=== PATIENT | male | born 1950 | race Caucasian/White ===

== ENCOUNTER → 2016-05-03 | Outpatient (CLI) | payer BC ==
[2016-05-03 12:29] LABS: URINE APPEARANCE CLEAR (CLEAR); URINE BILIRUBIN NEG (NEG); URINE COLOR YELLOW; URINE EPITHELIAL CELL AUTO 0-5 /lpf (0-5); URINE NITRITE NEG (NEG); URINE PH 5.5 (4.5-7.5); URINE SPECIFIC GRAVITY 1.019 (1.000-1.030); UROBILINOGEN NEG (NEG); ZZUR CULT IF INDIC CLEAN CATCH NO
[2016-05-03 12:42] LABS: MANUAL MICROSCOPIC REQUIRED? NO; REVIEW REQ? NO
[2016-05-03 12:43] LABS: ESTIMATED AVERAGE GLUCOSE 91 mg/dl; HA1C FLAG Normal (Normal)
[2016-05-03 12:47] LABS: PROSTATE SPECIFIC ANTIGEN 1.56 ng/ml (0.000-4.000); THYROID STIMULATING HORMONE 1.22 uIu/ml (0.300-4.500)
--- NOTE | 2016-05-08 06:36 | CODING QUERY MEDICAL NECESSITY ---
SUPPORTING DIAGNOSIS NEEDED A supporting diagnosis is required for the test/procedure performed on this patient in order for us to be reimbursed by the patient's insurance. Please provide a supporting diagnosis for the following test/procedure listed below next to the test name along with your signature. *If there is no additional diagnosis for this patient that would support the following test/procedure please document that below next to the test/procedure. Test(s)/Procedure(s) that require a supporting diagnosis: DOS 05/03 * PSA DIAGNOSIS: Provider Signature: Date: Thank you Jackie August [facility] Information Management Once completed, please kindly fax back to [phone] For questions please call [phone]
== END | disposition home or self-care (01) ==
LOC: C.LABBFT 10:48
PROVIDERS: ATTEND Internal Medicine
DX: R73.09 Other abnormal glucose (principal); R39.9 Unspecified symptoms and signs involving the genitourinary system; E78.5 Hyperlipidemia, unspecified; N52.9 Male erectile dysfunction, unspecified; R73.01 Impaired fasting glucose; Z12.5 Encounter for screening for malignant neoplasm of prostate

== ENCOUNTER → 2017-07-05 | Outpatient (CLI) | payer BC ==
[2017-07-05 12:30] LABS: ALBUMIN 4.2 gm/dl (3.4-5.0); ALT/SGPT 26 U/L (12-78); AST/SGOT 18 U/L (15-37); BLOOD UREA NITROGEN 10 mg/dl (7-18); CALCIUM 8.7 mg/dl (8.5-10.1); CARBON DIOXIDE 24 mmol/L (21-32); CHOLESTEROL 189 mg/dl (0-200); GLUCOSE 100 mg/dl (70-99); POTASSIUM 3.7 mmol/L (3.5-5.1); SODIUM 137 mmol/L (136-145)
[2017-07-05 12:35] LABS: ALKALINE PHOSPHATASE 73 U/L (45-117); LDL CHOLESTEROL CALCULATED 122 mg/dl
== END | disposition home or self-care (01) ==
LOC: C.LABBFT 09:04
PROVIDERS: ATTEND Internal Medicine
DX: Z00.00 Encounter for general adult medical examination without abnormal findings (principal); Z12.5 Encounter for screening for malignant neoplasm of prostate; E78.5 Hyperlipidemia, unspecified; I65.29 Occlusion and stenosis of unspecified carotid artery; N52.9 Male erectile dysfunction, unspecified

== ENCOUNTER 2020-12-27 09:52 | Inpatient (IN) ==
[2020-12-27] MEDS ORDERED: dexAMETHasone**PF** 10 MG/ML VIAL IV ONE (10:01)
--- NOTE | 2020-12-27 10:29 | Emergency Department Note ---
Impression & Plan 2019 novel coronavirus-infected pneumonia (NCIP), Hypoxia ED Provider Note Provider: Arun Braun MD DATE OF SERVICE: 12/27/2020 CHIEF COMPLAINT: Hypoxia HISTORY OF PRESENT ILLNESS: Patient is a 70-year-old gentleman not vaccinated for Covid who reportedly tested positive just over 3 weeks ago (symptoms again around December 08) for Covid presenting today referred from the outpatient o ffice due to hypoxia. Seen multiple times here in the ER for initially some nausea complaints developing into some respiratory complaints. Patient states his nausea has resolved and he has been hydrating well. Reports a bit of pressure in his central chest of some coming and going the last several days. Followed up with his outpatient doctor today and was noted to be hypoxic on room air and placed on oxygen and sent here for further care. Was seen here in the ER 3 days ago and had a work-up including CTA of the chest without evidence of PE. Patient has been since that time on a short burst of steroid after initial dose of dexamethasone on the . Patient states he felt better the initial day or so but worsened the last day or 2 and feels very fatigued walking around. No syncope reported. His is reported to doing well at home. Denies any significant diarrhea at this time. States the diarrhea and fevers of earlier have resolved. REVIEW OF SYSTEMS: A total of 10 review of systems was obtained and negative except as stated above in the HPI. PAST MEDICAL HISTORY: As noted above MEDICATIONS: Reviewed home medications SOCIAL HISTORY: Lives at home with PHYSICAL EXAM: GENERAL: alert and oriented in no acute distress on stretcher Head: normocephalic and atraumatic EYES: No injection, discharge or icterus. NECK: Trachea midline. LUNGS: Airway patent. No retractions with mild tachypnea HEART: Regular tachycardic rate and rhythm. No chest wall tenderness ABDOMEN: Soft and non-tender, without guarding or rebound. SKIN: Acyanotic, warm, dry, without rashes EXTREMITIES: Without swelling, tenderness or deformity NEUROLOGICAL: No focal deficits. No aphasia. No facial droop or slurred speech. Ambulatory. EK bpm sinus tachycardia. No PVC or PAC. No acute ST segment elevation or depression. QTC 470. CONTINUOUS CARDIAC MONITORING: was ordered and showed a heart rate of 90s to 120s bpm in normal sinus rhythm to sinus tachycardia Patient's laboratory studies and imaging reviewed. Differential includes Reactive airway disease, pneumonia, pneumothorax, COPD, CHF, infections, cardiac ischemia, pulmonary embolism, musculoskeletal, gastrointestinal, as well as other pathologies. IMPRESSION/MEDICAL DECISION MAKING: Patient somewhat recently Covid positive now with respiratory symptoms and hypoxia. 3 days ago had a negative CT of the chest and no feel the need to repeat at this time; minimal oxygen requirement at this point and really only needed with exertion. Basic labs and EKG were obtained. Patient initially had nausea and vomiting symptoms that he states have resolved at this time. Given a dose of dexamethasone here with his mild hypoxia. Chest x-ray obtained as well. Mild leukocytosis of 11.19. Mild transaminitis. Continues to test Covid positive. Negative urinalysis. No elevated troponin. Lower suspicion for bacterial component given the clinical history and Procalcitonin not significantly elevated thus will defer antibiotics at this point. Patient will need further care at the hospital given significant fatigue and hypoxia. Patient updated as well as the hospitalist team. DIAGNOSIS: COVID-19, hypoxia DISPOSITION: Hospitalist will evaluate Patient was agreeable with this plan. Past Med/Surg History Medical History Basal cell carcinoma of right ear BPH (benign prostatic hyperplasia) Hyperlipidemia Hypertension Surgical History History of colonoscopy with polypectomy History of tonsillectomy History of wisdom tooth extraction Status post Mohs surgery for basal cell carcinoma Family History Father Acute myocardial infarction Mother Breast cancer Other Myocardial infarction No family history of adverse response to anesthesia Denies family history of Ovarian cancer Prostate cancer Colorectal cancer Social History Smoking Status: Never smoker Age Started Using Tobacco: 18; Age Quit Using Tobacco: 27; packs per day: 1; Years Smoked: 9; Cigarettes Per Day: 20; Number of Years Since Quit: 12; Second Hand Exposure: No; Hx Alcohol Use: Yes Alcohol type: wine Hx Substance Use: No Preferred Language: Kazakh Communication Ability: Effective Visual Impairment: No Limitations Hearing Ability: Normal 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 Required: No Beliefs That Will Affect Care: None Current Living Situation: Spouse Feels Safe at Home: Yes Childhood Exposure to Second-Hand Smoke: Yes Dental Care, Regularly: Yes Physical Activity Frequency: Daily Seatbelt Use: always Assistive Devices: Glasses Allergies Allergies Allergy/AdvReac Type Severity Reaction Status Date / Time sulfamethoxazole Allergy Unknown Unknown Verified 12/27/20 11:04 [From Bactrim] trimethoprim [From Bactrim] Allergy Unknown Unknown Verified 12/27/20 11:04 Home Meds Home Medications Medication Instructions Recorded Confirmed avwvohot-dyg-cheqm acid 300 1 tab PO WK 03/19/19 12/27/20 mcg-lycopene 600 mcg-lutein 300 mcg tablet (Men 50 Plus Multivitamin) aspirin 81 mg tablet,delayed 81 mg PO 3XWK tab 01/15/20 12/27/20 release (Aspirin Low Dose) psyllium husk 3.4 gram/5.4 gram 3 tsp PO DAILY PRN g 06/29/20 12/27/20 oral powder (Metamucil) losartan 50 mg-hydrochlorothiazide 1 tab PO QAM 12/18/20 12/27/20 12.5 mg tablet (Hyzaar) rosuvastatin 20 mg tablet (Crestor) 20 mg PO QDL 12/18/20 12/27/20 Previous Rx's Medication Instructions Recorded ondansetron 4 mg disintegrating 4 mg PO Q8H PRN #10 tab 12/18/20 tablet potassium chloride 20 mEq 20 meq PO DAILY #10 tab 12/20/20 tablet,extended release (K-Tab) albuterol sulfate 90 mcg/actuation 2 inh INHALATION Q6H PRN #8.5 g 12/24/20 aerosol inhaler (Proventil HFA) prednisone 20 mg tablet 20 mg PO BID 5 Days #10 tab 12/27/20 Results & Data (ED) Vital Signs Vital Signs - 24 hr 12/27/20 09:52 12/27/20 09:56 12/27/20 10:01 Temperature 36.6 C Temperature Source Temporal Artery Scan Pulse Rate 114 H 72 Pulse Rate from SpO2 Sensor Pulse Rhythm Regular Respiratory Rate 18 20 Respiratory Effort / Characteristics Non-Labored Non-Labored Respiratory Depth Normal Normal Respiratory Pattern Regular Blood Pressure 162/97 H Blood Pressure Mean 118 Pulse Oximetry 87 L 94 Oxygen Delivery Method Room Air Room Air Room Air Sepsis Recent Fever Within 48 Hours No Sepsis New/Unexplained Change in Mental Status No Sepsis Action Taken by Nursing No Action Required 12/27/20 10:07 12/27/20 10:10 12/27/20 10:20 Temperature Temperature Source Pulse Rate 104 H Pulse Rate from SpO2 Sensor 106 H 102 H Pulse Rhythm Respiratory Rate 30 H 20 24 Respiratory Effort / Characteristics Respiratory Depth Respiratory Pattern Blood Pressure Blood Pressure Mean Pulse Oximetry 92 92 Oxygen Delivery Method Sepsis Recent Fever Within 48 Hours Sepsis New/Unexplained Change in Mental Status Sepsis Action Taken by Nursing 12/27/20 10:30 12/27/20 10:40 12/27/20 10:50 Temperature Temperature Source Pulse Rate 101 H 105 H 102 H Pulse Rate from SpO2 Sensor 100 H 105 H 102 H Pulse Rhythm Respiratory Rate 17 24 23 Respiratory Effort / Characteristics Respiratory Depth Respiratory Pattern Blood Pressure Blood Pressure Mean Pulse Oximetry 92 89 L 92 Oxygen Delivery Method Sepsis Recent Fever Within 48 Hours Sepsis New/Unexplained Change in Mental Status Sepsis Action Taken by Nursing 12/27/20 11:00 12/27/20 11:10 12/27/20 11:20 Temperature Temperature Source Pulse Rate 115 H 99 H 105 H Pulse Rate from SpO2 Sensor 113 H 99 H 105 H Pulse Rhythm Respiratory Rate 22 24 24 Respiratory Effort / Characteristics Respiratory Depth Respiratory Pattern Blood Pressure Blood Pressure Mean Pulse Oximetry 92 93 94 Oxygen Delivery Method Sepsis Recent Fever Within 48 Hours Sepsis New/Unexplained Change in Mental Status Sepsis Action Taken by Nursing 12/27/20 11:30 12/27/20 11:40 12/27/20 11:50 Temperature Temperature Source Pulse Rate 88 83 92 H Pulse Rate from SpO2 Sensor 89 83 92 H Pulse Rhythm Respiratory Rate 22 26 H 20 Respiratory Effort / Characteristics Respiratory Depth Respiratory Pattern Blood Pressure Blood Pressure Mean Pulse Oximetry 96 94 95 Oxygen Delivery Method Sepsis Recent Fever Within 48 Hours Sepsis New/Unexplained Change in Mental Status Sepsis Action Taken by Nursing 12/27/20 12:00 12/27/20 12:10 12/27/20 12:20 Temperature Temperature Source Pulse Rate 97 H 93 H 82 Pulse Rate from SpO2 Sensor 85 92 H 81 Pulse Rhythm Respiratory Rate 27 H 23 24 Respiratory Effort / Characteristics Respiratory Depth Respiratory Pattern Blood Pressure 161/100 H Blood Pressure Mean 120 Pulse Oximetry 96 94 96 Oxygen Delivery Method Sepsis Recent Fever Within 48 Hours Sepsis New/Unexplained Change in Mental Status Sepsis Action Taken by Nursing 12/27/20 12:30 12/27/20 12:40 12/27/20 12:50 Temperature Temperature Source Pulse Rate 87 88 90 Pulse Rate from SpO2 Sensor 88 89 90 Pulse Rhythm Respiratory Rate 31 H 22 17 Respiratory Effort / Characteristics Respiratory Depth Respiratory Pattern Blood Pressure 160/104 H Blood Pressure Mean 122 Pulse Oximetry 96 96 95 Oxygen Delivery Method Sepsis Recent Fever Within 48 Hours Sepsis New/Unexplained Change in Mental Status Sepsis Action Taken by Nursing 12/27/20 13:00 Temperature Temperature Source Pulse Rate 87 Pulse Rate from SpO2 Sensor 86 Pulse Rhythm Respiratory Rate Respiratory Effort / Characteristics Respiratory Depth Respiratory Pattern Blood Pressure Blood Pressure Mean Pulse Oximetry 96 Oxygen Delivery Method Sepsis Recent Fever Within 48 Hours Sepsis New/Unexplained Change in Mental Status Sepsis Action Taken by Nursing Laboratory Data Result diagrams: 12/27/20 10:12/27/20 10: Lab Results 12/27/20 12/27/20 12/27/20 Range/Units 10: 10: 10: WBC 11.19 H (4.8-10.8) K/uL RBC 4.21 L (4.7-6.1) M/uL Hgb 15.2 (14.0-18.0) g/dL Hct 41.5 L (42-52) % MCV 98.6 (80-100) fL MCH 36.1 H (25-34) pg MCHC 36.6 H (32-36) g/dL RDW Std Deviation 44.2 (36.4-46.3) fL RDW Coeff of Corby 12.2 (11.5-14.5) % Plt Count 441 H (130-400) K/uL MPV 9.6 (7.4-10.4) fL Immature Gran % (Auto) 0.9 % Neut % (Auto) 83.2 % Lymph % (Auto) 13.5 % [place] % (Auto) 2.3 % Eos % (Auto) 0.1 % Baso % (Auto) 0.0 % Neut # (Auto) 9.31 H (1.4-6.5) K/uL Lymph # (Auto) 1.51 (1.2-3.4) K/uL [place] # (Auto) 0.26 (0.11-0.59) K/uL Eos # (Auto) 0.01 (0-0.5) K/uL Baso # (Auto) 0.00 (0-0.2) K/uL Immature Gran # (Auto) 0.10 H (0.00-0.02) K/uL PT 10.4 (9.0-12.0) Seconds INR 1.0 (0.9-1.1) Sodium 134 L (136-145) mmol/L Potassium 3.4 L (3.5-5.1) mmol/L Chloride 105 (98-107) mmol/L Carbon Dioxide 21 (21-32) mmol/L Anion Gap 9.0 (3-11) BUN 9 (7-18) mg/dl Creatinine 0.72 (0.6-1.4) mg/dl Est Cr Clr Drug Dosing 114.1 ml/min Est GFR ( Amer) 108.0 ml/min Est GFR (Non-Af Amer) 93.2 ml/min BUN/Creatinine Ratio 11.8 (10-20) Glucose 90 (70-99) mg/dl Calcium 8.5 (8.5-10.1) mg/dl Magnesium 2.3 (1.8-2.4) mg/dl Total Bilirubin 1.1 H (0.2-1) mg/dl AST 49 H (15-37) U/L ALT 121 H (12-78) U/L Alkaline Phosphatase 77 (45-117) U/L Troponin I < 0.015 (0-0.045) ng/ml NT-Pro-B Natriuret Pep (0-900) pg/ml Total Protein 7.3 (6.4-8.2) gm/dl Albumin 2.7 L (3.4-5.0) gm/dl Globulin 4.6 H (2.5-4.0) gm/dl Albumin/Globulin Ratio 0.6 L (0.9-2) Procalcitonin (0-0.5) ng/ml COVID-19 Eval Order SARS-CoV-2 (PCR) (Negative) 12/27/20 12/27/20 12/27/20 Range/Units 10:28 10:28 10:28 WBC (4.8-10.8) K/uL RBC (4.7-6.1) M/uL Hgb (14.0-18.0) g/dL Hct (42-52) % MCV (80-100) fL MCH (25-34) pg MCHC (32-36) g/dL RDW Std Deviation (36.4-46.3) fL RDW Coeff of Corby (11.5-14.5) % Plt Count (130-400) K/uL MPV (7.4-10.4) fL Immature Gran % (Auto) % Neut % (Auto) % Lymph % (Auto) % [place] % (Auto) % Eos % (Auto) % Baso % (Auto) % Neut # (Auto) (1.4-6.5) K/uL Lymph # (Auto) (1.2-3.4) K/uL Highland # (Auto) (0.11-0.59) K/uL Eos # (Auto) (0-0.5) K/uL Baso # (Auto) (0-0.2) K/uL Immature Gran # (Auto) (0.00-0.02) K/uL PT (9.0-12.0) Seconds INR (0.9-1.1) Sodium (136-145) mmol/L Potassium (3.5-5.1) mmol/L Chloride (98-107) mmol/L Carbon Dioxide (21-32) mmol/L Anion Gap (3-11) BUN (7-18) mg/dl Creatinine (0.6-1.4) mg/dl Est Cr Clr Drug Dosing ml/min Est GFR ( Amer) ml/min Est GFR (Non-Af Amer) ml/min BUN/Creatinine Ratio (10-20) Glucose (70-99) mg/dl Calcium (8.5-10.1) mg/dl Magnesium (1.8-2.4) mg/dl Total Bilirubin (0.2-1) mg/dl AST (15-37) U/L ALT (12-78) U/L Alkaline Phosphatase (45-117) U/L Troponin I (0-0.045) ng/ml NT-Pro-B Natriuret Pep (0-900) pg/ml Total Protein (6.4-8.2) gm/dl Albumin (3.4-5.0) gm/dl Globulin (2.5-4.0) gm/dl Albumin/Globulin Ratio (0.9-2) Procalcitonin < 0.05 (0-0.5) ng/ml COVID-19 Eval Order Covid19 at [facility] SARS-CoV-2 (PCR) POSITIVE A* (Negative) 12/27/20 Range/Units 10:28 WBC (4.8-10.8) K/uL RBC (4.7-6.1) M/uL Hgb (14.0-18.0) g/dL Hct (42-52) % MCV (80-100) fL MCH (25-34) pg MCHC (32-36) g/dL RDW Std Deviation (36.4-46.3) fL RDW Coeff of Corby (11.5-14.5) % Plt Count (130-400) K/uL MPV (7.4-10.4) fL Immature Gran % (Auto) % Neut % (Auto) % Lymph % (Auto) % [place] % (Auto) % Eos % (Auto) % Baso % (Auto) % Neut # (Auto) (1.4-6.5) K/uL Lymph # (Auto) (1.2-3.4) K/uL [place] # (Auto) (0.11-0.59) K/uL Eos # (Auto) (0-0.5) K/uL Baso # (Auto) (0-0.2) K/uL Immature Gran # (Auto) (0.00-0.02) K/uL PT (9.0-12.0) Seconds INR (0.9-1.1) Sodium (136-145) mmol/L Potassium (3.5-5.1) mmol/L Chloride (98-107) mmol/L Carbon Dioxide (21-32) mmol/L Anion Gap (3-11) BUN (7-18) mg/dl Creatinine (0.6-1.4) mg/dl Est Cr Clr Drug Dosing ml/min Est GFR ( Amer) ml/min Est GFR (Non-Af Amer) ml/min BUN/Creatinine Ratio (10-20) Glucose (70-99) mg/dl Calcium (8.5-10.1) mg/dl Magnesium (1.8-2.4) mg/dl Total Bilirubin (0.2-1) mg/dl AST (15-37) U/L ALT (12-78) U/L Alkaline Phosphatase (45-117) U/L Troponin I (0-0.045) ng/ml NT-Pro-B Natriuret Pep 388 (0-900) pg/ml Total Protein (6.4-8.2) gm/dl Albumin (3.4-5.0) gm/dl Globulin (2.5-4.0) gm/dl Albumin/Globulin Ratio (0.9-2) Procalcitonin (0-0.5) ng/ml COVID-19 Eval Order SARS-CoV-2 (PCR) (Negative) Administered Medications Potassium Chloride (Potassium Chloride Crtab 20 Meq Tabcr) 20 meq PO TID GUNNER Stop: 12/28/20 14:01 Last Admin: 12/27/20 16:06 Dose: 20 meq Documented by: [id number] Discontinued Medications Dexamethasone Sodium Phosphate (DexamethasonePf 10 Mg/Ml Vial) 6 mg IV NOW ONE Stop: 12/27/20 10:02 Last Admin: 12/27/20 10:26 Dose: 6 mg Documented by: [id number] Furosemide (Furosemide 40 Mg/4 Ml Vial) 40 mg IV NOW STA Stop: 12/27/20 13:50 Last Admin: 12/27/20 14:10 Dose: 40 mg Documented by: [id number] Losartan Potassium (Losartan Potassium 50 Mg Tab) 50 mg PO ONE STA Stop: 12/27/20 13:47 Last Admin: 12/27/20 14:09 Dose: 50 mg Documented by: [id number] Imaging Data Radiologist's Impression: Chest X-Ray 12/27/20 10:01 XR chest 1V portable CLINICAL HISTORY: Dyspnea, COVId, hypoxia COMPARISON STUDY: Chest radiograph and chest CT December 24, 2020. FINDINGS: Lung volumes are normal. There is no pneumothorax or pleural effusion. Cardiomegaly is unchanged. Moderate bilateral airspace opacities have increased since prior chest radiograph and chest CT. There is no evidence for pulmonary edema. IMPRESSION: Progression of bilateral airspace opacities consistent with viral pneumonia. ACT 112: Negative or not required by law. Electronically signed by: Felipe Jay M.D. 12/27/2020 10:48 AM Discharge Plan Visit Data Chief Complaint: Respiratory Problems Stated Complaint: RESP ISSUES ED Provider: Arun Braun Discharge Problem: 2019 novel coronavirus-infected pneumonia (NCIP), Hypoxia Patient Disposition: Admitted As Inpatient Discharge Instructions Interventions: ED Discharge Assessment Last Done: 12/27/20 16:34
[2020-12-27 10:48] LABS: Eosinophils # (auto) 0.01 K/uL (0-0.5); Eosinophils % (auto) 0.1 %; Hematocrit (blood only) 41.5 % (42-52); Hemoglobin 15.2 g/dL (14.0-18.0); Immature Granulocytes % (auto) 0.9 %; Lymphocytes # (auto) 1.51 K/uL (1.2-3.4); Lymphocytes % (auto) 13.5 %; Mean Corpuscular Hemoglobin 36.1 pg (25-34); Mean Corpuscular Hgb Conc 36.6 g/dL (32-36); Mean Corpuscular Volume 98.6 fL (80-100); Mean Platelet Volume 9.6 fL (7.4-10.4); Monocytes # (auto) 0.26 K/uL (0.11-0.59); Monocytes % (auto) 2.3 %; Neutrophils # (auto) 9.31 K/uL (1.4-6.5); Neutrophils % (auto) 83.2 %; Platelet Count 441 K/uL (130-400); RDW Coefficient of Variation 12.2 % (11.5-14.5); RDW Standard Deviation 44.2 fL (36.4-46.3); Red Blood Count 4.21 M/uL (4.7-6.1); White Blood Count 11.19 K/uL (4.8-10.8)
--- NOTE | 2020-12-27 10:49 | XRay Report ---
XR chest 1V portable CLINICAL HISTORY: Dyspnea, COVId, hypoxia COMPARISON STUDY: Chest radiograph and chest CT December 24, 2020. FINDINGS: Lung volumes are normal. There is no pneumothorax or pleural effusion. Cardiomegaly is unch anged. Moderate bilateral airspace opacities have increased since prior chest radiograph and chest CT . There is no evidence for pulmonary edema. IMPRESSION: Progression of bilateral airspace opacities consistent with viral pneumonia. ACT 112: Negative or not required by law. Electronically signed by: Felipe Jay M.D. 12/27/2020 10:48 AM
[2020-12-27 10:59] LABS: Prothrombin Time 10.4 Seconds (9.0-12.0)
[2020-12-27 11:05] LABS: Alanine Aminotransferase 121 U/L (12-78); Albumin Level 2.7 gm/dl (3.4-5.0); Aspartate Aminotransferase 49 U/L (15-37); BUN Creatinine Ratio 11.8 (10-20); Blood Urea Nitrogen 9 mg/dl (7-18); Calcium 8.5 mg/dl (8.5-10.1); Carbon Dioxide 21 mmol/L (21-32); Chloride 105 mmol/L (98-107); Creatinine Clr Calc Pharmacy 114.1 ml/min; Est GFR (Non-African American) 93.2 ml/min; Glucose 90 mg/dl (70-99); Magnesium 2.3 mg/dl (1.8-2.4); Potassium 3.4 mmol/L (3.5-5.1); Sodium 134 mmol/L (136-145)
[2020-12-27 11:09] LABS: Albumin Globulin Ratio 0.6 (0.9-2); Alkaline Phosphatase 77 U/L (45-117); Bilirubin,Total 1.1 mg/dl (0.2-1); Globulin 4.6 gm/dl (2.5-4.0); Total Protein 7.3 gm/dl (6.4-8.2); Troponin I < 0.015 ng/ml (0-0.045)
[2020-12-27] MEDS ORDERED: LOSARTAN POTASSIUM 50 MG TAB PO STA (13:46)
[2020-12-27] MEDS ORDERED: FUROSEMIDE 40 MG/4 ML VIAL IV STA (13:49)
[2020-12-27] MEDS ORDERED: ONDANSETRON 4 MG OD TAB PO PRN (13:56)
[2020-12-27] MEDS ORDERED: PSYLLIUM 58.6% POWDER PACKET PO PRN (13:57)
--- NOTE | 2020-12-27 14:12 | History & Physical Report ---
Date of Service December 27, 2020 Assessment & Plan (1) COVID-19: Plan: Patient appears to have COVID 19 pneumonia. Initially concern over Pulmonary emboli, however his symptoms did not vary from Saturday when he had a negative CT scan from P/E. Another note is that patient's hypoxia improved in the ER. There is concern that he may have another viral infection, ordered BIOFIRE. Doubt bacterial infection due to negative PROCAL Patient may benefit from a 2 step tomorow. Will continue dexamethasone. (2) Hypokalemia: Plan: replenished. (3) Hyperlipidemia: Plan: resume home meds (4) Hypertension: Plan: resume home meds History of Present Illness Chief Complaint: COVID Primary Care Provider: Noman Dougherty MD This is a pleasant 70 year old male who comes in with SOB and hypoxia. He was diagnosed with COVID 19 in December 07. Patient reports having SOB, generalized malaise and fatigue since his diagnosis. Patient reports that last Saturday he had a significant improvement after waking up with his bed soaked in sweats. However on Saturday he again felt SOB and weak, with fatigue. This prompted him to come to the ER on Saturday. Patient was sent home on prednsione 20 mg PO BID for 5 day course. He did not take his morning meds this AM. Today at his PCP office, he was found vijay hypoxic, and was told to go to the ER. He required 6 liters nasal cannula. Admission was called. Allergies Allergy/AdvReac Type Severity Reaction Status Date / Time sulfamethoxazole Allergy Unknown Unknown Verified 12/27/20 11:04 [From Bactrim] trimethoprim [From Bactrim] Allergy Unknown Unknown Verified 12/27/20 11:04 Home Medications Medication Instructions Recorded Confirmed Type mtutpndw-apg-gbplg acid 300 1 tab PO WK 03/19/19 12/27/20 History mcg-lycopene 600 mcg-lutein 300 mcg tablet (Men 50 Plus Multivitamin) aspirin 81 mg tablet,delayed 81 mg PO 3XWK tab 01/15/20 12/27/20 History release (Aspirin Low Dose) psyllium husk 3.4 gram/5.4 gram 3 tsp PO DAILY PRN g 06/29/20 12/27/20 History oral powder (Metamucil) losartan 50 mg-hydrochlorothiazide 1 tab PO QAM 12/18/20 12/27/20 History 12.5 mg tablet (Hyzaar) ondansetron 4 mg disintegrating 4 mg PO Q8H PRN #10 tab 12/18/20 12/27/20 Rx tablet rosuvastatin 20 mg tablet (Crestor) 20 mg PO QDL 12/18/20 12/27/20 History potassium chloride 20 mEq 20 meq PO DAILY #10 tab 12/20/20 12/27/20 Rx tablet,extended release (K-Tab) albuterol sulfate 90 mcg/actuation 2 inh INHALATION Q6H PRN #8.5 g 12/24/20 12/27/20 Rx aerosol inhaler (Proventil HFA) prednisone 20 mg tablet 20 mg PO BID 5 Days #10 tab 12/27/20 12/27/20 Rx Past Med/Surg History Medical History Basal cell carcinoma of right ear BPH (benign prostatic hyperplasia) Hyperlipidemia Hypertension Surgical History History of colonoscopy with polypectomy History of tonsillectomy History of wisdom tooth extraction Status post Mohs surgery for basal cell carcinoma Family History Father Acute myocardial infarction Mother Breast cancer Other Myocardial infarction No family history of adverse response to anesthesia Denies family history of Ovarian cancer Prostate cancer Colorectal cancer Social History Smoking Status: Former smoker Age Started Using Tobacco: 18; Age Quit Using Tobacco: 27; packs per day: 1; Years Smoked: 9; Cigarettes Per Day: 20; Number of Years Since Quit: 12; Second Hand Exposure: No; Do You Dip or Chew Tobacco: No; Hx Alcohol Use: Yes Alcohol type: wine Hx Substance Use: No Preferred Language: Faroese Communication Ability: Effective Visual Impairment: No Limitations Hearing Ability: Normal Professor 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 Required: No Beliefs That Will Affect Care: None Current Living Situation: Spouse Feels Safe at Home: Yes Safety Concerns: Feels Safe At This Time Childhood Exposure to Second-Hand Smoke: Yes Dental Care, Regularly: Yes Physical Activity Frequency: Daily Seatbelt Use: always Assistive Devices: Glasses Review of Systems Constitutional: + fever, + chills, + fatigue and + malaise Eyes: no blind spots and no discharge Ear, Nose, Mouth, Throat: no ear pain and no tinnitus Respiratory: + cough, + chest congestion, + dyspnea and + dyspnea on exertion Cardiovascular: no chest pain and no chest pain with activity Gastrointestinal: no abdominal pain and no early satiety Genitourinary: no dysuria Musculoskeletal: no back pain and no loss of height Integumentary: no acne Neurologic: no gait abnormality and no falls Psychiatric: no behavioral changes and no hopelessness Endocrine: no polydipsia Hematologic / Lymphatic: no easy bleeding Physical Exam Constitutional: WD/WN, vitals as above Eyes: PERRL, conjunctivae normal, anicteric sclerae ENMT: external ear and nose normal, oropharynx normal Neck: trachea midline, no thyromegaly Respiratory: + labored breathing Auscultation: + crackles (bilateral bases) Cardiovascular: RRR, no murmur, no edema Gastrointestinal (Abdomen): normal bowel sounds, soft, nontender, no hepatosplenomegaly Musculoskeletal: no cyanosis or clubbing, extremities motor strength 5/5 Skin: no rashes, warm and dry Neurologic: PERRL, EOMI, accommodation nl, no face palsy, no dysarthria Psychiatric: A+Ox3, euthymic affect Lymphatic: no cervical or axillary lymphadenopathy Results & Data Results & Data ([facility]) Vital Signs (Past 12 Hours) Vital Signs Temp Pulse Resp BP Pulse Ox 12/27/20 12:30 87 31 H 160/104 H 96 12/27/20 12:20 82 24 96 12/27/20 12:10 93 H 23 94 12/27/20 12:00 97 H 27 H 161/100 H 96 12/27/20 11:50 92 H 20 95 12/27/20 11:40 83 26 H 94 12/27/20 11:30 88 22 96 12/27/20 11:20 105 H 24 94 12/27/20 11:10 99 H 24 93 12/27/20 11:00 115 H 22 92 12/27/20 10:50 102 H 23 92 12/27/20 10:40 105 H 24 89 L 12/27/20 10:30 101 H 17 92 12/27/20 10:20 104 H 24 12/27/20 10:10 20 92 12/27/20 10:07 30 H 92 12/27/20 10:01 72 20 94 12/27/20 09:56 36.6 C 114 H 18 162/97 H 87 L PG Care Time/CCT Total # of Minutes Spent Total Time Spent with Patient: Total time spent is greater than 50% in coordination of care (as documented) at patient's floor/unit and/or counseling patient: Coding Level of Care Code 89226 Initial Inpt Care Lvl 3 Diagnoses COVID-19 U07.1 Hypokalemia E87.6 Hyperlipidemia E78.5 Hypertension I10 Hypertension type: essential hypertension (1) Hypertension Hypertension type: essential hypertension Qualified Code(s): I10 - Essential (primary) hypertension
[2020-12-27] MEDS: POTASSIUM CHLORIDE CRTAB 20 MEQ TABCR PO SCH ×2 (16:06→20:10)
[2020-12-27 16:22] LABS: Appearance Urine Clear (Clear); Bilirubin Urine Negative (Negative); Blood Urine Negative (Negative); Color Urine Yellow; Glucose Urine UA Negative (Negative); Ketones Urine Negative (Negative); Leukocyte Esterase Urine Negative (Negative); Nitrite Urine Negative (Negative); Protein Urine Negative (Negative); Specific Gravity Urine 1.008 (1.000-1.030); Urobilinogen Urine Negative (Negative)
[2020-12-27] MEDS: LEVALBUTEROL HCL 1.25 MG/3 ML NEB NEB SCH (19:31)
[2020-12-27 19:52] LABS: Adenovirus PCR Not Detected (NotDetected); Bordetella parapertussis PCR Not Detected (NotDetected); Bordetella pertussis PCR Not Detected (NotDetected); Chlamydia pneumoniae PCR Not Detected (NotDetected); Coronavirus 229E PCR Not Detected (NotDetected); Coronavirus HKU1 PCR Not Detected (NotDetected); Coronavirus NL63 PCR Not Detected (NotDetected); Coronavirus OC43PCR Not Detected (NotDetected); Human Metapneumovirus PCR Not Detected (NotDetected); Influenza A PCR Not Detected (NotDetected); Influenza B PCR Not Detected (NotDetected); Mycoplasma pneumoniae PCR Not Detected (NotDetected); Parainfluenza Virus 1 PCR Not Detected (NotDetected); Parainfluenza Virus 2 PCR Not Detected (NotDetected); Parainfluenza Virus 3 PCR Not Detected (NotDetected); Parainfluenza Virus 4 PCR Not Detected (NotDetected); Respiratory Syncytial VirusPCR Not Detected (NotDetected); Rhinovirus/Enterovirus PCR Not Detected (NotDetected)
[2020-12-27 20:19] LABS: Coronavirus CoV-2 (COVID19)PCR DETECTED (NotDetected)
[2020-12-27] MEDS: IBUPROFEN 600 MG TAB PO PRN (21:16)
[2020-12-28] MEDS: LEVALBUTEROL HCL 1.25 MG/3 ML NEB NEB SCH ×4 (00:28→20:02)
--- NOTE | 2020-12-28 07:44 | Hospitalist Progress Note ---
Date of Service December 28, 2020 Assessment & Plan (1) COVID-19: Plan: Patient appears to have COVID 19 pneumonia, initial test positive 3 weeks prior to presentation approx December 08 Initially concern over Pulmonary emboli, 12/24/[address] scan from P/E.hypoxia improved in the ER. BIOFIRE negative with exception for SARs cov 2. Doubt bacterial infection due to negative PROCAL Will continue dexamethasone. lovenox for dvt prevention Patient is much concerned about going home. Is having increased diarrhea. We will watch for an additional 12 to 24 hours if oxygen demand is not go up patient likely go home on oral dexamethasone. (2) Hypokalemia: Plan: replenished. (3) Hyperlipidemia: Plan: continues on high dose crestor (4) Hypertension: Plan: typically takes losartan hctz remains on aspirin for secondary risk reduction (5) DVT prophylaxis: Plan: lovenox for dvt prevention Admission and Anticipated Discharge Date Admission Date: December 27, 2020 Subjective Patient states he feels improved when he came in although feels heartburn and nauseous today. He is having diarrhea-regaining some of his taste and smell. He is very concerned about going home due to his Covid pneumonia diagnosis and concerns for deterioration. Review of Systems Review of Systems: Mild distress and fatigue no headache, no visual changes no speech or swallowing issues Substernal chest pain described as dyspepsia associated with nausea, no description of chest pressure or palpitations no shortness of breath, cough or wheezes no abdominal pain, dyspepsia and nausea but no vomiting, is having some diarrhea no dysuria, hematuria or frequency no focal joint pain or swelling no back pain, CVA tenderness or radicular pain no bruising, bleeding or rashes no focal signs of weakness or numbness or altered sensation no complaints of anxiety or depression.. Physical Exam Physical Exam: The patient appeared well nourished and normally developed. May be some mild respiratory distress with increased respiratory rate Vital signs as documented. Head exam is normocephalic atraumatic Neck is without JVD, thyromegaly, or carotid bruits. Lungs are fine rales at the bases, no focal loss of breath sounds Cardiac exam, Rhythm is regular.. No murmurs, rubs or gallops. Abdominal exam reveals normal bowel sounds, soft non tender, no masses Extremities are nonedematous and both pedal pulses are present Neurologic exam is alert and oriented, no focal loss of strength or sensation Skin is without bruises or rashes Psychologically is without concerns for anxiety or depression Results & Data Results & Data ([facility]) Vital Signs (Past 12 Hours) Vital Signs Temp Pulse Resp BP Pulse Ox 12/28/20 07:17 91 H 18 93 12/28/20 07:13 97.9 F 110 H 18 127/82 95 12/28/20 04:00 97.5 F L 98 H 118/91 94 12/28/20 00:28 85 16 94 12/27/20 23:24 98.4 F 85 122/72 94 12/27/20 23:19 97.5 F L 80 19 125/76 94 12/27/20 20:00 97.9 F 102 H 128/90 92 PG Care Time/CCT Total # of Minutes Spent Total Time Spent with Patient: Total time spent is greater than 50% in coordination of care (as documented) at patient's floor/unit and/or counseling patient: Coding Level of Care Code 12851 Subseq Hosp Care Lvl 2 Diagnoses COVID-19 U07.1 Hypokalemia E87.6 Hyperlipidemia E78.5 Hypertension I10 Hypertension type: essential hypertension DVT prophylaxis Z29.9 (1) Hypertension Hypertension type: essential hypertension Qualified Code(s): I10 - Essential (primary) hypertension
[2020-12-28 08:41] LABS: BUN Creatinine Ratio 21.1 (10-20); C Reactive Protein 7.25 mg/dl (0-0.29); Calcium 8.4 mg/dl (8.5-10.1); Creatinine Clr Calc Pharmacy 102.7 ml/min; Est GFR (African American) 105.1 ml/min; Est GFR (Non-African American) 90.7 ml/min; Magnesium 2.5 mg/dl (1.8-2.4); Potassium 3.4 mmol/L (3.5-5.1)
[2020-12-28] MEDS: ENOXAPARIN INJ 40 MG/0.4 ML SYR SQ SCH (08:43)
[2020-12-28] MEDS: dexAMETHasone 6 MG in SYRINGE 0 ML IV SCH (08:44)
[2020-12-28] MEDS: ROSUVASTATIN CALCIUM 20 MG TAB PO SCH (08:45)
[2020-12-28] MEDS: LOSARTAN/HCTZ 50/12.5MG TAB PO SCH (08:46)
[2020-12-28] MEDS: POTASSIUM CHLORIDE CRTAB 20 MEQ TABCR PO SCH ×3 (08:47→15:28)
[2020-12-28] MEDS ORDERED: MULTIVITAMIN TAB PO SCH (09:00)
[2020-12-28] MEDS ORDERED: ASPIRIN 81 MG ECTAB PO SCH (09:00)
[2020-12-28] MEDS: IBUPROFEN 600 MG TAB PO PRN (11:30)
--- NOTE | 2020-12-28 13:20 | Electrocardiogram Report ---
Test Reason : Blood Pressure : / mmHG Vent. Rate : 104 BPM Atrial Rate : 104 BPM P-R Int : 130 ms QRS Dur : 090 ms QT Int : 358 ms P-R-T Axes : 041 008 079 degrees QTc Int : 470 ms Sinus tachycardia Minimal voltage criteria for LVH, may be normal variant Borderline ECG When compared with ECG of 24-DEC-2020 08:28, No significant change was found Confirmed by Humberto Siddiqui ([id number]) on 12/28/2020 1:19:50 PM Referred By: REFERRED SELF Confirmed By:Humberto Siddiqui
[2020-12-28] MEDS ORDERED: ALUMINUM/MAGNESIUM SUSP 30 ML UDC PO PRN (14:22)
[2020-12-28] MEDS: ACETAMINOPHEN 325 MG TAB PO PRN (20:15)
[2020-12-29] MEDS: ENOXAPARIN INJ 40 MG/0.4 ML SYR SQ SCH (08:15)
[2020-12-29] MEDS: LOSARTAN/HCTZ 50/12.5MG TAB PO SCH (08:15)
[2020-12-29] MEDS: POTASSIUM CHLORIDE CRTAB 20 MEQ TABCR PO SCH (08:15)
[2020-12-29] MEDS: ACETAMINOPHEN 325 MG TAB PO PRN (08:26)
--- NOTE | 2020-12-29 08:49 | XRay Report ---
XR chest 1V portable CLINICAL HISTORY: eval covid COMPARISON STUDY: Chest CT December 24, 2020. Chest radiograph December 27, 2020. FINDINGS: Lung volumes are normal. There has been slight improvement in bilateral airspace opacities. There is no pneumothorax or pleural effusion. Cardiac size is normal. Mediastinal contours are jose l. There is no evidence for pulmonary edema. IMPRESSION: Slight improvement in bilateral airspace opacities consistent with viral pneumonia. ACT 112: Negative or not required by law. Electronically signed by: Felipe Jay M.D. 12/29/2020 8:48 AM
[2020-12-29] MEDS: dexAMETHasone 6 MG in SYRINGE 0 ML IV SCH (11:25)
[2020-12-29] MEDS: ROSUVASTATIN CALCIUM 20 MG TAB PO SCH (11:27)
--- NOTE | 2020-12-29 19:10 | Discharge Summary ---
Date of Service December 29, 2020 Admission HPI Per Admitting Provider This is a pleasant 70 year old male who comes in with SOB and hypoxia. He was diagnosed with COVID 19 in December 07. Patient reports having SOB, generalized malaise and fatigue since his diagnosis. Patient reports that last Saturday he had a significant improvement after waking up with his bed soaked in sweats. However on Saturday he again felt SOB and weak, with fatigue. This prompted him to come to the ER on Saturday. Patient was sent home on prednsione 20 mg PO BID for 5 day course. He did not take his morning meds this AM. Today at his PCP office, he was found vijay hypoxic, and was told to go to the ER. He required 6 liters nasal cannula. Admission was called. Principal Diagnosis covid 19 infection viral pneumonia Discharge Exam The patient appeared well Vital signs as documented. Lungs are clear to auscultation and appear unlabored Cardiac exam, Rhythm is regular.. No murmurs, rubs or gallops. Abdominal exam reveals normal bowel sounds, soft non tender, no masses Extremities are nonedematous and both pedal pulses are normal. Neurologic exam is alert and oriented, no focal loss of strength or sensation Skin is without bruises or rashes Psychologically is without concerns for anxiety or depression. Discharge Data Allergies Allergy/AdvReac Type Severity Reaction Status Date / Time sulfamethoxazole Allergy Unknown Unknown Verified 12/27/20 11:04 [From Bactrim] trimethoprim [From Bactrim] Allergy Unknown Unknown Verified 12/27/20 11:04 Consultations 12/27/20 11:42 ED Decision to Admit Stat Hospital Course (1) COVID-19: Patient appears to have COVID 19 pneumonia, initial test positive 3 weeks prior to presentation approx December 08 Initially concern over Pulmonary emboli, 12/24/[address] scan from P/E.hypoxia improved in the ER. BIOFIRE negative with exception for SARs cov 2. Doubt bacterial infection due to negative PROCAL home on oral dexamethasone (2) Hypokalemia: replenished. (3) Hyperlipidemia: continues on high dose crestor (4) Hypertension: typically takes losartan hctz remains on aspirin for secondary risk reduction Total Time Total Time Spent Total Time Spent (In Minutes): It required greater than 30 minutes to prepare this patient for discharge Discharge Plan Discharge Items Patient Disposition: Home - Self-Care Reason For Visit: COVID 19,HYPOXIA Discharge Diagnosis: acute hypoxia covid pneumonia Activity: Per Instructions section Activity Comment: slowly increase activity Non-emergency contact: Primary Care Provider Call non-emergency contact if: you have any medication questions and your symptoms worsen Follow-up/Referrals: Noman Dougherty MD [Primary Care Provider] - 01/12/21 11:30 am Diet: Regular Addtl Attending Provider Instructions: Home Isolation COVID-19 Instructions, you should try not to be around other people who have not had covid until 01/07/21, if you cannot avoid being around other people wear a mask even indoors Take good care of yourself with good hydration, nutrition and rest The following information about Home Isolation is from the CDC Website: https://www.cdc.gov/coronavirus/2019-ncov/hcp/pkehjqsl-xsjqzlg-ehalqe.html Stay home except to get medical care People who are mildly ill with COVID-19 are able to isolate at home during their illness. You should restrict activities outside your home, except for getting medical care. Do not go to work, school, or public areas. Avoid using public transportation, ride-sharing, or taxis. Separate yourself from other people and animals in your home People: As much as possible, you should stay in a specific room and away from other people in your home. Also, you should use a separate bathroom, if available. Animals: You should restrict contact with pets and other animals while you are sick with COVID-19, just like you would around other people. Although there have not been reports of pets or other animals becoming sick with COVID-19, it is still recommended that people sick with COVID-19 limit contact with animals until more information is known about the virus. When possible, have another member of your household care for your animals while you are sick. If you are sick with COVID-19, avoid contact with your pet, including petting, snuggling, being kissed or licked, and sharing food. If you must care for your pet or be around animals while you are sick, wash your hands before and after you interact with pets and wear a face mask. Call ahead before visiting your doctor If you have a medical appointment, call the healthcare provider and tell them that you have or may have COVID-19. This will help the healthcare providers office take steps to keep other people from getting infected or exposed. Wear a face mask You should wear a face mask when you are around other people (e.g., sharing a room or vehicle) or pets and before you enter a healthcare providers office. If you are not able to wear a face mask (for example, because it causes trouble breathing), then people who live with you should not stay in the same room with you, or they should wear a face mask if they enter your room. Cover your coughs and sneezes Cover your mouth and nose with a tissue when you cough or sneeze. Throw used tissues in a lined trash can. Immediately wash your hands with soap and water for at least 20 seconds or, if soap and water are not available, clean your hands with an alcohol-based hand transformer tester that contains at least 60% alcohol. Clean your hands often Wash your hands often with soap and water for at least 20 seconds, especially after blowing your nose, coughing, or sneezing; going to the bathroom; and before eating or preparing food. If soap and water are not readily available, use an alcohol-based hand transformer tester with at least 60% alcohol, covering all surfaces of your hands and rubbing them together until they feel dry. Soap and water are the best option if hands are visibly dirty. Avoid touching your eyes, nose, and mouth with unwashed hands. Avoid sharing personal household items You should not share dishes, drinking glasses, cups, eating utensils, towels, or bedding with other people or pets in your home. After using these items, they should be washed thoroughly with soap and water. Clean all high-touch surfaces everyday High touch surfaces include counters, tabletops, doorknobs, bathroom fixtures, toilets, phones, keyboards, tablets, and bedside tables. Also, clean any surfaces that may have blood, stool, or body fluids on them. Use a household cleaning spray or wipe, according to the label instructions. Labels contain instructions for safe and effective use of the cleaning product including precautions you should take when applying the product, such as wearing gloves and making sure you have good ventilation during use of the product. Monitor your symptoms Seek prompt medical attention if your illness is worsening (e.g., difficulty breathing).Beforeseeking care, call your healthcare provider and tell them that you have, or are being evaluated for, COVID-19. Put on a face mask before you enter the facility. These steps will help the healthcare providers office to keep other people in the office or waiting room from getting infected or exposed. Ask your healthcare provider to call the local or state health department. Persons who are placed under active monitoring or facilitated self-monitoring should follow instructions provided by their local health department or occupational health professionals, as appropriate. When working with your local health department check their available hours. If you have a medical emergency and need to call 911, notify the dispatch personnel that you have, or are being evaluated for COVID-19. If possible, put on a face mask before emergency medical services arrive. Discontinuing home isolation Patients with confirmed COVID-19 should remain under home isolation precautions until the risk of secondary transmission to others is thought to be low. The decision to discontinue home isolation precautions should be made on a [id number] basis, in consultation with healthcare providers and the [facility] and [facility] health departments. Pending Studies at Discharge: No Stand-Alone Forms: [facility], Smoking Cessation Medications and DC Order Prescriptions: New dexamethasone [Decadron] 6 mg tablet 6 mg PO DAILY Qty: 8 RF: 0 famotidine [Pepcid] 40 mg tablet 40 mg PO DAILY Qty: 14 RF: 0 Continued aspirin [Aspirin Low Dose] 81 mg tablet,delayed release (DR/EC) 81 mg PO 3XWK RF: 0 Metamucil 3.4 gram/5.4 gram powder 3 tsp PO DAILY PRN (Reason: Constipation) RF: 0 Men 50 Plus Multivitamin 300-600-300 mcg Tablet 1 tab PO WK RF: 0 potassium chloride [K-Tab] 20 mEq tablet extended release 20 meq PO DAILY Qty: 10 RF: 0 losartan-hydrochlorothiazide [Hyzaar] 50-12.5 mg tablet 1 tab PO QAM RF: 0 rosuvastatin [Crestor] 20 mg tablet 20 mg PO QDL RF: 0 ondansetron 4 mg tablet,disintegrating 4 mg PO Q8H PRN (Reason: nausea and vomiting) Qty: 10 RF: 0 albuterol sulfate [Proventil HFA] 90 mcg/actuation HFA aerosol inhaler 2 inh inhalation Q6H PRN (Reason: shortness of breath or wheezing) Qty: 8.5 RF: 0 Discontinued prednisone 20 mg tablet 20 mg PO BID 5 Days Qty: 10 RF: 0 Discharge Orders: Discharge Order (Routine); Ordered 12/29/20 Ordered By: Guillermo Kimball Admission Data Admit Date/Time: 12/27/20 13:03 Attending Provider: Guillermo Kimball Admit Provider: Leroy Sierra Primary Care Provider: Noman Dougherty Other Providers: Leroy Sierra Other Interventions: Discharge Summary Assessment (RN) Last Done: 12/29/20 11:00 Coding Level of Care Code D/C DAY MANAGEMENT >30 MINS Diagnoses COVID-19 U07.1 Hypokalemia E87.6 Hyperlipidemia E78.5 Hypertension I10 Hypertension type: essential hypertension
== END 2020-12-29 13:00 | disposition home or self-care (01) | DRG 177 ==
LOC: ED 09:52 → EDINP 13:03 → SUATTDRO 13:03 → 2E 16:34

== ENCOUNTER 2021-01-10 08:48 | Inpatient (IN) ==
[2021-01-10] MEDS ORDERED: dexAMETHasone 8 MG in SYRINGE 0 ML IV ONE (09:03)
[2021-01-10] MEDS ORDERED: SODIUM CHLORIDE 0.9% 1000ML 1,000 ML IV ONE ×2 (09:03→11:04)
--- NOTE | 2021-01-10 09:06 | Emergency Department Note ---
Impression & Plan Acute UTI (urinary tract infection) ADMIT ED Provider Note HPI: The patient is a 70-year-old gentleman with history of hypertension, hyperlipidemia, presents the emergency department with a chief complaint of generalized weakness, fever, chills. Patient states his symptoms began yesterday. He states it feels similar to when he was diagnosed with COVID-19 in early December. He states for the past several weeks he has been feeling generally "well". And then his symptoms were exacerbated again last evening. He denies any chest pain or shortness of breath, he denies any nausea or vomiting, denies any diarrhea. On arrival to the ED the patient is tachycardic in the 130s, he is saturating at 91% on room air, on my initial evaluation in the room the patient is resting in bed and saturating at 94% on room air, he is tachycardic in the 120s. Patient does admit to some urinary frequency in addition over the past day or 2. He denies any pain with urination, denies any flank pain or abdominal pain. He does not exhibit any increased work of breathing on arrival. ROS: -General: Fever/chills -MSK: Myalgias -: Urinary frequency *10 point review systems was conducted and is otherwise negative unless stated above *Outpatient medications and allergy history reviewed PE: General: Alert, NAD HEENT: Normocephalic, atraumatic, trachea midline Eyes: Extraocular eye movement is intact, no scleral erythema Pulmonary: Clear to auscultation bilaterally, no wheezing Cardio: Tachycardic rate and regular rhythm GI: Abdomen is soft, nontender : No suprapubic tenderness MSK: No evidence of trauma or malformation of the extremities, no edema Skin: No evidence of rash Neuro: Alert, no focal deficits Psychiatric: Cooperative athletic monitor: Order placed, patient is in sinus tachycardia on the monitor EKG: Rate: 125 Rhythm: Sinus tachycardia Intervals: Within normal limits ST changes: No ST elevation Time: 0906 Medical Decision Making: Patient presented to the emergency department with a chief complaint of fever/chills. He states that he was diagnosed with COVID-19 early in December, states the symptoms feel similar just began over the past day or 2. On arrival here to the ED he is tachycardic in the 130s, his oxygen saturation is at 93 to 94% on my initial evaluation on room air. He is clear bilateral breath sounds, his abdomen is soft, nontender. Patient's lab work does not show any evidence of leukocytosis, he does have a mi ld left shift, blood cultures were drawn in the ED. Urinalysis shows evidence of infection, patient was treated with IV ceftriaxone. Patient was given IV fluids and his tachycardia did downtrend into the low 100s, he will be ordered a second liter of IV fluid, will hold off on a full 30 cc/kg of IV fluid secondary to stable blood pressure and normal lactic acid and concern for possible fluid overload with further IV fluids. Electrolytes are still pending at the time of admission secondary to equipment malfunction at the lab, will follow up when available. My reassessment the patient states he is feeling improved, his tachycardia is down trended, his oxygen saturations are normal on room air. CT angiography did not show any evidence of pulmonary embolism, does show evidence of bilateral pulmonary opacities, most likely viral in origin. Patient was diagnosed with COVID-19 last month, will retest today. Given a focal source of infection from urinalysis, patient was treated with IV ceftriaxone, he does have persistent tachycardia, I believe he would benefit from admission for further fluid resuscitation, repeat lab work, and resolution of tachycardia. I discussed the above findings with the on-call [facility] hospitalist, Dr. Barger, who accepted the patient to a monitored bed for further management. * Diagnosis: Tachycardia, urinary tract infection, pulmonary opacities/viral respiratory infection * Disposition: Admission * CRITICAL CARE TIME: 40 min -Stabilization of significant tachycardia/abnormal vital signs requiring IV fluid resuscitation for stabilization, time spent at the bedside, interpretation of diagnostic studies, treatment of urosepsis/urinary tract infection with IV antibiotics and arrangement of admission Hudson Norton DO Emergency Medicine Past Med/Surg History Medical History Basal cell carcinoma of right ear BPH (benign prostatic hyperplasia) Hyperlipidemia Hypertension Surgical History History of colonoscopy with polypectomy History of tonsillectomy History of wisdom tooth extraction Status post Mohs surgery for basal cell carcinoma Family History Father Acute myocardial infarction Mother Breast cancer Other Myocardial infarction No family history of adverse response to anesthesia Denies family history of Ovarian cancer Prostate cancer Colorectal cancer Social History Smoking Status: Former smoker Age Started Using Tobacco: 18; Age Quit Using Tobacco: 27; packs per day: 1; Years Smoked: 9; Cigarettes Per Day: 20; Number of Years Since Quit: 12; Second Hand Exposure: No; Hx Alcohol Use: Yes Alcohol type: wine Hx Substance Use: No Preferred Language: Sinhala Communication Ability: Effective Visual Impairment: No Limitations Hearing Ability: Normal Gas Burner Operator Required: No Beliefs That Will Affect Care: None marital status: Current Living Situation: Spouse Feels Safe at Home: Yes Childhood Exposure to Second-Hand Smoke: Yes Dental Care, Regularly: Yes Physical Activity Frequency: Daily Seatbelt Use: always Assistive Devices: None Allergies Allergies Allergy/AdvReac Type Severity Reaction Status Date / Time sulfamethoxazole Allergy Unknown Unknown Verified 12/27/20 11:04 [From Bactrim] trimethoprim [From Bactrim] Allergy Unknown Unknown Verified 12/27/20 11:04 Home Meds Home Medications Medication Instructions Recorded Confirmed pyjszbxj-pzk-yieto acid 300 1 tab PO WK 03/19/19 01/10/21 mcg-lycopene 600 mcg-lutein 300 mcg tablet (Men 50 Plus Multivitamin) aspirin 81 mg tablet,delayed 81 mg PO 3XWK tab 01/15/20 01/10/21 release (Aspirin Low Dose) psyllium husk 3.4 gram/5.4 gram 3 tsp PO DAILY PRN g 06/29/20 01/10/21 oral powder (Metamucil) losartan 50 mg-hydrochlorothiazide 1 tab PO QAM 12/18/20 01/10/21 12.5 mg tablet (Hyzaar) rosuvastatin 20 mg tablet (Crestor) 20 mg PO QDL 12/18/20 01/10/21 Previous Rx's Medication Instructions Recorded ondansetron 4 mg disintegrating 4 mg PO Q8H PRN #10 tab 12/18/20 tablet potassium chloride 20 mEq 20 meq PO DAILY #10 tab 12/20/20 tablet,extended release (K-Tab) albuterol sulfate 90 mcg/actuation 2 inh INHALATION Q6H PRN #8.5 g 12/24/20 aerosol inhaler (Proventil HFA) famotidine 40 mg tablet (Pepcid) 40 mg PO DAILY #14 tab 12/29/20 Results & Data (ED) Vital Signs Vital Signs - 24 hr 01/10/21 08:49 01/10/21 09:06 01/10/21 10:51 Temperature 36.8 C Temperature Source Temporal Artery Scan Pulse Rate 139 H Pulse Rate [Apical] 108 H Respiratory Rate 24 18 Respiratory Effort / Characteristics Short of Breath Non-Labored Non-Labored Respiratory Depth Normal Normal Respiratory Pattern Regular Blood Pressure 120/92 Blood Pressure [Right Arm] 108/91 Blood Pressure Mean 101 Blood Pressure Mean [Right Arm] 96 Blood Pressure Position Sitting Pulse Oximetry 91 93 93 Oxygen Delivery Method Room Air Room Air Room Air Sepsis Recent Fever Within 48 Hours No Sepsis New/Unexplained Change in Mental Status N/A Sepsis Action Taken by Nursing No Action Required Laboratory Data Result diagrams: 01/10/21 09:15 01/10/21 09:15 Lab Results 01/10/21 01/10/21 01/10/21 Range/Units 09:15 09:15 09:15 WBC 10.77 (4.8-10.8) K/uL RBC 4.29 L (4.7-6.1) M/uL Hgb 15.5 (14.0-18.0) g/dL Hct 43.3 (42-52) % MCV 100.9 H (80-100) fL MCH 36.1 H (25-34) pg MCHC 35.8 (32-36) g/dL RDW Std Deviation 47.8 H (36.4-46.3) fL RDW Coeff of [place] 13.0 (11.5-14.5) % Plt Count 211 (130-400) K/uL MPV 10.1 (7.4-10.4) fL Immature Gran % (Auto) 0.6 % Neut % (Auto) 87.0 % Lymph % (Auto) 5.4 % Banks % (Auto) 6.1 % Eos % (Auto) 0.6 % Baso % (Auto) 0.3 % Neut # (Auto) 9.38 H (1.4-6.5) K/uL Lymph # (Auto) 0.58 L (1.2-3.4) K/uL Banks # (Auto) 0.66 H (0.11-0.59) K/uL Eos # (Auto) 0.06 (0-0.5) K/uL Baso # (Auto) 0.03 (0-0.2) K/uL Immature Gran # (Auto) 0.06 H (0.00-0.02) K/uL PT 10.3 (9.0-12.0) Seconds INR 1.0 (0.9-1.1) APTT 25.8 (21.0-31.0) Seconds PTT Ratio 1.0 VBG pH (7.36-7.41) VBG pCO2 (38-50) mmHg VBG pO2 mmHg VBG HCO3 mmol/L VBG O2 Saturation % VBG Base Excess mEq/L Barometric Pressure mm/Hg Carbon Dioxide 22 (21-32) mmol/L BUN 10 (7-18) mg/dl Creatinine 0.84 (0.6-1.4) mg/dl Est Cr Clr Drug Dosing 94.6 ml/min Est GFR ( Amer) 101.4 ml/min Est GFR (Non-Af Amer) 87.5 ml/min BUN/Creatinine Ratio 11.5 (10-20) Glucose 117 H (70-99) mg/dl Lactate (0.4-2.0) mmol/L Calcium 8.9 (8.5-10.1) mg/dl Magnesium 2.1 (1.8-2.4) mg/dl Total Bilirubin 1.4 H (0.2-1) mg/dl AST 30 (15-37) U/L ALT 63 (12-78) U/L Alkaline Phosphatase 76 (45-117) U/L Troponin I < 0.015 (0-0.045) ng/ml NT-Pro-B Natriuret Pep 164 (0-900) pg/ml Total Protein 7.3 (6.4-8.2) gm/dl Albumin 3.2 L (3.4-5.0) gm/dl Globulin 4.1 H (2.5-4.0) gm/dl Albumin/Globulin Ratio 0.8 L (0.9-2) Procalcitonin (0-0.5) ng/ml Urine Color Urine Appearance (Clear) Urine pH (4.5-7.5) Ur Specific [place] (1.000-1.030) Urine Protein (Negative) Urine Glucose (UA) (Negative) Urine Ketones (Negative) Urine Blood (Negative) Urine Nitrite (Negative) Urine Bilirubin (Negative) Urine Urobilinogen (Negative) Ur Leukocyte Esterase (Negative) Urine WBC (Auto) (0-5) /hpf Urine RBC (Auto) (0-4) /hpf U Hyaline Cast (Auto) (0-5) /lpf U Epithel Cells (Auto) (0-5) /lpf Urine Bacteria (Auto) (Negative) 01/10/21 01/10/21 01/10/21 Range/Units 09:15 09:15 09:40 WBC (4.8-10.8) K/uL RBC (4.7-6.1) M/uL Hgb (14.0-18.0) g/dL Hct (42-52) % MCV (80-100) fL MCH (25-34) pg MCHC (32-36) g/dL RDW Std Deviation (36.4-46.3) fL RDW Coeff of [place] (11.5-14.5) % Plt Count (130-400) K/uL MPV (7.4-10.4) fL Immature Gran % (Auto) % Neut % (Auto) % Lymph % (Auto) % Banks % (Auto) % Eos % (Auto) % Baso % (Auto) % Neut # (Auto) (1.4-6.5) K/uL Lymph # (Auto) (1.2-3.4) K/uL [place] # (Auto) (0.11-0.59) K/uL Eos # (Auto) (0-0.5) K/uL Baso # (Auto) (0-0.2) K/uL Immature Gran # (Auto) (0.00-0.02) K/uL PT (9.0-12.0) Seconds INR (0.9-1.1) APTT (21.0-31.0) Seconds PTT Ratio VBG pH (7.36-7.41) VBG pCO2 (38-50) mmHg VBG pO2 mmHg VBG HCO3 mmol/L VBG O2 Saturation % VBG Base Excess mEq/L Barometric Pressure mm/Hg Carbon Dioxide (21-32) mmol/L BUN (7-18) mg/dl Creatinine (0.6-1.4) mg/dl Est Cr Clr Drug Dosing ml/min Est GFR ( Amer) ml/min Est GFR (Non-Af Amer) ml/min BUN/Creatinine Ratio (10-20) Glucose (70-99) mg/dl Lactate 1.3 (0.4-2.0) mmol/L Calcium (8.5-10.1) mg/dl Magnesium (1.8-2.4) mg/dl Total Bilirubin (0.2-1) mg/dl AST (15-37) U/L ALT (12-78) U/L Alkaline Phosphatase (45-117) U/L Troponin I (0-0.045) ng/ml NT-Pro-B Natriuret Pep (0-900) pg/ml Total Protein (6.4-8.2) gm/dl Albumin (3.4-5.0) gm/dl Globulin (2.5-4.0) gm/dl Albumin/Globulin Ratio (0.9-2) Procalcitonin < 0.05 (0-0.5) ng/ml Urine Color [place] Urine Appearance Clear (Clear) Urine pH 5.5 (4.5-7.5) Ur Specific [place] 1.024 (1.000-1.030) Urine Protein 1+ H (Negative) Urine Glucose (UA) Negative (Negative) Urine Ketones Trace H (Negative) Urine Blood Negative (Negative) Urine Nitrite Positive A (Negative) Urine Bilirubin 1+ H (Negative) Urine Urobilinogen Negative (Negative) Ur Leukocyte Esterase Trace H (Negative) Urine WBC (Auto) 1-5 (0-5) /hpf Urine RBC (Auto) 0-4 (0-4) /hpf U Hyaline Cast (Auto) 5-10 H (0-5) /lpf U Epithel Cells (Auto) 20-30 H (0-5) /lpf Urine Bacteria (Auto) Negative (Negative) 01/10/21 Range/Units 09:45 WBC (4.8-10.8) K/uL RBC (4.7-6.1) M/uL Hgb (14.0-18.0) g/dL Hct (42-52) % MCV (80-100) fL MCH (25-34) pg MCHC (32-36) g/dL RDW Std Deviation (36.4-46.3) fL RDW Coeff of [place] (11.5-14.5) % Plt Count (130-400) K/uL MPV (7.4-10.4) fL Immature Gran % (Auto) % Neut % (Auto) % Lymph % (Auto) % Banks % (Auto) % Eos % (Auto) % Baso % (Auto) % Neut # (Auto) (1.4-6.5) K/uL Lymph # (Auto) (1.2-3.4) K/uL [place] # (Auto) (0.11-0.59) K/uL Eos # (Auto) (0-0.5) K/uL Baso # (Auto) (0-0.2) K/uL Immature Gran # (Auto) (0.00-0.02) K/uL PT (9.0-12.0) Seconds INR (0.9-1.1) APTT (21.0-31.0) Seconds PTT Ratio VBG pH 7.49 H (7.36-7.41) VBG pCO2 29 L (38-50) mmHg VBG pO2 64 mmHg VBG HCO3 22 mmol/L VBG O2 Saturation 94.7 % VBG Base Excess -0.2 mEq/L Barometric Pressure 737.7 mm/Hg Carbon Dioxide (21-32) mmol/L BUN (7-18) mg/dl Creatinine (0.6-1.4) mg/dl Est Cr Clr Drug Dosing ml/min Est GFR ( Amer) ml/min Est GFR (Non-Af Amer) ml/min BUN/Creatinine Ratio (10-20) Glucose (70-99) mg/dl Lactate (0.4-2.0) mmol/L Calcium (8.5-10.1) mg/dl Magnesium (1.8-2.4) mg/dl Total Bilirubin (0.2-1) mg/dl AST (15-37) U/L ALT (12-78) U/L Alkaline Phosphatase (45-117) U/L Troponin I (0-0.045) ng/ml NT-Pro-B Natriuret Pep (0-900) pg/ml Total Protein (6.4-8.2) gm/dl Albumin (3.4-5.0) gm/dl Globulin (2.5-4.0) gm/dl Albumin/Globulin Ratio (0.9-2) Procalcitonin (0-0.5) ng/ml Urine Color Urine Appearance (Clear) Urine pH (4.5-7.5) Ur Specific [place] (1.000-1.030) Urine Protein (Negative) Urine Glucose (UA) (Negative) Urine Ketones (Negative) Urine Blood (Negative) Urine Nitrite (Negative) Urine Bilirubin (Negative) Urine Urobilinogen (Negative) Ur Leukocyte Esterase (Negative) Urine WBC (Auto) (0-5) /hpf Urine RBC (Auto) (0-4) /hpf U Hyaline Cast (Auto) (0-5) /lpf U Epithel Cells (Auto) (0-5) /lpf Urine Bacteria (Auto) (Negative) Administered Medications Sodium Chloride (Nss 1000ml) 1,000 mls @ 999 mls/hr IV .Q1H1M ONE Stop: 01/10/21 12:04 Last Admin: 01/10/21 11:08 Dose: 999 mls/hr Documented by: [id number] Discontinued Medications Dexamethasone (Dexamethasone Sod Inj 4 Mg/Ml Vial) Confirm Administered Dose 8 mg .ROUTE .STK-MED ONE Stop: 01/10/21 09:31 Last Admin: 01/10/21 09:35 Dose: 8 mg Documented by: [id number] Sodium Chloride (Nss 1000ml) 1,000 mls @ 999 mls/hr IV .Q1H1M ONE Stop: 01/10/21 10:03 Last Infusion: 01/10/21 10:47 Dose: 0 mls/hr Documented by: [id number] Admin: 01/10/21 09:36 Dose: 999 mls/hr Documented by: [id number] Dexamethasone 8 mg/ Syringe 2 mls @ 1 mls/min IV ONE ONE Stop: 01/10/21 09:04 Last Admin: 01/10/21 09:36 Dose: Not Given Documented by: [id number] Ceftriaxone Sodium (Rocephin) 1,000 mg in 50 mls @ 100 mls/hr IV NOW STA Stop: 01/10/21 11:33 Last Admin: 01/10/21 11:08 Dose: 100 mls/hr Documented by: [id number] Ioversol (Optiray 320 125ml) 119 ml IV ONCE ONE Stop: 01/10/21 10:40 Last Admin: 01/10/21 10:39 Dose: 119 ml Documented by: [id number] Imaging Data Radiologist's Impression: Chest X-Ray 01/10/21 08:56 XR chest 1V portable HISTORY: Dyspnea COMPARISON: Chest 12/29/2020. FINDINGS: The heart remains mildly enlarged. Scattered peripheral and basilar airspace opacities are again noted. These have slightly improved on the left. No evidence for pulmonary edema. No pneumothorax. No pleural effusions. IMPRESSION: Scattered peripheral and basilar airspace opacities which have slightly improved on the left. ACT 112: Negative or not required by law. Electronically signed by: Joe Mejia M.D. 01/10/2021 9:38 AM Chest CTA 01/10/21 09:04 CHEST CTA for PULMONARY ARTERIES CT DOSE: 536.75 mGycm HISTORY: Shortness of breath. TECHNIQUE: Multiaxial CT images of the chest were performed following the intravenous administration of contrast to evaluate the pulmonary arteries. Maximal intensity projection images were also obtained. A dose lowering technique was utilized adhering to the principles of ALARA. COMPARISON STUDY: Chest CTA 12/24/2020. FINDINGS: Normal caliber thoracic aorta with no evidence for dissection. The heart is normal in size. No pericardial effusion. Trace bilateral pleural effusions. No filling defects within the pulmonary arteries to suggest a pulmonary embolus. Moderate calcified plaque within the coronary arteries. The visualized liver and spleen are unremarkable. Normal caliber esophagus. No hilar lymphadenopathy. There is a single mildly enlarged right paratracheal lymph node on image 207. This measures 15 x 9 mm and has increased in size. This could be reactive. No suspicious lytic or blastic osseous lesions. No pneumothorax. The central airways are patent. There are multifocal irregular airspace opacities which demonstrate a peripheral predominance. This is consistent with patient's history of a viral pneumonia. The opacities have slightly progressed in the interval and may represent developing fibrotic change. IMPRESSION: 1. No evidence for pulmonary embolus. 2. There are multifocal irregular airspace opacities which demonstrate a peripheral predominance. This is consistent with patient's history of a viral pneumonia. The opacities have slightly progressed in the interval and may represent developing fibrotic change. ACT 112: Negative or not required by law. Electronically signed by: Joe Mejia M.D. 01/10/2021 11:09 AM Discharge Plan Visit Data Chief Complaint: Shortness of Breath/Dyspnea Stated Complaint: COVID PT, FEVER,SOB ED Provider: Hudson Norton Discharge Problem: Acute UTI (urinary tract infection) Forms Stand Alone Forms: [facility] Prescriptions Prescriptions: No Action aspirin [Aspirin Low Dose] 81 mg tablet,delayed release (DR/EC) 81 mg PO 3XWK RF: 0 Metamucil 3.4 gram/5.4 gram powder 3 tsp PO DAILY PRN (Reason: Constipation) RF: 0 Men 50 Plus Multivitamin 300-600-300 mcg Tablet 1 tab PO WK RF: 0 potassium chloride [K-Tab] 20 mEq tablet extended release 20 meq PO DAILY Qty: 10 RF: 0 losartan-hydrochlorothiazide [Hyzaar] 50-12.5 mg tablet 1 tab PO QAM RF: 0 rosuvastatin [Crestor] 20 mg tablet 20 mg PO QDL RF: 0 ondansetron 4 mg tablet,disintegrating 4 mg PO Q8H PRN (Reason: nausea and vomiting) Qty: 10 RF: 0 albuterol sulfate [Proventil HFA] 90 mcg/actuation HFA aerosol inhaler 2 inh inhalation Q6H PRN (Reason: shortness of breath or wheezing) Qty: 8.5 RF: 0 famotidine [Pepcid] 40 mg tablet 40 mg PO DAILY Qty: 14 RF: 0 Referrals Referrals: Noman Dougherty MD [Primary Care Provider] -
[2021-01-10] MEDS ORDERED: DEXAMETHASONE SOD INJ 4 MG/ML VIAL ONE (09:30)
[2021-01-10 09:35] LABS: Basophils # (auto) 0.03 K/uL (0-0.2); Basophils % (auto) 0.3 %; Eosinophils # (auto) 0.06 K/uL (0-0.5); Eosinophils % (auto) 0.6 %; Hematocrit (blood only) 43.3 % (42-52); Hemoglobin 15.5 g/dL (14.0-18.0); Immature Granulocytes # (auto) 0.06 K/uL (0.00-0.02); Immature Granulocytes % (auto) 0.6 %; Lymphocytes # (auto) 0.58 K/uL (1.2-3.4); Lymphocytes % (auto) 5.4 %; Mean Corpuscular Hemoglobin 36.1 pg (25-34); Mean Corpuscular Hgb Conc 35.8 g/dL (32-36); Mean Corpuscular Volume 100.9 fL (80-100); Mean Platelet Volume 10.1 fL (7.4-10.4); Monocytes # (auto) 0.66 K/uL (0.11-0.59); Monocytes % (auto) 6.1 %; Neutrophils # (auto) 9.38 K/uL (1.4-6.5); Platelet Count 211 K/uL (130-400); RDW Standard Deviation 47.8 fL (36.4-46.3); Red Blood Count 4.29 M/uL (4.7-6.1); White Blood Count 10.77 K/uL (4.8-10.8)
--- NOTE | 2021-01-10 09:40 | XRay Report ---
XR chest 1V portable HISTORY: Dyspnea COMPARISON: Chest 12/29/2020. FINDINGS: The heart remains mildly enlarged. Scattered peripheral and basilar airspace opacities are again noted. These have slightly improved on the left. No evidence for pulmonary edema. No pneumothor ax. No pleural effusions. IMPRESSION: Scattered peripheral and basilar airspace opacities which have slightly improved on the left. ACT 112: Negative or not required by law. Electronically signed by: Joe Mejia M.D. 01/10/2021 9:38 AM
[2021-01-10 09:45] LABS: Partial Thromboplastin Time 25.8 Seconds (21.0-31.0); Prothrombin Time 10.3 Seconds (9.0-12.0)
[2021-01-10 09:55] LABS: Alanine Aminotransferase 63 U/L (12-78); Aspartate Aminotransferase 30 U/L (15-37); BUN Creatinine Ratio 11.5 (10-20); Blood Urea Nitrogen 10 mg/dl (7-18); Calcium 8.9 mg/dl (8.5-10.1); Carbon Dioxide 22 mmol/L (21-32); Creatinine Clr Calc Pharmacy 94.6 ml/min; Est GFR (African American) 101.4 ml/min; Est GFR (Non-African American) 87.5 ml/min; Glucose 117 mg/dl (70-99); Magnesium 2.1 mg/dl (1.8-2.4)
[2021-01-10 09:58] LABS: Appearance Urine Clear (Clear); Bacteria Urine Automated Negative (Negative); Blood Urine Negative (Negative); Color Urine Orange; Epithelial Cell Urine Auto 20-30 /lpf (0-5); Glucose Urine UA Negative (Negative); Ketones Urine Trace (Negative); Leukocyte Esterase Urine Trace (Negative); Nitrite Urine Positive (Negative); Protein Urine 1+ (Negative); RBC Urine Automated 0-4 /hpf (0-4); Specific Gravity Urine 1.024 (1.000-1.030); Urobilinogen Urine Negative (Negative); pH Urine 5.5 (4.5-7.5)
[2021-01-10 09:59] LABS: Albumin Globulin Ratio 0.8 (0.9-2); Albumin Level 3.2 gm/dl (3.4-5.0); Alkaline Phosphatase 76 U/L (45-117); Bilirubin,Total 1.4 mg/dl (0.2-1); Globulin 4.1 gm/dl (2.5-4.0); NT Pro B Type Natriuretic Pept 164 pg/ml (0-900); Total Protein 7.3 gm/dl (6.4-8.2); Troponin I < 0.015 ng/ml (0-0.045)
[2021-01-10 10:00] LABS: Base Excess VBG -0.2 mEq/L; Oxygen Saturation VBG 94.7 %; pH VBG 7.49 (7.36-7.41)
[2021-01-10 10:06] LABS: Bilirubin Urine 1+ (Negative)
[2021-01-10] MEDS ORDERED: OPTIRAY 320 125ml IV ONE (10:39)
[2021-01-10] MEDS ORDERED: cefTRIAXone SODIUM 1,000 MG/50 ML BAG IV STA (11:04)
--- NOTE | 2021-01-10 11:10 | CT Scan Report ---
CHEST CTA for PULMONARY ARTERIES CT DOSE: 536.75 mGycm HISTORY: Shortness of breath. TECHNIQUE: Multiaxial CT images of the chest were performed following the intravenous administration of contrast to evaluate the pulmonary arteries. Maximal intensity projection images were also obtaine d. A dose lowering technique was utilized adhering to the principles of ALARA. COMPARISON STUDY: Chest CTA 12/24/2020. FINDINGS: Normal caliber thoracic aorta with no evidence for dissection. The heart is normal in size. No pericardial effusion. Trace bilateral pleural effusions. No filling defects within the pulmonary arteries to suggest a pulmonary embolus. Moderate calcified plaque within the coronary arteries. The visualized liver and spleen are unremarkable. Normal caliber esophagus. No hilar lymphadenopathy. The re is a single mildly enlarged right paratracheal lymph node on image 207. This measures 15 x 9 mm an d has increased in size. This could be reactive. No suspicious lytic or blastic osseous lesions. No p neumothorax. The central airways are patent. There are multifocal irregular airspace opacities which demonstrate a peripheral predominance. This is consistent with patient's history of a viral pneumonia . The opacities have slightly progressed in the interval and may represent developing fibrotic change . IMPRESSION: 1. No evidence for pulmonary embolus. 2. There are multifocal irregular airspace opacities which demonstrate a peripheral predominance. Thi s is consistent with patient's history of a viral pneumonia. The opacities have slightly progressed i n the interval and may represent developing fibrotic change. ACT 112: Negative or not required by law. Electronically signed by: Joe Mejia M.D. 01/10/2021 11:09 AM
[2021-01-10 11:46] LABS: Chloride 105 mmol/L (98-107); Potassium 4.1 mmol/L (3.5-5.1); Sodium 133 mmol/L (136-145)
--- NOTE | 2021-01-10 12:43 | History & Physical Report ---
Date of Service January 10, 2021 Assessment & Plan (1) SIRS (systemic inflammatory response syndrome): Plan: SIRS response with elevated HR normotensive, normal lactate and no evidence of organ dysfunction, and no clear source of infection at this time- DDX UTI vs. bi liary - Follow blood and urine cultures - continue Rocephin 1GM IV daily - RUQUS evaluate gallbladder and liver with elevate bili and bilirubin in UA- if indiciative of infectious source change to Cefepime vs. Zosyn vs. Unasyn - Normal WBC with NLR 5:1 - Lactate 1.3 - Received 2liters of crystalloid for tachycardia- responded- continue with LR at 100ml for 1liter. - CRP pending - PCT <0.05 (2) Abnormal urinalysis: Plan: Trace LE, (+) Nitrites, WBC 1-5, Bacteria 0, (+) hyaline casts, protien, bilirubin - As above - Follow with volume resuscitation - PSA pending- no pain or inguinal lymph node enlargement- less likely prostatitis - Await urine culture results (3) Cholelithiases: Plan: RUQUS pending - negative murphys sign, negative greyturner (4) COVID-19: Plan: Resolving symptomatic [place]- Remains with residual ground glass opacities on CT scan of chest - COVID test on admission remains POSITIVE - >21 days since symptom onset - Continue supportive care - 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 (5) BPH (benign prostatic hyperplasia): Plan: with 1-2 usual awakenings per night for nocturia- had an increase in this 1 day prior to fevers and chills at home - as above - PSA pending was 1.34 06/29 (6) Hyperlipidemia: Plan: Continue rosuvastatin 20mg daily (7) Hypertension: Plan: Hold ARB/HCTZ - can likely restart in the morning - follow K - oral home potassium held as well - Continue with IVF for 1 liter of LR ensure euvolemia on exam and labs (8) Impaired fasting glucose: Plan: Elevated glucose without diagnosis of DM- last HGBA1C 5% - continue to follow while in house with daily BMP - Add dextrose sticks and/or sliding scale coverage if >180 (9) Carotid artery stenosis: Plan: Follows with Vascular- with carotid dopplers as per HPI - Continue asa 81mg daily - continue rosuvastatin - continue BP control (10) Seasonal allergic rhinitis: Plan: No acute needs at this time History of Present Illness Chief Complaint: fevers with chills Primary Care Provider: Noman Dougherty MD 70 YOM with past medical history of: HTN, HLD, Carotid artery stenosis(LICA 50- 69% KRISTINE <50% (2020)), GERD, Elevated blood glucose without diagnosis of DM, Tubular adenoma with resection in 2019, BPH, prostatitis, COVID 19 (12/07/20 with hospitalization in December), former smoker. Patient comes to the [facility] today for complaints of fevers and chills that occurred yesterday evening, this was precluded by a day of increase in frequency and feeling like he wasn't emptying his bladder fully. His chills occured while watching TV yesterday evening and was associated with rigors, he took an aspirin and laid down. When he awoke he reports shirt and sheets were "soaked" with sweat. He had a low grade elevation of his temperature this morning of 99.3 that he took at home. Overall he felt as he was getting better from his COVID infection and starting to return back to normal with minimal dyspnea and still remains with decreased appetite. He denies any abdominal pain, nausea or vomiting. He had a bowel of cereal yesterday with a banana and just felt full after that without any of the above symptoms. He noticed that this morning his urine was darker orange than normal. He denies any burning or pain with urination or change in stools. Upon entering the [facility] he was noted to have HR in the 130s NSR and BP 100-110s range afebrile and mildly dyspneic with ambulation. He had routine blood work done to include a UA, Lactate and PCT, and CTA of the chest which was negative for PE but with residual ground glass opacities from his recent COVID infection. His l actate level was 1.3 and negative PCT, and elevated NLR 5:1 His urine was notable for trace LE, Nitrate (+), bilirubin, NO elevation in WBC and no bacteria noted. He was given 2 liters of crystalloid with decrease in his HR to 100s and elevation of his BP to 130s. He was also started on Rocephin 1GM IV for his UA findings. His blood work was noted for elevated bilirubin level 1.4 with normal LFTs and ALK po4. He did have a CT scan of his abdomen performed on his admission to the hospital in December that was noted for few punctate gall stones without any biliary dilation. Patient will be admitted to continue to evaluate his SIRS response, blood cultures were done prior to antibiotics, will add on urine culture to his UA in lab, follow other biomarkers. Direct and indirect bilirubin ordered, CRP, and PSA. Patient has had COVID in November-December 29. His COVID test on admission remains: POSITIVE although >21 days has passed since onset of his symptoms. Allergies Allergy/AdvReac Type Severity Reaction Status Date / Time sulfamethoxazole Allergy Unknown Unknown Verified 12/27/20 11:04 [From Bactrim] trimethoprim [From Bactrim] Allergy Unknown Unknown Verified 12/27/20 11:04 Home Medications Medication Instructions Recorded Confirmed Type mkicajxj-nro-bzsee acid 300 1 tab PO WK 03/19/19 01/10/21 History mcg-lycopene 600 mcg-lutein 300 mcg tablet (Men 50 Plus Multivitamin) aspirin 81 mg tablet,delayed 81 mg PO 3XWK tab 01/15/20 01/10/21 History release (Aspirin Low Dose) psyllium husk 3.4 gram/5.4 gram 3 tsp PO DAILY PRN g 06/29/20 01/10/21 History oral powder (Metamucil) losartan 50 mg-hydrochlorothiazide 1 tab PO QAM 12/18/20 01/10/21 History 12.5 mg tablet (Hyzaar) ondansetron 4 mg disintegrating 4 mg PO Q8H PRN #10 tab 12/18/20 01/10/21 Rx tablet rosuvastatin 20 mg tablet (Crestor) 20 mg PO QDL 12/18/20 01/10/21 History potassium chloride 20 mEq 20 meq PO DAILY #10 tab 12/20/20 01/10/21 Rx tablet,extended release (K-Tab) albuterol sulfate 90 mcg/actuation 2 inh INHALATION Q6H PRN #8.5 g 12/24/20 01/10/21 Rx aerosol inhaler (Proventil HFA) famotidine 40 mg tablet (Pepcid) 40 mg PO DAILY #14 tab 12/29/20 01/10/21 Rx Past Med/Surg History Medical History Basal cell carcinoma of right ear BPH (benign prostatic hyperplasia) Hyperlipidemia Hypertension Surgical History History of colonoscopy with polypectomy History of tonsillectomy History of wisdom tooth extraction Status post Mohs surgery for basal cell carcinoma Family History Father Acute myocardial infarction Mother Breast cancer Other Myocardial infarction No family history of adverse response to anesthesia Denies family history of Ovarian cancer Prostate cancer Colorectal cancer Social History Smoking Status: Former smoker Age Started Using Tobacco: 18; Age Quit Using Tobacco: 27; packs per day: 1; Years Smoked: 9; Cigarettes Per Day: 20; Number of Years Since Quit: 12; Second Hand Exposure: No; Hx Alcohol Use: Yes Alcohol type: wine Hx Substance Use: No Preferred Language: [place] Communication Ability: Effective Visual Impairment: No Limitations Hearing Ability: Normal Supervisor [employer] Required: No Beliefs That Will Affect Care: None marital status: Current Living Situation: Spouse Feels Safe at Home: Yes Safety Concerns: Feels Safe At This Time Childhood Exposure to Second-Hand Smoke: Yes Dental Care, Regularly: Yes Physical Activity Frequency: Daily Seatbelt Use: always Assistive Devices: None Review of Systems Review of Systems: REVIEW OF SYSTEMS: Constitutional: (+) fever, sweats or chills- resolved after yesterday evening Eyes: No diplopia, no worsening or blurred vision ENT: normal hearing, no trouble swallowing, no congestion Respiratory: (+) dyspnea with exertion, No cough, sputum, dyspnea at rest Cardiovascular: (+) chest discomfort with deep inspiration, No chest pain or palpitations with activity Abdomen: (+) feels constipated, No pain, nausea, vomiting, diarrhea Musculoskeletal: No joint pain, calf pain, swelling Neurologic: No weakness, numbness/tingling, or balance problems Psychiatric: No anxiety or depression Skin: No rash or itch Physical Exam Physical Exam: PHYSICAL EXAM: General: awake, alert, no apparent distress Head: Normocephalic, atraumatic ENT: PERRL, EOMI, no pharyngeal exudate, mucous membranes moist Neuro: AAO x 3, speech clear and appropriate, strength intact bilaterally 5/5, sensation intact and equal all extremities and dermatomes, no pronator drift Chest: equal rise and fall of the chest, no accessory muscle use, no heaves or thrills, Clear to auscultation, on room air, Cardiac: Regular rate and rhythm, telemetry reviewed-sinus tachycardia without ectopy, skin warm dry, cap refill <3 seconds, peripheral pulses +2 no JVD, no murmur, no edema GI: NABS x 4 quadrants, soft, nontender to palpation, no rebound, guarding or tenderness, tympany on percussion, negative murphys or rubin schmid's sign : Spontaneously voiding, no pain, no CVA tenderness, incomplete emptying of his bladder feeling Extremities: Normal inspection, no peripheral edema or erythema, calfs nontender to palpation Psych: Normal mood and affect Skin: no rash or erythema Results & Data Results & Data ([facility]) Vital Signs (Past 12 Hours) Vital Signs Temp Pulse Pulse Resp BP BP Pulse Ox 01/10/21 12:00 104 H 18 147/99 H 93 01/10/21 10:51 108 H 18 108/91 93 01/10/21 09:06 93 01/10/21 08:49 36.8 C 139 H 24 120/92 91 Laboratory Results Abnormal lab results 01/10/21 01/10/21 01/10/21 Range/Units 09:15 09:15 09:40 RBC 4.29 L (4.7-6.1) M/uL MCV 100.9 H (80-100) fL MCH 36.1 H (25-34) pg RDW Std Deviation 47.8 H (36.4-46.3) fL Neut # (Auto) 9.38 H (1.4-6.5) K/uL Lymph # (Auto) 0.58 L (1.2-3.4) K/uL [place] # (Auto) 0.66 H (0.11-0.59) K/uL Immature Gran # (Auto) 0.06 H (0.00-0.02) K/uL VBG pH (7.36-7.41) VBG pCO2 (38-50) mmHg Sodium 133 L (136-145) mmol/L Glucose 117 H (70-99) mg/dl Total Bilirubin 1.4 H (0.2-1) mg/dl Albumin 3.2 L (3.4-5.0) gm/dl Globulin 4.1 H (2.5-4.0) gm/dl Albumin/Globulin Ratio 0.8 L (0.9-2) Urine Protein 1+ H (Negative) Urine Ketones Trace H (Negative) Urine Nitrite Positive A (Negative) Urine Bilirubin 1+ H (Negative) Ur Leukocyte Esterase Trace H (Negative) U Hyaline Cast (Auto) 5-10 H (0-5) /lpf U Epithel Cells (Auto) 20-30 H (0-5) /lpf 01/10/21 Range/Units 09:45 RBC (4.7-6.1) M/uL MCV (80-100) fL MCH (25-34) pg RDW Std Deviation (36.4-46.3) fL Neut # (Auto) (1.4-6.5) K/uL Lymph # (Auto) (1.2-3.4) K/uL [place] # (Auto) (0.11-0.59) K/uL Immature Gran # (Auto) (0.00-0.02) K/uL VBG pH 7.49 H (7.36-7.41) VBG pCO2 29 L (38-50) mmHg Sodium (136-145) mmol/L Glucose (70-99) mg/dl Total Bilirubin (0.2-1) mg/dl Albumin (3.4-5.0) gm/dl Globulin (2.5-4.0) gm/dl Albumin/Globulin Ratio (0.9-2) Urine Protein (Negative) Urine Ketones (Negative) Urine Nitrite (Negative) Urine Bilirubin (Negative) Ur Leukocyte Esterase (Negative) U Hyaline Cast (Auto) (0-5) /lpf U Epithel Cells (Auto) (0-5) /lpf Diagnostic Findings Chest X-Ray 01/10/21 08:56 XR chest 1V portable HISTORY: Dyspnea COMPARISON: Chest 12/29/2020. FINDINGS: The heart remains mildly enlarged. Scattered peripheral and basilar airspace opacities are again noted. These have slightly improved on the left. No evidence for pulmonary edema. No pneumothorax. No pleural effusions. IMPRESSION: Scattered peripheral and basilar airspace opacities which have slightly improved on the left. ACT 112: Negative or not required by law. Electronically signed by: Joe Mejia M.D. 01/10/2021 9:38 AM Chest CTA 01/10/21 09:04 CHEST CTA for PULMONARY ARTERIES CT DOSE: 536.75 mGycm HISTORY: Shortness of breath. TECHNIQUE: Multiaxial CT images of the chest were performed following the intravenous administration of contrast to evaluate the pulmonary arteries. Maximal intensity projection images were also obtained. A dose lowering technique was utilized adhering to the principles of ALARA. COMPARISON STUDY: Chest CTA 12/24/2020. FINDINGS: Normal caliber thoracic aorta with no evidence for dissection. The heart is normal in size. No pericardial effusion. Trace bilateral pleural effusions. No filling defects within the pulmonary arteries to suggest a pulmonary embolus. Moderate calcified plaque within the coronary arteries. The visualized liver and spleen are unremarkable. Normal caliber esophagus. No hilar lymphadenopathy. There is a single mildly enlarged right paratracheal lymph node on image 207. This measures 15 x 9 mm and has increased in size. This could be reactive. No suspicious lytic or blastic osseous lesions. No pneumothorax. The central airways are patent. There are multifocal irregular airspace opacities which demonstrate a peripheral predominance. This is consistent with patient's history of a viral pneumonia. The opacities have slightly progressed in the interval and may represent developing fibrotic change. IMPRESSION: 1. No evidence for pulmonary embolus. 2. There are multifocal irregular airspace opacities which demonstrate a pe ripheral predominance. This is consistent with patient's history of a viral pneumonia. The opacities have slightly progressed in the interval and may represent developing fibrotic change. ACT 112: Negative or not required by law. Electronically signed by: Joe Mejia M.D. 01/10/2021 11:09 AM Medications Administered Home Medications mvnlnzto-tua-wtaey acid 300 mcg-lycopene 600 mcg-lutein 300 mcg tablet (Men 50 Plus Multivitamin) 1 tab PO WK 03/19/19 [History Confirmed 01/10/21] aspirin 81 mg tablet,delayed release (Aspirin Low Dose) 81 mg PO 3XWK tab 01/15/20 [History Confirmed 01/10/21] psyllium husk 3.4 gram/5.4 gram oral powder (Metamucil) 3 tsp PO DAILY PRN g 06/29/20 [History Confirmed 01/10/21] losartan 50 mg-hydrochlorothiazide 12.5 mg tablet (Hyzaar) 1 tab PO QAM 12/18/20 [History Confirmed 01/10/21] ondansetron 4 mg disintegrating tablet 4 mg PO Q8H PRN #10 tab 12/18/20 [Rx Confirmed 01/10/21] rosuvastatin 20 mg tablet (Crestor) 20 mg PO QDL 12/18/20 [History Confirmed 01/10/21] potassium chloride 20 mEq tablet,extended release (K-Tab) 20 meq PO DAILY #10 tab 12/20/20 [Rx Confirmed 01/10/21] albuterol sulfate 90 mcg/actuation aerosol inhaler (Proventil HFA) 2 inh INHALATION Q6H PRN #8.5 g 12/24/20 [Rx Confirmed 01/10/21] famotidine 40 mg tablet (Pepcid) 40 mg PO DAILY #14 tab 12/29/20 [Rx Confirmed 01/10/21] Discontinued Medications Dexamethasone (Dexamethasone Sod Inj 4 Mg/Ml Vial) Confirm Administered Dose 8 mg .ROUTE .STK-MED ONE Stop: 01/10/21 09:31 Last Admin: 01/10/21 09:35 Dose: 8 mg Documented by: [id number] Sodium Chloride (Nss 1000ml) 1,000 mls @ 999 mls/hr IV .Q1H1M ONE Stop: 01/10/21 10:03 Last Infusion: 01/10/21 10:47 Dose: 0 mls/hr Documented by: [id number] Admin: 01/10/21 09:36 Dose: 999 mls/hr Documented by: [id number] Dexamethasone 8 mg/ Syringe 2 mls @ 1 mls/min IV ONE ONE Stop: 01/10/21 09:04 Last Admin: 01/10/21 09:36 Dose: Not Given Documented by: [id number] Sodium Chloride (Nss 1000ml) 1,000 mls @ 999 mls/hr IV .Q1H1M ONE Stop: 01/10/21 12:04 Last Admin: 01/10/21 11:08 Dose: 999 mls/hr Documented by: [id number] Ceftriaxone Sodium (Rocephin) 1,000 mg in 50 mls @ 100 mls/hr IV NOW STA Stop: 01/10/21 11:33 Last Infusion: 01/10/21 11:49 Dose: 0 mls/hr Documented by: [id number] Admin: 01/10/21 11:08 Dose: 100 mls/hr Documented by: [id number] Ioversol (Optiray 320 125ml) 119 ml IV ONCE ONE Stop: 01/10/21 10:40 Last Admin: 01/10/21 10:39 Dose: 119 ml Documented by: [id number] Additional Comments: Sinus tachycardia Minimal voltage criteria for LVH, may be normal variant Nonspecific ST and T wave abnormality Abnormal ECG When compared with ECG of 27-DEC-2020 10:18, No significant change was found Code Status & VTE Plan Code Status CODE: FULL VTE: SCDs, Lovenox 40mg sq daily VTE Prophylaxis Plan VTE Prophylaxis will be ordered: Yes Supervising Physician Co-Signing Physician Notes Attending Attestation and Admission Note - Pt seen/examined, chart reviewed, care plan d/w ROSALINDA Welsh. I agree with the alfaro components of his documentation. Pleasant 70yo male with recent brief hospital stay for COVID-19 pneumonia in December - discharged home stable in room air. Was recovering nicely at home and pulmonary symptoms were doing much better of late. Then, he developed acute fevers/chills yesterday and today. 1-2 days ago he had urinary frequency with minimal dysuria. Denies any bladder pain or perineal pain. No flank pain. Denies any RUQ pain/nausea/emesis. ER events noted. PMH, PSH, allergies, meds, sochx, famhx - reviewed VSS, afebrile, o2 sats wnl in RA gen - nontoxic appearing, NAD, pleasant HEENT - hoarse voice, MMM neck - no JVD heart - RRR, s1 s2 lungs - scant b/l basilar rales, no wheeze abd - soft, NT, ND, BS+, no HSM ext - no edema, pulses 2+ b/l labs reviewed u/a mildly suggestive of UTI bilirubin noted in u/a LFTs - mild increase in bili cxr findings noted A/P: 1. SIRS / early sepsis - source? UTI vs biliary vs other. Blood/urine cx's. Broad-spectrum IV abx. Serial labs. Agree with RUQ u/s to exclude developing acute cholecystitis. If found to have UTI should have SYLVAIN To r/o prostatitis. If prostatitis is present this would change the lengthy of his antibiotics course. 2. BPH - consider flomax in light of urinary symptoms, nocturia, etc. SYLVAIN while hospitalized. 3. recent COVID-19 pneumonia - clinically resolving. Is 20+ days out from start of symptoms. Airborne isolation not needed. CXR noted - would refer to pulmonary post-d/c to follow his recovery and to ensure no developing pulm. fibrosis. Homero Barger MD PG Care Time/CCT Total # of Minutes Spent Total Time Spent with Patient: Total time spent is greater than 50% in coordination of care (as documented) at patient's floor/unit and/or counseling patient: Coding Level of Care Code 50087 Initial Inpt Care Lvl 3 Diagnoses SIRS (systemic inflammatory response syndrome) R65.10 Abnormal urinalysis R82.90 COVID-19 U07.1 BPH (benign prostatic hyperplasia) N40.0 Seasonal allergic rhinitis J30.2 Carotid artery stenosis I65.29 Hyperlipidemia E78.5 Impaired fasting glucose R73.01 Hypertension I10 Hypertension type: essential hypertension Cholelithiases K80.20 (1) Hypertension Hypertension type: essential hypertension Qualified Code(s): I10 - Essential (primary) hypertension
[2021-01-10 14:12] LABS: Bilirubin Direct 0.3 mg/dl (0-0.2); Bilirubin,Total 1.3 mg/dl (0.2-1); C Reactive Protein 6.61 mg/dl (0-0.29); Prostate Specific Antigen 1.09 ng/ml (0-4)
[2021-01-10] MEDS ORDERED: LACTATED RINGER'S 1,000 ML IV ONE (14:15)
[2021-01-10] MEDS ORDERED: ALBUTEROL HFA 8 GM INHALER INH PRN (14:15)
--- NOTE | 2021-01-10 14:19 | Ultrasound Report ---
ABDOMINAL ULTRASOUND, RIGHT UPPER QUADRANT HISTORY: Fever. evaluate gallbladder, gallstones, liver. COMPARISON: Abdomen and pelvis CT 12/24/2020 FINDINGS: Pancreas: Obscured by overlying bowel gas. Liver: Unremarkable. Gallbladder: No gallbladder wall thickening. There are tiny gallstones identified. Negative sonograph ic Fonseca sign. CBD: 4 mm. Right kidney: No hydronephrosis. IMPRESSION: 1. Cholelithiasis. No gallbladder wall thickening. 2. Normal liver. 3. The pancreas was obscured by overlying bowel gas. ACT 112: Negative or not required by law. Electronically signed by: Joe Mejia M.D. 01/10/2021 2:18 PM
[2021-01-10] MEDS ORDERED: PSYLLIUM 58.6% POWDER PACKET PO PRN (14:22)
[2021-01-10] MEDS ORDERED: ONDANSETRON 4 MG OD TAB PO PRN (14:24)
--- NOTE | 2021-01-10 14:37 | Electrocardiogram Report ---
Test Reason : Blood Pressure : / mmHG Vent. Rate : 125 BPM Atrial Rate : 125 BPM P-R Int : 142 ms QRS Dur : 084 ms QT Int : 296 ms P-R-T Axes : 036 002 069 degrees QTc Int : 427 ms Sinus tachycardia Minimal voltage criteria for LVH, may be normal variant Nonspecific ST and T wave abnormality Abnormal ECG When compared with ECG of 27-DEC-2020 10:18, No significant change was found Confirmed by Noman Beaver ([id number]) on 01/10/2021 2:36:45 PM Referred By: Confirmed By:Kwame Beaver
[2021-01-10] MEDS: ENOXAPARIN INJ 40 MG/0.4 ML SYR SQ SCH (15:01)
[2021-01-11] MEDS: FAMOTIDINE 40 MG TABLET PO SCH (08:29)
[2021-01-11] MEDS: ASPIRIN 81 MG ECTAB PO SCH (08:29)
--- NOTE | 2021-01-11 08:50 | Hospitalist Progress Note ---
Date of Service January 11, 2021 Assessment & Plan (1) SIRS (systemic inflammatory response syndrome): Plan: SIRS response with elevated HR normotensive, normal lactate and no evidence of organ dysfunction, and no clear source of infection at this time- DDX UTI vs. bi liary vs other (also w/ bibasilar crackles ?atelectasis with low temp at home) Prior admit Nov-Dec for COVID 19. No abx at that time and was d/c on steroids. Procal was negative at that time Did admit to issues with constipation prior to admission but since receiving IVF and ability to urinate with less frequency, he also states he had a BM. ?If obstruction/ileus with low grade elevation WBC 10.7k no admission with neutrophil elevated to 9.38. Lactic 1.3. Procal <0.05 Ceftriaxone 1gm IV daily given urinary symptoms (not emptying bladder completely despite urgency but also reported constipation and not having moved his bowels)--??stercoral colitis -- states SIGNIFICANT IMPROVEMENT DIRECTLY AFTER RECEIVING Urine cx WITHOUT growth --> Did state hx of prostatitis in past but not on extended course of abx. PSA wnl 1.09 Blood cultures NGTD after 24 hours Given improvement in symptoms after ceftriaxone and elevation in LFTs prior, currently with TB 1.4/DV 0.3 which have since resolved, checked Lyme/Anaplasmosis. Negative RUQ US obtained --> did show cholelithiasis but no GB wall thickening. Normal liver. Got IVF x 2L and now eating/drinking without issue and moving his bowels WBC 9k on repeat, neutrophils decreased CRP 6.61 on admission (was 7.25 last admission) CXR peripheral and basilar airspace opacities which have slightly improved on the left. CTA Chest with multifocal irregular airspace opacities which demonstrate a peripheral predominance. This is consistent with patient's history of a viral pneumonia. The opacities have slightly progressed in the interval and may represent developing fibrotic change. --> Will need f/u with pulmonary post discharge to follow recovery and ensure no developing pulmonary fibrosis Added incentive spirometer No fevers during inpatient stay - continue to monitor (2) Abnormal urinalysis: Plan: Trace LE, (+) Nitrites, WBC 1-5, Bacteria 0, (+) hyaline casts, protien, bilirubin IVF with improvement in hydration/urinary symptoms Continues on Rocephin for now, BCx pending URINE CULTURE NO GROWTH, less likely prostatitis. 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 (5) BPH (benign prostatic hyperplasia): Plan: with 1-2 usual awakenings per night for nocturia- had an increase in this 1 day prior to fevers and chills at home - as above PSA pending was 1.34 06/29 --> decreased Flomax to start tonight Monitor for hypotension (holding BP medications to prevent such) (6) Hyperlipidemia: Plan: Continue rosuvastatin 20mg daily (7) Hypertension: Plan: Hold ARB/HCTZ BP wnl this AM and given starting flomax tonight was going to hold but BP elevated this evening Will order losartan 50mg x 1 now, and plan to resume usual combination losartan/HCTZ in AM Will need to encouraged adequate PO intake given diuretics to prevent dehydration/constipation Continue to monitor (8) Impaired fasting glucose: Plan: Elevated glucose without diagnosis of DM- last HGBA1C 5% Of note, [facility] and had been on steroids at d/c Will check A1c in AM, glucose on BMP 128 BMP in AM (9) Carotid artery stenosis: Plan: Follows with Vascular- with carotid dopplers as per HPI - Continue asa 81mg daily, crestor Losartan 50mg x 1 this evening for elevated BP and plans for resume ARB/HCTZ in AM (10) Seasonal allergic rhinitis: Plan: No acute needs at this time Plan: continued inpatient stay Admission and Anticipated Discharge Date Admission Date: January 10, 2021 Subjective Patient evaluated this afternoon. States felt "25%" when he came in and now "75%" feeling MUCH MUCH better directly after abx administration. Decreased urinary frequency, voiding good amounts. Also now had BM this morning, formed, which he had been having issues with constipation prior to admission. No blood. Cough productive of clear sputum. No leg edema/swelling and states "everyone has been checking my legs". Urine cx without growth. Previous admit for COVID Nov-Dec with elevations only in AST/ALT but not in ALP. RUQ US with stones but no GB thickening/fluid however could possibly have past stone? He did note he had pain between his scapula which has resolved since admission. No nausea or vomiting but did wake up in a sweat day before. No further fever/chills or sweats since admission. Hopeful for possible d/c tomorrow. Review of Systems Review of Systems: All systems reviewed & are unremarkable except as noted in HPI & below Physical Exam Physical Exam: PHYSICAL EXAM: General: WN/WN, awake, alert, no apparent distress resting in bed Head: Normocephalic, atraumatic ENT: PERRL, EOMI, no pharyngeal exudate, mucous membranes moist Neuro: AAO x 3, speech clear and appropriate, strength intact bilaterally 5/5, sensation intact and equal all extremities and dermatomes, no pronator drift Resp: CTAB, no w/r, faint bibasilar crackles, on room air Cardiac: RRR, S1/S2, no calf tenderness or edema, cap refill <3 seconds GI: +BS, [id number], no guarding or rigidity Msk: moves all extremities, no focal deficit Skin: cool, dry, without obvious rash/erythema Psych AOx3, pleasant affect Results & Data Results & Data ([facility]) Vital Signs (Past 12 Hours) Vital Signs Temp Pulse Pulse Resp BP Pulse Ox 01/11/21 07:15 36.5 C 87 16 135/85 94 01/10/21 22:39 36.7 C 97 H 18 152/96 H 94 Laboratory Results 01/10/21 01/10/21 01/10/21 Range/Units 11:45 11:45 09:45 WBC (4.8-10.8) K/uL RBC (4.7-6.1) M/uL Hgb (14.0-18.0) g/dL Hct (42-52) % MCV (80-100) fL MCH (25-34) pg MCHC (32-36) g/dL RDW Std Deviation (36.4-46.3) fL RDW Coeff of [place]by (11.5-14.5) % Plt Count (130-400) K/uL MPV (7.4-10.4) fL Immature Gran % (Auto) % Neut % (Auto) % Lymph % (Auto) % [place] % (Auto) % Eos % (Auto) % Baso % (Auto) % Neut # (Auto) (1.4-6.5) K/uL Lymph # (Auto) (1.2-3.4) K/uL [place] # (Auto) (0.11-0.59) K/uL Eos # (Auto) (0-0.5) K/uL Baso # (Auto) (0-0.2) K/uL Immature Gran # (Auto) (0.00-0.02) K/uL PT (9.0-12.0) Seconds INR (0.9-1.1) APTT (21.0-31.0) Seconds PTT Ratio VBG pH 7.49 H (7.36-7.41) VBG pCO2 29 L (38-50) mmHg VBG pO2 64 mmHg VBG HCO3 22 mmol/L VBG O2 Saturation 94.7 % VBG Base Excess -0.2 mEq/L Barometric Pressure 737.7 mm/Hg Sodium (136-145) mmol/L Potassium (3.5-5.1) mmol/L Chloride (98-107) mmol/L Carbon Dioxide (21-32) mmol/L Anion Gap (3-11) BUN (7-18) mg/dl Creatinine (0.6-1.4) mg/dl Est Cr Clr Drug Dosing ml/min Est GFR ( Amer) ml/min Est GFR (Non-Af Amer) ml/min BUN/Creatinine Ratio (10-20) Glucose (70-99) mg/dl Lactate (0.4-2.0) mmol/L Calcium (8.5-10.1) mg/dl Magnesium (1.8-2.4) mg/dl Total Bilirubin (0.2-1) mg/dl Direct Bilirubin (0-0.2) mg/dl AST (15-37) U/L ALT (12-78) U/L Alkaline Phosphatase (45-117) U/L Troponin I (0-0.045) ng/ml C-Reactive Protein (0-0.29) mg/dl NT-Pro-B Natriuret Pep (0-900) pg/ml Total Protein (6.4-8.2) gm/dl Albumin (3.4-5.0) gm/dl Globulin (2.5-4.0) gm/dl Albumin/Globulin Ratio (0.9-2) Prostate Specific Ag (0-4) ng/ml Procalcitonin (0-0.5) ng/ml Urine Color Urine Appearance (Clear) Urine pH (4.5-7.5) Ur Specific [place] (1.000-1.030) Urine Protein (Negative) Urine Glucose (UA) (Negative) Urine Ketones (Negative) Urine Blood (Negative) Urine Nitrite (Negative) Urine Bilirubin (Negative) Urine Urobilinogen (Negative) Ur Leukocyte Esterase (Negative) Urine WBC (Auto) (0-5) /hpf Urine RBC (Auto) (0-4) /hpf U Hyaline Cast (Auto) (0-5) /lpf U Epithel Cells (Auto) (0-5) /lpf Urine Bacteria (Auto) (Negative) COVID-19 Eval Order Covid19 at [facility] SARS-CoV-2 (PCR) POSITIVE A* (Negative) 01/10/21 01/10/21 01/10/21 Range/Units 09:40 09:15 09:15 WBC (4.8-10.8) K/uL RBC (4.7-6.1) M/uL Hgb (14.0-18.0) g/dL Hct (42-52) % MCV (80-100) fL MCH (25-34) pg MCHC (32-36) g/dL RDW Std Deviation (36.4-46.3) fL RDW Coeff of Corby (11.5-14.5) % Plt Count (130-400) K/uL MPV (7.4-10.4) fL Immature Gran % (Auto) % Neut % (Auto) % Lymph % (Auto) % [place] % (Auto) % Eos % (Auto) % Baso % (Auto) % Neut # (Auto) (1.4-6.5) K/uL Lymph # (Auto) (1.2-3.4) K/uL [place] # (Auto) (0.11-0.59) K/uL Eos # (Auto) (0-0.5) K/uL Baso # (Auto) (0-0.2) K/uL Immature Gran # (Auto) (0.00-0.02) K/uL PT (9.0-12.0) Seconds INR (0.9-1.1) APTT (21.0-31.0) Seconds PTT Ratio VBG pH (7.36-7.41) VBG pCO2 (38-50) mmHg VBG pO2 mmHg VBG HCO3 mmol/L VBG O2 Saturation % VBG Base Excess mEq/L Barometric Pressure mm/Hg Sodium (136-145) mmol/L Potassium (3.5-5.1) mmol/L Chloride (98-107) mmol/L Carbon Dioxide (21-32) mmol/L Anion Gap (3-11) BUN (7-18) mg/dl Creatinine (0.6-1.4) mg/dl Est Cr Clr Drug Dosing ml/min Est GFR ( Amer) ml/min Est GFR (Non-Af Amer) ml/min BUN/Creatinine Ratio (10-20) Glucose (70-99) mg/dl Lactate 1.3 (0.4-2.0) mmol/L Calcium (8.5-10.1) mg/dl Magnesium (1.8-2.4) mg/dl Total Bilirubin (0.2-1) mg/dl Direct Bilirubin (0-0.2) mg/dl AST (15-37) U/L ALT (12-78) U/L Alkaline Phosphatase (45-117) U/L Troponin I (0-0.045) ng/ml C-Reactive Protein (0-0.29) mg/dl NT-Pro-B Natriuret Pep (0-900) pg/ml Total Protein (6.4-8.2) gm/dl Albumin (3.4-5.0) gm/dl Globulin (2.5-4.0) gm/dl Albumin/Globulin Ratio (0.9-2) Prostate Specific Ag (0-4) ng/ml Procalcitonin < 0.05 (0-0.5) ng/ml Urine Color [place] Urine Appearance Clear (Clear) Urine pH 5.5 (4.5-7.5) Ur Specific [place] 1.024 (1.000-1.030) Urine Protein 1+ H (Negative) Urine Glucose (UA) Negative (Negative) Urine Ketones Trace H (Negative) Urine Blood Negative (Negative) Urine Nitrite Positive A (Negative) Urine Bilirubin 1+ H (Negative) Urine Urobilinogen Negative (Negative) Ur Leukocyte Esterase Trace H (Negative) Urine WBC (Auto) 1-5 (0-5) /hpf Urine RBC (Auto) 0-4 (0-4) /hpf U Hyaline Cast (Auto) 5-10 H (0-5) /lpf U Epithel Cells (Auto) 20-30 H (0-5) /lpf Urine Bacteria (Auto) Negative (Negative) COVID-19 Eval Order SARS-CoV-2 (PCR) (Negative) 01/10/21 01/10/21 01/10/21 Range/Units 09:15 09:15 09:15 WBC 10.77 (4.8-10.8) K/uL RBC 4.29 L (4.7-6.1) M/uL Hgb 15.5 (14.0-18.0) g/dL Hct 43.3 (42-52) % MCV 100.9 H (80-100) fL MCH 36.1 H (25-34) pg MCHC 35.8 (32-36) g/dL RDW Std Deviation 47.8 H (36.4-46.3) fL RDW Coeff of Corby 13.0 (11.5-14.5) % Plt Count 211 (130-400) K/uL MPV 10.1 (7.4-10.4) fL Immature Gran % (Auto) 0.6 % Neut % (Auto) 87.0 % Lymph % (Auto) 5.4 % [place] % (Auto) 6.1 % Eos % (Auto) 0.6 % Baso % (Auto) 0.3 % Neut # (Auto) 9.38 H (1.4-6.5) K/uL Lymph # (Auto) 0.58 L (1.2-3.4) K/uL [place] # (Auto) 0.66 H (0.11-0.59) K/uL Eos # (Auto) 0.06 (0-0.5) K/uL Baso # (Auto) 0.03 (0-0.2) K/uL Immature Gran # (Auto) 0.06 H (0.00-0.02) K/uL PT 10.3 (9.0-12.0) Seconds INR 1.0 (0.9-1.1) APTT 25.8 (21.0-31.0) Seconds PTT Ratio 1.0 VBG pH (7.36-7.41) VBG pCO2 (38-50) mmHg VBG pO2 mmHg VBG HCO3 mmol/L VBG O2 Saturation % VBG Base Excess mEq/L Barometric Pressure mm/Hg Sodium 133 L (136-145) mmol/L Potassium 4.1 (3.5-5.1) mmol/L Chloride 105 (98-107) mmol/L Carbon Dioxide 22 (21-32) mmol/L Anion Gap 6.0 (3-11) BUN 10 (7-18) mg/dl Creatinine 0.84 (0.6-1.4) mg/dl Est Cr Clr Drug Dosing 94.6 ml/min Est GFR ( Amer) 101.4 ml/min Est GFR (Non-Af Amer) 87.5 ml/min BUN/Creatinine Ratio 11.5 (10-20) Glucose 117 H (70-99) mg/dl Lactate (0.4-2.0) mmol/L Calcium 8.9 (8.5-10.1) mg/dl Magnesium 2.1 (1.8-2.4) mg/dl Total Bilirubin 1.4 H (0.2-1) mg/dl Direct Bilirubin (0-0.2) mg/dl AST 30 (15-37) U/L ALT 63 (12-78) U/L Alkaline Phosphatase 76 (45-117) U/L Troponin I < 0.015 (0-0.045) ng/ml C-Reactive Protein (0-0.29) mg/dl NT-Pro-B Natriuret Pep 164 (0-900) pg/ml Total Protein 7.3 (6.4-8.2) gm/dl Albumin 3.2 L (3.4-5.0) gm/dl Globulin 4.1 H (2.5-4.0) gm/dl Albumin/Globulin Ratio 0.8 L (0.9-2) Prostate Specific Ag (0-4) ng/ml Procalcitonin (0-0.5) ng/ml Urine Color Urine Appearance (Clear) Urine pH (4.5-7.5) Ur Specific [place] (1.000-1.030) Urine Protein (Negative) Urine Glucose (UA) (Negative) Urine Ketones (Negative) Urine Blood (Negative) Urine Nitrite (Negative) Urine Bilirubin (Negative) Urine Urobilinogen (Negative) Ur Leukocyte Esterase (Negative) Urine WBC (Auto) (0-5) /hpf Urine RBC (Auto) (0-4) /hpf U Hyaline Cast (Auto) (0-5) /lpf U Epithel Cells (Auto) (0-5) /lpf Urine Bacteria (Auto) (Negative) COVID-19 Eval Order SARS-CoV-2 (PCR) (Negative) 01/10/21 Range/Units 08:56 WBC (4.8-10.8) K/uL RBC (4.7-6.1) M/uL Hgb (14.0-18.0) g/dL Hct (42-52) % MCV (80-100) fL MCH (25-34) pg MCHC (32-36) g/dL RDW Std Deviation (36.4-46.3) fL RDW Coeff of Corby (11.5-14.5) % Plt Count (130-400) K/uL MPV (7.4-10.4) fL Immature Gran % (Auto) % Neut % (Auto) % Lymph % (Auto) % [place] % (Auto) % Eos % (Auto) % Baso % (Auto) % Neut # (Auto) (1.4-6.5) K/uL Lymph # (Auto) (1.2-3.4) K/uL [place] # (Auto) (0.11-0.59) K/uL Eos # (Auto) (0-0.5) K/uL Baso # (Auto) (0-0.2) K/uL Immature Gran # (Auto) (0.00-0.02) K/uL PT (9.0-12.0) Seconds INR (0.9-1.1) APTT (21.0-31.0) Seconds PTT Ratio VBG pH (7.36-7.41) VBG pCO2 (38-50) mmHg VBG pO2 mmHg VBG HCO3 mmol/L VBG O2 Saturation % VBG Base Excess mEq/L Barometric Pressure mm/Hg Sodium (136-145) mmol/L Potassium (3.5-5.1) mmol/L Chloride (98-107) mmol/L Carbon Dioxide (21-32) mmol/L Anion Gap (3-11) BUN (7-18) mg/dl Creatinine (0.6-1.4) mg/dl Est Cr Clr Drug Dosing ml/min Est GFR ( Amer) ml/min Est GFR (Non-Af Amer) ml/min BUN/Creatinine Ratio (10-20) Glucose (70-99) mg/dl Lactate (0.4-2.0) mmol/L Calcium (8.5-10.1) mg/dl Magnesium (1.8-2.4) mg/dl Total Bilirubin 1.3 H (0.2-1) mg/dl Direct Bilirubin 0.3 H (0-0.2) mg/dl AST (15-37) U/L ALT (12-78) U/L Alkaline Phosphatase (45-117) U/L Troponin I (0-0.045) ng/ml C-Reactive Protein 6.61 H (0-0.29) mg/dl NT-Pro-B Natriuret Pep (0-900) pg/ml Total Protein (6.4-8.2) gm/dl Albumin (3.4-5.0) gm/dl Globulin (2.5-4.0) gm/dl Albumin/Globulin Ratio (0.9-2) Prostate Specific Ag 1.090 (0-4) ng/ml Procalcitonin (0-0.5) ng/ml Urine Color Urine Appearance (Clear) Urine pH (4.5-7.5) Ur Specific [place] (1.000-1.030) Urine Protein (Negative) Urine Glucose (UA) (Negative) Urine Ketones (Negative) Urine Blood (Negative) Urine Nitrite (Negative) Urine Bilirubin (Negative) Urine Urobilinogen (Negative) Ur Leukocyte Esterase (Negative) Urine WBC (Auto) (0-5) /hpf Urine RBC (Auto) (0-4) /hpf U Hyaline Cast (Auto) (0-5) /lpf U Epithel Cells (Auto) (0-5) /lpf Urine Bacteria (Auto) (Negative) COVID-19 Eval Order SARS-CoV-2 (PCR) (Negative) Diagnostic Findings Chest X-Ray 01/10/21 08:56 XR chest 1V portable HISTORY: Dyspnea COMPARISON: Chest 12/29/2020. FINDINGS: The heart remains mildly enlarged. Scattered peripheral and basilar airspace opacities are again noted. These have slightly improved on the left. No evidence for pulmonary edema. No pneumothorax. No pleural effusions. IMPRESSION: Scattered peripheral and basilar airspace opacities which have slightly improved on the left. ACT 112: Negative or not required by law. Electronically signed by: Joe Mejia M.D. 01/10/2021 9:38 AM Chest CTA 01/10/21 09:04 CHEST CTA for PULMONARY ARTERIES CT DOSE: 536.75 mGycm HISTORY: Shortness of breath. TECHNIQUE: Multiaxial CT images of the chest were performed following the intravenous administration of contrast to evaluate the pulmonary arteries. Maximal intensity projection images were also obtained. A dose lowering technique was utilized adhering to the principles of ALARA. COMPARISON STUDY: Chest CTA 12/24/2020. FINDINGS: Normal caliber thoracic aorta with no evidence for dissection. The heart is normal in size. No pericardial effusion. Trace bilateral pleural effusions. No filling defects within the pulmonary arteries to suggest a pulmonary embolus. Moderate calcified plaque within the coronary arteries. The visualized liver and spleen are unremarkable. Normal caliber esophagus. No hilar lymphadenopathy. There is a single mildly enlarged right paratracheal lymph node on image 207. This measures 15 x 9 mm and has increased in size. This could be reactive. No suspicious lytic or blastic osseous lesions. No pneumothorax. The central airways are patent. There are multifocal irregular airspace opacities which demonstrate a peripheral predominance. This is consistent with patient's history of a viral pneumonia. The opacities have slightly progressed in the interval and may represent developing fibrotic change. IMPRESSION: 1. No evidence for pulmonary embolus. 2. There are multifocal irregular airspace opacities which demonstrate a peripheral predominance. This is consistent with patient's history of a viral pneumonia. The opacities have slightly progressed in the interval and may represent developing fibrotic change. ACT 112: Negative or not required by law. Electronically signed by: Joe Mejia M.D. 01/10/2021 11:09 AM Abdomen Ultrasound 01/10/21 12:00 ABDOMINAL ULTRASOUND, RIGHT UPPER QUADRANT HISTORY: Fever. evaluate gallbladder, gallstones, liver. COMPARISON: Abdomen and pelvis CT 12/24/2020 FINDINGS: Pancreas: Obscured by overlying bowel gas. Liver: Unremarkable. Gallbladder: No gallbladder wall thickening. There are tiny gallstones identified. Negative sonographic Fonseca sign. CBD: 4 mm. Right kidney: No hydronephrosis. IMPRESSION: 1. Cholelithiasis. No gallbladder wall thickening. 2. Normal liver. 3. The pancreas was obscured by overlying bowel gas. ACT 112: Negative or not required by law. Electronically signed by: Joe Mejia M.D. 01/10/2021 2:18 PM PG Care Time/CCT Total # of Minutes Spent Total Time Spent with Patient: Total time spent is greater than 50% in coordination of care (as documented) at patient's floor/unit and/or counseling patient: Coding Level of Care Code 81539 Subseq Hosp Care Lvl 2 Diagnoses SIRS (systemic inflammatory response syndrome) R65.10 Abnormal urinalysis R82.90 Cholelithiases K80.20 COVID-19 U07.1 BPH (benign prostatic hyperplasia) N40.0 Hyperlipidemia E78.5 Hypertension I10 Hypertension type: essential hypertension Impaired fasting glucose R73.01 Carotid artery stenosis I65.29 Seasonal allergic rhinitis J30.2 (1) Hypertension Hypertension type: essential hypertension Qualified Code(s): I10 - Essential (primary) hypertension
[2021-01-11 09:19] LABS: Basophils # (auto) 0.01 K/uL (0-0.2); Basophils % (auto) 0.1 %; Eosinophils # (auto) 0.09 K/uL (0-0.5); Hematocrit (blood only) 45.3 % (42-52); Hemoglobin 15.8 g/dL (14.0-18.0); Immature Granulocytes # (auto) 0.06 K/uL (0.00-0.02); Immature Granulocytes % (auto) 0.7 %; Lymphocytes # (auto) 1.56 K/uL (1.2-3.4); Lymphocytes % (auto) 17.3 %; Mean Corpuscular Hemoglobin 35.3 pg (25-34); Mean Corpuscular Hgb Conc 34.9 g/dL (32-36); Mean Corpuscular Volume 101.3 fL (80-100); Mean Platelet Volume 10.1 fL (7.4-10.4); Monocytes # (auto) 0.63 K/uL (0.11-0.59); Neutrophils # (auto) 6.68 K/uL (1.4-6.5); Neutrophils % (auto) 73.9 %; Platelet Count 207 K/uL (130-400); RDW Coefficient of Variation 12.9 % (11.5-14.5); RDW Standard Deviation 47.6 fL (36.4-46.3); Red Blood Count 4.47 M/uL (4.7-6.1); White Blood Count 9.03 K/uL (4.8-10.8)
[2021-01-11 09:47] LABS: BUN Creatinine Ratio 14.9 (10-20); Calcium 9.3 mg/dl (8.5-10.1); Creatinine Clr Calc Pharmacy 103.2 ml/min; Est GFR (African American) 105.1 ml/min; Est GFR (Non-African American) 90.7 ml/min; Magnesium 2.4 mg/dl (1.8-2.4); Potassium 3.6 mmol/L (3.5-5.1)
[2021-01-11] MEDS: cefTRIAXone SODIUM 2,000 MG in DEXTROSE 5% 50 ML IV SCH (10:55)
[2021-01-11] MEDS: ROSUVASTATIN CALCIUM 20 MG TAB PO SCH (10:56)
[2021-01-11 11:21] LABS: Folate (Folic Acid) 10.2 ng/ml (>5.38)
[2021-01-11 11:22] LABS: Albumin Level 2.8 gm/dl (3.4-5.0); Bilirubin Direct 0.2 mg/dl (0-0.2); Bilirubin,Total 0.9 mg/dl (0.2-1); Total Protein 7.5 gm/dl (6.4-8.2)
[2021-01-11 14:53] LABS: Lyme Ab IgG w/WB Rflx Negative (Negative); Lyme Ab IgM w/WB Rflx Negative (Negative)
[2021-01-11] MEDS: ENOXAPARIN INJ 40 MG/0.4 ML SYR SQ SCH (16:05)
[2021-01-11] MEDS ORDERED: LOSARTAN POTASSIUM 50 MG TAB PO ONE (18:30)
[2021-01-11] MEDS: TAMSULOSIN HCL 0.4 MG CAP PO SCH (19:57)
[2021-01-12] MEDS: FAMOTIDINE 40 MG TABLET PO SCH (07:56)
--- NOTE | 2021-01-12 08:09 | Hospitalist Progress Note ---
Date of Service January 12, 2021 Assessment & Plan (1) SIRS (systemic inflammatory response syndrome): Plan: SIRS response with elevated HR normotensive, normal lactate and no evidence of organ dysfunction, and no clear source of infection at this time- DDX UTI vs. bi liary vs other (also w/ bibasilar crackles ?atelectasis with low temp at home) Prior admit Nov-Dec for COVID 19. No abx at that time and was d/c on steroids. Procal was negative at that time Did admit to issues with constipation prior to admission but since receiving IVF and ability to urinate with less frequency, he also states he had a BM. ?If obstruction/ileus with low grade elevation WBC 10.7k no admission with neutrophil elevated to 9.38. Lactic 1.3. Procal <0.05 Ceftriaxone 1gm IV daily given urinary symptoms (not emptying bladder completely despite urgency but also reported constipation and not having moved his bowels)--??stercoral colitis -- states SIGNIFICANT IMPROVEMENT DIRECTLY AFTER RECEIVING Urine cx WITHOUT growth --> Did state hx of prostatitis in past but not on extended course of abx. PSA wnl 1.09 Blood cultures NGTD after 24 hours Given improvement in symptoms after ceftriaxone and elevation in LFTs prior, currently with TB 1.4/DV 0.3 which have since resolved (again elevated and had issues in the past, most recently after fried fish last evening) Lyme/anaplasmosis negative RUQ US obtained --> did show cholelithiasis but no GB wall thickening. Normal liver. Got IVF x 2L and now eating/drinking without issue and moving his bowels WBC 7k on repeat, neutrophils decreased CRP 6.61 on admission (was 7.25 last admission)--> trending down CXR peripheral and basilar airspace opacities which have slightly improved on the left. CTA Chest with multifocal irregular airspace opacities which demonstrate a peripheral predominance. This is consistent with patient's history of a viral pneumonia. The opacities have slightly progressed in the interval and may represent developing fibrotic change. --> Will need f/u with pulmonary post discharge to follow recovery and ensure no developing pulmonary fibrosis Added incentive spirometer No fevers during inpatient stay but did report chills GI consulted given repeat elevation in TB after fried fish and repeat RUQ discomfort (but also epigastric). Will check Lipase HIDA scan ordered -- if +, consult surgery. If negative consider MRCP HIDA Normal uptake of contrast in the gallbladder and passage into the small bowel. Negative for acute cholecystitis. Discussed with GI and will feed today, low fat diet. Pain control -- morphine x 1 this morning. prn Continue to monitor LFTs in AM but if elevated further/no improvement will consider MRCP +/- ERCP/EUS, EGD Did report scapular pain/discomfort between shoulder blades concerning for GB disease. ?cholestyramine for symptom management possible --> Also given recent steroids for COVID and epigastric discomfort concerning for ulcer/gastritis and added Protonix daily. IVP for today and will place on PO tomorrow if not undergoing further studies ?need for carafate but will hold off for now (2) Abnormal urinalysis: Plan: Trace LE, (+) Nitrites, WBC 1-5, Bacteria 0, (+) hyaline casts, protien, bilirubin IVF with improvement in hydration/urinary symptoms Continues on Rocephin for now, BCx pending and remain negative URINE CULTURE NO GROWTH, less likely prostatitis. 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 (5) BPH (benign prostatic hyperplasia): Plan: with 1-2 usual awakenings per night for nocturia- had an increase in this 1 day prior to fevers and chills at home - as above PSA pending was 1.34 06/29 --> decreased Flomax to start tonight Monitor for hypotension--> no issues and continue (6) Hyperlipidemia: Plan: Continue rosuvastatin 20mg daily (7) Hypertension: Plan: Hold ARB/HCTZ--> resumed this morning BP stable encouraged adequate PO intake given diuretics to prevent dehydration/constipation Continue to monitor (8) Impaired fasting glucose: Plan: Elevated glucose without diagnosis of DM Last HGBA1C 5% --> repeat wnl 5.4%. Of note, recent d/c from hospital for COVID and had been on steroids at d/c Will Glucose on AM labs 96 BMP in AM (9) Carotid artery stenosis: Plan: Follows with Vascular- with carotid dopplers as per HPI Continue asa 81mg daily, crestor, BP control as above (10) Seasonal allergic rhinitis: Plan: No acute needs at this time Plan: continued inpatient stay as above NPO after midnight to ensure LFTs normalize. If continue elevation imaging/procedure as above Admission and Anticipated Discharge Date Admission Date: January 10, 2021 Subjective Evaluated afternoon. Increased discomfort last night after fried fish/potatoes/green beans. Had chills and felt like he couldn't get warm but was provided blankets. Voiding better and had a BM this morning, darker but no tarry stool or blood noted. Then had pain this AM 7/10 RUQ, tachycardia. No radiation but did have some epigastric discomfort. Got dose of morphine this morning which was very helpful. Holding for HIDA as taking down shortly given symptoms and re-elevation of TB. Of note, was on steroids for COVID and noted he had worsening reflux and some epigastric discomfort and was also on pepcid but didn't seem to do much discussed could cause ulcer and given epigastric discomfort at times would start protonix as rec by GI HIDA scanned -- if negative will look into scope. If + will consult with general surgery No further fever,chills. No chest pain or shortness of breath, nausea or vomiting. Voiding more adequately and will continue flomax therapy. Review of Systems Review of Systems: All systems reviewed & are unremarkable except as noted in HPI & below Physical Exam Physical Exam: PHYSICAL EXAM: General: WN/WN, awake, alert, no apparent distress resting in bed Head: Normocephalic, atraumatic ENT: PERRL, EOMI, no pharyngeal exudate, mucous membranes moist Neuro: AAO x 3, speech clear and appropriate, strength intact bilaterally 5/5, sensation intact and equal all extremities and dermatomes, no pronator drift Resp: CTAB, no w/r, faint bibasilar crackles, on room air Cardiac: RRR, S1/S2, no calf tenderness or edema, cap refill <3 seconds GI: +BS, soft, mild epigastric/RUQ tenderness, no rebound, no guarding or rigidity Msk: moves all extremities, no focal deficit Skin: cool, dry, without obvious rash/erythema Psych AOx3, pleasant affect Results & Data Results & Data ([facility]) Vital Signs (Past 12 Hours) Vital Signs Temp Pulse Resp BP Pulse Ox 01/11/21 22:32 36.9 C 105 H 16 124/83 92 Laboratory Results 01/12/21 01/12/21 01/12/21 Range/Units 07:41 07:41 07:41 WBC 7.83 (4.8-10.8) K/uL RBC 4.01 L (4.7-6.1) M/uL Hgb 14.3 (14.0-18.0) g/dL Hct 40.5 L (42-52) % MCV 101.0 H (80-100) fL MCH 35.7 H (25-34) pg MCHC 35.3 (32-36) g/dL RDW Std Deviation 47.9 H (36.4-46.3) fL RDW Coeff of [place] 12.9 (11.5-14.5) % Plt Count 196 (130-400) K/uL MPV 9.9 (7.4-10.4) fL Immature Gran % (Auto) 0.6 % Neut % (Auto) 67.6 % Lymph % (Auto) 17.8 % [place] % (Auto) 11.1 % Eos % (Auto) 2.8 % Baso % (Auto) 0.1 % Neut # (Auto) 5.29 (1.4-6.5) K/uL Lymph # (Auto) 1.39 (1.2-3.4) K/uL [place] # (Auto) 0.87 H (0.11-0.59) K/uL Eos # (Auto) 0.22 (0-0.5) K/uL Baso # (Auto) 0.01 (0-0.2) K/uL Immature Gran # (Auto) 0.05 H (0.00-0.02) K/uL Sodium 134 L (136-145) mmol/L Potassium 3.9 (3.5-5.1) mmol/L Chloride 105 (98-107) mmol/L Carbon Dioxide 20 L (21-32) mmol/L Anion Gap 9.0 (3-11) BUN 11 (7-18) mg/dl Creatinine 0.75 (0.6-1.4) mg/dl Est Cr Clr Drug Dosing 105.9 ml/min Est GFR ( Amer) 106.2 ml/min Est GFR (Non-Af Amer) 91.6 ml/min BUN/Creatinine Ratio 14.0 (10-20) Glucose 96 (70-99) mg/dl Estimat Average Glucose 108 mg/dl Hemoglobin A1c 5.4 (4.5-5.6) % Calcium 8.5 (8.5-10.1) mg/dl Magnesium 2.1 (1.8-2.4) mg/dl Total Bilirubin 1.3 H (0.2-1) mg/dl Direct Bilirubin 0.2 (0-0.2) mg/dl AST 24 (15-37) U/L ALT 45 (12-78) U/L Alkaline Phosphatase 63 (45-117) U/L C-Reactive Protein 4.90 H (0-0.29) mg/dl Total Protein 6.7 (6.4-8.2) gm/dl Albumin 2.5 L (3.4-5.0) gm/dl Diagnostic Findings Hepatobiliary Scan Nuclear Medicine 01/12/21 08:05 NM hepatobiliary CLINICAL HISTORY: RUQ pain, eval jewels TECHNIQUE: Following the intravenous injection of 5.4 mCi of Tc-99m labeled Technetium 99m mebrofenin, multiple images over the upper abdomen were obtained in the anterior projection with uptake measurements of the gallbladder obtained. Comparison: None available at the time of this dictation. FINDINGS: Sequential images demonstrate normal uptake in the liver, common bile duct, gallbladder, and small bowel. No defects in uptake are identified. Subsequent imaging after the administration of sincalide demonstrates prompt elimination of the radiotracer from the gallbladder. Ejection fraction was not evaluated. IMPRESSION: Normal uptake of contrast in the gallbladder and passage into the small bowel. Negative for acute cholecystitis. ACT 112: Negative or not required by law. Electronically signed by: Jason Jones M.D. 01/12/2021 2:51 PM PG Care Time/CCT Total # of Minutes Spent Total Time Spent with Patient: Total time spent is greater than 50% in coordination of care (as documented) at patient's floor/unit and/or counseling patient: Coding Level of Care Code 02322 Subseq Hosp Care Lvl 3 Diagnoses SIRS (systemic inflammatory response syndrome) R65.10 Abnormal urinalysis R82.90 Cholelithiases K80.20 COVID-19 U07.1 BPH (benign prostatic hyperplasia) N40.0 Hyperlipidemia E78.5 Hypertension I10 Hypertension type: essential hypertension Impaired fasting glucose R73.01 Carotid artery stenosis I65.29 Seasonal allergic rhinitis J30.2 (1) Hypertension Hypertension type: essential hypertension Qualified Code(s): I10 - Essential (primary) hypertension
[2021-01-12 08:13] LABS: Basophils # (auto) 0.01 K/uL (0-0.2); Basophils % (auto) 0.1 %; Eosinophils # (auto) 0.22 K/uL (0-0.5); Eosinophils % (auto) 2.8 %; Hematocrit (blood only) 40.5 % (42-52); Hemoglobin 14.3 g/dL (14.0-18.0); Immature Granulocytes # (auto) 0.05 K/uL (0.00-0.02); Immature Granulocytes % (auto) 0.6 %; Lymphocytes # (auto) 1.39 K/uL (1.2-3.4); Lymphocytes % (auto) 17.8 %; Mean Corpuscular Hemoglobin 35.7 pg (25-34); Mean Corpuscular Hgb Conc 35.3 g/dL (32-36); Mean Platelet Volume 9.9 fL (7.4-10.4); Monocytes # (auto) 0.87 K/uL (0.11-0.59); Monocytes % (auto) 11.1 %; Neutrophils # (auto) 5.29 K/uL (1.4-6.5); Neutrophils % (auto) 67.6 %; Platelet Count 196 K/uL (130-400); RDW Coefficient of Variation 12.9 % (11.5-14.5); RDW Standard Deviation 47.9 fL (36.4-46.3); Red Blood Count 4.01 M/uL (4.7-6.1); White Blood Count 7.83 K/uL (4.8-10.8)
[2021-01-12] MEDS ORDERED: MoRPHine SULFATE 2 MG/ML CARP IV STA (08:17)
[2021-01-12] MEDS ORDERED: LOSARTAN/HCTZ 50/12.5MG TAB PO SCH (09:00)
[2021-01-12 09:14] LABS: Albumin Level 2.5 gm/dl (3.4-5.0); C Reactive Protein 4.9 mg/dl (0-0.29); Calcium 8.5 mg/dl (8.5-10.1); Creatinine Clr Calc Pharmacy 105.9 ml/min; Est GFR (African American) 106.2 ml/min; Est GFR (Non-African American) 91.6 ml/min; Magnesium 2.1 mg/dl (1.8-2.4); Potassium 3.9 mmol/L (3.5-5.1)
[2021-01-12 09:16] LABS: Bilirubin Direct 0.2 mg/dl (0-0.2); Bilirubin,Total 1.3 mg/dl (0.2-1); Total Protein 6.7 gm/dl (6.4-8.2)
[2021-01-12 09:49] LABS: Estimated Average Glucose 108 mg/dl; Hemoglobin A1C 5.4 % (4.5-5.6)
--- NOTE | 2021-01-12 10:35 | Gastrointestinal Consultation ---
Date of Consultation January 12, 2021 Assessment & Plan (1) Cholelithiases: 70 year old male admitted w/ ruq pain, onset after dinner without nausea/vomiting. ABD US showed gallstones, no biliary dilation. Tbili this AM 1.3 w/ normal transaminases. He is scheduled for a HIDA scan If HIDA + general surgery consultation If HIDA unremarkable, can consider MRCP If MRCP negative, recommend repeat non-fasting LFTs tomorrow Continue Pepcid Please add Pantoprazole 40 mg in the AM If work up unrevealing can have OP EGD Supervising Physician Co-Signing Physician Notes I performed a history and physical examination of the patient today, including specifically on physical exam - soft abdomen. I have discussed the patient's management with the advanced practitioner. Please refer to the nurse practitioner's note for the documented findings and plan of care. Normal LFTs except elevated indirect bilirubin. Had pain which resolved, sono with gallstones. Fine with HIDA, could also consider MRCP. History of Present Illness Reason for Consultation: ruq pain Requesting Physician: Mariela Attending Physician: Leroy Sierra History of Present Illness 70 year old male with history of HTN, HLD, Carotid artery stenosis(LICA 50-69% KRISTINE <50% (2020)), GERD, COVID in December requiring hospitalization admitted w/ RUQ pain onset yesterday with dinner. Pain worsened prompting ED evaluation. Had similar pain years ago. No radiation of pain. Sharp, stabbing. No associated nausea/vomiting. Denies GERD. Pain improved since started on analgesia Tbili today 1.3 so GI asked to evaluate, transaminases normal No NSAID No AC Was on longer course of Prednisone due to covid infection ABD US: stones, no biliary dilation Allergies Allergy/AdvReac Type Severity Reaction Status Date / Time sulfamethoxazole Allergy Unknown Unknown Verified 12/27/20 11:04 [From Bactrim] trimethoprim [From Bactrim] Allergy Unknown Unknown Verified 12/27/20 11:04 Home Medications Medication Instructions Recorded Confirmed Type [id number] acid 300 1 tab PO WK 03/19/19 01/10/21 History mcg-lycopene 600 mcg-lutein 300 mcg tablet (Men 50 Plus Multivitamin) aspirin 81 mg tablet,delayed 81 mg PO 3XWK tab 01/15/20 01/10/21 History release (Aspirin Low Dose) psyllium husk 3.4 gram/5.4 gram 3 tsp PO DAILY PRN g 06/29/20 01/10/21 History oral powder (Metamucil) losartan 50 mg-hydrochlorothiazide 1 tab PO QAM 12/18/20 01/10/21 History 12.5 mg tablet (Hyzaar) ondansetron 4 mg disintegrating 4 mg PO Q8H PRN #10 tab 12/18/20 01/10/21 Rx tablet rosuvastatin 20 mg tablet (Crestor) 20 mg PO QDL 12/18/20 01/10/21 History potassium chloride 20 mEq 20 meq PO DAILY #10 tab 12/20/20 01/10/21 Rx tablet,extended release (K-Tab) albuterol sulfate 90 mcg/actuation 2 inh INHALATION Q6H PRN #8.5 g 12/24/20 01/10/21 Rx aerosol inhaler (Proventil HFA) famotidine 40 mg tablet (Pepcid) 40 mg PO DAILY #14 tab 12/29/20 01/10/21 Rx Patient History Medical History Basal cell carcinoma of right ear BPH (benign prostatic hyperplasia) Hyperlipidemia Hypertension Surgical History History of colonoscopy with polypectomy History of tonsillectomy History of wisdom tooth extraction Status post Mohs surgery for basal cell carcinoma Family History Father Acute myocardial infarction Mother Breast cancer Other Myocardial infarction No family history of adverse response to anesthesia Denies family history of Ovarian cancer Prostate cancer Colorectal cancer Social History Smoking Status: Former smoker Age Started Using Tobacco: 18; Age Quit Using Tobacco: 27; packs per day: 1; Years Smoked: 9; Cigarettes Per Day: 20; Number of Years Since Quit: 12; Second Hand Exposure: No; Hx Alcohol Use: Yes Alcohol type: wine Hx Substance Use: No Preferred Language: Sudanese Communication Ability: Effective Visual Impairment: No Limitations Hearing Ability: Normal [place] Bender Required: No Beliefs That Will Affect Care: None marital status: Current Living Situation: Spouse Feels Safe at Home: Yes Safety Concerns: Feels Safe At This Time Childhood Exposure to Second-Hand Smoke: Yes Dental Care, Regularly: Yes Physical Activity Frequency: Daily Seatbelt Use: always Assistive Devices: None Review of Systems Review of Systems: All systems reviewed & are unremarkable except as noted in HPI & below Physical Exam Constitutional: WD/WN, vitals as above Neck: trachea midline, no thyromegaly Respiratory: normal respiratory effort; no respiratory distress and no labored breathing Cardiovascular: Rate/Rhythm: regular rate and regular rhythm Gastrointestinal (Abdomen): normal bowel sounds, soft, nontender, no hepatosplenomegaly Skin: no rashes, warm and dry Results & Data ([facility]) Vital Signs (Past 12 Hours) Vital Signs Temp Pulse Resp BP Pulse Ox 01/12/21 08:23 36.4 C L 122 H 17 112/74 92 01/11/21 22:32 36.9 C 105 H 16 124/83 92 Laboratory Results 01/12/21 01/12/21 01/12/21 Range/Units 07:41 07:41 07:41 WBC 7.83 (4.8-10.8) K/uL RBC 4.01 L (4.7-6.1) M/uL Hgb 14.3 (14.0-18.0) g/dL Hct 40.5 L (42-52) % MCV 101.0 H (80-100) fL MCH 35.7 H (25-34) pg MCHC 35.3 (32-36) g/dL RDW Std Deviation 47.9 H (36.4-46.3) fL RDW Coeff of [place] 12.9 (11.5-14.5) % Plt Count 196 (130-400) K/uL MPV 9.9 (7.4-10.4) fL Immature Gran % (Auto) 0.6 % Neut % (Auto) 67.6 % Lymph % (Auto) 17.8 % [place] % (Auto) 11.1 % Eos % (Auto) 2.8 % Baso % (Auto) 0.1 % Neut # (Auto) 5.29 (1.4-6.5) K/uL Lymph # (Auto) 1.39 (1.2-3.4) K/uL [place] # (Auto) 0.87 H (0.11-0.59) K/uL Eos # (Auto) 0.22 (0-0.5) K/uL Baso # (Auto) 0.01 (0-0.2) K/uL Immature Gran # (Auto) 0.05 H (0.00-0.02) K/uL Sodium 134 L (136-145) mmol/L Potassium 3.9 (3.5-5.1) mmol/L Chloride 105 (98-107) mmol/L Carbon Dioxide 20 L (21-32) mmol/L Anion Gap 9.0 (3-11) BUN 11 (7-18) mg/dl Creatinine 0.75 (0.6-1.4) mg/dl Est Cr Clr Drug Dosing 105.9 ml/min Est GFR ( Amer) 106.2 ml/min Est GFR (Non-Af Amer) 91.6 ml/min BUN/Creatinine Ratio 14.0 (10-20) Glucose 96 (70-99) mg/dl Estimat Average Glucose 108 mg/dl Hemoglobin A1c 5.4 (4.5-5.6) % Calcium 8.5 (8.5-10.1) mg/dl Magnesium 2.1 (1.8-2.4) mg/dl Total Bilirubin 1.3 H (0.2-1) mg/dl Direct Bilirubin 0.2 (0-0.2) mg/dl AST 24 (15-37) U/L ALT 45 (12-78) U/L Alkaline Phosphatase 63 (45-117) U/L C-Reactive Protein 4.90 H (0-0.29) mg/dl Total Protein 6.7 (6.4-8.2) gm/dl Albumin 2.5 L (3.4-5.0) gm/dl Vitamin B12 (193-986) pg/ml Folate (>5.38) ng/ml Anaplasma Smear Babesia Smear Lyme Disease IgG Ab (Negative) Lyme Disease IgM Ab (Negative) 01/11/21 01/11/21 01/11/21 Range/Units 09:00 09:00 09:00 WBC (4.8-10.8) K/uL RBC (4.7-6.1) M/uL Hgb (14.0-18.0) g/dL Hct (42-52) % MCV (80-100) fL MCH (25-34) pg MCHC (32-36) g/dL RDW Std Deviation (36.4-46.3) fL RDW Coeff of [place] (11.5-14.5) % Plt Count (130-400) K/uL MPV (7.4-10.4) fL Immature Gran % (Auto) % Neut % (Auto) % Lymph % (Auto) % [place] % (Auto) % Eos % (Auto) % Baso % (Auto) % Neut # (Auto) (1.4-6.5) K/uL Lymph # (Auto) (1.2-3.4) K/uL [place] # (Auto) (0.11-0.59) K/uL Eos # (Auto) (0-0.5) K/uL Baso # (Auto) (0-0.2) K/uL Immature Gran # (Auto) (0.00-0.02) K/uL Sodium (136-145) mmol/L Potassium (3.5-5.1) mmol/L Chloride (98-107) mmol/L Carbon Dioxide (21-32) mmol/L Anion Gap (3-11) BUN (7-18) mg/dl Creatinine (0.6-1.4) mg/dl Est Cr Clr Drug Dosing ml/min Est GFR ( Amer) ml/min Est GFR (Non-Af Amer) ml/min BUN/Creatinine Ratio (10-20) Glucose (70-99) mg/dl Estimat Average Glucose mg/dl Hemoglobin A1c (4.5-5.6) % Calcium (8.5-10.1) mg/dl Magnesium (1.8-2.4) mg/dl Total Bilirubin 0.9 D (0.2-1) mg/dl Direct Bilirubin 0.2 (0-0.2) mg/dl AST 21 (15-37) U/L ALT 52 (12-78) U/L Alkaline Phosphatase 67 (45-117) U/L C-Reactive Protein (0-0.29) mg/dl Total Protein 7.5 (6.4-8.2) gm/dl Albumin 2.8 L (3.4-5.0) gm/dl Vitamin B12 (193-986) pg/ml Folate (>5.38) ng/ml Anaplasma Smear See Comment Babesia Smear See Comment Lyme Disease IgG Ab Negative (Negative) Lyme Disease IgM Ab Negative (Negative) 01/11/21 Range/Units 09:00 WBC (4.8-10.8) K/uL RBC (4.7-6.1) M/uL Hgb (14.0-18.0) g/dL Hct (42-52) % MCV (80-100) fL MCH (25-34) pg MCHC (32-36) g/dL RDW Std Deviation (36.4-46.3) fL RDW Coeff of [place] (11.5-14.5) % Plt Count (130-400) K/uL MPV (7.4-10.4) fL Immature Gran % (Auto) % Neut % (Auto) % Lymph % (Auto) % [place] % (Auto) % Eos % (Auto) % Baso % (Auto) % Neut # (Auto) (1.4-6.5) K/uL Lymph # (Auto) (1.2-3.4) K/uL [place] # (Auto) (0.11-0.59) K/uL Eos # (Auto) (0-0.5) K/uL Baso # (Auto) (0-0.2) K/uL Immature Gran # (Auto) (0.00-0.02) K/uL Sodium (136-145) mmol/L Potassium (3.5-5.1) mmol/L Chloride (98-107) mmol/L Carbon Dioxide (21-32) mmol/L Anion Gap (3-11) BUN (7-18) mg/dl Creatinine (0.6-1.4) mg/dl Est Cr Clr Drug Dosing ml/min Est GFR ( Amer) ml/min Est GFR (Non-Af Amer) ml/min BUN/Creatinine Ratio (10-20) Glucose (70-99) mg/dl Estimat Average Glucose mg/dl Hemoglobin A1c (4.5-5.6) % Calcium (8.5-10.1) mg/dl Magnesium (1.8-2.4) mg/dl Total Bilirubin (0.2-1) mg/dl Direct Bilirubin (0-0.2) mg/dl AST (15-37) U/L ALT (12-78) U/L Alkaline Phosphatase (45-117) U/L C-Reactive Protein (0-0.29) mg/dl Total Protein (6.4-8.2) gm/dl Albumin (3.4-5.0) gm/dl Vitamin B12 325 (193-986) pg/ml Folate 10.20 (>5.38) ng/ml Anaplasma Smear Babesia Smear Lyme Disease IgG Ab (Negative) Lyme Disease IgM Ab (Negative)
[2021-01-12] MEDS: ROSUVASTATIN CALCIUM 20 MG TAB PO SCH (10:45)
[2021-01-12] MEDS: cefTRIAXone SODIUM 2,000 MG in DEXTROSE 5% 50 ML IV SCH (10:45)
[2021-01-12] MEDS: PANTOprazole 40 MG in SYRINGE 0 ML IV SCH (12:44)
[2021-01-12] MEDS: ENOXAPARIN INJ 40 MG/0.4 ML SYR SQ SCH (14:27)
--- NOTE | 2021-01-12 14:52 | Nuclear Medicine Report ---
NM hepatobiliary CLINICAL HISTORY: RUQ pain, eval jewels TECHNIQUE: Following the intravenous injection of 5.4 mCi of Tc-99m labeled Technetium 99m mebrofeni n, multiple images over the upper abdomen were obtained in the anterior projection with uptake measur ements of the gallbladder obtained. Comparison: None available at the time of this dictation. FINDINGS: Sequential images demonstrate normal uptake in the liver, common bile duct, gallbladder, an d small bowel. No defects in uptake are identified. Subsequent imaging after the administration of si ncalide demonstrates prompt elimination of the radiotracer from the gallbladder. Ejection fraction was not evaluated. IMPRESSION: Normal uptake of contrast in the gallbladder and passage into the small bowel. Negative for acute cho lecystitis. ACT 112: Negative or not required by law. Electronically signed by: Jason Jones M.D. 01/12/2021 2:51 PM
[2021-01-12] MEDS: MoRPHine SULFATE 2 MG/ML CARP IV PRN (17:13)
[2021-01-12] MEDS ORDERED: SODIUM CHLORIDE 0.9% 1000ML 250 ML IV ONE (18:35)
[2021-01-12] MEDS: TAMSULOSIN HCL 0.4 MG CAP PO SCH (22:42)
[2021-01-12] MEDS: SODIUM CHLORIDE 0.9% 1000ML 1,000 ML IV SCH (22:43)
[2021-01-12] MEDS: SUCRALFATE 1 GM/10 ML UDC PO SCH (22:43)
[2021-01-13] MEDS: FAMOTIDINE 40 MG TABLET PO SCH (08:01)
[2021-01-13] MEDS: SUCRALFATE 1 GM/10 ML UDC PO SCH ×4 (08:01→20:03)
[2021-01-13] MEDS: ASPIRIN 81 MG ECTAB PO SCH (08:01)
--- NOTE | 2021-01-13 08:03 | Magnetic Resonance Report ---
MR MRCP CLINICAL HISTORY: RUQ pain, eval for obstruction, elevated TB COMPARISON: None available at the time of this dictation. TECHNIQUE: Multiplanar multisequence images were obtained of the abdomen with and without the adminis tration of contrast. FINDINGS: Lower chest: No acute abnormality Liver: Unremarkable. No focal lesions are seen. Gallbladder and biliary tree: No calcified gallstones. Normal caliber wall. No intra- or extrahepatic biliary ductal dilation. Pancreas: Unremarkable, no focal lesions. Spleen: Unremarkable. Adrenals: Unremarkable. Kidneys and ureters: A cyst is seen in the left kidney superior pole. Bowel: A hiatal hernia is seen. Lymph nodes Retroperitoneal: Unremarkable. Mesenteric: Unremarkable. Peritoneum: Normal Vessels: Unremarkable. Abdominal wall: Unremarkable. Bones: Degenerative changes in the visualized spine. IMPRESSION: No evidence of acute abnormality and in particular no evidence of biliary obstruction. ACT 112: Negative or not required by law. Electronically signed by: Jason Jones M.D. 01/13/2021 8:01 AM
--- NOTE | 2021-01-13 08:05 | Hospitalist Progress Note ---
Date of Service January 13, 2021 Assessment & Plan (1) SIRS (systemic inflammatory response syndrome): Plan: SIRS response with elevated HR normotensive, normal lactate and no evidence of organ dysfunction, and no clear source of infection at this time- DDX UTI vs. bi liary vs other (also w/ bibasilar crackles ?atelectasis with low temp at home) Prior admit Nov-Dec for COVID 19. No abx at that time and was d/c on steroids Procal was negative at that time Did admit to issues with constipation prior to admission but since receiving IVF and ability to urinate with less frequency, he also states he had a BM. ?If obstruction/ileus with low grade temp 2nd to atelectasis at home WBC 10.7k on admission with neutrophil elevated to 9.38. Lactic 1.3. Procal <0.05 Ceftriaxone 1gm IV daily given urinary symptoms (not emptying bladder completely despite urgency but also reported constipation and not having moved his bowels)--??stercoral colitis --> states SIGNIFICANT IMPROVEMENT DIRECTLY AFTER RECEIVING however urine cx without growth and will d/c BCx NGTD Lyme/anaplasmosis negative RUQ US negative for acute jewels. +cholelithiasis but no GB wall thickening. Normal Liver. Lipase wnl GI consulted given elevated TB after fried fish --> biliary colic? discussed with GI and no plan for inpatient intervention and ok to eat. Added PPI. Already added carafate. Consider gastritis/ulcer given recent steroid use for COVID Considering tx atypical pneumonia given prior covid and shortness of breath. Was d/c with steroids but no abx given negative procalcitonin at that time Currently 90% on RA --> will place on zithromax starting tomorrow. Got dose of Rocephin today * CXR peripheral and basilar airspace opacities which have slightly improved on the left. * CTA Chest with multifocal irregular airspace opacities which demonstrate a peripheral predominance. This is consistent with patient's history of a viral pneumonia. The opacities have slightly progressed in the interval and may represent developing fibrotic change. * --> Will need f/u with pulmonary post discharge to follow recovery and ensure no developing pulmonary fibrosis HR elevated but no palitations/cp --> improved with IVF last evening but had been using albuterol HFA at home and this was scheduled. HR currently 112bpm and will change to prn Continue incentive spirometer. Repeat CXR in AM Continue to monitor 2step prior to d/c to see needs (2) Abnormal urinalysis: Plan: Trace LE, (+) Nitrites, WBC 1-5, Bacteria 0, (+) hyaline casts, protien, bilirubin IVF with improvement in hydration/urinary symptoms Continues on Rocephin for now--> d/c given negative cx. Lyme/anaplasm negative Started flomax for BPH to help with urinary symptoms in the future --> continue (3) Cholelithiases: Plan: Noted on RUQ, no GB wall thickening or ductal dilation LFTs normalized on repeat however TB again elevated today after fatty meal with reported pain HIDA scan negative as above MRCP without obstruction GI on consult --> can plan for outpatient EGD Continue low fat diet in meantime (4) COVID-19: Plan: Resolving symptomatic [place] - remains with residual ground glass opacities on CT scan of chest COVID test on admission remains POSITIVE -- >21 days since symptom onset Continue supportive care 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 Will perform 2step prior to d/c (5) BPH (benign prostatic hyperplasia): Plan: with 1-2 usual awakenings per night for nocturia- had an increase in this 1 day prior to fevers and chills at home - as above PSA pending was 1.34 06/29 --> decreased Flomax started 01/12 -- continue No lightheaded/dizziness (6) Hyperlipidemia: Plan: Continue rosuvastatin 20mg daily (7) Hypertension: Plan: placed HCTZ/ARB back on hold BP 136/78 encouraged adequate PO intake given diuretics to prevent dehydration/constipation Continue to monitor (8) Impaired fasting glucose: Plan: Elevated glucose without diagnosis of DM Last HGBA1C 5% --> repeat wnl 5.4%. Of note, recent d/c from hospital for COVID and had been on steroids at d/c Glucose on BMP 95 (9) Carotid artery stenosis: Plan: Follows with Vascular- with carotid dopplers as per HPI Continue asa 81mg daily, crestor, BP control as above (10) Seasonal allergic rhinitis: Plan: No acute needs at this time Plan: continued inpatient stay possible d/c tomorrow vs Saturday Admission and Anticipated Discharge Date Admission Date: January 10, 2021 Subjective Patient evaluated this morning. Still with epigastric discomfort after eating. Discussed possible gastritis vs ulcer as he reports pain and reflux which worsened after dexamethasone for covid. Also could have some fibrosis from the covid. Occasional pain to RUQ and discussed low fat diet. Does get tired easily with ambulation and had been that way with covid. He had been utilizing albuterol inhaler at home and that did help -- will order while inpatient . No further fever, chills. No chest pain but does have reflux. Pain with inspiration. Noted did not take deep breaths at home due to pain and this could have caused some atelectasis and encouraged incentive spirometry. Will check 2step prior to d/c as well. Encouraged PO intake and will continue to monitor overnight with possible d/c tomorrow. Review of Systems Review of Systems: All systems reviewed & are unremarkable except as noted in HPI & below Physical Exam Physical Exam: PHYSICAL EXAM: General: WN/WN, awake, alert, no apparent distress resting in bed Head: Normocephalic, atraumatic ENT: PERRL, EOMI, no pharyngeal exudate, mucous membranes moist Neuro: AAO x 3, speech clear and appropriate, strength intact bilaterally 5/5, sensation intact and equal all extremities and dermatomes, no pronator drift Resp: CTAB, no w/r, faint bibasilar crackles, on room air Cardiac: RRR, S1/S2, no calf tenderness or edema, cap refill <3 seconds GI: +BS, soft, mild epigastric tenderness, no rebound, no guarding or rigidity Msk: moves all extremities, no focal deficit Skin: cool, dry, without obvious rash/erythema Psych AOx3, pleasant affect Results & Data Results & Data ([facility]) Vital Signs (Past 12 Hours) Vital Signs Temp Pulse Pulse Resp BP Pulse Ox 01/13/21 07:56 36.8 C 103 H 20 112/69 92 01/13/21 01:38 106 H 01/12/21 22:47 36.4 C L 120 H 18 111/73 92 Laboratory Results 01/12/21 01/12/21 01/12/21 Range/Units 22:56 07:41 07:41 WBC (4.8-10.8) K/uL RBC (4.7-6.1) M/uL Hgb (14.0-18.0) g/dL Hct (42-52) % MCV (80-100) fL MCH (25-34) pg MCHC (32-36) g/dL RDW Std Deviation (36.4-46.3) fL RDW Coeff of [place] (11.5-14.5) % Plt Count (130-400) K/uL MPV (7.4-10.4) fL Immature Gran % (Auto) % Neut % (Auto) % Lymph % (Auto) % [place] % (Auto) % Eos % (Auto) % Baso % (Auto) % Neut # (Auto) (1.4-6.5) K/uL Lymph # (Auto) (1.2-3.4) K/uL [place] # (Auto) (0.11-0.59) K/uL Eos # (Auto) (0-0.5) K/uL Baso # (Auto) (0-0.2) K/uL Immature Gran # (Auto) (0.00-0.02) K/uL Sodium (136-145) mmol/L Potassium (3.5-5.1) mmol/L Chloride (98-107) mmol/L Carbon Dioxide (21-32) mmol/L Anion Gap (3-11) BUN (7-18) mg/dl Creatinine (0.6-1.4) mg/dl Est Cr Clr Drug Dosing ml/min Est GFR ( Amer) ml/min Est GFR (Non-Af Amer) ml/min BUN/Creatinine Ratio (10-20) Glucose (70-99) mg/dl Estimat Average Glucose 108 mg/dl Hemoglobin A1c 5.4 (4.5-5.6) % Lactate 1.3 (0.4-2.0) mmol/L Calcium (8.5-10.1) mg/dl Magnesium (1.8-2.4) mg/dl Total Bilirubin (0.2-1) mg/dl Direct Bilirubin (0-0.2) mg/dl AST (15-37) U/L ALT (12-78) U/L Alkaline Phosphatase (45-117) U/L C-Reactive Protein (0-0.29) mg/dl Total Protein (6.4-8.2) gm/dl Albumin (3.4-5.0) gm/dl Lipase 125 (73-393) U/L 01/12/21 01/12/21 Range/Units 07:41 07:41 WBC 7.83 (4.8-10.8) K/uL RBC 4.01 L (4.7-6.1) M/uL Hgb 14.3 (14.0-18.0) g/dL Hct 40.5 L (42-52) % MCV 101.0 H (80-100) fL MCH 35.7 H (25-34) pg MCHC 35.3 (32-36) g/dL RDW Std Deviation 47.9 H (36.4-46.3) fL RDW Coeff of [place] 12.9 (11.5-14.5) % Plt Count 196 (130-400) K/uL MPV 9.9 (7.4-10.4) fL Immature Gran % (Auto) 0.6 % Neut % (Auto) 67.6 % Lymph % (Auto) 17.8 % [place] % (Auto) 11.1 % Eos % (Auto) 2.8 % Baso % (Auto) 0.1 % Neut # (Auto) 5.29 (1.4-6.5) K/uL Lymph # (Auto) 1.39 (1.2-3.4) K/uL [place] # (Auto) 0.87 H (0.11-0.59) K/uL Eos # (Auto) 0.22 (0-0.5) K/uL Baso # (Auto) 0.01 (0-0.2) K/uL Immature Gran # (Auto) 0.05 H (0.00-0.02) K/uL Sodium 134 L (136-145) mmol/L Potassium 3.9 (3.5-5.1) mmol/L Chloride 105 (98-107) mmol/L Carbon Dioxide 20 L (21-32) mmol/L Anion Gap 9.0 (3-11) BUN 11 (7-18) mg/dl Creatinine 0.75 (0.6-1.4) mg/dl Est Cr Clr Drug Dosing 105.9 ml/min Est GFR ( Amer) 106.2 ml/min Est GFR (Non-Af Amer) 91.6 ml/min BUN/Creatinine Ratio 14.0 (10-20) Glucose 96 (70-99) mg/dl Estimat Average Glucose mg/dl Hemoglobin A1c (4.5-5.6) % Lactate (0.4-2.0) mmol/L Calcium 8.5 (8.5-10.1) mg/dl Magnesium 2.1 (1.8-2.4) mg/dl Total Bilirubin 1.3 H (0.2-1) mg/dl Direct Bilirubin 0.2 (0-0.2) mg/dl AST 24 (15-37) U/L ALT 45 (12-78) U/L Alkaline Phosphatase 63 (45-117) U/L C-Reactive Protein 4.90 H (0-0.29) mg/dl Total Protein 6.7 (6.4-8.2) gm/dl Albumin 2.5 L (3.4-5.0) gm/dl Lipase (73-393) U/L PG Care Time/CCT Total # of Minutes Spent Total Time Spent with Patient: Total time spent is greater than 50% in coordination of care (as documented) at patient's floor/unit and/or counseling patient: Coding Level of Care Code 00107 Subseq Hosp Care Lvl 3 Diagnoses SIRS (systemic inflammatory response syndrome) R65.10 Abnormal urinalysis R82.90 Cholelithiases K80.20 COVID-19 U07.1 BPH (benign prostatic hyperplasia) N40.0 Hyperlipidemia E78.5 Hypertension I10 Hypertension type: essential hypertension Impaired fasting glucose R73.01 Carotid artery stenosis I65.29 Seasonal allergic rhinitis J30.2 (1) Hypertension Hypertension type: essential hypertension Qualified Code(s): I10 - Essential (primary) hypertension
[2021-01-13 08:20] LABS: Basophils # (auto) 0.01 K/uL (0-0.2); Basophils % (auto) 0.1 %; Eosinophils % (auto) 2.5 %; Hematocrit (blood only) 39.4 % (42-52); Immature Granulocytes # (auto) 0.06 K/uL (0.00-0.02); Immature Granulocytes % (auto) 0.8 %; Lymphocytes # (auto) 1.59 K/uL (1.2-3.4); Lymphocytes % (auto) 20.3 %; Mean Corpuscular Hemoglobin 35.1 pg (25-34); Mean Corpuscular Hgb Conc 35.5 g/dL (32-36); Mean Corpuscular Volume 98.7 fL (80-100); Mean Platelet Volume 9.9 fL (7.4-10.4); Monocytes # (auto) 0.98 K/uL (0.11-0.59); Monocytes % (auto) 12.5 %; Neutrophils # (auto) 5.01 K/uL (1.4-6.5); Neutrophils % (auto) 63.8 %; Platelet Count 204 K/uL (130-400); RDW Standard Deviation 46.9 fL (36.4-46.3); Red Blood Count 3.99 M/uL (4.7-6.1); White Blood Count 7.85 K/uL (4.8-10.8)
[2021-01-13] MEDS: SODIUM CHLORIDE 0.9% 1000ML 1,000 ML IV SCH (08:29)
--- NOTE | 2021-01-13 09:22 | Gastroenterology Progress Note ---
Date of Service January 13, 2021 Assessment & Plan (1) Cholelithiases: Plan: 70 year old male admitted w/ ruq pain, onset after dinner without nausea/vomiting. ABD US showed gallstones, no biliary dilation. Tbili this AM 1.3 w/ normal transaminases. HIDA, MRCP negative. Continue Pepcid Please add Pantoprazole 40 mg in the AM OP EGD GI sign off. Admission and Anticipated Discharge Date Admission Date: January 10, 2021 Supervising Physician Co-Signing Physician Notes I have discussed the patient's management with the advanced practitioner. Please refer to the nurse practitioner's note for the documented findings and plan of care. Normal LFTs. Negative MRCP. Recall GI if needed. Subjective Pt was seen and evaluated, chart reviewed. HIDA and MRCP reviewed LFTs pending Feeling well. Some fullness. No nausea, vomiting. Review of Systems Review of Systems: All systems reviewed & are unremarkable except as noted in HPI & below Physical Exam Constitutional: WD/WN, vitals as above Neck: trachea midline, no thyromegaly Respiratory: normal respiratory effort; no respiratory distress and no labored breathing Cardiovascular: Rate/Rhythm: regular rate and regular rhythm Gastrointestinal (Abdomen): normal bowel sounds, soft, nontender, no hepatosplenomegaly Skin: no rashes, warm and dry Results & Data ([facility]) Vital Signs (Past 12 Hours) Vital Signs Temp Pulse Pulse Resp BP Pulse Ox 01/13/21 07:56 36.8 C 103 H 20 112/69 92 01/13/21 01:38 106 H 01/12/21 22:47 36.4 C L 120 H 18 111/73 92 Laboratory Results 01/13/21 01/13/21 01/12/21 Range/Units 07:42 07:42 22:56 WBC 7.85 (4.8-10.8) K/uL RBC 3.99 L (4.7-6.1) M/uL Hgb 14.0 (14.0-18.0) g/dL Hct 39.4 L (42-52) % MCV 98.7 (80-100) fL MCH 35.1 H (25-34) pg MCHC 35.5 (32-36) g/dL RDW Std Deviation 46.9 H (36.4-46.3) fL RDW Coeff of [place] 13.0 (11.5-14.5) % Plt Count 204 (130-400) K/uL MPV 9.9 (7.4-10.4) fL Immature Gran % (Auto) 0.8 % Neut % (Auto) 63.8 % Lymph % (Auto) 20.3 % [place] % (Auto) 12.5 % Eos % (Auto) 2.5 % Baso % (Auto) 0.1 % Neut # (Auto) 5.01 (1.4-6.5) K/uL Lymph # (Auto) 1.59 (1.2-3.4) K/uL [place] # (Auto) 0.98 H (0.11-0.59) K/uL Eos # (Auto) 0.20 (0-0.5) K/uL Baso # (Auto) 0.01 (0-0.2) K/uL Immature Gran # (Auto) 0.06 H (0.00-0.02) K/uL Sodium Pending Potassium Pending Chloride Pending Carbon Dioxide Pending Anion Gap Pending BUN Pending Creatinine Pending Est Cr Clr Drug Dosing Pending Est GFR ( Amer) Pending Est GFR (Non-Af Amer) Pending BUN/Creatinine Ratio Pending Glucose Pending Estimat Average Glucose mg/dl Hemoglobin A1c (4.5-5.6) % Lactate 1.3 (0.4-2.0) mmol/L Calcium Pending Magnesium Pending Total Bilirubin Pending Direct Bilirubin Pending AST Pending ALT Pending Alkaline Phosphatase Pending Total Protein Pending Albumin Pending Lipase (73-393) U/L 01/12/21 01/12/21 Range/Units 07:41 07:41 WBC (4.8-10.8) K/uL RBC (4.7-6.1) M/uL Hgb (14.0-18.0) g/dL Hct (42-52) % MCV (80-100) fL MCH (25-34) pg MCHC (32-36) g/dL RDW Std Deviation (36.4-46.3) fL RDW Coeff of [place] (11.5-14.5) % Plt Count (130-400) K/uL MPV (7.4-10.4) fL Immature Gran % (Auto) % Neut % (Auto) % Lymph % (Auto) % [place] % (Auto) % Eos % (Auto) % Baso % (Auto) % Neut # (Auto) (1.4-6.5) K/uL Lymph # (Auto) (1.2-3.4) K/uL [place] # (Auto) (0.11-0.59) K/uL Eos # (Auto) (0-0.5) K/uL Baso # (Auto) (0-0.2) K/uL Immature Gran # (Auto) (0.00-0.02) K/uL Sodium Potassium Chloride Carbon Dioxide Anion Gap BUN Creatinine Est Cr Clr Drug Dosing Est GFR ( Amer) Est GFR (Non-Af Amer) BUN/Creatinine Ratio Glucose Estimat Average Glucose 108 mg/dl Hemoglobin A1c 5.4 (4.5-5.6) % Lactate (0.4-2.0) mmol/L Calcium Magnesium Total Bilirubin Direct Bilirubin AST ALT Alkaline Phosphatase Total Protein Albumin Lipase 125 (73-393) U/L
[2021-01-13 09:51] LABS: Albumin Level 2.5 gm/dl (3.4-5.0); Bilirubin Direct 0.3 mg/dl (0-0.2); Bilirubin,Total 1.5 mg/dl (0.2-1); Creatinine Clr Calc Pharmacy 105.9 ml/min; Est GFR (African American) 106.2 ml/min; Est GFR (Non-African American) 91.6 ml/min; Magnesium 2.2 mg/dl (1.8-2.4); Potassium 3.8 mmol/L (3.5-5.1); Total Protein 6.8 gm/dl (6.4-8.2)
[2021-01-13] MEDS: cefTRIAXone SODIUM 2,000 MG in DEXTROSE 5% 50 ML IV SCH (12:03)
[2021-01-13] MEDS: ROSUVASTATIN CALCIUM 20 MG TAB PO SCH (12:03)
[2021-01-13] MEDS: PANTOprazole 40 MG in SYRINGE 0 ML IV SCH (12:04)
[2021-01-13] MEDS: ALBUTEROL HFA 8 GM INHALER INH SCH ×2 (12:49→13:11)
[2021-01-13] MEDS: PANTOprazole 40 MG TAB PO SCH (13:24)
[2021-01-13] MEDS: ENOXAPARIN INJ 40 MG/0.4 ML SYR SQ SCH (15:18)
[2021-01-13] MEDS ORDERED: bisacodyL 5 MG TABEC PO ONE (18:07)
[2021-01-13] MEDS: TAMSULOSIN HCL 0.4 MG CAP PO SCH (20:03)
[2021-01-14 07:08] LABS: Basophils # (auto) 0.01 K/uL (0-0.2); Basophils % (auto) 0.2 %; Eosinophils # (auto) 0.15 K/uL (0-0.5); Eosinophils % (auto) 2.3 %; Hematocrit (blood only) 34.8 % (42-52); Hemoglobin 12.5 g/dL (14.0-18.0); Immature Granulocytes # (auto) 0.06 K/uL (0.00-0.02); Immature Granulocytes % (auto) 0.9 %; Lymphocytes # (auto) 0.95 K/uL (1.2-3.4); Lymphocytes % (auto) 14.8 %; Mean Corpuscular Hgb Conc 35.9 g/dL (32-36); Mean Corpuscular Volume 97.5 fL (80-100); Mean Platelet Volume 9.9 fL (7.4-10.4); Monocytes # (auto) 0.53 K/uL (0.11-0.59); Monocytes % (auto) 8.3 %; Neutrophils % (auto) 73.5 %; Platelet Count 157 K/uL (130-400); RDW Coefficient of Variation 12.7 % (11.5-14.5); RDW Standard Deviation 45.1 fL (36.4-46.3); Red Blood Count 3.57 M/uL (4.7-6.1)
--- NOTE | 2021-01-14 07:51 | XRay Report ---
XR chest 1V portable CLINICAL HISTORY: Shortness of breath. COMPARISON STUDY: Chest radiograph and chest CT January 10, 2021. FINDINGS: Lung volumes are normal. There is no pneumothorax or pleural effusion. Moderate multifocal bilateral opacities are noted. These are similar to prior exam. Cardiomediastinal silhouette is stabl e. IMPRESSION: No significant change in multifocal bilateral airspace opacities. ACT 112: Negative or not required by law. Electronically signed by: Felipe Jay M.D. 01/14/2021 7:50 AM
[2021-01-14] MEDS: PANTOprazole 40 MG TAB PO SCH (07:55)
[2021-01-14] MEDS: FAMOTIDINE 40 MG TABLET PO SCH (07:55)
[2021-01-14] MEDS: SUCRALFATE 1 GM/10 ML UDC PO SCH ×4 (07:55→20:07)
[2021-01-14 07:58] LABS: Albumin Level 2.2 gm/dl (3.4-5.0); BUN Creatinine Ratio 14.5 (10-20); Bilirubin Direct 0.6 mg/dl (0-0.2); Bilirubin,Total 1.6 mg/dl (0.2-1); Calcium 8.2 mg/dl (8.5-10.1); Creatinine Clr Calc Pharmacy 122.2 ml/min; Est GFR (African American) 112.7 ml/min; Est GFR (Non-African American) 97.2 ml/min; Magnesium 2.2 mg/dl (1.8-2.4); Potassium 3.8 mmol/L (3.5-5.1); Total Protein 6.5 gm/dl (6.4-8.2)
--- NOTE | 2021-01-14 08:54 | Hospitalist Progress Note ---
Date of Service January 14, 2021 Assessment & Plan (1) Tachycardia: Plan: CXR peripheral and basilar airspace opacities which have slightly improved on the left. * CTA Chest with multifocal irregular airspace opacities which demonstrate a peripheral predominance. This is consistent with patient's history of a viral pneumonia. The opacities have slightly progressed in the interval and may represent developing fibrotic change. * --> Will need f/u with pulmonary post discharge to follow recovery and ensure no developing pulmonary fibrosis continues with sob with ambulation, retrosternal pleuritic pain and pain with inspiration and tachycardia CT chest negative for PE earlier in stay does not appear overly dehydrated, however no recent ECHO ?sequelae of recent covid --> moving to telemetry for closer monitoring/eval arrhythmia and will obtain echo c/w pulm for am continues on cefuroxime, was on ceftriaxone. WBC wnl repeat pro-yael negative Repeat CXR with No significant change in multifocal bilateral airspace opacities. Continue incentive spirometer. Supplemental O2 as needed to maintain sats Iron studies -- Iron low at 32, however TIBC and transferrin low pointing towards chronic disease. Ferritin elevated 743 likely reactive given recent COVID 19 infection (out of range for needing isolation as per admission) Trans % sat low at 16 however discussed with supervising and recs to hold off giving Venofer at this time. Patients hgb did drop from 14--> 12.5 but did get 2L NSS overnight and could be some dilutional. No melena/hematochezia or bleeding reported --> Continue to monitor blood counts Would def 2 step prior to d/c for needs Patient disappointed in not going home today however did discuss elevated HR/worsening sob concerning given recent covid and need for ECHO/telemetry monitoring (2) SIRS (systemic inflammatory response syndrome): Plan: SIRS response with elevated HR normotensive, normal lactate and no evidence of organ dysfunction, and no clear source of infection at this time- DDX UTI vs. biliary vs other (also w/ bibasilar crackles ?atelectasis with low temp at home) Prior admit Nov-Dec for COVID 19. No abx at that time and was d/c on steroids Procal was negative at that time Did admit to issues with constipation prior to admission but since receiving IVF and ability to urinate with less frequency, he also states he had a BM. ?If obstruction/ileus with low grade temp 2nd to atelectasis at home WBC 10.7k on admission with neutrophil elevated to 9.38. Lactic 1.3. Procal <0.05, again on repeat Ceftriaxone 1gm IV daily given urinary symptoms (not emptying bladder completely despite urgency but also reported constipation and not having moved his bowels)--??stercoral colitis --> states SIGNIFICANT IMPROVEMENT DIRECTLY AFTER RECEIVING however urine cx without growth and will d/c --> on cefuroxime for continued abx, WBC wnl BCx NGTD Lyme/anaplasmosis negative RUQ US negative for acute jewels. +cholelithiasis but no GB wall thickening. Normal Liver. Lipase wnl GI consulted given elevated TB after fried fish --> biliary colic? discussed with GI and no plan for inpatient intervention and ok to eat. Added PPI, carafate for suspected gastritis/ulcer given recent steroid use for COVID --> GI symptoms resolved See above regarding tachycardia/sob w exertion. Trop <0.015. EKG ST with sinus arrhythmia (3) Abnormal urinalysis: Plan: Trace LE, (+) Nitrites, WBC 1-5, Bacteria 0, (+) hyaline casts, protien, bilirubin IVF with improvement in hydration/urinary symptoms Rocephin on admit Urine cx negative Started flomax for BPH to help with urinary symptoms in the future --> continue (4) Cholelithiases: Plan: Noted on RUQ, no GB wall thickening or ductal dilation LFTs normalized on repeat however TB again elevated today after fatty meal with reported pain HIDA scan negative as above MRCP without obstruction GI on consult --> can plan for outpatient EGD Continue low fat diet in meantime (5) COVID-19: Plan: Resolving symptomatic [place] - remains with residual ground glass opacities on CT scan of chest COVID test on admission remains POSITIVE -- >21 days since symptom onset Continue supportive care 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 Of note, recent d/c from hospital for COVID and had been on steroids at d/c Glucose acceptable (10) Carotid artery stenosis: Plan: Follows with Vascular- with carotid dopplers as per HPI Continue asa 81mg daily, crestor, BP control as above (11) Seasonal allergic rhinitis: Plan: No acute needs at this time (12) Shortness of breath: Plan: continued inpatient stay, moved to telemetry ECHO pending Admission and Anticipated Discharge Date Admission Date: January 10, 2021 Subjective eval this morning feeling better as far as abd pain moving bowels and loose -- no blood or dark/tarry. eating/drinking without issue and continues on PPI/carafate cough + clear/white sputum pain with inspiration and taking deep breath still tachycardic but not symptomatic and denied palpitations/lightheadedness/dizziness but does have shortness of breath when up and walking to the bathroom discussed could be sequelae from covid infection but will move to tele for monitoring as well as obtain ECHO. Review of Systems Review of Systems: All systems reviewed & are unremarkable except as noted in HPI & below Physical Exam 2 Physical Exam: PHYSICAL EXAM: General: WN/WN, awake, alert, no apparent distress resting in bed Head: Normocephalic, atraumatic ENT: PERRL, EOMI, no pharyngeal exudate, mucous membranes moist Neuro: AAO x 3, speech clear and appropriate, strength intact bilaterally 5/5, sensation intact and equal all extremities and dermatomes, no pronator drift Resp: CTAB, no w/r, faint bibasilar crackles, on 2L NC, decreased inspiratory effort Cardiac: regular rhythm, tachycardic 108bpm, S1/S2, no calf tenderness or edema, cap refill <3 seconds GI: +BS, soft, non-tender, no rebound, no guarding or rigidity Msk: moves all extremities, no focal deficit Skin: cool, dry, without obvious rash/erythema Psych AOx3, pleasant affect Results & Data Results & Data ([facility]) Vital Signs (Past 12 Hours) Vital Signs Temp Pulse Resp BP BP Pulse Ox 01/14/21 07:02 36.8 C 122 H 20 115/73 92 01/13/21 23:09 37.4 C 118 H 20 145/68 H 91 Laboratory Results 01/14/21 01/14/21 01/13/21 Range/Units 06:48 06:48 07:42 WBC 6.40 (4.8-10.8) K/uL RBC 3.57 L (4.7-6.1) M/uL Hgb 12.5 L (14.0-18.0) g/dL Hct 34.8 L (42-52) % MCV 97.5 (80-100) fL MCH 35.0 H (25-34) pg MCHC 35.9 (32-36) g/dL RDW Std Deviation 45.1 (36.4-46.3) fL RDW Coeff of [place] 12.7 (11.5-14.5) % Plt Count 157 (130-400) K/uL MPV 9.9 (7.4-10.4) fL Immature Gran % (Auto) 0.9 % Neut % (Auto) 73.5 % Lymph % (Auto) 14.8 % [place] % (Auto) 8.3 % Eos % (Auto) 2.3 % Baso % (Auto) 0.2 % Neut # (Auto) 4.70 (1.4-6.5) K/uL Lymph # (Auto) 0.95 L (1.2-3.4) K/uL [place] # (Auto) 0.53 (0.11-0.59) K/uL Eos # (Auto) 0.15 (0-0.5) K/uL Baso # (Auto) 0.01 (0-0.2) K/uL Immature Gran # (Auto) 0.06 H (0.00-0.02) K/uL Sodium 132 L 135 L (136-145) mmol/L Potassium 3.8 3.8 (3.5-5.1) mmol/L Chloride 103 105 (98-107) mmol/L Carbon Dioxide 21 19 L (21-32) mmol/L Anion Gap 8.0 11.0 (3-11) BUN 9 11 (7-18) mg/dl Creatinine 0.65 0.75 (0.6-1.4) mg/dl Est Cr Clr Drug Dosing 122.2 105.9 ml/min Est GFR ( Amer) 112.7 106.2 ml/min Est GFR (Non-Af Amer) 97.2 91.6 ml/min BUN/Creatinine Ratio 14.5 15.0 (10-20) Glucose 100 H 95 (70-99) mg/dl Calcium 8.2 L 9.0 (8.5-10.1) mg/dl Magnesium 2.2 2.2 (1.8-2.4) mg/dl Total Bilirubin 1.6 H 1.5 H (0.2-1) mg/dl Direct Bilirubin 0.6 H D 0.3 H (0-0.2) mg/dl AST 36 24 (15-37) U/L ALT 47 40 (12-78) U/L Alkaline Phosphatase 63 63 (45-117) U/L Total Protein 6.5 6.8 (6.4-8.2) gm/dl Albumin 2.2 L 2.5 L (3.4-5.0) gm/dl PG Care Time/CCT Total # of Minutes Spent Total Time Spent with Patient: Total time spent is greater than 50% in coordination of care (as documented) at patient's floor/unit and/or counseling patient: Coding Level of Care Code 00068 Subseq Hosp Care Lvl 3 Diagnoses SIRS (systemic inflammatory response syndrome) R65.10 Abnormal urinalysis R82.90 Cholelithiases K80.20 COVID-19 U07.1 BPH (benign prostatic hyperplasia) N40.0 Hyperlipidemia E78.5 Hypertension I10 Hypertension type: essential hypertension Impaired fasting glucose R73.01 Carotid artery stenosis I65.29 Seasonal allergic rhinitis J30.2 Tachycardia R00.0 Shortness of breath R06.02 (1) Hypertension Hypertension type: essential hypertension Qualified Code(s): I10 - Essential (primary) hypertension
[2021-01-14] MEDS ORDERED: AZITHROMYCIN 250 MG TAB PO SCH (09:00)
[2021-01-14] MEDS: cefUROXime axetil 500 MG TAB PO SCH ×2 (10:03→20:07)
[2021-01-14 10:12] LABS: Ferritin 734.3 ng/ml (8-388)
--- NOTE | 2021-01-14 10:59 | Gastroenterology Progress Note ---
Date of Service January 14, 2021 Assessment & Plan Admission and Anticipated Discharge Date Admission Date: January 10, 2021 Subjective GI reuested to see the patient again today for abdominal pain however when I asked the patient he reports no abdominal pain at all, his pain is retrosternal, pleuric type and worsens with deep breathing, no epigastric or RUQ abdominal pain, no nausea or vomiting and tolerating food. He has tachycardia and reports WALLS. His AST/ALT is normal. Direct bili is 0.6 which is normal. His HIDA scan and MRCP showed no biliary obstruction despite the gallstones. Recommend: His clinic signs and symptoms are suggestive of underlying cardiopulmonary illness rather than GI disease, this is expected after a recent COVID illness. PO PPI and Carafate. EGD as OP. Recall GI if needed. Results & Data ([facility]) Vital Signs (Past 12 Hours) Vital Signs Temp Pulse Resp BP BP Pulse Ox 01/14/21 07:02 36.8 C 122 H 20 115/73 92 01/13/21 23:09 37.4 C 118 H 20 145/68 H 91
[2021-01-14] MEDS: ROSUVASTATIN CALCIUM 20 MG TAB PO SCH (11:19)
[2021-01-14] MEDS ORDERED: IRON SUCROSE 300 MG in SODIUM CHLORIDE 0.9% 250 ML IV ONE (11:30)
[2021-01-14] MEDS: LEVALBUTEROL HCL 0.63 MG/3 ML NEB NEB SCH ×2 (15:47→19:36)
[2021-01-14] MEDS: ENOXAPARIN INJ 40 MG/0.4 ML SYR SQ SCH (16:01)
[2021-01-14] MEDS: MoRPHine SULFATE 2 MG/ML CARP IV PRN (17:54)
[2021-01-14 19:46] LABS: D Dimer 520 ug/L FEU (0-500)
[2021-01-14] MEDS: TAMSULOSIN HCL 0.4 MG CAP PO SCH (20:06)
[2021-01-14] MEDS ORDERED: OPTIRAY 320 125ml IV ONE (21:17)
--- NOTE | 2021-01-14 22:56 | XCELERA ---
[id number]
--- NOTE | 2021-01-14 23:22 | Electrocardiogram Report ---
Test Reason : Blood Pressure : / mmHG Vent. Rate : 119 BPM Atrial Rate : 119 BPM P-R Int : 146 ms QRS Dur : 088 ms QT Int : 318 ms P-R-T Axes : 041 000 051 degrees QTc Int : 447 ms Sinus tachycardia Minimal voltage criteria for LVH, may be normal variant Nonspecific ST abnormality When compared with ECG of 10-JAN-2021 09:06, No significant change was found Confirmed by Pierre Figueroa ([id number]) on 01/14/2021 11:22:16 PM Referred By: REFERRED SELF Confirmed By:Pierre Figueroa
[2021-01-15] MEDS: LEVALBUTEROL HCL 0.63 MG/3 ML NEB NEB SCH ×2 (00:40→06:07)
[2021-01-15] MEDS ORDERED: SODIUM CHLORIDE 0.9% 1000ML 1,000 ML IV SCH (05:15)
[2021-01-15] MEDS: PANTOprazole 40 MG TAB PO SCH (08:08)
[2021-01-15] MEDS: ROSUVASTATIN CALCIUM 20 MG TAB PO SCH (08:08)
[2021-01-15] MEDS: SUCRALFATE 1 GM/10 ML UDC PO SCH ×4 (08:08→20:04)
[2021-01-15] MEDS: cefUROXime axetil 500 MG TAB PO SCH ×2 (08:09→20:04)
[2021-01-15] MEDS: FAMOTIDINE 40 MG TABLET PO SCH (08:09)
--- NOTE | 2021-01-15 08:35 | CT Scan Report ---
CT ANGIOGRAPHY OF THE CHEST, PULMONARY EMBOLUS PROTOCOL CLINICAL HISTORY: sinus tach, elevated d-dimer COMPARISON STUDY: Chest CT January 10, 2021. Chest radiograph January 14, 2021. TECHNIQUE: Following IV administration of 120 mL of Optiray, helical axial images of the chest were o btained utilizing the pulmonary embolus protocol. Maximal intensity projections and sagittal and cor onal reformats were viewed on an independent 3D workstation. IV contrast was administered without co mplication. Automated exposure control was utilized for the study. A dose lowering technique was ut ilized adhering to the principles of ALARA. CT DOSE: 731.89 mGy.cm FINDINGS: No pulmonary emboli are identified although the segmental and subsegmental pulmonary arter ies are suboptimally assessed due to respiratory motion. There is no thoracic aortic dissection. Mild cardiomegaly and moderate coronary artery calcification. No pericardial effusion is noted. There is a small hiatal hernia. Trace bilateral pleural effusions are noted. There is no pneumothorax. Lungs a re suboptimally assessed due to respiratory motion. There is been progression of multifocal groundgla ss opacities within the lungs since prior exam. Multifocal consolidation is again noted. Central airw ays are patent. Upper abdomen is unremarkable. IMPRESSION: 1. No pulmonary emboli identified although segmental and subsegmental pulmonary arteries suboptimally assessed due to respiratory motion. 2. Progression of bilateral airspace opacities since prior exam. This favors viral pneumonia. 3. Trace bilateral pleural effusions. ACT 112: Negative or not required by law. Electronically signed by: Felipe Jay M.D. 01/15/2021 8:33 AM
[2021-01-15] MEDS ORDERED: AZITHROMYCIN 250 MG TAB PO SCH (09:00)
[2021-01-15] MEDS ORDERED: LACTATED RINGER'S 1,000 ML IV SCH (09:15)
--- NOTE | 2021-01-15 09:48 | Hospitalist Progress Note ---
Date of Service January 15, 2021 Assessment & Plan (1) Tachycardia: Plan: This is an interesting patient with WALLS and tachycardia at rest. Reviewing his heart monitor trend, patient has been above 100 for the duration of the past 36 hours, with no significant improvement with his WALLS. This is despite fluids, antibiotics, nebs. Negative CT scan for P/E x2. Pro-yael negative. Negative cardiac markers. Echocardiogram does not show signs of systolic left verntricular dysfunction. Perhaps this is long COVID. on 01/15: likely secondary to "long COVID" Will check infllammatory markers, obtain thyroid studies, place on LABA/ICS. Stop levalbuterol. Would patient benefit from a bronch to check for eosinophils? will place on beta analy, tachycardia may be attributing to SOB. (2) SIRS (systemic inflammatory response syndrome): Plan: SIRS response with elevated HR normotensive, normal lactate and no evidence of organ dysfunction, and no clear source of infection at this time- DDX UTI vs. biliary vs other (also w/ bibasilar crackles ?atelectasis with low temp at home) Prior admit Nov-Dec for COVID 19. No abx at that time and was d/c on steroids Procal was negative at that time Did admit to issues with constipation prior to admission but since receiving IVF and ability to urinate with less frequency, he also states he had a BM. ?If obstruction/ileus with low grade temp 2nd to atelectasis at home WBC 10.7k on admission with neutrophil elevated to 9.38. Lactic 1.3. Procal <0.05, again on repeat Ceftriaxone 1gm IV daily given urinary symptoms (not emptying bladder completely despite urgency but also reported constipation and not having moved his bowels)--??stercoral colitis --> states SIGNIFICANT IMPROVEMENT DIRECTLY AFTER RECEIVING however urine cx without growth and will d/c --> on cefuroxime for continued abx, WBC wnl BCx NGTD Lyme/anaplasmosis negative RUQ US negative for acute jewels. +cholelithiasis but no GB wall thickening. Normal Liver. Lipase wnl GI consulted given elevated TB after fried fish --> biliary colic? discussed with GI and no plan for inpatient intervention and ok to eat. Added PPI, carafate for suspected gastritis/ulcer given recent steroid use for COVID --> GI symptoms resolved See above regarding tachycardia/sob w exertion. Trop <0.015. EKG ST with sinus arrhythmia (3) Abnormal urinalysis: Plan: Trace LE, (+) Nitrites, WBC 1-5, Bacteria 0, (+) hyaline casts, protien, bilirubin IVF with improvement in hydration/urinary symptoms Rocephin on admit Urine cx negative Started flomax for BPH to help with urinary symptoms in the future --> continue (4) Cholelithiases: Plan: Noted on RUQ, no GB wall thickening or ductal dilation LFTs normalized on repeat however TB again elevated today after fatty meal with reported pain HIDA scan negative as above MRCP without obstruction GI on consult --> can plan for outpatient EGD Continue low fat diet in meantime (5) COVID-19: Plan: Resolving symptomatic whitlock - remains with residual ground glass opacities on CT scan of chest COVID test on admission remains POSITIVE -- >21 days since symptom onset Continue supportive care 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 Of note, recent d/c from hospital for COVID and had been on steroids at d/c Glucose acceptable (10) Carotid artery stenosis: Plan: Follows with Vascular- with carotid dopplers as per HPI Continue asa 81mg daily, crestor, BP control as above (11) Seasonal allergic rhinitis: Plan: No acute needs at this time (12) Shortness of breath: Plan: continued inpatient stay, moved to telemetry ECHO pending Admission and Anticipated Discharge Date Admission Date: January 10, 2021 Subjective Patient continues to state that he has SOB on exertion. Just getting out of bed makes him get wiped out. He currently denies any fever chills. He has sharp midsternum pleuritic chest pain that worsens with deep breathing. He does state that the nebs helps with SOB. reviewed telemonitor: has maintained over 100 mainly in the 's Review of Systems Review of Systems: All systems reviewed & are unremarkable except as noted in HPI & below Physical Exam Physical Exam: General: WN/WN, awake, alert, no apparent distress resting in bed Head: Normocephalic, atraumatic ENT: PERRL, EOMI, no pharyngeal exudate, mucous membranes moist Neuro: AAO x 3, speech clear and appropriate, strength intact bilaterally 5/5, sensation intact and equal all extremities and dermatomes, no pronator drift Resp: CTAB, no w/r, on 4L NC, decreased inspiratory effort Cardiac: regular rhythm, tachycardic, S1/S2, no calf tenderness or edema, cap refill <3 seconds GI: +BS, soft, non-tender, no rebound, no guarding or rigidity Msk: moves all extremities, no focal deficit Skin: cool, dry, without obvious rash/erythema Psych AOx3, pleasant affect Results & Data Results & Data ([facility]) Vital Signs (Past 12 Hours) Vital Signs Temp Pulse Pulse Resp BP Pulse Ox 01/15/21 07:58 36.6 C 117 H 20 141/78 H 90 01/15/21 07:00 116 H 01/15/21 06:07 90 18 95 01/15/21 03:59 37 C 118 H 18 121/72 90 01/15/21 00:40 88 20 94 01/15/21 00:28 111 H 01/15/21 00:00 37 C 112 H 18 117/71 94 PG Care Time/CCT Total # of Minutes Spent Total Time Spent with Patient: Total time spent is greater than 50% in coordination of care (as documented) at patient's floor/unit and/or counseling patient: Coding Level of Care Code 45483 Subseq Hosp Care Lvl 3 Diagnoses Tachycardia R00.0 SIRS (systemic inflammatory response syndrome) R65.10 Abnormal urinalysis R82.90 Cholelithiases K80.20 COVID-19 U07.1 BPH (benign prostatic hyperplasia) N40.0 Hyperlipidemia E78.5 Hypertension I10 Hypertension type: essential hypertension Impaired fasting glucose R73.01 Carotid artery stenosis I65.29 Seasonal allergic rhinitis J30.2 Shortness of breath R06.02 (1) Hypertension Hypertension type: essential hypertension Qualified Code(s): I10 - Essential (primary) hypertension
[2021-01-15 10:04] LABS: Eosinophils # (auto) 0.13 K/uL (0-0.5); Eosinophils % (auto) 1.5 %; Hematocrit (blood only) 34.4 % (42-52); Hemoglobin 12.3 g/dL (14.0-18.0); Immature Granulocytes # (auto) 0.07 K/uL (0.00-0.02); Immature Granulocytes % (auto) 0.8 %; Lymphocytes # (auto) 0.56 K/uL (1.2-3.4); Lymphocytes % (auto) 6.4 %; Mean Corpuscular Hemoglobin 35.7 pg (25-34); Mean Corpuscular Hgb Conc 35.8 g/dL (32-36); Mean Corpuscular Volume 99.7 fL (80-100); Mean Platelet Volume 9.9 fL (7.4-10.4); Monocytes # (auto) 0.47 K/uL (0.11-0.59); Monocytes % (auto) 5.4 %; Neutrophils # (auto) 7.53 K/uL (1.4-6.5); Neutrophils % (auto) 85.9 %; Platelet Count 165 K/uL (130-400); RDW Coefficient of Variation 12.7 % (11.5-14.5); RDW Standard Deviation 46.3 fL (36.4-46.3); Red Blood Count 3.45 M/uL (4.7-6.1); White Blood Count 8.76 K/uL (4.8-10.8)
[2021-01-15 10:36] LABS: Albumin Level 2.1 gm/dl (3.4-5.0); BUN Creatinine Ratio 11.5 (10-20); Bilirubin Direct 0.8 mg/dl (0-0.2); Calcium 8.2 mg/dl (8.5-10.1); Creatinine Clr Calc Pharmacy 134.6 ml/min; Est GFR (African American) 117.2 ml/min; Est GFR (Non-African American) 101.1 ml/min; Potassium 3.6 mmol/L (3.5-5.1)
[2021-01-15 10:38] LABS: Bilirubin,Total 1.8 mg/dl (0.2-1); C Reactive Protein 18.4 mg/dl (0-0.29); T4 Free Thyroxine 1.42 ng/dl (0.8-1.6); Thyroid Stimulating Hormone 0.631 uIu/ml (0.300-4.500); Total Protein 6.7 gm/dl (6.4-8.2)
--- NOTE | 2021-01-15 11:11 | Electrocardiogram Report ---
Test Reason : Blood Pressure : / mmHG Vent. Rate : 118 BPM Atrial Rate : 118 BPM P-R Int : 170 ms QRS Dur : 092 ms QT Int : 328 ms P-R-T Axes : 051 014 085 degrees QTc Int : 459 ms Sinus tachycardia Nonspecific T wave abnormality Abnormal ECG When compared with ECG of 14-JAN-2021 09:22, No significant change was found Confirmed by Germain Tolentino ([id number]) on 01/15/2021 11:11:06 AM Referred By: REFERRED SELF Confirmed By:Germain Tolentino
--- NOTE | 2021-01-15 11:28 | Pulmonary Consultation ---
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 Unclear role for continued immunosuppressive therapy/steroids at this time. He noted that steroids caused profound gastritis and that he would prefer to avoid steroids unless necessary. Can consider bronchoscopy to evaluate for atypical infection such as PJP and/or inflammatory cells such as eosinophils and lymphocytes. However, at this time would recommend discontinuing fluids and treating his underlying sinus tachycardia. Recommend initiation of beta- blockade. COVID-19 is associated with a POTS-like syndrome. I do strongly think that his persistent tachycardia is playing a significant role in his dyspnea. Notably his CRP is elevated, but the relevance of this finding is unclear and nonspecific. Additionally, recommend intensive physical therapy and Occupational Therapy given that he is very deconditioned. Discussed with bedside nurse in person and hospitalist over the phone Thanks for the consult. Pulmonary continue to follow. History of Present Illness Reason for Consultation: 70-year-old male with a history of hypertension, hyperlipidemia, carotid artery stenosis, GERD and BPH was also former smoker currently hospitalized due to ongoing hypoxemia and shortness of breath. He has also had ongoing tachycardia during this hospitalization. He was found to have COVID-19 in December and was on a 2-week course of steroids. He has had abdominal complaints throughout the hospitalization and gastroenterology feels that he has colitis/gastroenteritis related to Covid. Today he tells me that he gets short winded walking a few steps. He is currently on 4 L of oxygen. He denies any significant cough at present. Echo completed yesterday with EF of 60 to 65%. Mild LVH. No pulmonary hypertension seen. Chest CTA completed yesterday with diffuse areas of groundglass opacities and multifocal consolidation. CRP checked by the hospital is elevated. He has had issues with persistent tachycardia during this hospitalization and he is currently on IV fluids. Attending Physician: Leroy Sierra Allergies Allergy/AdvReac Type Severity Reaction Status Date / Time sulfamethoxazole Allergy Unknown Unknown Verified 12/27/20 11:04 [From Bactrim] trimethoprim [From Bactrim] Allergy Unknown Unknown Verified 12/27/20 11:04 Home Medications Medication Instructions Recorded Confirmed Type htfbdjte-wuv-wcbex acid 300 1 tab PO WK 03/19/19 01/10/21 History mcg-lycopene 600 mcg-lutein 300 mcg tablet (Men 50 Plus Multivitamin) aspirin 81 mg tablet,delayed 81 mg PO 3XWK tab 01/15/20 01/10/21 History release (Aspirin Low Dose) psyllium husk 3.4 gram/5.4 gram 3 tsp PO DAILY PRN g 06/29/20 01/10/21 History oral powder (Metamucil) losartan 50 mg-hydrochlorothiazide 1 tab PO QAM 12/18/20 01/10/21 History 12.5 mg tablet (Hyzaar) ondansetron 4 mg disintegrating 4 mg PO Q8H PRN #10 tab 12/18/20 01/10/21 Rx tablet rosuvastatin 20 mg tablet (Crestor) 20 mg PO QDL 12/18/20 01/10/21 History potassium chloride 20 mEq 20 meq PO DAILY #10 tab 12/20/20 01/10/21 Rx tablet,extended release (K-Tab) albuterol sulfate 90 mcg/actuation 2 inh INHALATION Q6H PRN #8.5 g 12/24/20 01/10/21 Rx aerosol inhaler (Proventil HFA) famotidine 40 mg tablet (Pepcid) 40 mg PO DAILY #14 tab 12/29/20 01/10/21 Rx Patient History Medical History (Updated 01/15/21 @ 12:13 by Ozzie Elias MD) Acute hypoxemic respiratory failure Basal cell carcinoma of right ear BPH (benign prostatic hyperplasia) Hyperlipidemia Hypertension Physical deconditioning Surgical History History of colonoscopy with polypectomy History of tonsillectomy History of wisdom tooth extraction Status post Mohs surgery for basal cell carcinoma Family History Father Acute myocardial infarction Mother Breast cancer Other Myocardial infarction No family history of adverse response to anesthesia Denies family history of Ovarian cancer Prostate cancer Colorectal cancer Social History Smoking Status: Former smoker Age Started Using Tobacco: 18; Age Quit Using Tobacco: 27; packs per day: 1; Years Smoked: 9; Cigarettes Per Day: 20; Number of Years Since Quit: 12; Second Hand Exposure: No; Hx Alcohol Use: Yes Alcohol type: wine Hx Substance Use: No Preferred Language: Syriac Communication Ability: Effective Visual Impairment: No Limitations Hearing Ability: Normal Cotton Feeder Required: No Beliefs That Will Affect Care: None marital status: Current Living Situation: Spouse Feels Safe at Home: Yes Safety Concerns: Feels Safe At This Time Childhood Exposure to Second-Hand Smoke: Yes Dental Care, Regularly: Yes Physical Activity Frequency: Daily Seatbelt Use: always Assistive Devices: None Review of Systems Review of Systems: All systems reviewed & are unremarkable except as noted in HPI & below Physical Exam Physical Exam: Constitutional: Lethargic appearing. Dyspneic with exertion. Eyes: Pupils are equal round and reactive to light. Conjunctivae are normal. Anicteric sclera. Ears nose, mouth and throat: No deformities. Nasal cannula in place. Neck: Trachea is midline. Visual inspection is normal. Respiratory: Diminished bilaterally. No wheezes. Cardiovascular: Regular rate and rhythm. No murmurs. No edema. Gastrointestinal: Normal bowel sounds, soft, nontender and nondistended. No hepatosplenomegaly noted. Musculoskeletal: Patient is able to move all extremities. Strength is 5 out of 5 in the upper and lower extremities. Skin: No rashes, warm dry and intact. Neurologic: No obvious focal neurological deficits seen. Psychiatric: Alert and oriented x3 with a euthymic affect. Results & Data Results & Data ([facility]) Vital Signs (Past 12 Hours) Vital Signs Temp Pulse Pulse Resp BP Pulse Ox 01/15/21 11:15 98.1 F 116 H 20 144/83 H 91 01/15/21 07:58 97.9 F 117 H 20 141/78 H 90 01/15/21 07:00 116 H 01/15/21 06:07 90 18 95 01/15/21 03:59 98.6 F 118 H 18 121/72 90 01/15/21 00:40 88 20 94 01/15/21 00:28 111 H Vital signs, labs and imaging reviewed PG Care Time/CCT Total # of Minutes Spent Total Time Spent with Patient: Total time spent is greater than 50% in coordination of care (as documented) at patient's floor/unit and/or counseling patient: Coding Level of Care Code 59925 Inpt Consult Level 4 Diagnoses 2019 novel coronavirus-infected pneumonia (NCIP) U07.1; J12.82 Shortness of breath R06.02 Acute hypoxemic respiratory failure J96.01 Tachycardia R00.0 Physical deconditioning R53.81
[2021-01-15] MEDS: ENOXAPARIN INJ 40 MG/0.4 ML SYR SQ SCH (14:35)
[2021-01-15] MEDS: MoRPHine SULFATE 2 MG/ML CARP IV PRN ×2 (16:38→22:42)
[2021-01-15] MEDS: TAMSULOSIN HCL 0.4 MG CAP PO SCH (20:04)
[2021-01-15] MEDS: METOPROLOL TARTRATE 25 MG TAB PO SCH (20:04)
[2021-01-15] MEDS ORDERED: METOPROLOL TARTRATE 25 MG TAB PO SCH (21:00)
[2021-01-15] MEDS ORDERED: METOPROLOL TARTRATE 1 MG/ML VIAL IV STA (22:31)
[2021-01-16] MEDS: ASPIRIN 81 MG ECTAB PO SCH (07:46)
[2021-01-16] MEDS: cefUROXime axetil 500 MG TAB PO SCH (07:46)
[2021-01-16] MEDS: SUCRALFATE 1 GM/10 ML UDC PO SCH ×4 (07:47→19:43)
[2021-01-16] MEDS: ROSUVASTATIN CALCIUM 20 MG TAB PO SCH (07:47)
[2021-01-16] MEDS: FAMOTIDINE 40 MG TABLET PO SCH (07:47)
[2021-01-16] MEDS: METOPROLOL TARTRATE 25 MG TAB PO SCH (07:47)
[2021-01-16] MEDS: PANTOprazole 40 MG TAB PO SCH (07:47)
[2021-01-16] MEDS ORDERED: METOPROLOL TARTRATE 25 MG TAB PO STA (08:40)
[2021-01-16] MEDS ORDERED: FLUTICASONE/VILANTEROL 200/25MCG 14 PUFFS/INHALER INH SCH (09:00)
--- NOTE | 2021-01-16 10:31 | Hospitalist Progress Note ---
Date of Service January 16, 2021 Assessment & Plan (1) Tachycardia: Plan: Sinus mechanism. Blood pressure stable. Beta-analy dosage uptitrated today, January 16. Continue telemetry. (2) SIRS (systemic inflammatory response syndrome): Plan: SIRS response with elevated HR normotensive, normal lactate and no evidence of organ dysfunction, and no clear source of infection at this time- DDX UTI vs. biliary vs other (also w/ bibasilar crackles ?atelectasis with low temp at home) Prior admit Nov-Dec for COVID 19. No abx at that time and was d/c on steroids Procal was negative at that time Did admit to issues with constipation prior to admission but since receiving IVF and ability to urinate with less frequency, he also states he had a BM. ?If obstruction/ileus with low grade temp 2nd to atelectasis at home WBC 10.7k on admission with neutrophil elevated to 9.38. Lactic 1.3. Procal <0.05, again on repeat Ceftriaxone 1gm IV daily given urinary symptoms (not emptying bladder completely despite urgency but also reported constipation and not having moved his bowels)--??stercoral colitis --> states SIGNIFICANT IMPROVEMENT DIRECTLY AFTER RECEIVING however urine cx without growth and will d/c --> on cefuroxime for continued abx, WBC wnl BCx NGTD Lyme/anaplasmosis negative RUQ US negative for acute jewels. +cholelithiasis but no GB wall thickening. Normal Liver. Lipase wnl GI consulted given elevated TB after fried fish --> biliary colic? discussed with GI and no plan for inpatient intervention and ok to eat. Added PPI, carafate for suspected gastritis/ulcer given recent steroid use for COVID --> GI symptoms resolved See above regarding tachycardia/sob w exertion. Trop <0.015. EKG ST with sinus arrhythmia (3) Abnormal urinalysis: Plan: Trace LE, (+) Nitrites, WBC 1-5, Bacteria 0, (+) hyaline casts, protien, bilirubin IVF with improvement in hydration/urinary symptoms Rocephin on admit Urine cx negative Started flomax for BPH to help with urinary symptoms in the future --> continue (4) Cholelithiases: Plan: Noted on RUQ, no GB wall thickening or ductal dilation LFTs normalized on repeat however TB again elevated today after fatty meal with reported pain HIDA scan negative as above MRCP without obstruction GI on consult --> can plan for outpatient EGD Continue low fat diet in meantime (5) COVID-19: Plan: Resolving symptomatic whitlock - remains with residual ground glass opacities on CT scan of chest COVID test on admission remains POSITIVE -- >21 days since symptom onset Continue supportive care 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 Of note, recent d/c from hospital for COVID and had been on steroids at d/c Glucose acceptable (10) Carotid artery stenosis: Plan: Follows with Vascular- with carotid dopplers as per HPI Continue asa 81mg daily, crestor, BP control as above (11) Seasonal allergic rhinitis: Plan: No acute needs at this time (12) Shortness of breath: Plan: Due to underlying lung disease. Continue oxygen supplementation to maintain saturation greater than 90% Plan: continued inpatient stay, telemetry ECHO pending Admission and Anticipated Discharge Date Admission Date: January 10, 2021 Subjective Alert and oriented but he is weak and understands he will not be able to go home today. He continues to require high flow oxygen. Beta-analy dosage uptitrated today, January 16 better heart rate control. No new problems. Review of Systems Review of Systems: All systems reviewed & are unremarkable except as noted in HPI & below Respiratory: Dyspnea on exertion Physical Exam Physical Exam: General-alert and oriented x3, no fevers, no chills HEENT-head atraumatic and normocephalic, TMs intact bilaterally, pupils equal and reactive to light, extraocular muscles intact Neck-no lymphadenopathy or thyromegaly, trachea midline Chest-adventitious respiratory sounds bilaterally. No rales or wheezing Cardiac-regular rate and rhythm, normal S1 and S2, no murmurs Abdomen-normal bowel sounds, nontender, no hepatosplenomegaly Extremities-no cyanosis, clubbing, or edema Neuro-cranial nerves II through XII intact, motor and sensory function within normal limits, strength symmetrical 5/5, no focal deficits Psych-normal affect, normal mood Results & Data Results & Data ([facility]) Vital Signs (Past 12 Hours) Vital Signs Temp Pulse Pulse Pulse Resp BP BP 01/16/21 07:33 36.8 C 14 122/76 01/16/21 07:19 104 H 19 01/16/21 05:01 100 H 24 01/16/21 02:52 36.7 C 102 H 18 113/67 01/15/21 22:42 124 H 152/84 H Pulse Ox 01/16/21 07:33 94 01/16/21 07:19 94 01/16/21 05:01 92 01/16/21 02:52 90 01/15/21 22:42 Laboratory Results 01/15/21 09:43 01/15/21 09:43 PG Care Time/CCT Total # of Minutes Spent Total Time Spent with Patient: Total time spent is greater than 50% in coordination of care (as documented) at patient's floor/unit and/or counseling patient: Coding Level of Care Code 33323 Subseq Hosp Care Lvl 3 Diagnoses Tachycardia R00.0 SIRS (systemic inflammatory response syndrome) R65.10 Abnormal urinalysis R82.90 Cholelithiases K80.20 COVID-19 U07.1 BPH (benign prostatic hyperplasia) N40.0 Hyperlipidemia E78.5 Hypertension I10 Hypertension type: essential hypertension Impaired fasting glucose R73.01 Carotid artery stenosis I65.29 Seasonal allergic rhinitis J30.2 Shortness of breath R06.02 Time Spent (min) 35 (1) Hypertension Hypertension type: essential hypertension Qualified Code(s): I10 - Essential (primary) hypertension
--- NOTE | 2021-01-16 12:46 | Pulmonology Progress Note ---
Date of Service January 16, 2021 Assessment & Plan (1) Acute hypoxemic respiratory failure: (2) Shortness of breath: (3) COVID-19: (4) Abnormal CT scan of lung: Plan: Impression: 70-year-old male hospitalized since 01/10/2021. He was diagnosed with Covid December 07. He was managed conservatively but was seen in the emergency room 12/18 with substernal discomfort. He was also admitted to the hospital 12/27 overnight for chest abdominal discomfort. He has a CT scan showing fibrotic changes with some groundglass opacities in the lungs and has had marked escalation in his oxygen requirement over the last 12 hours. He now has a blanching maculopapular rash raising the possibility of leukocytoclastic vasculitis. Recommendations: 1. Hypoxemic respiratory failure: Agree with previous notes the differential would include post Covid fibrosis although the groundglass would raise the concern for secondary infection (procalcitonin negative, afebrile, normal white count) as well as other interstitial disease including alveolar hemorrhage. His oxygenation requirement currently precludes bronchoscopy without intubating the patient which he would like to avoid. He is agreeable to intubation mechanical ventilation if needed. Continue supplemental oxygen and recommend transition to CPAP if unable to maintain oxygen saturations. The patient is at high risk of decompensation at this point time. If the patient should deteriorate to the point of needing intubation mechanical ventilation, bronchoscopy with BAL should be performed at that time. 2. Abnormal CT scan: We will check serological evaluation including JOSE CRUZ, ANCA, rheumatoid factor, anti-CCP, and repeat CRP ferritin as well as urinalysis for hematuria. Will check anti-GBM as well. Depending on those results, may consider empiric steroids. Its unclear if reviewing his chart, the prior episodes that were treated with steroids may have represented initial manifestation of potential systemic disease. 3. Recommend dermatology consultation for consideration of biopsy of the rash. If vasculitis was identified from the skin, this may preclude need for additional invasive approaches. 4. Overall prognosis is guarded at the current time. The patient has significant possibility of clinical deterioration potentially requiring more aggressive interventions. This was discussed in detail with the patient. Total of 45 minutes in critical care time was spent evaluation management of this patient. We will continue to follow closely with you. Admission and Anticipated Discharge Date Admission Date: January 10, 2021 Subjective Patient seen and examined. EMR reviewed. Discussed with off going food mixer repairer. The patient reports increasing shortness of breath. He has had a fairly dramatic increase in his oxygen requirement over the last 12 hours. He is gone from 4 L nasal cannula up to high flow oxygen at 40 L/min and 80%. He is coughing and expectorating small amounts of phlegm. He is not described any hemoptysis. He has developed a maculopapular blanching rash across his chest and back. He is not noted any hematuria. His kidney function remains stable. Review of Systems Review of Systems: All systems reviewed & are unremarkable except as noted in Subjective Physical Exam Constitutional: + acute distress and + ill appearing Neck: trachea midline, no thyromegaly Respiratory: + labored breathing and + tachypneic Auscultation: + rales and + wheezes Cardiovascular: RRR, no murmur, no edema Gastrointestinal (Abdomen): normal bowel sounds, soft, nontender, no hepatosplenomegaly Musculoskeletal: Extremities: extremities normal to inspection Skin: Maculopapular blanching rash over his upper chest and back. No rashes on the legs. Neurologic: Nonfocal exam Lymphatic: no cervical lymphadenopathy Results & Data Results & Data ([facility]) Vital Signs (Past 12 Hours) Vital Signs Temp Pulse Pulse Pulse Resp BP Pulse Ox 01/16/21 11:18 98 H 22 89 L 01/16/21 11:04 36.7 C 96 H 17 116/74 93 01/16/21 07:33 36.8 C 14 122/76 94 01/16/21 07:19 104 H 19 94 01/16/21 07:00 99 H 01/16/21 05:01 100 H 24 92 01/16/21 02:52 36.7 C 102 H 18 113/67 90 Laboratory Results CRP increased to 18.4 from 4.9 on presentation Troponin negative Procalcitonin undetectable Ferritin 743 on 01/14 Urinalysis on presentation showed 1+ protein with trace ketones positive nitrite 1+ bilirubin trace leuk esterase and 5-10 hyaline casts with 20-30 epithelial cells. Critical Care Results & Data Vital Signs (Past 12 Hours) Vital Signs Temp Pulse Pulse Pulse Resp BP Pulse Ox 01/16/21 11:18 98 H 22 89 L 01/16/21 11:04 36.7 C 96 H 17 116/74 93 01/16/21 07:33 36.8 C 14 122/76 94 01/16/21 07:19 104 H 19 94 01/16/21 07:00 99 H 01/16/21 05:01 100 H 24 92 01/16/21 02:52 36.7 C 102 H 18 113/67 90 Lab & Micro Results (Past 24 Hours) No Data to Display No Data to Display Mg 2.0 mg/dl (1.8-2.4) 01/15/21 23:00 01/15/21 Microbiology 01/10/21 09:15 Aerobic Blood Culture - Final Blood No growth in Aerobic bottle after 5 days. Anaerobic Blood Culture - Final No growth in Anaerobic bottle after 5 days. 01/10/21 09:45 Aerobic Blood Culture - Final Blood No growth in Aerobic bottle after 5 days. Anaerobic Blood Culture - Final No growth in Anaerobic bottle after 5 days. I & O Totals 24 Hours 01/15/21 01/16/21 01/17/21 06:59 06:59 06:59 Intake Total 1098.333 / 1098.333 Output Total 202 / 202 175 / 175 Balance 896.333 / 896.333 -175 / -175 Cumulative 01/10/21 08:48 thru 01/16/21 09:50 Intake Total 9192.083 Output Total 2427 Balance 6765.083 RT Ventilator Mngmt (Last Documented) Ventilator Ordered Settings Respiratory Rate 22 01/16/21 11:18 Fraction of Inspired Oxygen 80 01/16/21 11:18 Ventilator - PT Measurements Respiratory Rate 22 PG Care Time/CCT Total # of Minutes Spent Total Time Spent with Patient: Total time spent is greater than 50% in coordination of care (as documented) at patient's floor/unit and/or counseling patient: Coding Level of Care Code Critical Care 1st 30-74 mins Diagnoses Acute hypoxemic respiratory failure J96.01 Shortness of breath R06.02 COVID-[address] scan of lung R91.8 Time Spent (min) 45
[2021-01-16] MEDS ORDERED: FUROSEMIDE 40 MG/4 ML VIAL IV ONE ×2 (15:56→19:00)
[2021-01-16] MEDS: ENOXAPARIN INJ 40 MG/0.4 ML SYR SQ SCH (16:07)
[2021-01-16 16:49] LABS: Basophils # (auto) 0.01 K/uL (0-0.2); Basophils % (auto) 0.1 %; Eosinophils # (auto) 0.04 K/uL (0-0.5); Eosinophils % (auto) 0.4 %; Hematocrit (blood only) 38.8 % (42-52); Hemoglobin 14.1 g/dL (14.0-18.0); Immature Granulocytes # (auto) 0.04 K/uL (0.00-0.02); Immature Granulocytes % (auto) 0.4 %; Lymphocytes # (auto) 0.63 K/uL (1.2-3.4); Lymphocytes % (auto) 5.8 %; Mean Corpuscular Hemoglobin 35.1 pg (25-34); Mean Corpuscular Volume 96.5 fL (80-100); Monocytes # (auto) 0.44 K/uL (0.11-0.59); Monocytes % (auto) 4.1 %; Neutrophils # (auto) 9.66 K/uL (1.4-6.5); Neutrophils % (auto) 89.2 %; Platelet Count 225 K/uL (130-400); RDW Coefficient of Variation 12.7 % (11.5-14.5); RDW Standard Deviation 44.6 fL (36.4-46.3); Red Blood Count 4.02 M/uL (4.7-6.1); White Blood Count 10.82 K/uL (4.8-10.8)
[2021-01-16 17:16] LABS: Mean Corpuscular Hgb Conc 36.3 g/dL (32-36)
[2021-01-16 17:44] LABS: Appearance Urine Clear (Clear); Bilirubin Urine Negative (Negative); Blood Urine Negative (Negative); Color Urine Yellow; Glucose Urine UA Negative (Negative); Ketones Urine Negative (Negative); Leukocyte Esterase Urine Negative (Negative); Nitrite Urine Negative (Negative); Protein Urine Negative (Negative); Specific Gravity Urine 1.006 (1.000-1.030); Urobilinogen Urine Negative (Negative)
[2021-01-16] MEDS ORDERED: VANCOMYCIN CONSULT ACTIVE PRN (18:29)
[2021-01-16] MEDS ORDERED: dexAMETHasone 6 MG in SYRINGE 0 ML IV SCH (19:00)
[2021-01-16] MEDS ORDERED: VANCOMYCIN HCL 2,250 MG in SODIUM CHLORIDE 0.9% 500 ML IV ONE (19:00)
--- NOTE | 2021-01-16 19:06 | Communication Note ---
Date of Service: January 16, 2021 [facility] Conde to evaluate due to worsening oxygen requirement. Patient notes that he has had chest pressure/substernal pain that is worse with a deep breath or cough for weeks, may be a little bit worse this afternoon, but the main thing is an abrupt worsening in his oxygen requirement. He does note worsening dyspnea that way as wellwas recently changed to high flow O2, then escalated to a higher FiO2. He has been sick with Covid for easily a month. Prior to Covid he notes that he was overall relatively healthy, lives with his , enjoys his children and grandchildren. Seen and evaluated, current hospitalization reviewed, most recent chest CT reviewed personally as well, given 40 mg of Lasixin follow-up he was still requiring high flow O2, but had less chest pressure. Labs then came back later showing a rising white count and a nearly doubled CRP, this coupled with his technically negative but slightly rising procalcitonin all made me suspicious for a developing infectious process. Revisited yet again. Still requiring essentially 100% FiO2 on high flow nasal cannula, although much more conversational, less conversational dyspnea although he notes still significant dyspnea, nursing notes desaturation with any exertion whatsoever. Pain substernal is better than before. EKG nonacute Abrupt worsening of hypoxiaappears to relate to COVID-19/pulmonary inflammation -Lead differential being pulmonary edemaimproved to a degree with 40 of Lasix, additional 40 to be given now -High concern on developing secondary bacterial pneumoniaantibiotics escalated to vancomycin and cefepime (MRSA nares pendingif it is negative vancomycin can be discontinued)follow labs -Given probable ongoing pulmonary inflammation, at least for now we will resume corticosteroids with Decadron -Considered repeat CT chest, but given his above findings, as well as the diffuse findings on his CT from 2 days ago, I am not sure that CT would really 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 Further, given that he is on pharmacologic DVT prophylaxis, PE would not be overly likelygiven that he does feel a little bit better with the diuresis, clinically PE is less likely as well. Should there be any worsening again, repeat CT to rule out PE could be considered though. Greater than 30 minutes critical care time over 3 separate visits, chart review, order entry administrator, etc. case d/w overnight coverage.
--- NOTE | 2021-01-16 19:07 | Billing Data ---
Date of Service January 16, 2021 Coding Level of Care Code Critical Care 1st - mins
--- NOTE | 2021-01-16 19:33 | Pharmacy Report ---
Pharmacy Vanc AUC Short Note - Date of Service January 16, 2021 - Assessment & Plan Assessment 70 year old M receiving cefepime/vancomycin for treatment of possible secondary bacterial pneumonia following COVID-19 infection. Previously being treated with ceftin, acute worsening today, broadened antibiotics, plan to d/c vancomycin pending MRSA nasal swab. SCR has previously been stable no new SCr today. Will give loading dose and reassess current dosing/continuation in AM with new SCR/nasal swab results. Plan Vancomycin * AUC/RANDY is the preferred PK/PD target for vancomycin * AUC guided dosing is effective and associated with decreased risk of nephrotoxicity compared to traditional trough targets * Loading dose 2250 mg (23 mg/kg) x1 * Maintenance dose of 1500 mg q12H is predicted to achieve target AUC/RANDY of 400-600 mg/L.hr and may be associated with a 13 % risk of nephrotoxicity * SCr in AM to monitor for needed dosage adjustments * Trough to be ordered if continued >48 hours Pharmacy will continue to follow and will adjust dose/frequency as necessary. Thank you.
[2021-01-16] MEDS: TAMSULOSIN HCL 0.4 MG CAP PO SCH (19:42)
[2021-01-16] MEDS: METOPROLOL TARTRATE 50 MG TAB PO SCH (19:42)
[2021-01-16] MEDS: CEFEPIME 2,000 MG in SYRINGE 0 ML IV SCH (21:02)
[2021-01-17] MEDS: CEFEPIME 2,000 MG in SYRINGE 0 ML IV SCH ×3 (06:29→21:44)
[2021-01-17 06:32] LABS: Basophils # (auto) 0.01 K/uL (0-0.2); Basophils % (auto) 0.1 %; Hematocrit (blood only) 35.7 % (42-52); Hemoglobin 13.1 g/dL (14.0-18.0); Immature Granulocytes # (auto) 0.03 K/uL (0.00-0.02); Immature Granulocytes % (auto) 0.4 %; Lymphocytes # (auto) 0.51 K/uL (1.2-3.4); Lymphocytes % (auto) 7.1 %; Mean Corpuscular Hemoglobin 35.2 pg (25-34); Mean Corpuscular Hgb Conc 36.7 g/dL (32-36); Monocytes % (auto) 2.8 %; Neutrophils # (auto) 6.48 K/uL (1.4-6.5); Neutrophils % (auto) 89.6 %; Platelet Count 263 K/uL (130-400); RDW Coefficient of Variation 12.8 % (11.5-14.5); RDW Standard Deviation 44.7 fL (36.4-46.3); Red Blood Count 3.72 M/uL (4.7-6.1); White Blood Count 7.23 K/uL (4.8-10.8)
[2021-01-17 07:07] LABS: BUN Creatinine Ratio 23.3 (10-20); C Reactive Protein 33.8 mg/dl (0-0.29); Creatinine Clr Calc Pharmacy 109.2 ml/min; Est GFR (African American) 108.6 ml/min; Est GFR (Non-African American) 93.7 ml/min; Ferritin 958.5 ng/ml (8-388); Potassium 3.3 mmol/L (3.5-5.1)
[2021-01-17] MEDS ORDERED: RAPID SEQUENCE INDUCTION BAG ONE (07:45)
[2021-01-17] MEDS ORDERED: VANCOMYCIN HCL 1,500 MG in SODIUM CHLORIDE 0.9% 500 ML IV SCH (08:00)
[2021-01-17] MEDS ORDERED: PROPOFOL IV EMULSION 10 MG/ML 100 ML VIAL IV ONE (08:10)
[2021-01-17] MEDS: propofoL 1,000 MG/100 ML VIAL IV SCH ×2 (08:35→18:19)
[2021-01-17] MEDS ORDERED: PROPOFOL BOLUS FROM BAG IV PRN (08:39)
[2021-01-17] MEDS ORDERED: fentaNYL citrate 100 MCG/2 ML VIAL IV PRN (08:39)
[2021-01-17] MEDS ORDERED: STAT IV Infusion **Titration per Protocol STA ×2 (08:39→09:20)
--- NOTE | 2021-01-17 08:50 | Procedure Note ---
Procedure Note Date of Service January 17, 2021 Note INTUBATION PROCEDURE NOTE: Provider: Blaine Holloway MD A time-out was completed verifying correct patient, procedure, site, positioning. Patient was evaluated and required intubation for hypoxemic respiratory failure. Sedative agent used: Versed 10 mg, etomidate 40 mg Paralysis agent used: None Risks and benefits were discussed with the patient prior to commencement of the procedure. Verbal consent was obtained. Due to the patient's clinical acuity, written consent was not available. The patient was prepared in the appropriate fashion. Sedation was achieved utilizing Versedand etomidate. The patient was preoxygenated using heated high flow nasal cannula. Video laryngoscopy was performed. Cords were easily viewed. A 8.0 endotracheal tube was placed under video laryngoscopy guidance 23cm at the lip. The stylette was removed and balloon was inflated with 10mL of air. Appropriate Colorimetric change was appreciated. Bilateral breath sounds were heard without air sounds in the abdomen. Post intubation, bronchoscopy was performed and the tube verified to be approximately 3 cm above the capo. See separate bronchoscopy note Patient tolerated the procedure well and there were no immediate complications. Coding CPT Codes Resuscitation - Resuscitation: 23940 Endotracheal Intubation, emergency ([id number]) [facility] Procedure Codes (Charges) Resuscitation Resuscitation: 33777 Endotracheal Intubation, emergency
--- NOTE | 2021-01-17 08:54 | Procedure Note ---
Procedure Note Date of Service January 17, 2021 Note Procedure: Fiberoptic bronchoscopy Bronchoalveolar lavage Provider: Blaine Holloway MD Consent: Verbal consent obtained from the patient prior to commencement of the procedure. Due to acuity, the patient was not able to provide written consent. Procedure: Patient was brought to the ICU and intubated. Please see separate procedure notes. A timeout was performed. Appropriate radiographic studies had been reviewed prior to the procedure. Standard monitoring was applied. Patient was attached to the mechanical ventilator. Oxygen saturations were in the mid 90% on the vent. The fiberoptic scope was advanced through the existing endotracheal tube. Tube was sounded and found to be approximately 3 cm above the capo. Distal portion of the trachea was unremarkable. Main capo was normal without evidence of splaying. A sequential and systematic examination of the lower airways was conducted. The right-sided airways were patent with normal anatomic configuration and the mucosa appeared normal. There were some thick clear secretions present which were lavaged free. Left-sided airways were widely patent with normal anatomic configurationand the mucosa appeared normal. Similar thick clear secretions were present which were aspirated free. After the inspection bronchoscopy was completed, the scope was wedged into the anterior segment of the right upper lobe. A BAL was performed with instillation of 3 aliquots of 60 cc of saline. The return was cloudy but did not appear overtly bloody. The bronchoscope was then removed from the airways. The patient tolerated the procedure well without obvious complication. Patient remains intubated in the ICU Impression: 1. Endotracheal tube in good position. 2. Unremarkable airway examination 3. BAL right upper lobe anterior segment, findings were not highly concerning for alveolar hemorrhage. Fluid will be sent for routine microbiologic and cytologic analysis including P CELESTINE stains, fungal stains, and cell count differential Coding CPT Codes Pulmonary/Thoracic - Pulmonary and Thoracic: 78708 Dx bronchoscopy/BAL ([id number]) [facility] [place] Procedure Codes (Charges) Pulmonary/Thoracic Procedure 1: Pulmonary and Thoracic: 26615 Dx bronchoscopy/BAL
--- NOTE | 2021-01-17 09:27 | Critical Care Progress Note ---
Date of Service January 17, 2021 Assessment & Plan (1) Acute hypoxemic respiratory failure: (2) Shortness of breath: (3) COVID-19: (4) Abnormal CT scan of lung: Plan: Impression: 70-year-old male hospitalized since 01/10/2021. He was diagnosed with Covid December 07. He was managed conservatively but was seen in the emergency room 12/18 with substernal discomfort. He was also admitted to the hospital 12/27 overnight for chest abdominal discomfort. He has a CT scan showing fibrotic changes with some groundglass opacities in the lungs and has had marked escalation in his oxygen requirement over the last 12 hours. He now has a blanching maculopapular rash raising the possibility of leukocytoclastic vasculitis. 24-hour events: The patient has had persistent high oxygen requirement with increased work of breathing. He is coughing but not expectorating any phlegm. He was transferred to the ICU intubated and underwent bronchoscopy this morning. Recommendations: 1. Neurologic: Aggressive sedation using propofol fentanyl and Versed. Keep sedated until respiratory mechanics improve. 2. Respiratory: Hypoxemic respiratory failure with diffuse pulmonary infiltrates. 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 The patient underwent bronchoscopy with BAL. Await cell count differentials, Gram stain and culture, P CELESTINE stains, AFB and viral cultures as well as routine cultures and cytology. The lavage did not appear consistent with alveolar hemorrhage. Given the concern for an inflammatory process with elevated markers, will discontinue dexamethasone and place him on Solu-Medrol 25 mg every 6 pending repeat evaluation. Unclear if this is all related to COVID or potentially a secondary process. He does not have other markers for hemophagocytic syndrome currently but is certainly at risk. He does have a diffuse maculopapular blanching rash. We will consult dermatology to see if we can get a punch biopsy. 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 3. Cardiovascular: Hemodynamically stable. Continue to follow currently. His BNP was normal so we will hold on diuretics for now. 4. Renal: No current issues. Will initiate electrolyte replacement protocol. We will follow serum sodium and potassium with repletion protocols. 5. GI: The patient was admitted with abdominal complaints. Suspect this may be related to a systemic issue, again query vasculitis. His lactate was normal and his exam is unrevealing. May consider starting enteral nutrition depending on clinical course. Stress ulcer prophylaxis will be initiated. 6. ID: The patient was initiated on cefepime and vancomycin last night. His procalcitonin has been negative. I do not think he needs vancomycin and this has been appropriately discontinued. Will continue cefepime pending Gram stain and culture from the BAL specimen today. 7. Heme-onc: Mild anemia. Elevated ferritin of unclear significance. It may be consistent with acute phase reactant. Clinical picture is concerning for a systemic process including an autoimmune process. Awaiting serological studies which were sent yesterday. Continue steroids for now. 8. Endocrine: Glycemic control per protocol. Patient is critically ill at this point time. A total 79 minutes in critical care time spent evaluation management stabilization this patient exclusive of procedures including discussion with the , discussion with bedside nurse, and noncritical care multidisciplinary rounds. Admission and Anticipated Discharge Date Admission Date: January 10, 2021 Subjective Patient seen and examined on the floor. He continues to be quite tachypneic with increased oxygen and desaturates into the 80s with any significant physical activity. Reviewed his labs. Please see comments below. Patient was subsequent transferred to the ICU, intubated, and underwent bronchoscopy with bronchial velar lavage. Review of Systems Review of Systems: Unobtainable due to endotracheal tube Physical Exam Constitutional: + mechanically ventilated Intubated and sedated Neck: trachea midline, no thyromegaly Respiratory: Auscultation: + rales and + wheezes Cardiovascular: RRR, no murmur, no edema Gastrointestinal (Abdomen): normal bowel sounds, soft, nontender, no hepatosplenomegaly Musculoskeletal: Extremities: extremities normal to inspection Lymphatic: no cervical lymphadenopathy Results & Data Results & Data ([facility]) Vital Signs (Past 12 Hours) Vital Signs Temp Pulse Pulse Pulse Resp BP BP 01/17/21 08:54 93 H 31 H 01/17/21 07:24 97 H 19 01/17/21 03:26 36.3 C L 95 H 18 94/60 L 01/17/21 03:15 79 79 20 01/17/21 00:56 36.4 C L 92 H 18 97/63 L 01/17/21 00:12 91 H 01/16/21 23:00 94 H 20 01/16/21 22:27 36.8 C 90 20 106/63 Pulse Ox 01/17/21 08:54 91 01/17/21 07:24 91 01/17/21 03:26 91 01/17/21 03:15 93 01/17/21 00:56 92 01/17/21 00:12 01/16/21 23:00 96 01/16/21 22:27 92 Laboratory Results Procalcitonin 0.34 up from undetectable CRP 33.8 up from 29.4 yesterday BNP 467 Ferritin 958 up from 734 Urinalysis showed no evidence of hematuria Nasal PCR negative Diagnostic Findings Chest x-ray post intubation independently reviewed. Endotracheal tubes in good position. Orogastric tube coursing below the diaphragm. There are bilateral hazy opacities noted. Critical Care Results & Data Vital Signs (Past 12 Hours) Vital Signs Temp Pulse Pulse Pulse Resp BP BP 01/17/21 08:54 93 H 31 H 01/17/21 07:24 97 H 19 01/17/21 03:26 36.3 C L 95 H 18 94/60 L 01/17/21 03:15 79 79 20 01/17/21 00:56 36.4 C L 92 H 18 97/63 L 01/17/21 00:12 91 H 01/16/21 23:00 94 H 20 01/16/21 22:27 36.8 C 90 20 106/63 Pulse Ox 01/17/21 08:54 91 01/17/21 07:24 91 01/17/21 03:26 91 01/17/21 03:15 93 01/17/21 00:56 92 01/17/21 00:12 01/16/21 23:00 96 01/16/21 22:27 92 Lab & Micro Results (Past 24 Hours) RBC 3.72 M/uL (4.7-6.1) L 01/17/21 WBC 7.23 K/uL (4.8-10.8) 01/17/21 Hgb 13.1 g/dL (14.0-18.0) L 01/17/21 Hct 35.7 % (42-52) L 01/17/21 MCV 96.0 fL (80-100) 01/17/21 MCH 35.2 pg (25-34) H 01/17/21 MCHC 36.7 g/dL (32-36) H 01/17/21 RDW Standard Deviation 44.7 fL (36.4-46.3) 01/17/21 RDW Coefficient of Variation 12.8 % (11.5-14.5) 01/17/21 Plt Count 263 K/uL (130-400) 01/17/21 MPV 10.0 fL (7.4-10.4) 01/17/21 Neutrophils (%) (Auto) 89.6 % 01/17/21 Lymphocytes (%) (Auto) 7.1 % 01/17/21 Monocytes # (Auto) 0.20 K/uL (0.11-0.59) 01/17/21 Eosinophils # (Auto) 0.00 K/uL (0-0.5) 01/17/21 Immature Granulocyte % (Auto) 0.4 % 01/17/21 Neutrophils # (Auto) 6.48 K/uL (1.4-6.5) 01/17/21 Lymphocytes # (Auto) 0.51 K/uL (1.2-3.4) L 01/17/21 Monocytes # (Auto) 0.20 K/uL (0.11-0.59) 01/17/21 Eosinophils # (Auto) 0.00 K/uL (0-0.5) 01/17/21 Basophils # (Auto) 0.01 K/uL (0-0.2) 01/17/21 Immature Granulocyte # (Auto) 0.03 K/uL (0.00-0.02) H 01/17/21 Na 132 mmol/L (136-145) L 01/17/21 K 3.3 mmol/L (3.5-5.1) L 01/17/21 Cl 97 mmol/L (98-107) L 01/17/21 CO2 26 mmol/L (21-32) 01/17/21 Anion Gap 9.0 (3-11) 01/17/21 BUN 17 mg/dl (7-18) 01/17/21 Creatinine 0.71 mg/dl (0.6-1.4) 01/17/21 Estimated GFR ( Amer) 108.6 ml/min 01/17/21 Estimated GFR (Non-Af Amer) 93.7 ml/min 01/17/21 BUN/Creatinine Ratio 23.3 (10-20) H 01/17/21 Glu 121 mg/dl (70-99) H 01/17/21 Ca 9.0 mg/dl (8.5-10.1) 01/17/21 Calcium Level 9.0 mg/dl (8.5-10.1) 01/17/21 05:45 01/17/21 I & O Totals 24 Hours 01/16/21 01/17/21 01/18/21 06:59 06:59 06:59 Intake Total 1098.333 / 1098.333 765 / 765 Output Total 202 / 202 1652 / 1652 300 / 300 Balance 896.333 / 896.333 -887 / -887 -300 / -300 Cumulative 01/10/21 08:48 thru 01/17/21 07:01 Intake Total 9957.083 Output Total 4204 Balance 5753.083 RT Ventilator Mngmt (Last Documented) Ventilator Ordered Settings Ventilator Support Mode Assist Control 01/17/21 08:54 Respiratory Rate 31 01/17/21 08:54 Ventilator Tidal Volume 400 01/17/21 08:54 Setting Minute Ventilation 11 01/17/21 08:54 Positive End Expiratory 12 01/17/21 08:54 Pressure Fraction of Inspired Oxygen 80 01/17/21 08:54 Ventilator - PT Measurements Respiratory Rate 31 Exhaled Tidal Volume 430 Minute Ventilation 11 Peak Inspiratory Airway 40 Pressure Plateau Pressure 35 Respiratory Cycle Inspiratory: 1:2.8 Expiratory Ratio Inspiratory Phase Time 0.8 End-Tidal CO2 25 Static Lung Compliance 18.70 Dynamic Lung Compliance 15.36 Normal Static Lung Compliance 44.00 Coding Level of Care Code Critical Care ea addt'l 30 min Diagnoses Acute hypoxemic respiratory failure J96.01 Shortness of breath R06.02 COVID-[address] scan of lung R91.8 Time Spent (min) 79 Comment code 20291 and 37458
--- NOTE | 2021-01-17 09:28 | XRay Report ---
XR chest 1V portable CLINICAL HISTORY: Intubation. COMPARISON STUDY: Chest radiograph and chest CT January 14, 2021. FINDINGS: Tip of endotracheal tube is 4.5 cm above the capo. Tip of nasogastric tube is within the gastric fundus. Cardiomediastinal silhouette is stable. There is no pneumothorax or pleural effusion. There has been progression of bilateral airspace opacities since prior exam. IMPRESSION: 1. Satisfactory positioning of lines and tubes. 2. Progression of bilateral airspace opacities suggestive of viral pneumonia. ACT 112: Negative or not required by law. Electronically signed by: Felipe Jay M.D. 01/17/2021 9:27 AM
[2021-01-17] MEDS: fentaNYL DRIP 1,250 MCG/250 ML BAG IV SCH ×2 (09:30→19:09)
[2021-01-17] MEDS ORDERED: Nursing to Pharmacy Communication SCH (10:00)
[2021-01-17] MEDS: MIDAZOLAM HCL 1 MG/ML 2ML VIAL IV PRN ×2 (10:11→12:20)
[2021-01-17] MEDS: METOPROLOL TARTRATE 50 MG TAB PO SCH ×2 (10:43→21:43)
[2021-01-17] MEDS: FAMOTIDINE 40 MG TABLET PO SCH (11:02)
[2021-01-17] MEDS: SUCRALFATE 1 GM/10 ML UDC PO SCH ×4 (11:02→21:43)
[2021-01-17] MEDS: PANTOprazole 40 MG TAB PO SCH (11:02)
[2021-01-17] MEDS: methylPREDNISolone 125 MG in SYRINGE 0 ML IV SCH ×2 (11:38→18:10)
[2021-01-17] MEDS: POTASSIUM CHLORIDE 20 MEQ/15 ML UDC GT SCH ×2 (11:38→14:56)
[2021-01-17] MEDS: ROSUVASTATIN CALCIUM 20 MG TAB PO SCH (11:57)
[2021-01-17 12:11] LABS: Eosinophil Body Fluid Man 2 %; Fluid Mono/Macrophage 17 %; Lymphocyte Body Fluid Man 44 %; Neutrophil Body Fluid Man 37 %
--- NOTE | 2021-01-17 12:57 | Dermatology Consultation ---
Date of Consultation January 17, 2021 Assessment & Plan (1) Dermatitis, unspecified: Possible vasculitis vs. other - Somewhat nonspecific, but morphology of lesions could be c/w with early cutaneous small vessel vasculitis that may be blunted in appearance by recent systemic steroids. 1) s/p punch biopsies today from the left abdomen for both DIF and H&E for further evaluation. 2) Suture removal from the left abdomen skin biopsy sites in 10 days. 3) Agree with serologic workup (currently pending). 4) Agree with current Solu-medrol dosing for now as per primary team. 5) Will follow-up for biopsy results. Thanks for the consult. History of Present Illness Reason for Consultation: Rash Requesting Physician: Blaine Holloway MD Attending Physician: Luis Pagan DO History of Present Illness Patient is a 70 y/o WM admitted to [facility] on 01/10/2021 with concerns for early sepsis. He has a recent history of COVID pneumonia diagnosed on 12/07/2020. This was apparently managed outpatient aside from a brief hospital admission on 12/27/2020 for chest and abdominal discomfort. At the time of his admission there was concerns for UTI with sepsis. He was initially placed on Rocephin, but his cultures did not show signs of definitive infection. His respiratory status gradually declined during his admission, and his supplemental oxygen requirement increased. He was transferred to the ICU earlier today and underwent bronchoscopy with BAL for further evaluation. He is currently intubated. It was noticed upon his transfer to the ICU that a rash was present on the trunk and waist region. This was 1st noticed about 2 days ago according to the nursing staff. There is some concern for possible vasculitic process that may be contributing to his respiratory failure. He was given a dose of dexamethasone yesterday. This has been switched to Solu-Medrol 25 mg every 6 hours. He received his 1st dose at 1200 today. According to his , he does not have any history of similar eruption in the past prior to his admission. He was having some intermittent stomach and chest pains prior to the admission, but there were no complaints of changes in his urine or new joint aches. Allergies Allergy/AdvReac Type Severity Reaction Status Date / Time sulfamethoxazole Allergy Unknown Unknown Verified 12/27/20 11:04 [From Bactrim] trimethoprim [From Bactrim] Allergy Unknown Unknown Verified 12/27/20 11:04 Home Medications Medication Instructions Recorded Confirmed Type [id number] acid 300 1 tab PO WK 03/19/19 01/10/21 History mcg-lycopene 600 mcg-lutein 300 mcg tablet (Men 50 Plus Multivitamin) aspirin 81 mg tablet,delayed 81 mg PO 3XWK tab 01/15/20 01/10/21 History release (Aspirin Low Dose) psyllium husk 3.4 gram/5.4 gram 3 tsp PO DAILY PRN g 06/29/20 01/10/21 History oral powder (Metamucil) losartan 50 mg-hydrochlorothiazide 1 tab PO QAM 12/18/20 01/10/21 History 12.5 mg tablet (Hyzaar) ondansetron 4 mg disintegrating 4 mg PO Q8H PRN #10 tab 12/18/20 01/10/21 Rx tablet rosuvastatin 20 mg tablet (Crestor) 20 mg PO QDL 12/18/20 01/10/21 History potassium chloride 20 mEq 20 meq PO DAILY #10 tab 12/20/20 01/10/21 Rx tablet,extended release (K-Tab) albuterol sulfate 90 mcg/actuation 2 inh INHALATION Q6H PRN #8.5 g 12/24/20 01/10/21 Rx aerosol inhaler (Proventil HFA) famotidine 40 mg tablet (Pepcid) 40 mg PO DAILY #14 tab 12/29/20 01/10/21 Rx Patient History Medical History (Updated 01/17/21 @ 12:56 by Kit Delong MD) Acute hypoxemic respiratory failure Basal cell carcinoma of right ear BPH (benign prostatic hyperplasia) Dermatitis, unspecified Hyperlipidemia Hypertension Physical deconditioning Surgical History History of colonoscopy with polypectomy History of tonsillectomy History of wisdom tooth extraction Status post Mohs surgery for basal cell carcinoma Family History Father Acute myocardial infarction Mother Breast cancer Other Myocardial infarction No family history of adverse response to anesthesia Denies family history of Ovarian cancer Prostate cancer Colorectal cancer Social History Smoking Status: Former smoker Age Started Using Tobacco: 18; Age Quit Using Tobacco: 27; packs per day: 1; Years Smoked: 9; Cigarettes Per Day: 20; Number of Years Since Quit: 12; Second Hand Exposure: No; Hx Alcohol Use: Yes Alcohol type: wine Hx Substance Use: No Preferred Language: Swazi Communication Ability: Effective Visual Impairment: No Limitations Hearing Ability: Normal Site Surveyor Required: No Beliefs That Will Affect Care: None marital status: Current Living Situation: Spouse Feels Safe at Home: Yes Childhood Exposure to Second-Hand Smoke: Yes Dental Care, Regularly: Yes Physical Activity Frequency: Daily Seatbelt Use: always Assistive Devices: Oxygen - Continuous Review of Systems Review of Systems: Unobtainable due to endotracheal tube Physical Exam Physical Exam: General Appearance:Intubated, calm Psych:Sedated Skin Type:2 Scalp/Hair:no abnormalities noted. Face:no abnormalities noted. Eyelids/Ocular Mucosa: no abnormalities noted. Lips/Teeth/Gums: intubated. Neck: no abnormalities noted. Right Lower Extremity:few faint, slightly erythematous, mostly blanchable macules on the proximal anterior thigh Left Lower Extremity:few faint, slightly erythematous, mostly blanchable macules on the proximal anterior thigh Back:no abnormalities noted. Buttocks/Groin/Genitalia: scattered faint, slightly erythematous, partially blanchable macules on the suprapubic region Right Upper Extremity:no abnormalities noted. Left Upper Extremity:no abnormalities noted. Chest/Breast/Axillae:scattered slightly erythematous to violaceous, minimally p alpable, partially blanchable thin papules on the right lateral chest, left lateral chest Abdomen:scattered slightly erythematous to violaceous, minimally palpable, partially blanchable thin papules on the left abdomen, right abdomen Nails: no abnormalities noted. Other exam notes: Palms/soles clear. Results & Data ([facility]) Vital Signs (Past 12 Hours) Vital Signs Temp Pulse Pulse Pulse Resp BP BP 01/17/21 12:00 88 23 98/65 L 01/17/21 11:30 89 23 01/17/21 11:16 90 31 H 01/17/21 11:00 90 23 99/62 L 01/17/21 10:30 89 26 H 91/60 L 01/17/21 10:00 90 27 H 01/17/21 09:30 93 H 31 H 107/71 01/17/21 09:00 90 32 H 96/66 L 01/17/21 08:54 93 H 31 H 01/17/21 08:30 96 H 3 L 124/68 01/17/21 08:00 104 H 14 01/17/21 07:24 97 H 19 01/17/21 03:26 36.3 C L 95 H 18 94/60 L 01/17/21 03:15 79 79 20 01/17/21 00:56 36.4 C L 92 H 18 BP Pulse Ox 01/17/21 12:00 93 01/17/21 11:30 92 01/17/21 11:16 93 01/17/21 11:00 94 01/17/21 10:30 94 01/17/21 10:00 95 01/17/21 09:30 89 L 01/17/21 09:00 92 01/17/21 08:54 91 01/17/21 08:30 93 01/17/21 08:00 82 L 01/17/21 07:24 91 01/17/21 03:26 91 01/17/21 03:15 93 01/17/21 00:56 97/63 L 92 Laboratory Results Reviewed in chart. Diagnostic Findings Reviewed in chart. PG Care Time/CCT Total # of Minutes Spent Total Time Spent with Patient: Total time spent is greater than 50% in coordination of care (as documented) at patient's floor/unit and/or counseling patient: Coding Level of Care Code 61129 Initial Inpt Care Lvl 3 Diagnoses Dermatitis, unspecified L30.9 CPT Codes Punch Biopsy of 1 Lesion - 79665 ([id number]) Punch Biopsy of Each Additional Lesion - 55077 ([id number]) Derm Punch Biopsy Skin Lesion Number Lesion #1: Procedure performed by: Kit Delong Indication: Vasculitis vs. IgA vasculitis vs. other Anesthesia:: Lidocaine Lidocaine: with Epi Lidocaine with Epi: 1% (1cc) Location: left abdomen Type of Biopsy: DIF(perilesional) Preparation: Alcohol Biopsy Technique: Punch, mm: (4) Closure:: Cutaneous (5-0 nylon x 1) Dressing: Dressing Applied Specimen Sent to Pathology: Yes Patient Status: Tolerated Well Complications:: No Complications Lesion #2: Procedure performed by: Kit Delong Indication: Vasculitis vs. IgA vasculitis vs. other Anesthesia:: Lidocaine Lidocaine: with Epi Lidocaine with Epi: 1% (1cc) Location: left abdomen Type of Biopsy: H & E Preparation: Alcohol Biopsy Technique: Punch, mm: (4) Closure:: Cutaneous (5-0 nylon x 1) Dressing: Dressing Applied Specimen Sent to Pathology: Yes Patient Status: Tolerated Well Complications:: No Complications
--- NOTE | 2021-01-17 13:28 | Electrocardiogram Report ---
Test Reason : Blood Pressure : / mmHG Vent. Rate : 105 BPM Atrial Rate : 105 BPM P-R Int : 144 ms QRS Dur : 098 ms QT Int : 354 ms P-R-T Axes : 048 006 050 degrees QTc Int : 467 ms Poor data quality, interpretation may be adversely affected Sinus tachycardia Otherwise normal ECG When compared with ECG of 14-JAN-2021 17:52, No significant change was found Confirmed by Germain Tolentino ([id number]) on 01/17/2021 1:27:55 PM Referred By: REFERRED SELF Confirmed By:Germain Tolentino
[2021-01-17 13:48] LABS: iSTAT Allen Test Pass; iSTAT Arterial Blood Gas HCO3 26 meg/L (19-24); iSTAT Arterial Blood Gas pCO2 44 mmHg (35-46); iSTAT Arterial Blood Gas pH 7.38 (7.35-7.45); iSTAT Arterial Blood Gas pO2 88 mmHg (80-95); iSTAT Carbon Dioxide 27 mmol/L (24-31); iSTAT FiO2 70 %; iSTAT Site L Radial
[2021-01-17] MEDS: LANSOPRAZOLE 30 MG SOLTAB PO SCH (14:56)
[2021-01-17] MEDS: ENOXAPARIN INJ 40 MG/0.4 ML SYR SQ SCH (14:57)
[2021-01-17] MEDS ORDERED: ICU PROTOCOL FOR HYPERGLYCEMIA PRN (15:33)
[2021-01-17 18:37] LABS: BUN Creatinine Ratio 32.7 (10-20); Calcium 8.8 mg/dl (8.5-10.1); Creatinine Clr Calc Pharmacy 81.6 ml/min; Est GFR (African American) 92.3 ml/min; Est GFR (Non-African American) 79.7 ml/min; Potassium 4.1 mmol/L (3.5-5.1)
[2021-01-17] MEDS: ICU ELECTROLYTE REPLACEMENT PROTOCOL SCH (18:45)
[2021-01-17] MEDS ORDERED: ETOMIDATE 2 MG/ML 20 ML VIAL IV ONE (20:37)
[2021-01-17] MEDS ORDERED: fentaNYL citrate 100 MCG/2 ML VIAL IV ONE (20:37)
[2021-01-17] MEDS ORDERED: MIDAZOLAM HCL 5 MG/ML VIAL IV ONE (20:37)
[2021-01-17 22:30] LABS: Adenovirus PCR Not Detected (NotDetected); Bordetella parapertussis PCR Not Detected (NotDetected); Bordetella pertussis PCR Not Detected (NotDetected); Chlamydia pneumoniae PCR Not Detected (NotDetected); Coronavirus 229E PCR Not Detected (NotDetected); Coronavirus CoV-2 (COVID19)PCR Not Detected (NotDetected); Coronavirus HKU1 PCR Not Detected (NotDetected); Coronavirus NL63 PCR Not Detected (NotDetected); Coronavirus OC43PCR Not Detected (NotDetected); Human Metapneumovirus PCR Not Detected (NotDetected); Influenza A PCR Not Detected (NotDetected); Influenza B PCR Not Detected (NotDetected); Mycoplasma pneumoniae PCR Not Detected (NotDetected); Parainfluenza Virus 1 PCR Not Detected (NotDetected); Parainfluenza Virus 2 PCR Not Detected (NotDetected); Parainfluenza Virus 3 PCR Not Detected (NotDetected); Parainfluenza Virus 4 PCR Not Detected (NotDetected); Respiratory Syncytial VirusPCR Not Detected (NotDetected); Rhinovirus/Enterovirus PCR Not Detected (NotDetected)
[2021-01-18] MEDS: methylPREDNISolone 125 MG in SYRINGE 0 ML IV SCH ×4 (00:19→18:38)
[2021-01-18 03:42] LABS: iSTAT Allen Test Pass; iSTAT Arterial Blood Gas HCO3 25 meg/L (19-24); iSTAT Arterial Blood Gas pCO2 38 mmHg (35-46); iSTAT Arterial Blood Gas pH 7.43 (7.35-7.45); iSTAT Arterial Blood Gas pO2 54 mmHg (80-95); iSTAT Carbon Dioxide 26 mmol/L (24-31); iSTAT FiO2 40 %; iSTAT Site L Radial
[2021-01-18 05:05] LABS: Basophils # (auto) 0.01 K/uL (0-0.2); Basophils % (auto) 0.1 %; Hematocrit (blood only) 34.4 % (42-52); Hemoglobin 12.3 g/dL (14.0-18.0); Immature Granulocytes # (auto) 0.04 K/uL (0.00-0.02); Immature Granulocytes % (auto) 0.4 %; Lymphocytes # (auto) 0.54 K/uL (1.2-3.4); Mean Corpuscular Hemoglobin 34.9 pg (25-34); Mean Corpuscular Hgb Conc 35.8 g/dL (32-36); Mean Corpuscular Volume 97.7 fL (80-100); Mean Platelet Volume 10.1 fL (7.4-10.4); Monocytes % (auto) 3.3 %; Neutrophils # (auto) 8.07 K/uL (1.4-6.5); Neutrophils % (auto) 90.2 %; Platelet Count 289 K/uL (130-400); RDW Coefficient of Variation 12.9 % (11.5-14.5); RDW Standard Deviation 45.8 fL (36.4-46.3); Red Blood Count 3.52 M/uL (4.7-6.1); White Blood Count 8.96 K/uL (4.8-10.8)
[2021-01-18 05:24] LABS: BUN Creatinine Ratio 40.4 (10-20); Calcium 8.7 mg/dl (8.5-10.1); Creatinine Clr Calc Pharmacy 72.4 ml/min; Magnesium 2.9 mg/dl (1.8-2.4); Phosphorus 4.9 mg/dl (2.5-4.9); Potassium 3.8 mmol/L (3.5-5.1)
[2021-01-18] MEDS: ICU ELECTROLYTE REPLACEMENT PROTOCOL SCH ×2 (05:33→18:40)
[2021-01-18] MEDS: POTASSIUM CHLORIDE / WTR 10 MEQ/100 ML PLCT IV SCH ×4 (06:13→09:29)
[2021-01-18] MEDS: fentaNYL DRIP 1,250 MCG/250 ML BAG IV SCH (06:15)
[2021-01-18] MEDS: propofoL 1,000 MG/100 ML VIAL IV SCH ×3 (06:17→19:29)
[2021-01-18] MEDS: CEFEPIME 2,000 MG in SYRINGE 0 ML IV SCH (06:30)
[2021-01-18] MEDS ORDERED: POTASSIUM CHLORIDE / WTR 10 MEQ/100 ML PLCT IV SCH (07:00)
--- NOTE | 2021-01-18 07:49 | Hospitalist Progress Note ---
Date of Service January 17, 2021 late entry from 01/17 Assessment & Plan (1) COVID-19: Plan: Ongoing hypoxia and pulmonary changesworseningended up on ventilator. Further work-upis this all just residual inflammation? Is he developing pulmonary fibrosis? How much is diastolic/noncardiogenic pulmonary edema? Superimposed pneumonia? -Essentially managing for all of above, aggressive supportive care. (2) Tachycardia: Plan: Reactive to respiratory failure (3) SIRS (systemic inflammatory response syndrome): Plan: See above (4) Abnormal urinalysis: Plan: Of unlikely significance (5) Cholelithiases: Plan: Outpatient follow-up (6) BPH (benign prostatic hyperplasia): Plan: Currently Ro in place (7) Hyperlipidemia: Plan: Chronically on rosuvastatin (8) Hypertension: Plan: Follow blood pressures while intubated (9) Impaired fasting glucose: Plan: No diabetes, likely steroid effect (10) Carotid artery stenosis: Plan: Outpatient follow-up Plan: DVT prophylaxisLovenox Admission and Anticipated Discharge Date Admission Date: January 10, 2021 Subjective Was doing progressively worse, brought to the ICU, bronchoscopy done, intubated. No meaningful HPI review of systems obtainable from patient, although he does try to nonverbally communicate some while on the ventilator. present, answered questions the best of my ability. Physical Exam Physical Exam: Intubated although able to nonverbally communicate some, no distress. HEENT normocephalic atraumatic mucous membranes moist. Breathing unlabored no accessory muscle use good effort. Skin shows no rashes no pallor or icterus. Neuro without focal deficits. Results & Data Results & Data ([facility]) Vital Signs (Past 12 Hours) Vital Signs Temp Pulse Pulse Resp BP Pulse Ox 01/18/21 06:00 98.1 F 79 28 H 101/72 91 01/18/21 05:00 98.1 F 83 28 H 106/70 91 01/18/21 03:35 75 29 H 89 L 01/17/21 23:59 77 28 H 105/62 90 01/17/21 23:15 80 32 H 91 01/17/21 23:13 79 30 H 92 01/17/21 20:00 97.7 F 78 30 H 94/63 L 92 PG Care Time/CCT Total # of Minutes Spent Total Time Spent with Patient: Total time spent is greater than 50% in coordination of care (as documented) at patient's floor/unit and/or counseling patient: Coding Level of Care Code 29182 Subseq Hosp Care Lvl 1 Diagnoses Tachycardia R00.0 SIRS (systemic inflammatory response syndrome) R65.10 Abnormal urinalysis R82.90 Cholelithiases K80.20 COVID-19 U07.1 BPH (benign prostatic hyperplasia) N40.0 Hyperlipidemia E78.5 Hypertension I10 Hypertension type: essential hypertension Impaired fasting glucose R73.01 Carotid artery stenosis I65.29 (1) Hypertension Hypertension type: essential hypertension Qualified Code(s): I10 - Essential (primary) hypertension
[2021-01-18] MEDS: FAMOTIDINE 40 MG TABLET PO SCH (08:24)
[2021-01-18] MEDS: LANSOPRAZOLE 30 MG SOLTAB PO SCH (08:24)
[2021-01-18] MEDS: ASPIRIN 81 MG CHEW PO SCH (08:25)
[2021-01-18] MEDS: SUCRALFATE 1 GM/10 ML UDC PO SCH (08:25)
[2021-01-18] MEDS: METOPROLOL TARTRATE 50 MG TAB PO SCH ×2 (08:26→20:42)
--- NOTE | 2021-01-18 09:29 | Critical Care Progress Note ---
Date of Service January 18, 2021 Assessment & Plan (1) Acute hypoxemic respiratory failure: Plan: Reason Critically Ill: Jude Iglesias is a 70yo male with PMHx that includes CAD, former tobacco abuse and recent COVID-19 infection with associated hospitalization on 12/07/20 who presented to [facility] on 01/10 for nonspecific abdominal pain with extensive unremarkable workup, and was transferred to the ICU on 01/17 for acute hypoxemic respiratory failure. Intubated on 01/17. Neuro - Sedated using Fentanyl and Propofol. Currently hemodynamically stable and comfortable on vent with sedation settings. Continue sedation until respiratory status improves. Cardiac - Hemodynamically stable ,ventilated/sedated. - goal MAP>65 - CAD/HTN: continue Aspirin, Crestor and Metoprolol Respiratory - Acute hypoxemic respiratory failure: unknown etiology at this time. Diffuse p ulmonary infiltrates with fibrotic changes as well as diffuse groundglass opacities suspicious for inflammation (?post-inflammatory changes 2/2 COVID vs superimposed infectious/inflammatory process). - current vent settings: AC/26/400/8/40 - Biofire on 01/17 nathan-negative (including negative for COVID-19) - s/p bronchoscopy on 01/17 with BAL - cell count with lymphocytic predominance (44%); neutrophils 37% - fungal smear negative; GS and all cultures pending - path showing pulmonary macrophages, neutrophils and lymphocytes without malignant-appearing cells or other abnormal cell morphologies - BAL not consistent with alveolar hemorrhage - continue Solu-Medrol 125mg Q6H for now have other markers for hemophagocytic syndrome currently but is certainly at risk. He does have a diffuse maculopapular blanching rash. We will consult dermatology to see if we can get a punch biopsy. 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 GI - Non-specific subacute/chronic abdominal pain: May be due to GERD/gastritis with chronic exacerbation due to steroids, but vasculitis is also on ddx given maculopapular rash and recent respiratory deterioration. Significant work-up thus far is negative for infection and liver/spleen/biliary tract abnormalities. - will initiate enteral nutrition today - continue Prevacid - discontinued Sucralfate and Pepcid today RENAL/LYTES - No significant electrolyte derangement. Replace lytes as needed, per ICU replacement protocol. - No concerns at this time. - strict I/Os ENDO - No history of thyroid disease or diabetes. - ICU glycemic protocol HEME - Mild anemia and elevated ferritin: May be acute phase reactant in setting of respiratory compromise, although also is concerning for systemic inflammatory process such as autoimmune pathology. - JOSE CRUZ panel ordered and pending - monitor CBC daily ID - Was started on Vanco/Cefepime on 01/16 for ?superimposed pulmonary infection, but given negative procalcitonin, negative MRSA nares, and lymphocytic predominance on BAL cytology, patient is unlikely to have superimposed bacterial infection. - Biofire negative as stated above - stopped Cefepime today - further management pending results of BAL cultures, immunology panel and skin biopsies - Monitor fever curve INTEGUMENTARY - Diffuse blanching maculopapular rash: spread from chest to lower abdomen, groin and upper thighs as of today. May be small vessel vasculitis such as leukocytoclastic vasculitis. Drug rash 2/2 metoprolol vs morphine (new meds in the last week) is also a possibility. - Dermatology consulted - appreciate recs - biopsies from left abdomen taken on 01/17 - results pending - continue steroids as stated above LINES/IV ACCESS - PIVs, urinary mora catheter, OG tube intact. DVT PROPHYLAXIS - Lovenox 40mg SQ Q24H Thank you for allowing us to be part of this patient's care. Please refer to Dr. Holloway's documentation for any further recommendations. (2) COVID-19: (3) Carotid artery stenosis: (4) GERD (gastroesophageal reflux disease): (5) Hypertension: (6) Hyperlipidemia: (7) Cholelithiases: (8) Abnormal CT scan of lung: (9) Dermatitis, unspecified: Admission and Anticipated Discharge Date Admission Date: January 10, 2021 Supervising Physician Co-Signing Physician Notes Patient seen and examined. EMR reviewed. Discussed with bedside critical care nurse and patient at bedside and reviewed on multidisciplinary rounds. Agree with assessment plan as noted by family practice resident. Patient has had some improvement clinically. He is on decreased vent settings this morning. His chest x-ray to my eye looks somewhat better. Appreciate the assistance of dermatology. He underwent punch biopsy. I tried to review the results with pathology here however the specimens have been sent to [facility] and will likely be read by their pathologist with results not being available for 3 or 4 days. His connective tissue disease serologies are still currently pending. I believe he appears to be responding to high-dose steroids so we will continue Solu-Medrol for now. Glycemic control discussed with the ICU pharmacist. Will initiate tube feeding as anticipate he will require mechanical ventilation for an additional 24 hours as his oxygenation is marginal on relatively low settings. Discontinue antibiotics as suspicion for infection low and BAL not consistent with infection. No family currently available at bedside. Patient remains critically ill with possibility of clinical decline. Continue supportive care. 45 minutes critical care time Subjective No acute events overnight. RASS -1; arousable to verbal stimulation, can nod and follow commands. Denies pain or trouble breathing this morning. Denies pain or pruritus of rash. Review of Systems Review of Systems: Unobtainable due to endotracheal tube Physical Exam Physical Exam: General: Intubated and adequately sedated although arousable to verbal stimulation and can nod/follow commands. HEENT: Atraumatic, normocephalic. ETT in place. Pulm: Bilateral crackles and decreased aeration. -wheezes. Symmetrical chest rise. Cardiac: RRR, -mrg. Radial pulses intact and symmetrical. No LE edema. Abdominal: soft, non-tender, non-distended, BS x 4 Skin: blanching maculopapular rash has spread from the chest to the lower abdomen, upper thighs and groin region today Results & Data Results & Data ([facility]) Vital Signs (Past 12 Hours) Vital Signs Temp Pulse Pulse Pulse Resp BP Pulse Ox 01/18/21 08:00 37.1 C 93 H 21 103/67 88 L 01/18/21 07:30 90 29 H 93 01/18/21 06:00 36.7 C 79 28 H 101/72 91 01/18/21 05:00 36.7 C 83 28 H 106/70 91 01/18/21 03:35 75 29 H 89 L 01/17/21 23:59 77 28 H 105/62 90 01/17/21 23:15 80 32 H 91 01/17/21 23:13 79 30 H 92 Resident Activity Tracking Resident Involvement: Resident Care Provided Care Provided: Adult Hospital Medicine (1) Hypertension Hypertension type: essential hypertension Qualified Code(s): I10 - Essential (primary) hypertension
--- NOTE | 2021-01-18 09:33 | XRay Report ---
XR chest 1V portable CLINICAL HISTORY: resp failure. COMPARISON STUDY: 01/17/2021 TECHNIQUE: 1 view of the chest FINDINGS: Single frontal view of the chest demonstrates the cardiomediastinal silhouette to be within normal li mits. Tubes and catheters are unchanged. Accounting for differences in technique, there is no signifi cant interval change in bilateral interstitial and alveolar airspace opacities. There is no evidence for pleural effusion. There is no evidence for vascular congestion. There is no acute osseous patholo gy. IMPRESSION: Accounting for differences in technique, there is no significant interval change in bilat eral interstitial and alveolar airspace opacities. ACT 112: Negative or not required by law. Electronically signed by: Conrad Wiley M.D. 01/18/2021 9:32 AM
[2021-01-18] MEDS ORDERED: CARBOHYDRATES FOR HYPOGLYCEMIA PO PRN (10:30)
[2021-01-18] MEDS ORDERED: GLUCOSE 10 TABS/TUBE PO PRN (10:30)
[2021-01-18] MEDS ORDERED: GLUCAGON FOR INJ 1 MG VIAL IM PRN (10:30)
[2021-01-18] MEDS ORDERED: GLUCOSE 40% GEL 15 GM TUBE PO PRN (10:30)
[2021-01-18] MEDS ORDERED: DEXTROSE 50% 50 ML SYRINGE IV PRN (10:30)
[2021-01-18] MEDS ORDERED: PEPTAMEN 1.5 CAL 1,000 ML BAG OG SCH (11:00)
--- NOTE | 2021-01-18 11:16 | Billing Data ---
Date of Service January 18, 2021 Coding Level of Care Code Critical Care 1st 30-74 mins Time Spent (min) 45
[2021-01-18] MEDS: TUBE FEEDING WATER FLUSH OG SCH ×3 (11:36→18:40)
[2021-01-18] MEDS: ROSUVASTATIN CALCIUM 20 MG TAB PO SCH (11:36)
[2021-01-18] MEDS: INSULIN ASPART 100 UNITS/ML 3 ML PEN SC SCH ×2 (11:43→16:54)
[2021-01-18] MEDS: ENOXAPARIN INJ 40 MG/0.4 ML SYR SQ SCH (15:32)
--- NOTE | 2021-01-18 16:08 | Hospitalist Progress Note ---
Date of Service January 18, 2021 Assessment & Plan (1) COVID-19: Plan: Ongoing hypoxia and pulmonary changesworseningended up on ventilator. Further work-upis this all just residual inflammation? Is he developing pulmonary fibrosis? How much is diastolic/noncardiogenic pulmonary edema? Superimposed pneumonia? -Essentially managing for all of above, aggressive supportive care. Fortunately appearing stable (2) Tachycardia: Plan: Reactive to respiratory failure, improved today (3) SIRS (systemic inflammatory response syndrome): Plan: See above (4) Abnormal urinalysis: Plan: Of unlikely significance (5) Cholelithiases: Plan: Outpatient follow-up (6) BPH (benign prostatic hyperplasia): Plan: Currently Ro in place (7) Hyperlipidemia: Plan: Chronically on rosuvastatin (8) Hypertension: Plan: Follow blood pressures while intubated (9) Impaired fasting glucose: Plan: No diabetes, likely steroid effect (10) Carotid artery stenosis: Plan: Outpatient follow-up Plan: DVT prophylaxisLovenox Admission and Anticipated Discharge Date Admission Date: January 10, 2021 Subjective Intubated but awake and able to write/nonverbally communicate. Only complaint is that his feet are very warm. Otherwise doing okay. Physical Exam Physical Exam: In general intubated but awake no distress. HEENT normocephalic atraumatic mucous membranes are moist. Endotracheal tube and OG tube in place without overt breakdown. Skin shows no pallor or icterus. Neuro without focal deficits. Results & Data Results & Data ([facility]) Vital Signs (Past 12 Hours) Vital Signs Temp Pulse Pulse Pulse Resp BP Pulse Ox 01/18/21 15:28 83 37 H 90 01/18/21 11:30 98.6 F 66 23 90/60 L 92 01/18/21 11:00 62 28 H 93 01/18/21 09:33 80 01/18/21 08:00 98.8 F 93 H 21 103/67 88 L 01/18/21 07:30 90 29 H 93 01/18/21 06:00 98.1 F 79 28 H 101/72 91 01/18/21 05:00 98.1 F 83 28 H 106/70 91 PG Care Time/CCT Total # of Minutes Spent Total Time Spent with Patient: Total time spent is greater than 50% in coordination of care (as documented) at patient's floor/unit and/or counseling patient: Coding Level of Care Code 58621 Subseq Hosp Care Lvl 1 Diagnoses COVID-19 U07.1 Tachycardia R00.0 SIRS (systemic inflammatory response syndrome) R65.10 Abnormal urinalysis R82.90 Cholelithiases K80.20 BPH (benign prostatic hyperplasia) N40.0 Hyperlipidemia E78.5 Hypertension I10 Hypertension type: essential hypertension Impaired fasting glucose R73.01 Carotid artery stenosis I65.29 (1) Hypertension Hypertension type: essential hypertension Qualified Code(s): I10 - Essential (primary) hypertension
[2021-01-18] MEDS ORDERED: PHARMACY GLYCEMIC MGMT CONSULT PRN (19:17)
[2021-01-18] MEDS ORDERED: PROSOURCE NO CARB 30 ML/PKT OG SCH (21:00)
[2021-01-19] MEDS: INSULIN ASPART 100 UNITS/ML 3 ML PEN SC SCH ×5 (00:15→21:16)
[2021-01-19] MEDS: methylPREDNISolone 125 MG in SYRINGE 0 ML IV SCH ×4 (00:17→18:39)
[2021-01-19] MEDS: propofoL 1,000 MG/100 ML VIAL IV SCH (05:03)
[2021-01-19 05:37] LABS: Basophils # (auto) 0.01 K/uL (0-0.2); Basophils % (auto) 0.1 %; Hematocrit (blood only) 36.2 % (42-52); Hemoglobin 12.7 g/dL (14.0-18.0); Immature Granulocytes # (auto) 0.04 K/uL (0.00-0.02); Immature Granulocytes % (auto) 0.3 %; Lymphocytes # (auto) 0.64 K/uL (1.2-3.4); Mean Corpuscular Hemoglobin 35.2 pg (25-34); Mean Corpuscular Hgb Conc 35.1 g/dL (32-36); Mean Corpuscular Volume 100.3 fL (80-100); Monocytes # (auto) 0.65 K/uL (0.11-0.59); Monocytes % (auto) 5.1 %; Neutrophils % (auto) 89.5 %; Platelet Count 320 K/uL (130-400); RDW Coefficient of Variation 12.7 % (11.5-14.5); RDW Standard Deviation 47.2 fL (36.4-46.3); Red Blood Count 3.61 M/uL (4.7-6.1); White Blood Count 12.74 K/uL (4.8-10.8)
[2021-01-19 06:08] LABS: BUN Creatinine Ratio 35.6 (10-20); Calcium 8.7 mg/dl (8.5-10.1); Est GFR (African American) 84.7 ml/min; Est GFR (Non-African American) 73.1 ml/min; Magnesium 3.1 mg/dl (1.8-2.4); Potassium 4.2 mmol/L (3.5-5.1)
[2021-01-19 06:10] LABS: Rouleaux 1+
[2021-01-19 06:20] LABS: C Reactive Protein 9.56 mg/dl (0-0.29); Ferritin 1300.4 ng/ml (8-388); Phosphorus 3.4 mg/dl (2.5-4.9)
[2021-01-19] MEDS: ICU ELECTROLYTE REPLACEMENT PROTOCOL SCH (06:55)
--- NOTE | 2021-01-19 08:14 | Critical Care Progress Note ---
Date of Service January 19, 2021 Assessment & Plan (1) Abnormal CT scan of lung: (2) Acute hypoxemic respiratory failure: (3) COVID-19: Plan: Impression: 70-year-old male hospitalized since 01/10/2021. He was diagnosed with Covid December 07. He was managed conservatively but was seen in the emergency room 12/18 with substernal discomfort. He was also admitted to the hospital 12/27 overnight for chest abdominal discomfort. He has a CT scan jose wing fibrotic changes with some groundglass opacities in the lungs and has had marked escalation in his oxygen requirement. He had markedly increased inflammatory markers he was transferred to the ICU 01/17 intubated and underwent bronchoscopy with BAL. Dermatology consultation was achieved for punch skin biopsy as well. He has been initiated on empiric steroids 24-hour events:Patient self extubated yesterday afternoon. He did reasonably well and was maintained on high flow oxygen and CPAP overnight. He is tolerating steroids well. Recommendations: 1. Neurologic: No current issues 2. Respiratory: Hypoxemic respiratory failure with diffuse pulmonary infiltrates. 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 The patient underwent bronchoscopy with BAL 01/17. Cytology and cultures have shown no growth to date. P CELESTINE stains pending. Final cultures pending. In differential on the BAL showed a lymphocytic predominance, no eosinophils. The lavage did not appear consistent with alveolar hemorrhage. Given the concern for an inflammatory process with elevated markers and the patient's clinical improvement, recommend continuing Solu-Medrol 25 mg every 6. Can likely transition to prednisone once clinically stable. Will require P CELESTINE prophylaxis which may be somewhat complicated as the patient has reported allergy to sulfamethoxazole and trimethoprim. Unclear if this is all related to COVID or potentially a secondary process. 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 Results likely not available for 2 to 3 days. 3. Cardiovascular: Hemodynamically stable. Continue to follow currently. His BNP was normal so we will hold on diuretics for now. 4. Renal: No current issues. Will initiate electrolyte replacement protocol. We will follow serum sodium and potassium with repletion protocols. 5. GI: The patient was admitted with abdominal complaints. These have now resolved. Suspect this may be related to a systemic issue, again query vasculitis. Okay to advance diet. 6. ID: Cultures are showing no growth to date. His white count is up but likely represents demargination from steroids. Discontinue antibiotics and follow. Bio fire negative 7. Heme-onc: Mild anemia. Ferritin increasing however CRP markedly reduced. High suspicion for potential autoimmune/connective tissue disease. Serologies pending 8. Endocrine: Glycemic control per protocol. 9. Out of bed to chair as tolerated. PT OT evaluations 42 minutes evaluating and managing patient including discussion with patient at bedside and ICU nurse and on multidisciplinary rounds. Patient appears stable to transfer out of the intensive care unit to the floor under the care of the hospitalist as long as high flow can be administered on the floor. We will continue to follow for pulmonary issues. Admission and Anticipated Discharge Date Admission Date: January 10, 2021 Subjective Patient seen and examined. He is awake alert. He appears to be breathing comfortably. He self extubated yesterday and was transitioned to high flow. He was on CPAP overnight but is back to high flow this morning at 40 L/min and 60%. He feels he is breathing comfortably. He does have a little bit of chest discomfort with deep breath. His skin rash is markedly better today. The total body aches that he was experiencing previously have resolved. He is not experiencing any hemoptysis. No fevers chills or night sweats. He is hungry and wants to pursue a diet Review of Systems Review of Systems: All systems reviewed & are unremarkable except as noted in Subjective Physical Exam Constitutional: WD/WN, vitals as above Neck: trachea midline, no thyromegaly Respiratory: normal respiratory effort; no respiratory distress, no labored breathing and not tachypneic Auscultation: + rales; no wheezes Cardiovascular: RRR, no murmur, no edema Gastrointestinal (Abdomen): normal bowel sounds, soft, nontender, no hepatosplenomegaly Musculoskeletal: Extremities: extremities normal to inspection Skin: Truncal rash extending down to his thighs is markedly better today. Lymphatic: no cervical lymphadenopathy Results & Data Results & Data ([facility]) Vital Signs (Past 12 Hours) Vital Signs Temp Pulse Pulse Resp BP BP Pulse Ox 01/19/21 07:43 36.5 C 92 H 20 130/71 92 01/19/21 03:14 72 01/19/21 03:00 77 18 93 01/19/21 02:46 80 21 95 01/19/21 02:30 74 19 101/64 96 01/19/21 02:00 82 21 95 01/19/21 01:30 90 20 116/65 83 L 01/19/21 01:00 68 17 01/19/21 00:30 72 19 93 01/19/21 00:00 36.6 C 75 15 112/69 96 01/18/21 23:30 73 17 95/65 L 96 01/18/21 23:00 79 18 92 01/18/21 22:50 78 22 94 01/18/21 22:00 86 20 113/69 90 01/18/21 21:00 80 21 92 01/18/21 20:30 75 20 98/62 L 95 Critical Care Results & Data Vital Signs (Past 12 Hours) Vital Signs Temp Pulse Pulse Resp BP BP Pulse Ox 01/19/21 07:43 36.5 C 92 H 20 130/71 92 01/19/21 03:14 72 01/19/21 03:00 77 18 93 01/19/21 02:46 80 21 95 01/19/21 02:30 74 19 101/64 96 01/19/21 02:00 82 21 95 01/19/21 01:30 90 20 116/65 83 L 01/19/21 01:00 68 17 01/19/21 00:30 72 19 93 01/19/21 00:00 36.6 C 75 15 112/69 96 01/18/21 23:30 73 17 95/65 L 96 01/18/21 23:00 79 18 92 01/18/21 22:50 78 22 94 01/18/21 22:00 86 20 113/69 90 01/18/21 21:00 80 21 92 01/18/21 20:30 75 20 98/62 L 95 Lab & Micro Results (Past 24 Hours) RBC 3.61 M/uL (4.7-6.1) L 01/19/21 WBC 12.74 K/uL (4.8-10.8) H 01/19/21 Hgb 12.7 g/dL (14.0-18.0) L 01/19/21 Hct 36.2 % (42-52) L 01/19/21 MCV 100.3 fL (80-100) H 01/19/21 MCH 35.2 pg (25-34) H 01/19/21 MCHC 35.1 g/dL (32-36) 01/19/21 RDW Standard Deviation 47.2 fL (36.4-46.3) H 01/19/21 RDW Coefficient of Variation 12.7 % (11.5-14.5) 01/19/21 Plt Count 320 K/uL (130-400) 01/19/21 MPV 10.0 fL (7.4-10.4) 01/19/21 Neutrophils (%) (Auto) 89.5 % 01/19/21 Lymphocytes (%) (Auto) 5.0 % 01/19/21 Monocytes # (Auto) 0.65 K/uL (0.11-0.59) H 01/19/21 Eosinophils # (Auto) 0.00 K/uL (0-0.5) 01/19/21 Immature Granulocyte % (Auto) 0.3 % 01/19/21 Neutrophils # (Auto) 11.40 K/uL (1.4-6.5) H 01/19/21 Lymphocytes # (Auto) 0.64 K/uL (1.2-3.4) L 01/19/21 Monocytes # (Auto) 0.65 K/uL (0.11-0.59) H 01/19/21 Eosinophils # (Auto) 0.00 K/uL (0-0.5) 01/19/21 Basophils # (Auto) 0.01 K/uL (0-0.2) 01/19/21 Immature Granulocyte # (Auto) 0.04 K/uL (0.00-0.02) H 01/19/21 Rouleau 1+ 01/19/21 Na 136 mmol/L (136-145) 01/19/21 K 4.2 mmol/L (3.5-5.1) 01/19/21 Cl 104 mmol/L (98-107) 01/19/21 CO2 29 mmol/L (21-32) 01/19/21 Anion Gap 3.0 (3-11) 01/19/21 BUN 36 mg/dl (7-18) H 01/19/21 Creatinine 1.02 mg/dl (0.6-1.4) 01/19/21 Estimated GFR ( Amer) 84.7 ml/min 01/19/21 Estimated GFR (Non-Af Amer) 73.1 ml/min 01/19/21 BUN/Creatinine Ratio 35.6 (10-20) H 01/19/21 Glu 131 mg/dl (70-99) H 01/19/21 Ca 8.7 mg/dl (8.5-10.1) 01/19/21 Phosphorus Level 3.4 mg/dl (2.5-4.9) 01/19/21 Lactate Dehydrogenase 325 U/L (87-241) H 01/19/21 Mg 3.1 mg/dl (1.8-2.4) H 01/19/21 05:03 01/19/21 Calcium Level 8.7 mg/dl (8.5-10.1) 01/19/21 05:03 01/19/21 Microbiology 01/17/21 08:50 Gram Stain - Final Ba Lavage,Right Upper Lobe Bronchial Culture - Final Light normal huy. 01/17/21 08:50 Acid Fast Bacilli Smear - Final Ba Lavage,Right Upper Lobe Diagnostic Findings (Past 24 Hours) Chest X-Ray 01/18/21 08:00 XR chest 1V portable CLINICAL HISTORY: resp failure. COMPARISON STUDY: 01/17/2021 TECHNIQUE: 1 view of the chest FINDINGS: Single frontal view of the chest demonstrates the cardiomediastinal silhouette to be within normal limits. Tubes and catheters are unchanged. Accounting for differences in technique, there is no significant interval change in bilateral interstitial and alveolar airspace opacities. There is no evidence for pleural effusion. There is no evidence for vascular congestion. There is no acute osseous pathology. IMPRESSION: Accounting for differences in technique, there is no significant interval change in bilateral interstitial and alveolar airspace opacities. ACT 112: Negative or not required by law. Electronically signed by: Conrad Wiley M.D. 01/18/2021 9:32 AM I & O Totals 24 Hours 01/18/21 01/19/21 01/20/21 06:59 06:59 06:59 Intake Total 961.609 / 961.609 509.283 / 509.283 Output Total 1325 / 1325 1100 / 1100 Balance -363.391 / -363.391 -590.717 / -590.717 Cumulative 01/10/21 08:48 thru 01/19/21 04:00 Intake Total 67227.975 Output Total 6329 Balance 5098.975 RT Ventilator Mngmt (Last Documented) Ventilator Ordered Settings Ventilator Support Mode Assist Control 01/18/21 15:28 Respiratory Rate 20 01/19/21 07:43 Ventilator Tidal Volume 400 01/18/21 15:28 Setting Minute Ventilation 19 01/18/21 15:28 Positive End Expiratory 8 01/18/21 15:28 Pressure Fraction of Inspired Oxygen 60 01/19/21 07:43 Machine Comment weaned to 40% 01/18/21 07:30 Ventilator - PT Measurements Respiratory Rate 20 Exhaled Tidal Volume 436 Minute Ventilation 19 Peak Inspiratory Airway 34 Pressure Plateau Pressure 26 Respiratory Cycle Inspiratory: 1:2.1 Expiratory Ratio Inspiratory Phase Time 0.7 End-Tidal CO2 32 Static Lung Compliance 24.22 Dynamic Lung Compliance 16.77 Normal Static Lung Compliance 45.00 Patient Measurements Comment CPAP trial attempted on Patient at this time, Dr Joshi aware Coding Level of Care Code 77543 Subseq Hosp Care Lvl [address] scan of lung R91.8 Acute hypoxemic respiratory failure J96.01 COVID-19 U07.1
--- NOTE | 2021-01-19 08:32 | XRay Report ---
XR chest 1V portable HISTORY: 70 years-old Male resp failure acute respiratory failure COMPARISON: Chest radiograph 01/18/2021, CTA chest 01/14/2021 TECHNIQUE: Portable AP view of the chest FINDINGS: Interval extubation with rule of the enteric tube. Interstitial coarsening with ill-defined bilateral airspace opacities, slightly improved from comparison. Unchanged moderate hemidiaphragmatic elevatio n. No pneumothorax. Persistent blunting of the costophrenic angles. Degenerative changes of the shoul ders and spine. IMPRESSION: 1. Interval extubation with removal of the enteric tube. 2. Slightly improved aeration of the lungs. ACT 112: Negative or not required by law. The above report was generated using voice recognition software. It may contain grammatical, syntax o r spelling errors. Electronically signed by: Dominic Isaac M.D. 01/19/2021 8:31 AM
[2021-01-19] MEDS: METOPROLOL TARTRATE 50 MG TAB PO SCH ×2 (09:18→21:38)
[2021-01-19] MEDS: LANSOPRAZOLE 30 MG SOLTAB PO SCH (10:58)
[2021-01-19] MEDS ORDERED: Nursing to Pharmacy Communication SCH (11:00)
[2021-01-19] MEDS: ROSUVASTATIN CALCIUM 20 MG TAB PO SCH (12:30)
[2021-01-19] MEDS: ENOXAPARIN INJ 40 MG/0.4 ML SYR SQ SCH (14:45)
--- NOTE | 2021-01-19 17:44 | Hospitalist Progress Note ---
Date of Service January 19, 2021 Assessment & Plan (1) COVID-19: Plan: Ongoing hypoxia and pulmonary changesworseningended up on ventilator - now off ventilator and doing better. Further work-upis this all just residual inflammation? Is he developing pulmonary fibrosis? How much is diastolic/noncardiogenic pulmonary edema? Superimposed pneumonia? -Essentially managing for all of above, aggressive supportive care. Fortunately appearing stable ----most suspicious of steroid responsive conditions such as vasculitis or lingering/prolonged covid mediated inflammation --continue steroids (2) Tachycardia: Plan: Reactive to respiratory failure, overall improved, continue to follow (3) SIRS (systemic inflammatory response syndrome): Plan: See above (4) Abnormal urinalysis: Plan: Of unlikely significance (5) Cholelithiases: Plan: Outpatient follow-up (6) BPH (benign prostatic hyperplasia): Plan: mora out - follow voiding, no troubles at this time (7) Hyperlipidemia: Plan: Chronically on rosuvastatin (8) Hypertension: Plan: Follow blood pressures while intubated (9) Impaired fasting glucose: Plan: No diabetes, likely steroid effect, pharmacy glycemic assistance appreciated (10) Carotid artery stenosis: Plan: Outpatient follow-up Plan: DVT prophylaxisLovenox stable for transfer to telemetry, ongoing close f/u. PT/OT eval and treat Admission and Anticipated Discharge Date Admission Date: January 10, 2021 Subjective feeling better but still easily dyspnic easily fatigued. desats with exertion but notes that he feels like he recovers more quickly eating OK case d/w nursing, inpu tgreatly apprecated Review of Systems Review of Systems: All systems reviewed & are unremarkable except as noted in HPI & below Physical Exam Physical Exam: gen aaox3 fatigued but nad heent nc at mmm cardio reg rate lungs coarse throughout but reasonable air entry, diffuse coarse nonspecific findings neuro no focal deficits, no notable sensory or motor deficits skin no rashes no pallor or icterus Results & Data Results & Data ([facility]) Vital Signs (Past 12 Hours) Vital Signs Temp Pulse Pulse Pulse Resp BP BP 01/19/21 09:20 101 H 26 H 124/80 01/19/21 08:00 70 01/19/21 07:43 97.7 F 92 H 20 130/71 01/19/21 07:15 85 23 Pulse Ox 01/19/21 09:20 95 01/19/21 08:00 01/19/21 07:43 92 01/19/21 07:15 94 PG Care Time/CCT Total # of Minutes Spent Total Time Spent with Patient: Total time spent is greater than 50% in coordination of care (as documented) at patient's floor/unit and/or counseling patient: Coding Level of Care Code 25115 Subseq Hosp Care Lvl 3 Diagnoses COVID-19 U07.1 Tachycardia R00.0 SIRS (systemic inflammatory response syndrome) R65.10 Abnormal urinalysis R82.90 Cholelithiases K80.20 BPH (benign prostatic hyperplasia) N40.0 Hyperlipidemia E78.5 Hypertension I10 Hypertension type: essential hypertension Impaired fasting glucose R73.01 Carotid artery stenosis I65.29 (1) Hypertension Hypertension type: essential hypertension Qualified Code(s): I10 - Essential (primary) hypertension
[2021-01-19] MEDS: TAMSULOSIN HCL 0.4 MG CAP PO SCH (21:38)
[2021-01-20] MEDS: methylPREDNISolone 125 MG in SYRINGE 0 ML IV SCH ×2 (00:20→05:40)
[2021-01-20 06:15] LABS: Basophils # (auto) 0.01 K/uL (0-0.2); Basophils % (auto) 0.1 %; Hematocrit (blood only) 35.1 % (42-52); Hemoglobin 12.3 g/dL (14.0-18.0); Immature Granulocytes # (auto) 0.08 K/uL (0.00-0.02); Immature Granulocytes % (auto) 0.7 %; Lymphocytes # (auto) 0.94 K/uL (1.2-3.4); Lymphocytes % (auto) 7.8 %; Mean Corpuscular Hemoglobin 34.7 pg (25-34); Mean Corpuscular Volume 99.2 fL (80-100); Mean Platelet Volume 9.9 fL (7.4-10.4); Monocytes # (auto) 0.68 K/uL (0.11-0.59); Monocytes % (auto) 5.6 %; Neutrophils # (auto) 10.38 K/uL (1.4-6.5); Neutrophils % (auto) 85.8 %; Platelet Count 320 K/uL (130-400); RDW Coefficient of Variation 12.6 % (11.5-14.5); RDW Standard Deviation 46.4 fL (36.4-46.3); Red Blood Count 3.54 M/uL (4.7-6.1); White Blood Count 12.09 K/uL (4.8-10.8)
[2021-01-20 06:44] LABS: BUN Creatinine Ratio 34.9 (10-20); Calcium 8.8 mg/dl (8.5-10.1); Creatinine Clr Calc Pharmacy 84.2 ml/min; Est GFR (Non-African American) 82.8 ml/min; Magnesium 3.1 mg/dl (1.8-2.4); Phosphorus 3.3 mg/dl (2.5-4.9); Potassium 4.5 mmol/L (3.5-5.1)
[2021-01-20] MEDS: INSULIN ASPART 100 UNITS/ML 3 ML PEN SC SCH ×4 (08:39→20:40)
[2021-01-20] MEDS: ASPIRIN 81 MG CHEW PO SCH (08:40)
[2021-01-20] MEDS: LANSOPRAZOLE 30 MG SOLTAB PO SCH (08:40)
[2021-01-20] MEDS: METOPROLOL TARTRATE 50 MG TAB PO SCH ×2 (08:41→20:39)
--- NOTE | 2021-01-20 10:13 | Pulmonology Progress Note ---
Date of Service January 20, 2021 Assessment & Plan (1) Acute hypoxemic respiratory failure: (2) Abnormal CT scan of lung: (3) Shortness of breath: (4) Dermatitis, unspecified: Plan: Impression: 70-year-old male hospitalized since 01/10/2021. He was diagnosed with Covid December 07. He was managed conservatively but was seen in the emergency room 12/18 with substernal discomfort. He was also admitted to the hospital 12/27 overnight for chest abdominal discomfort. He has a CT scan showing fibrotic changes with some groundglass opacities in the lungs and has had marked escalation in his oxygen requirement. He had markedly increased inflammatory markers he was transferred to the ICU 01/17 intubated and underwent bronchoscopy with BAL. Dermatology consultation was achieved for punch skin biopsy as well. He has been initiated on empiric steroids Recommendations: 1. Hypoxemic respiratory failure: Continues to improve on empiric steroids. Continue to wean as tolerated. 2. Abnormal CT scan: Differential remains unchanged. This appears to be a steroid responsive illness. Highly suggestive of vasculitis including BARKER, micro-BARKER, and Petra's. Skin biopsy still pending as is his serological evaluation. Will discontinue Solu-Medrol and transition to prednisone 20 mg twice a day. He will require P CELESTINE prophylaxis as anticipate the steroids will be in place for 4 to 6 weeks. He reports a rash associated with Bactrim 7 or 8 years ago. It may be reasonable to rechallenge him with Bactrim. Alternatives including atovaquone and inhaled pentamadine would be more logistically difficult and potentially much more costly. 3. Continue PT OT and working on exertional tolerance.. 4. May need supplemental oxygen at discharge. 5. 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 Recommend outpatient PFTs in 3 to 6 months when clinically stable and consideration for follow-up CT scan. We will continue to follow. Feel free to contact us with questions or concerns Admission and Anticipated Discharge Date Admission Date: January 10, 2021 Subjective Patient seen and examined. EMR reviewed. Patient feels like he is slowly improving. He has been weaned down to conventional nasal cannula at between 8 and 15 L/min. He is rarely coughing and not expectorating any phlegm. His rash is resolved completely. He is not experiencing any abdominal pain. He did experience some visual hallucinations associated with the Solu-Medrol. These are better this morning. Review of Systems Review of Systems: All systems reviewed & are unremarkable except as noted in Subjective Physical Exam Constitutional: WD/WN, vitals as above Neck: trachea midline, no thyromegaly Respiratory: normal respiratory effort; no respiratory distress, no labored breathing and not tachypneic Auscultation: + rales; no wheezes Cardiovascular: RRR, no murmur, no edema Gastrointestinal (Abdomen): normal bowel sounds, soft, nontender, no hepatosplenomegaly Musculoskeletal: Extremities: extremities normal to inspection Skin: Truncal rash extending down to his thighs is markedly better today. Lymphatic: no cervical lymphadenopathy Results & Data Results & Data ([facility]) Vital Signs (Past 12 Hours) Vital Signs Temp Pulse Pulse Pulse Pulse Resp BP 01/20/21 07:47 36.5 C 83 21 01/20/21 04:00 36.7 C 62 16 103/64 01/19/21 23:51 36.4 C L 71 70 24 103/66 BP Pulse Ox 01/20/21 07:47 111/66 88 L 01/20/21 04:00 95 01/19/21 23:51 93 Laboratory Results 01/20/21 05:54 01/20/21 05:54 PG Care Time/CCT Total # of Minutes Spent Total Time Spent with Patient: Total time spent is greater than 50% in coordination of care (as documented) at patient's floor/unit and/or counseling patient: Coding Level of Care Code 45374 Subseq Hosp Care Lvl 2 Diagnoses Acute hypoxemic respiratory failure J96.[address] scan of lung R91.8 Shortness of breath R06.02 Dermatitis, unspecified L30.9
[2021-01-20] MEDS: predniSONE 20 MG TAB PO SCH ×2 (10:46→20:39)
[2021-01-20] MEDS: ROSUVASTATIN CALCIUM 20 MG TAB PO SCH (12:03)
--- NOTE | 2021-01-20 14:50 | Pharmacy Report ---
Pharmacy Glycemic Sign Off Nt - Date of Service January 20, 2021 - Assessment & Plan ASSESSMENT: * Pharmacy was consulted by Dr Oscar Harmon on 01/18 for glycemic control and to write orders per [facility] inpatient glycemic control protocol. * Major changes made by pharmacy to antidiabetic regimen include: * Novolog CF scale added * Patient has been receiving/requiring 0 units of insulin per day for adequate glycemic control * BSGs ranging 98 - 158 mg/dl * Regimen has only required minor adjustments over the past 48hrs to achieve this level of control * Do not anticipate further changes in patient status that would quickly deteriorate glycemic control (i.e. patient to be NPO for upcoming procedure, steroids tapering, starting tube feedings, etc). Patient has tolerated high dose IV solumedrol without issue and was transitioned to prednisone 20mg BID today. * Please see recommendations for outpatient antidiabetic regimen below. PLAN FOR INPATIENT GLYCEMIC CONTROL: No changes needed to current regimen. * Continue correctional NovoLog per scale ACHS/Q6hrs while NPO * Goal range = 110 - 140 mg/dl * CF = 20 mg/dl/unit * Pharmacy is signing off of glycemic consult and will no longer be making adjustments to inpatient regimen. Please feel free to re-consult if needed. Thank you. DISCHARGE RECOMMENDATIONS: * A1c 5.4 % on 01/12/21
[2021-01-20] MEDS: ENOXAPARIN INJ 40 MG/0.4 ML SYR SQ SCH (15:01)
--- NOTE | 2021-01-20 17:24 | Hospitalist Progress Note ---
Date of Service January 20, 2021 Assessment & Plan (1) COVID-19: Plan: Ongoing hypoxia and pulmonary changesworseningended up on ventilator - now off ventilator and doing better. Further work-upis this all just residual inflammation? Is he developing pulmonary fibrosis? How much is diastolic/noncardiogenic pulmonary edema? Superimposed pneumonia? -Essentially managing for all of above, aggressive supportive care. Fortunately appearing stable//slowly improving ----most suspicious of steroid responsive conditions such as vasculitis or lingering/prolonged covid mediated inflammation --continue steroids - improving slowly (2) Tachycardia: Plan: Reactive to respiratory failure, overall improved, continue to follow - improving (3) SIRS (systemic inflammatory response syndrome): Plan: See above (4) Abnormal urinalysis: Plan: Of unlikely significance (5) Cholelithiases: Plan: Outpatient follow-up (6) BPH (benign prostatic hyperplasia): Plan: mora out - follow voiding, no troubles at this time (7) Hyperlipidemia: Plan: Chronically on rosuvastatin (8) Hypertension: Plan: Follow blood pressures while intubated (9) Impaired fasting glucose: Plan: No diabetes, likely steroid effect, pharmacy glycemic assistance appreciated (10) Carotid artery stenosis: Plan: Outpatient follow-up Plan: DVT prophylaxisLovenox continue on telemetry, ongoing close f/u. PT/OT eval and treat Admission and Anticipated Discharge Date Admission Date: January 10, 2021 Subjective Wakes up feeling relatively good, very quickly fatigues whenever he is trying to do any therapy or even get up to go to the bathroom, but notes that he is able t o do more than in previous days, and his desaturations are recovering more quickly than previous days. Otherwise no new complaints. Just notes that he is very easily fatigued Review of Systems Review of Systems: All systems reviewed & are unremarkable except as noted in HPI & below Physical Exam Physical Exam: General he is awake and alert pleasant no distress. HEENT normocephalic atraumatic mucous membranes moist. Breathing unlabored no accessory muscle use good effort. Skin shows no rashes no pallor or icterus. Neuro without focal deficits. Results & Data Results & Data ([facility]) Vital Signs (Past 12 Hours) Vital Signs Temp Pulse Pulse Resp BP Pulse Ox 01/20/21 16:00 76 01/20/21 15:15 97.7 F 67 24 114/70 98 01/20/21 11:52 97.7 F 62 24 128/71 95 01/20/21 07:47 97.7 F 83 21 111/66 88 L PG Care Time/CCT Total # of Minutes Spent Total Time Spent with Patient: Total time spent is greater than 50% in coordination of care (as documented) at patient's floor/unit and/or counseling patient: Coding Level of Care Code 63839 Subseq Hosp Care Lvl 3 Diagnoses COVID-19 U07.1 Tachycardia R00.0 SIRS (systemic inflammatory response syndrome) R65.10 Abnormal urinalysis R82.90 Cholelithiases K80.20 BPH (benign prostatic hyperplasia) N40.0 Hyperlipidemia E78.5 Hypertension I10 Hypertension type: essential hypertension Impaired fasting glucose R73.01 Carotid artery stenosis I65.29 (1) Hypertension Hypertension type: essential hypertension Qualified Code(s): I10 - Essential (primary) hypertension
[2021-01-20] MEDS: POLYETHYLENE (MIRALAX) 17 GM PACK PO SCH (20:39)
[2021-01-20] MEDS: TAMSULOSIN HCL 0.4 MG CAP PO SCH (20:39)
[2021-01-21 05:08] LABS: Pneumocystis jirovecii PCRQual DETECTED; Pneumocystis jirovecii Source BRONCH LAVAGE
[2021-01-21 05:54] LABS: BUN Creatinine Ratio 33.7 (10-20); Calcium 8.3 mg/dl (8.5-10.1); Creatinine Clr Calc Pharmacy 100.7 ml/min; Est GFR (African American) 105.1 ml/min; Est GFR (Non-African American) 90.7 ml/min; Magnesium 2.6 mg/dl (1.8-2.4); Phosphorus 3.4 mg/dl (2.5-4.9); Potassium 4.4 mmol/L (3.5-5.1)
[2021-01-21] MEDS: METOPROLOL TARTRATE 50 MG TAB PO SCH ×2 (07:40→21:11)
[2021-01-21] MEDS: predniSONE 20 MG TAB PO SCH ×2 (07:40→21:11)
[2021-01-21] MEDS: POLYETHYLENE (MIRALAX) 17 GM PACK PO SCH ×3 (07:40→21:09)
[2021-01-21] MEDS: LANSOPRAZOLE 30 MG SOLTAB PO SCH (07:40)
[2021-01-21] MEDS: INSULIN ASPART 100 UNITS/ML 3 ML PEN SC SCH ×4 (07:41→21:08)
--- NOTE | 2021-01-21 08:01 | Pulmonology Progress Note ---
Date of Service January 21, 2021 Assessment & Plan (1) Acute hypoxemic respiratory failure: (2) Abnormal CT scan of lung: (3) Shortness of breath: (4) Dermatitis, unspecified: (5) Pneumocystis jiroveci pneumonia: Plan: Impression: 70-year-old male hospitalized since 01/10/2021. Status post Covid now with pneumocystis pneumonia. Recommendations: 1. Hypoxemic respiratory failure: Wean oxygen as tolerated 2. Pneumocystis pneumonia: Discussed with pharmacy. Will initiate with Bactrim double strength 2 tablet 4 times a day. The patient states he had a rash previously and will need to observe. If the rash recurs, may need to consult allergy immunology for potential desensitization. Alternatives would include trimethoprim, pentamadine, clindamycin, dapsone, and atovaquone. All of these are much less effective than trimethoprim sulfamethoxazole we will try to get him on Bactrim. Check G6PD in the event he requires alternative medications 3. Continue steroids. Protocol would be high-dose for 5 days which the patient has completed followed by 40 mg a day for 5 days then 20 mg a day for 11 days. 4. We will still need to follow-up with results of his skin biopsy and serological evaluation. 5. 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 Recommend outpatient PFTs in 3 to 6 months when clinically stable and consideration for follow-up CT scan. Patient is at risk of clinical deterioration. Will need to be followed closely. Admission and Anticipated Discharge Date Admission Date: January 10, 2021 Subjective Patient seen and examined. EMR reviewed. The patient feels somewhat worse today. He continues to have a high oxygen requirement. He feels tight in his chest. He is not really coughing or expectorating phlegm. Review of Systems Review of Systems: All systems reviewed & are unremarkable except as noted in Subjective Physical Exam Constitutional: WD/WN, vitals as above + mechanically ventilated Neck: trachea midline, no thyromegaly Respiratory: + labored breathing and + tachypneic; no respiratory distress Auscultation: + rales; no wheezes Cardiovascular: RRR, no murmur, no edema Gastrointestinal (Abdomen): normal bowel sounds, soft, nontender, no hepatosplenomegaly Musculoskeletal: Extremities: extremities normal to inspection Lymphatic: no cervical lymphadenopathy Results & Data Results & Data ([facility]) Vital Signs (Past 12 Hours) Vital Signs Temp Pulse Pulse Resp BP Pulse Ox 01/21/21 00:00 66 01/20/21 23:59 36.5 C 59 L 20 104/61 98 01/20/21 21:50 36.5 C 63 16 124/78 93 Laboratory Results 01/20/21 05:54 01/21/21 05:17 Diagnostic Findings No new imaging PG Care Time/CCT Total # of Minutes Spent Total Time Spent with Patient: Total time spent is greater than 50% in coordination of care (as documented) at patient's floor/unit and/or counseling patient: Coding Level of Care Code 03686 Subseq Hosp Care Lvl 3 Diagnoses Acute hypoxemic respiratory failure J96.[address] scan of lung R91.8 Shortness of breath R06.02 Dermatitis, unspecified L30.9 Pneumocystis jiroveci pneumonia B59
[2021-01-21] MEDS: SULFAMETHOXAZOLE/TRIMETHOPRIM DS 800/160MG TAB PO SCH ×4 (08:53→21:11)
[2021-01-21] MEDS: ROSUVASTATIN CALCIUM 20 MG TAB PO SCH (11:15)
[2021-01-21 13:31] LABS: ANA Screen NEGATIVE (NEGATIVE); ANCA Screen Negative (Negative); Anti-Glom Basement Antibody <1.0 AI (<1.0); Cyclic Citrullinated Pep IgG <16 UNITS; Immunoglobulin IgE 114 kU/L (<OR=114); Rheumatoid Factor <14 IU/mL (<14)
[2021-01-21] MEDS: ENOXAPARIN INJ 40 MG/0.4 ML SYR SQ SCH (14:37)
--- NOTE | 2021-01-21 17:34 | Hospitalist Progress Note ---
Date of Service January 21, 2021 Assessment & Plan (1) COVID-19: Plan: Ongoing hypoxia and pulmonary changesworseningended up on ventilator - now off ventilator and doing better. Further work-upyields pneumocystis infectionstarted on Bactrim. Biopsy pending, still wondering if there could be a degree of vasculitis, and also certainly could have some degree of just post Covid fibrosis/scarring. Continue current care/supportive care. (2) Tachycardia: Plan: Improved (3) SIRS (systemic inflammatory response syndrome): Plan: See above (4) Abnormal urinalysis: Plan: Of unlikely significance (5) Cholelithiases: Plan: Outpatient follow-up (6) BPH (benign prostatic hyperplasia): Plan: mora out - follow voiding, no troubles at this time (7) Hyperlipidemia: Plan: Chronically on rosuvastatin (8) Hypertension: Plan: Blood pressure is acceptable (9) Impaired fasting glucose: Plan: No diabetes, likely steroid effect, pharmacy glycemic assistance appreciated, although essentially no treatment has been needed (10) Carotid artery stenosis: Plan: Outpatient follow-up (11) Bright red blood per rectum: Plan: He suspects it is hemorrhoidal. His last colonoscopy was not quite 2 years ago, where he had a 5 mm sessile polyp in the transverse colon scattered small mouth diverticuli and some internal hemorrhoids. I tend to agree with his assessment, right now he is hemodynamically stable, but given that the hemorrhoids are continuing to bleed (and there is a small chance of it being a mild diverticular bleed) we will temporarily hold the Lovenox. Plan: DVT prophylaxisLovenox (hold temporarily due to likely hemorrhoidal bleeding) continue on telemetry, ongoing close f/u. PT/OT eval and treat Admission and Anticipated Discharge Date Admission Date: January 10, 2021 Subjective Does not feel quite as good as yesterday, but overall does believe he is continuing to show improvement. Still has easy dyspnea on exertion, although he notes once he was up and moving it is may be a little bit better than yesterday, just that whenever he first woke up he did not feel quite as good. Still coughing, still feels better whenever he gets up a decent amount of sputum. Case discussed with pulmonaryinput greatly appreciated. Review of Systems Review of Systems: All systems reviewed & are unremarkable except as noted in HPI & below Physical Exam Physical Exam: In general he is awake and alert pleasant no distress does appear somewhat fatigued. HEENT normocephalic atraumatic mucous membranes moist. Breathing unlabored no accessory muscle use good effort. Skin shows no rashes no pallor or icterus. Neuro without focal deficits. Results & Data Results & Data ([facility]) Vital Signs (Past 12 Hours) Vital Signs Temp Pulse Pulse Resp BP BP Pulse Ox 01/21/21 15:45 97.9 F 62 64 23 99/63 L 96 01/21/21 11:19 58 L 01/21/21 11:17 60 16 110/67 97 01/21/21 09:30 58 L 19 94 01/21/21 09:00 68 20 96 01/21/21 08:30 68 15 91 01/21/21 08:00 82 19 113/65 90 01/21/21 07:30 85 19 81 L 01/21/21 07:00 67 22 90 01/21/21 06:45 66 15 88 L PG Care Time/CCT Total # of Minutes Spent Total Time Spent with Patient: Total time spent is greater than 50% in coordination of care (as documented) at patient's floor/unit and/or counseling patient: Coding Level of Care Code 65080 Subseq Hosp Care Lvl 3 Diagnoses COVID-19 U07.1 Tachycardia R00.0 SIRS (systemic inflammatory response syndrome) R65.10 Abnormal urinalysis R82.90 Cholelithiases K80.20 BPH (benign prostatic hyperplasia) N40.0 Hyperlipidemia E78.5 Hypertension I10 Hypertension type: essential hypertension Impaired fasting glucose R73.01 Carotid artery stenosis I65.29 Bright red blood per rectum K62.5 (1) Hypertension Hypertension type: essential hypertension Qualified Code(s): I10 - Essential (primary) hypertension
[2021-01-21] MEDS: HYDROCORTISONE HC 2.5% CRM 30GM TUBE EXT PRN (18:25)
[2021-01-21] MEDS: TAMSULOSIN HCL 0.4 MG CAP PO SCH (21:11)
[2021-01-21 23:26] LABS: Source LUNG BIOPSY RUL
[2021-01-22 06:50] LABS: BUN Creatinine Ratio 25.4 (10-20); Calcium 8.4 mg/dl (8.5-10.1); Creatinine Clr Calc Pharmacy 88.4 ml/min; Est GFR (African American) 99.5 ml/min; Est GFR (Non-African American) 85.8 ml/min; Magnesium 2.5 mg/dl (1.8-2.4); Phosphorus 3.6 mg/dl (2.5-4.9); Potassium 5.1 mmol/L (3.5-5.1)
[2021-01-22 08:26] LABS: Basophils # (auto) 0.02 K/uL (0-0.2); Basophils % (auto) 0.2 %; Eosinophils # (auto) 0.02 K/uL (0-0.5); Eosinophils % (auto) 0.2 %; Hematocrit (blood only) 36.8 % (42-52); Hemoglobin 12.7 g/dL (14.0-18.0); Immature Granulocytes % (auto) 2.8 %; Lymphocytes # (auto) 1.38 K/uL (1.2-3.4); Lymphocytes % (auto) 12.8 %; Mean Corpuscular Hemoglobin 34.7 pg (25-34); Mean Corpuscular Hgb Conc 34.5 g/dL (32-36); Mean Corpuscular Volume 100.5 fL (80-100); Mean Platelet Volume 10.2 fL (7.4-10.4); Monocytes # (auto) 0.49 K/uL (0.11-0.59); Monocytes % (auto) 4.5 %; Neutrophils # (auto) 8.57 K/uL (1.4-6.5); Neutrophils % (auto) 79.5 %; Platelet Count 345 K/uL (130-400); RDW Coefficient of Variation 12.9 % (11.5-14.5); RDW Standard Deviation 47.4 fL (36.4-46.3); Red Blood Count 3.66 M/uL (4.7-6.1); White Blood Count 10.78 K/uL (4.8-10.8)
--- NOTE | 2021-01-22 08:29 | Pulmonology Progress Note ---
Date of Service January 22, 2021 Assessment & Plan (1) Acute hypoxemic respiratory failure: (2) Abnormal CT scan of lung: (3) Shortness of breath: (4) Dermatitis, unspecified: (5) Pneumocystis jiroveci pneumonia: Plan: Impression: 70-year-old male hospitalized since 01/10/2021. Status post Covid now with pneumocystis pneumonia. Recommendations: 1. Hypoxemic respiratory failure: Wean oxygen as tolerated. We will transition to heated high flow to see how he does. The patient is at risk for recurrent respiratory failure needing intubation mechanical ventilation. Recheck his chest x-ray today 2. Pneumocystis pneumonia: Continue Bactrim double strength 2 tablet 4 times a day. No evidence of the rash with clearing with yesterday's dosing. Continue to follow closely. If the rash recurs, may need to consult allergy immunology for potential desensitization. Alternatives would include trimethoprim, pentamadine, clindamycin, dapsone, and atovaquone. All of these are much less effective than trimethoprim sulfamethoxazole we will try to get him on Bactrim. Awaiting G6PD in the event he requires alternative medications. It is possible the patient may deteriorate clinically before showing significant progress and its possible that he may need to go back on the mechanical ventilator. 3. Continue steroids. Protocol would be high-dose for 5 days which the patient has completed followed by 40 mg a day for 5 days then 20 mg a day for 11 days. 4. We will still need to follow-up with results of his skin biopsy. Serological evaluation was negative. 5. 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 Recommend outpatient PFTs in 3 to 6 months when clinically stable and consideration for follow-up CT scan. Patient is at risk of clinical deterioration. Discussed with patient and beds charito nurse. 35 minutes reviewing case and coordinating care Admission and Anticipated Discharge Date Admission Date: January 10, 2021 Subjective Patient seen and examined. EMR reviewed. The patient states his breathing is a little worse. He is slightly more tachypneic with oxygen saturations which are slightly worse today. He is coughing and expectorating some phlegm. He describes some intermittent chest discomfort. He has not noted any rash associated with the Bactrim. Review of Systems Review of Systems: All systems reviewed & are unremarkable except as noted in Subjective Physical Exam Constitutional: WD/WN, vitals as above + mechanically ventilated Neck: trachea midline, no thyromegaly Respiratory: + labored breathing and + tachypneic; no respiratory distress Auscultation: + rales; no wheezes Cardiovascular: RRR, no murmur, no edema Gastrointestinal (Abdomen): normal bowel sounds, soft, nontender, no hepatosplenomegaly Musculoskeletal: Extremities: extremities normal to inspection Lymphatic: no cervical lymphadenopathy Results & Data Results & Data ([facility]) Vital Signs (Past 12 Hours) Vital Signs Temp Pulse Pulse Resp BP Pulse Ox 01/22/21 08:00 36.4 C L 70 29 H 103/63 90 01/22/21 03:26 36.4 C L 65 22 100/64 95 01/22/21 00:30 60 01/21/21 23:51 36.4 C L 64 12 113/74 92 01/21/21 20:47 36.5 C 71 20 122/68 92 Critical Care Results & Data Vital Signs (Past 12 Hours) Vital Signs Temp Pulse Pulse Resp BP Pulse Ox 01/22/21 08:00 36.4 C L 70 29 H 103/63 90 01/22/21 03:26 36.4 C L 65 22 100/64 95 01/22/21 00:30 60 01/21/21 23:51 36.4 C L 64 12 113/74 92 01/21/21 20:47 36.5 C 71 20 122/68 92 Lab & Micro Results (Past 24 Hours) RBC 3.66 M/uL (4.7-6.1) L 01/22/21 WBC 10.78 K/uL (4.8-10.8) 01/22/21 Hgb 12.7 g/dL (14.0-18.0) L 01/22/21 Hct 36.8 % (42-52) L 01/22/21 MCV 100.5 fL (80-100) H 01/22/21 MCH 34.7 pg (25-34) H 01/22/21 MCHC 34.5 g/dL (32-36) 01/22/21 RDW Standard Deviation 47.4 fL (36.4-46.3) H 01/22/21 RDW Coefficient of Variation 12.9 % (11.5-14.5) 01/22/21 Plt Count 345 K/uL (130-400) 01/22/21 MPV 10.2 fL (7.4-10.4) 01/22/21 Neutrophils (%) (Auto) 79.5 % 01/22/21 Lymphocytes (%) (Auto) 12.8 % 01/22/21 Monocytes # (Auto) 0.49 K/uL (0.11-0.59) 01/22/21 Eosinophils # (Auto) 0.02 K/uL (0-0.5) 01/22/21 Immature Granulocyte % (Auto) 2.8 % 01/22/21 Neutrophils # (Auto) 8.57 K/uL (1.4-6.5) H 01/22/21 Lymphocytes # (Auto) 1.38 K/uL (1.2-3.4) 01/22/21 Monocytes # (Auto) 0.49 K/uL (0.11-0.59) 01/22/21 Eosinophils # (Auto) 0.02 K/uL (0-0.5) 01/22/21 Basophils # (Auto) 0.02 K/uL (0-0.2) 01/22/21 Immature Granulocyte # (Auto) 0.30 K/uL (0.00-0.02) H 01/22/21 Na 132 mmol/L (136-145) L 01/22/21 K 5.1 mmol/L (3.5-5.1) 01/22/21 Cl 103 mmol/L (98-107) 01/22/21 CO2 23 mmol/L (21-32) 01/22/21 Anion Gap 6.0 (3-11) 01/22/21 BUN 22 mg/dl (7-18) H 01/22/21 Creatinine 0.88 mg/dl (0.6-1.4) 01/22/21 Estimated GFR ( Amer) 99.5 ml/min 01/22/21 Estimated GFR (Non-Af Amer) 85.8 ml/min 01/22/21 BUN/Creatinine Ratio 25.4 (10-20) H 01/22/21 Glu 98 mg/dl (70-99) 01/22/21 Ca 8.4 mg/dl (8.5-10.1) L 01/22/21 Phosphorus Level 3.6 mg/dl (2.5-4.9) 01/22/21 Mg 2.5 mg/dl (1.8-2.4) H 01/22/21 05:55 01/22/21 Calcium Level 8.4 mg/dl (8.5-10.1) L 01/22/21 05:55 01/22/21 Microbiology 01/17/21 08:50 Acid Fast Bacilli Smear - Final Ba Lavage,Right Upper Lobe Acid Fast Bacilli Culture - Preliminary No Acid-Fast Bacilli Isolated - Report 1, Additional Report to Follow. I & O Totals 24 Hours 01/21/21 01/22/21 01/23/21 06:59 06:59 06:59 Intake Total 840 / 840 1250 / 1250 Output Total 353 / 353 195 / 1950 Balance 487 / 487 -701 / -701 Cumulative 01/10/21 08:48 thru 01/22/21 06:24 Intake Total 61239.975 Output Total 44855 Balance 3723.975 RT Ventilator Mngmt (Last Documented) Ventilator Ordered Settings Ventilator Support Mode Assist Control 01/18/21 15:28 Respiratory Rate 29 01/22/21 08:00 Ventilator Tidal Volume 400 01/18/21 15:28 Setting Minute Ventilation 19 01/18/21 15:28 Positive End Expiratory 8 01/18/21 15:28 Pressure Fraction of Inspired Oxygen 60 01/19/21 07:43 Machine Comment weaned to 40% 01/18/21 07:30 Ventilator - PT Measurements Respiratory Rate 29 Exhaled Tidal Volume 436 Minute Ventilation 19 Peak Inspiratory Airway 34 Pressure Plateau Pressure 26 Respiratory Cycle Inspiratory: 1:2.1 Expiratory Ratio Inspiratory Phase Time 0.7 End-Tidal CO2 32 Static Lung Compliance 24.22 Dynamic Lung Compliance 16.77 Normal Static Lung Compliance 45.00 Patient Measurements Comment CPAP trial attempted on Patient at this time, Dr Joshi aware PG Care Time/CCT Total # of Minutes Spent Total Time Spent with Patient: Total time spent is greater than 50% in coordination of care (as documented) at patient's floor/unit and/or counseling patient: Coding Level of Care Code 09758 Subseq Hosp Care Lvl 3 Diagnoses Acute hypoxemic respiratory failure J96.[address] scan of lung R91.8 Shortness of breath R06.02 Dermatitis, unspecified L30.9 Pneumocystis jiroveci pneumonia B59
[2021-01-22] MEDS: INSULIN ASPART 100 UNITS/ML 3 ML PEN SC SCH ×4 (08:39→21:59)
[2021-01-22] MEDS: SULFAMETHOXAZOLE/TRIMETHOPRIM DS 800/160MG TAB PO SCH ×4 (08:40→20:26)
[2021-01-22] MEDS: METOPROLOL TARTRATE 50 MG TAB PO SCH ×2 (08:40→20:25)
[2021-01-22] MEDS: predniSONE 20 MG TAB PO SCH ×2 (08:41→20:26)
[2021-01-22] MEDS: LANSOPRAZOLE 30 MG SOLTAB PO SCH (08:41)
[2021-01-22] MEDS: POLYETHYLENE (MIRALAX) 17 GM PACK PO SCH ×2 (08:42→20:26)
--- NOTE | 2021-01-22 10:25 | XRay Report ---
XR chest 1V portable CLINICAL HISTORY: resp failure TECHNIQUE: Single frontal radiograph of the chest was obtained. Comparison: Comparison is made to chest one view 01/19/2021 FINDINGS: No lines and tubes are seen. The cardiomediastinal silhouette is normal. Lungs are underinflated. Jabier ateral lower lobe predominant airspace opacities are noted. No evidence of pleural effusion or pneumo thorax. Degenerative changes are seen in the bilateral glenohumeral and acromioclavicular joints. IMPRESSION: Bilateral lower lung predominant airspace opacities which may represent atelectasis, pneumonia, and/o r aspiration. These findings are comparable in appearance to prior exam accounting for underinflation . ACT 112: Negative or not required by law. Electronically signed by: Jason Jones M.D. 01/22/2021 10:24 AM
[2021-01-22] MEDS: ROSUVASTATIN CALCIUM 20 MG TAB PO SCH (13:20)
[2021-01-22] MEDS: ALBUTEROL HFA 8 GM INHALER INH PRN (13:42)
--- NOTE | 2021-01-22 18:03 | Hospitalist Progress Note ---
Date of Service January 22, 2021 Assessment & Plan (1) COVID-19: Plan: Ongoing hypoxia and pulmonary changesworseningended up on ventilator - now off ventilator and doing better. Further work-upyields pneumocystis infectionstarted on Bactrim. Biopsy pending, still wondering if there could be a degree of vasculitis, and also certainly could have some degree of just post Covid fibrosis/scarring. Continue Bactrim, pulmonary slowly working on steroids. Continue supportive care. (2) Tachycardia: Plan: Improved (3) SIRS (systemic inflammatory response syndrome): Plan: See above (4) Abnormal urinalysis: Plan: Of unlikely significance (5) Cholelithiases: Plan: Outpatient follow-up (6) BPH (benign prostatic hyperplasia): Plan: mora out - follow voiding, no troubles at this time (7) Hyperlipidemia: Plan: Continue rosuvastatin (8) Hypertension: Plan: Blood pressure is acceptablecontinue to follow (9) Impaired fasting glucose: Plan: No diabetes, likely steroid effect, pharmacy glycemic assistance appreciated, although sugars have shown good control with no treatment (10) Carotid artery stenosis: Plan: Outpatient follow-up (11) Bright red blood per rectum: Plan: He suspects it is hemorrhoidal. His last colonoscopy was not quite 2 years ago, where he had a 5 mm sessile polyp in the transverse colon scattered small mouth diverticuli and some internal hemorrhoids. I tend to agree with his assessment, right now he is hemodynamically stable, but given that the hemorrhoids are continuing to bleed (and there is a small chance of it being a mild diverticular bleed) we will temporarily hold the Lovenox. Follow clinically, follow CBC (hemoglobin has been stable)if he continues to show hemodynamic stability over the next 24 to 48 hours, then would resume Lovenox. Plan: DVT prophylaxisLovenox (hold temporarily due to likely hemorrhoidal bleeding) continue on telemetry, ongoing close f/u. PT/OT eval and treat Admission and Anticipated Discharge Date Admission Date: January 10, 2021 Subjective Feeling about the same. [place] the same dyspnea on exertion as yesterday. Not really worse though. present at the bedside, answered all questions to the best my ability and to her and patient's satisfaction. No other new complaints. Pulmonary input greatly appreciated. Review of Systems Review of Systems: All systems reviewed & are unremarkable except as noted in HPI & below Physical Exam Physical Exam: In general he is awake and alert pleasant appears fatigued but otherwise in no distress. HEENT normocephalic atraumatic mucous membranes are moist. Breathing unlabored, alert bit more clear than whenever I last listen to him but still a lot of scattered rales and overall coarseness. No focal rales rhonchi or wheezes good effort. No accessory muscle use. Neuro without focal deficits. Skin without pallor, icterus Results & Data Results & Data ([facility]) Vital Signs (Past 12 Hours) Vital Signs Temp Pulse Pulse Resp BP Pulse Ox 01/22/21 16:26 66 01/22/21 16:16 97.7 F 65 19 112/67 92 01/22/21 15:52 66 18 95 01/22/21 13:43 65 18 94 01/22/21 12:44 97.5 F L 62 23 112/73 94 01/22/21 11:57 72 24 93 01/22/21 08:41 92 H 20 72 L 01/22/21 08:00 97.5 F L 70 29 H 103/63 90 PG Care Time/CCT Total # of Minutes Spent Total Time Spent with Patient: Total time spent is greater than 50% in coordination of care (as documented) at patient's floor/unit and/or counseling patient: Coding Level of Care Code 78161 Subseq Hosp Care Lvl 3 Diagnoses COVID-19 U07.1 Tachycardia R00.0 SIRS (systemic inflammatory response syndrome) R65.10 Abnormal urinalysis R82.90 Cholelithiases K80.20 BPH (benign prostatic hyperplasia) N40.0 Hyperlipidemia E78.5 Hypertension I10 Hypertension type: essential hypertension Impaired fasting glucose R73.01 Carotid artery stenosis I65.29 Bright red blood per rectum K62.5 (1) Hypertension Hypertension type: essential hypertension Qualified Code(s): I10 - Essential (primary) hypertension
[2021-01-22] MEDS: TAMSULOSIN HCL 0.4 MG CAP PO SCH (20:25)
[2021-01-22] MEDS: PANTOprazole 40 MG in SYRINGE 0 ML IV SCH (21:44)
[2021-01-23 05:10] LABS: Basophils # (auto) 0.02 K/uL (0-0.2); Basophils % (auto) 0.2 %; Eosinophils # (auto) 0.07 K/uL (0-0.5); Eosinophils % (auto) 0.6 %; Hematocrit (blood only) 37.6 % (42-52); Hemoglobin 13.2 g/dL (14.0-18.0); Immature Granulocytes # (auto) 0.55 K/uL (0.00-0.02); Immature Granulocytes % (auto) 4.5 %; Lymphocytes # (auto) 1.62 K/uL (1.2-3.4); Lymphocytes % (auto) 13.1 %; Mean Corpuscular Hemoglobin 34.6 pg (25-34); Mean Corpuscular Hgb Conc 35.1 g/dL (32-36); Mean Corpuscular Volume 98.7 fL (80-100); Mean Platelet Volume 10.1 fL (7.4-10.4); Monocytes # (auto) 0.62 K/uL (0.11-0.59); Neutrophils # (auto) 9.44 K/uL (1.4-6.5); Neutrophils % (auto) 76.6 %; Platelet Count 370 K/uL (130-400); RDW Coefficient of Variation 13.1 % (11.5-14.5); RDW Standard Deviation 46.8 fL (36.4-46.3); Red Blood Count 3.81 M/uL (4.7-6.1); White Blood Count 12.32 K/uL (4.8-10.8)
[2021-01-23 05:38] LABS: BUN Creatinine Ratio 17.2 (10-20); Calcium 8.7 mg/dl (8.5-10.1); Creatinine Clr Calc Pharmacy 76.2 ml/min; Est GFR (African American) 84.7 ml/min; Est GFR (Non-African American) 73.1 ml/min; Magnesium 2.4 mg/dl (1.8-2.4); Potassium 4.9 mmol/L (3.5-5.1)
[2021-01-23 05:39] LABS: Phosphorus 3.6 mg/dl (2.5-4.9)
--- NOTE | 2021-01-23 08:45 | Pulmonology Progress Note ---
Date of Service January 23, 2021 Assessment & Plan (1) Acute hypoxemic respiratory failure: (2) Abnormal CT scan of lung: (3) Shortness of breath: (4) Dermatitis, unspecified: (5) Pneumocystis jiroveci pneumonia: Plan: Impression: 70-year-old male hospitalized since 01/10/2021. Status post Covid now with pneumocystis pneumonia. --Acute hypoxic respiratory failure Multifactorial Initially patient had Covid-19 He also had bronchoscopy done which was positive for PJP Currently on Bactrim for total of 21 days --> monitor creatinine as well as potassium Prednisone 40 mg twice daily for 5 days (completed) Followed by prednisone 20 mg twice daily for 5 days (last dose 01/24/2021) Followed by prednisone 20 mg daily for 11 days --Rash Status post skin biopsy Follow-up biopsy result Plan: Chest x-ray still shows bilateral alveolar infiltrates more on the left side. We will get troponin, CPK, chest x-ray as well as EKG for the retrosternal chest pain Patient is already on Protonix 40 mg twice daily Hyponatremia with high normal potassium is likely from Bactrim. Continue to monitor Continue with high flow. Continue with treatment with Bactrim for 21 days Case was discussed with RT Please note the above document was generated using voice recognition software. It may contain grammatical, syntax or spelling errors.Any formal questions or concerns about the content, text or information contained within the body of this dictation should be directly addressed to the provider for clarification. Admission and Anticipated Discharge Date Admission Date: January 10, 2021 Subjective Patient seen and examined at bedside. No acute distress. Patient was on high flow 35 L, 55% saturating 87-89% Not in significant respiratory distress Was able to talk in full sentences Patient did desaturate to low 80s when he ambulates on the settings He is eating well Does complain of cough with clear phlegm Denies any hemoptysis Has been afebrile Today complains of low retrosternal chest pain which is nonexertional. Denies any heartburn-like symptoms Not reproducible on palpation Review of Systems Review of Systems: All systems reviewed & are unremarkable except as noted in Subjective Physical Exam Physical Exam: Constitutional: No acute distress HEENT: EOMI, PERRLA Respiratory system: Decreased air entry bilaterally, no wheeze, rhonchi, positive crackles bilateral lower lobe CVS: S1-S2 positive, no murmurs or gallops Abdomen: Soft, nontender, nondistended, positive bowel sounds x4 Extremities: +2 pulses bilaterally radialis/ dorsalis pedis, no cyanosis, no ed francy Neuro: Awake alert oriented x3 Psych: Normal mood and affect G/U: No Ro Skin: no rashes, warm and dry Lymphatic: no cervical or axillary lymphadenopathy Results & Data Results & Data ([facility]) Vital Signs (Past 12 Hours) Vital Signs Temp Pulse Resp BP Pulse Ox 01/23/21 07:40 74 18 84 L 01/23/21 04:00 36.7 C 62 24 110/64 92 01/23/21 02:45 64 20 92 01/23/21 00:00 36.9 C 61 16 91/62 L 93 01/22/21 22:59 72 22 91 01/23/21 04:36 01/23/21 04:36 PG Care Time/CCT Total # of Minutes Spent Total Time Spent with Patient: Total time spent is greater than 50% in coordination of care (as documented) at patient's floor/unit and/or counseling patient: Coding Level of Care Code 61151 Subseq Hosp Care Lvl 3 Diagnoses Acute hypoxemic respiratory failure J96.[address] scan of lung R91.8 Shortness of breath R06.02 Dermatitis, unspecified L30.9 Pneumocystis jiroveci pneumonia B59
[2021-01-23 09:45] LABS: Creatine Kinase 25 U/L (39-308); Troponin I < 0.015 ng/ml (0-0.045)
[2021-01-23] MEDS: METOPROLOL TARTRATE 50 MG TAB PO SCH ×2 (09:52→21:43)
[2021-01-23] MEDS: SULFAMETHOXAZOLE/TRIMETHOPRIM DS 800/160MG TAB PO SCH ×4 (09:52→21:43)
[2021-01-23] MEDS: predniSONE 20 MG TAB PO SCH ×2 (09:52→21:43)
[2021-01-23] MEDS: ASPIRIN 81 MG CHEW PO SCH (09:52)
[2021-01-23] MEDS: INSULIN ASPART 100 UNITS/ML 3 ML PEN SC SCH ×4 (09:54→22:36)
[2021-01-23] MEDS: PANTOprazole 40 MG in SYRINGE 0 ML IV SCH ×2 (09:54→21:43)
[2021-01-23] MEDS: MoRPHine SULFATE 2 MG/ML CARP IV PRN ×2 (09:55→13:56)
[2021-01-23] MEDS: POLYETHYLENE (MIRALAX) 17 GM PACK PO SCH ×2 (09:55→21:43)
--- NOTE | 2021-01-23 11:04 | XRay Report ---
SINGLE VIEW CHEST CLINICAL HISTORY: Respiratory failure. FINDINGS: An AP, portable, upright chest radiograph is compared to study dated 01/22/2021 and correla stephanie with chest CT dated 01/14/2021. The heart is enlarged. Multifocal airspace consolidation is simila r to yesterday. Suspect small pleural effusions. No pneumothorax is seen. The skeletal structures are osteopenic. The bony thorax is grossly intact. IMPRESSION: 1. Multifocal airspace consolidation is similar to yesterday. 2. Suspect small pleural effusions. ACT 112: Negative or not required by law. Electronically signed by: Jun Mckeon M.D. 01/23/2021 11:03 AM
[2021-01-23] MEDS: ALBUTEROL HFA 8 GM INHALER INH PRN (11:22)
[2021-01-23] MEDS: ROSUVASTATIN CALCIUM 20 MG TAB PO SCH (13:50)
--- NOTE | 2021-01-23 16:46 | Electrocardiogram Report ---
Test Reason : Blood Pressure : / mmHG Vent. Rate : 064 BPM Atrial Rate : 064 BPM P-R Int : 140 ms QRS Dur : 104 ms QT Int : 412 ms P-R-T Axes : 020 011 031 degrees QTc Int : 425 ms Normal sinus rhythm Moderate voltage criteria for LVH, may be normal variant Nondiagnostic lateral Q waves Borderline ECG When compared with ECG of 16-JAN-2021 16:43, Vent. rate has decreased BY 41 BPM Otherwise no significant change Confirmed by Graeme Lang ([id number]) on 01/23/2021 4:46:07 PM Referred By: REFERRED SELF Confirmed By:Graeme Lang
[2021-01-23] MEDS ORDERED: SODIUM CHLORIDE 0.65% NA SOLN 45 ML (OCEAN) ONE (16:51)
[2021-01-23] MEDS ORDERED: SODIUM CHLORIDE 0.65% NA SOLN 45 ML (OCEAN) PRN (17:00)
[2021-01-23] MEDS ORDERED: oxyCODONE/ACETAMINOPHEN 5mg/325mg TAB PO PRN (17:08)
[2021-01-23] MEDS ORDERED: DOCUSATE SODIUM/SENNA 50/8.6MG TAB PO ONE (17:30)
[2021-01-23] MEDS: TAMSULOSIN HCL 0.4 MG CAP PO SCH (21:43)
[2021-01-23] MEDS ORDERED: ALUMINUM/MAGNESIUM SUSP 30 ML UDC PO PRN (21:59)
--- NOTE | 2021-01-23 22:00 | Hospitalist Progress Note ---
Date of Service January 23, 2021 Assessment & Plan (1) COVID-19: Plan: Ongoing hypoxia and pulmonary changesworseningended up on ventilator - now off ventilator and doing better. Further work-upyields pneumocystis infectionstarted on Bactrim. Biopsy pending, still wondering if there could be a degree of vasculitis, and also certainly could have some degree of just post Covid fibrosis/scarring. Continue Bactrim, pulmonary slowly working on steroids. Continue supportive care. Patient continues to slowly improve on 01/23 (2) Tachycardia: Plan: Improved (3) SIRS (systemic inflammatory response syndrome): Plan: See above (4) Abnormal urinalysis: Plan: Of unlikely significance (5) Cholelithiases: Plan: Outpatient follow-up (6) BPH (benign prostatic hyperplasia): Plan: mora out - follow voiding, no troubles at this time (7) Hyperlipidemia: Plan: Continue rosuvastatin (8) Hypertension: Plan: Blood pressure is acceptablecontinue to follow (9) Impaired fasting glucose: Plan: No diabetes, likely steroid effect, pharmacy glycemic assistance appreciated, although sugars have shown good control with no treatment (10) Carotid artery stenosis: Plan: Outpatient follow-up (11) Bright red blood per rectum: Plan: He suspects it is hemorrhoidal. His last colonoscopy was not quite 2 years ago, where he had a 5 mm sessile polyp in the transverse colon scattered small mouth diverticuli and some internal hemorrhoids. I tend to agree with his assessment, right now he is hemodynamically stable, but given that the hemorrhoids are continuing to bleed (and there is a small chance of it being a mild diverticular bleed) we will temporarily hold the Lovenox. Follow clinically, follow CBC (hemoglobin has been stable)if he continues to show hemodynamic stability over the next 24 to 48 hours, then would resume Lovenox. Plan: DVT prophylaxisLovenox (hold temporarily due to likely hemorrhoidal bleeding) continue on telemetry, ongoing close f/u. PT/OT eval and treat Admission and Anticipated Discharge Date Admission Date: January 10, 2021 Subjective Patient reports no new symptoms. Review of Systems Review of Systems: All systems reviewed & are unremarkable except as noted in HPI & below Physical Exam Physical Exam: General: WN/WN, awake, alert, no apparent distress resting in bed Head: Normocephalic, atraumatic ENT: PERRL, EOMI, no pharyngeal exudate, mucous membranes moist Neuro: AAO x 3, speech clear and appropriate, strength intact bilaterally 5/5, sensation intact and equal all extremities and dermatomes, no pronator drift Resp: CTAB, no w/r, on high flow. Cardiac: regular rhythm, tachycardic, S1/S2, no calf tenderness or edema, cap refill <3 seconds GI: +BS, soft, non-tender, no rebound, no guarding or rigidity Msk: moves all extremities, no focal deficit Skin: cool, dry, without obvious rash/erythema Psych AOx3, pleasant affect Results & Data Results & Data ([facility]) Vital Signs (Past 12 Hours) Vital Signs Temp Pulse Resp BP Pulse Ox 01/23/21 17:18 36.6 C 63 20 109/68 95 01/23/21 15:40 69 20 94 01/23/21 13:17 36.5 C 67 20 115/72 94 01/23/21 11:25 67 24 95 PG Care Time/CCT Total # of Minutes Spent Total Time Spent with Patient: Total time spent is greater than 50% in coordination of care (as documented) at patient's floor/unit and/or counseling patient: Coding Level of Care Code 43639 Subseq Hosp Care Lvl 2 Diagnoses COVID-19 U07.1 Tachycardia R00.0 SIRS (systemic inflammatory response syndrome) R65.10 Abnormal urinalysis R82.90 Cholelithiases K80.20 BPH (benign prostatic hyperplasia) N40.0 Hyperlipidemia E78.5 Hypertension I10 Hypertension type: essential hypertension Impaired fasting glucose R73.01 Carotid artery stenosis I65.29 Bright red blood per rectum K62.5 Time Spent (min) 25 (1) Hypertension Hypertension type: essential hypertension Qualified Code(s): I10 - Essential (primary) hypertension
[2021-01-24] MEDS: MoRPHine SULFATE 2 MG/ML CARP IV PRN (00:12)
[2021-01-24 05:48] LABS: BUN Creatinine Ratio 16.1 (10-20); Calcium 8.5 mg/dl (8.5-10.1); Creatinine Clr Calc Pharmacy 78.6 ml/min; Est GFR (African American) 87.8 ml/min; Est GFR (Non-African American) 75.8 ml/min; Magnesium 2.4 mg/dl (1.8-2.4); Phosphorus 3.9 mg/dl (2.5-4.9); Potassium 5.2 mmol/L (3.5-5.1)
[2021-01-24] MEDS: INSULIN ASPART 100 UNITS/ML 3 ML PEN SC SCH ×4 (08:00→21:05)
[2021-01-24] MEDS: POLYETHYLENE (MIRALAX) 17 GM PACK PO SCH ×2 (09:29→21:04)
[2021-01-24] MEDS: PANTOprazole 40 MG in SYRINGE 0 ML IV SCH ×2 (09:29→21:04)
[2021-01-24] MEDS: DOCUSATE SODIUM/SENNA 50/8.6MG TAB PO SCH (09:31)
[2021-01-24] MEDS: predniSONE 20 MG TAB PO SCH ×2 (09:31→21:04)
[2021-01-24] MEDS: METOPROLOL TARTRATE 50 MG TAB PO SCH ×2 (09:31→21:04)
[2021-01-24] MEDS: SULFA/TRIMETH 80/16MG/ML 320 MG in DEXTROSE 5% 500 ML IV SCH ×2 (09:33→17:45)
[2021-01-24] MEDS: ROSUVASTATIN CALCIUM 20 MG TAB PO SCH (12:21)
--- NOTE | 2021-01-24 17:04 | Pulmonology Progress Note ---
Date of Service January 24, 2021 Assessment & Plan (1) Acute hypoxemic respiratory failure: (2) Abnormal CT scan of lung: (3) Shortness of breath: (4) Dermatitis, unspecified: (5) Pneumocystis jiroveci pneumonia: Plan: Impression: 70-year-old male hospitalized since 01/10/2021. Status post Covid now with pneumocystis pneumonia. --Acute hypoxic respiratory failure Multifactorial Initially patient had Covid-19 He also had bronchoscopy done which was positive for PJP Currently on Bactrim for total of 21 days --> monitor creatinine as well as potassium Prednisone 40 mg twice daily for 5 days (completed) Followed by prednisone 20 mg twice daily for 5 days (last dose 01/24/2021) Followed by prednisone 20 mg daily for 11 days --Rash Status post skin biopsy Follow-up biopsy result Plan: Patient has made clinical improvement in oxygen requirement in the last couple of days Continue with gradually weaning oxygen to goal saturation around 89-90% Continue with treatment with Bactrim for 21 days Patient will be hyponatremic and hypokalemic because of the Bactrim. Would recommend symptomatic treatment with Kayexalate on an as-needed basis No further recommendation from pulmonary perspective. Please call directly with any questions We will sign off. Case was discussed with Dr. Kaminski Please note the above document was generated using voice recognition software. It may contain grammatical, syntax or spelling errors.Any formal questions or concerns about the content, text or information contained within the body of this dictation should be directly addressed to the provider for clarification. Admission and Anticipated Discharge Date Admission Date: January 10, 2021 Subjective Patient seen and examined at bedside. No acute distress, no adverse events overnight At the time of examination patient was saturating 93% on 35 L, 40% Is still complains of mild retrosternal chest pain which is no change Patient's EKG, CPK as well as troponin was negative yesterday with similar complaints His saturation is best when he is lying on the right side Fair appetite Denies any nausea or vomiting Review of Systems Review of Systems: All systems reviewed & are unremarkable except as noted in Subjective Physical Exam Physical Exam: Constitutional: No acute distress HEENT: EOMI, PERRLA Respiratory system: Decreased air entry bilaterally, no wheeze, rhonchi, positive crackles bilateral lower lobe CVS: S1-S2 positive, no murmurs or gallops Abdomen: Soft, nontender, nondistended, positive bowel sounds x4 Extremities: +2 pulses bilaterally radialis/ dorsalis pedis, no cyanosis, no edema Neuro: Awake alert oriented x3 Psych: Normal mood and affect G/U: No Ro Skin: no rashes, warm and dry Lymphatic: no cervical or axillary lymphadenopathy Results & Data Results & Data ([facility]) Vital Signs (Past 12 Hours) Vital Signs Temp Pulse Pulse Resp BP Pulse Ox 01/24/21 16:05 62 23 89 L 01/24/21 15:27 64 01/24/21 12:39 59 L 01/24/21 12:20 36.4 C L 62 24 119/63 93 01/24/21 11:17 57 L 14 96 01/24/21 07:57 36.3 C L 68 18 111/68 91 01/24/21 07:35 72 22 93 01/23/21 04:36 01/24/21 04:42 PG Care Time/CCT Total # of Minutes Spent Total Time Spent with Patient: Total time spent is greater than 50% in coordination of care (as documented) at patient's floor/unit and/or counseling patient: Coding Level of Care Code 99653 Subseq Hosp Care Lvl 2 Diagnoses Acute hypoxemic respiratory failure J96.[address] scan of lung R91.8 Shortness of breath R06.02 Dermatitis, unspecified L30.9 Pneumocystis jiroveci pneumonia B59
[2021-01-24] MEDS: HYDROCORTISONE HC 2.5% CRM 30GM TUBE EXT PRN (17:45)
[2021-01-24] MEDS: TAMSULOSIN HCL 0.4 MG CAP PO SCH (21:04)
--- NOTE | 2021-01-24 21:38 | Hospitalist Progress Note ---
Date of Service January 24, 2021 Assessment & Plan (1) COVID-19: Plan: Ongoing hypoxia and pulmonary changesworseningended up on ventilator - now off ventilator and doing better. Further work-upyields pneumocystis infectionstarted on Bactrim. Biopsy pending, still wondering if there could be a degree of vasculitis, and also certainly could have some degree of just post Covid fibrosis/scarring. Continue Bactrim, pulmonary slowly working on steroids. Continue supportive care. Patient continues to slowly improve on 01/24 transitioned his bactrim to IV due to GI intolerance. (2) Tachycardia: Plan: Improved (3) SIRS (systemic inflammatory response syndrome): Plan: See above (4) Abnormal urinalysis: Plan: Of unlikely significance (5) Cholelithiases: Plan: Outpatient follow-up (6) BPH (benign prostatic hyperplasia): Plan: mora out - follow voiding, no troubles at this time (7) Hyperlipidemia: Plan: Continue rosuvastatin (8) Hypertension: Plan: Blood pressure is acceptablecontinue to follow (9) Impaired fasting glucose: Plan: No diabetes, likely steroid effect, pharmacy glycemic assistance appreciated, although sugars have shown good control with no treatment (10) Carotid artery stenosis: Plan: Outpatient follow-up (11) Bright red blood per rectum: Plan: He suspects it is hemorrhoidal. His last colonoscopy was not quite 2 years ago, where he had a 5 mm sessile polyp in the transverse colon scattered small mouth diverticuli and some internal hemorrhoids. I tend to agree with his assessment, right now he is hemodynamically stable, but given that the hemorrhoids are continuing to bleed (and there is a small chance of it being a mild diverticular bleed) we will temporarily hold the Lovenox. Follow clinically, follow CBC (hemoglobin has been stable)if he continues to show hemodynamic stability over the next 24 to 48 hours, then would resume Lovenox. Plan: DVT prophylaxisLovenox (hold temporarily due to likely hemorrhoidal bleeding) continue on telemetry, ongoing close f/u. PT/OT eval and treat Admission and Anticipated Discharge Date Admission Date: January 10, 2021 Subjective Patient is resting comfortably. No new complaints. Review of Systems Review of Systems: All systems reviewed & are unremarkable except as noted in HPI & below Physical Exam Physical Exam: General: WN/WN, awake, alert, no apparent distress resting in bed Head: Normocephalic, atraumatic ENT: PERRL, EOMI, no pharyngeal exudate, mucous membranes moist Neuro: AAO x 3, speech clear and appropriate, strength intact bilaterally 5/5, sensation intact and equal all extremities and dermatomes, no pronator drift Resp: CTAB, no w/r, on high flow. Cardiac: regular rhythm, tachycardic, S1/S2, no calf tenderness or edema, cap refill <3 seconds GI: +BS, soft, non-tender, no rebound, no guarding or rigidity Msk: moves all extremities, no focal deficit Skin: cool, dry, without obvious rash/erythema Psych AOx3, pleasant affect Results & Data Results & Data ([facility]) Vital Signs (Past 12 Hours) Vital Signs Temp Pulse Pulse Resp BP BP Pulse Ox 01/24/21 20:38 63 20 95 01/24/21 19:28 36.9 C 64 22 117/71 92 01/24/21 17:00 36.5 C 73 22 121/77 91 01/24/21 16:05 62 23 89 L 01/24/21 15:27 64 01/24/21 12:39 59 L 01/24/21 12:20 36.4 C L 62 24 119/63 93 01/24/21 11:17 57 L 14 96 PG Care Time/CCT Total # of Minutes Spent Total Time Spent with Patient: Total time spent is greater than 50% in coordination of care (as documented) at patient's floor/unit and/or counseling patient: Coding Level of Care Code 99452 Subseq Hosp Care Lvl 2 Diagnoses COVID-19 U07.1 Tachycardia R00.0 SIRS (systemic inflammatory response syndrome) R65.10 Abnormal urinalysis R82.90 Cholelithiases K80.20 BPH (benign prostatic hyperplasia) N40.0 Hyperlipidemia E78.5 Hypertension I10 Hypertension type: essential hypertension Impaired fasting glucose R73.01 Carotid artery stenosis I65.29 Bright red blood per rectum K62.5 (1) Hypertension Hypertension type: essential hypertension Qualified Code(s): I10 - Essential (primary) hypertension
[2021-01-25] MEDS: SULFA/TRIMETH 80/16MG/ML 320 MG in DEXTROSE 5% 500 ML IV SCH ×3 (01:37→17:18)
[2021-01-25 05:59] LABS: Hematocrit (blood only) 35.5 % (42-52); Hemoglobin 12.9 g/dL (14.0-18.0); Mean Corpuscular Hemoglobin 34.5 pg (25-34); Mean Corpuscular Hgb Conc 36.3 g/dL (32-36); Mean Corpuscular Volume 94.9 fL (80-100); Platelet Count 360 K/uL (130-400); RDW Coefficient of Variation 13.2 % (11.5-14.5); RDW Standard Deviation 45.9 fL (36.4-46.3); Red Blood Count 3.74 M/uL (4.7-6.1); White Blood Count 13.46 K/uL (4.8-10.8)
[2021-01-25 06:26] LABS: BUN Creatinine Ratio 20.2 (10-20); Calcium 8.5 mg/dl (8.5-10.1); Creatinine Clr Calc Pharmacy 82.1 ml/min; Est GFR (African American) 93.5 ml/min; Est GFR (Non-African American) 80.7 ml/min; Potassium 4.9 mmol/L (3.5-5.1)
[2021-01-25] MEDS: INSULIN ASPART 100 UNITS/ML 3 ML PEN SC SCH ×4 (07:41→20:29)
[2021-01-25] MEDS: ASPIRIN 81 MG CHEW PO SCH (07:44)
[2021-01-25] MEDS: DOCUSATE SODIUM/SENNA 50/8.6MG TAB PO SCH (07:44)
[2021-01-25] MEDS: predniSONE 20 MG TAB PO SCH (07:44)
[2021-01-25] MEDS: PANTOprazole 40 MG in SYRINGE 0 ML IV SCH ×2 (07:44→20:29)
[2021-01-25] MEDS: METOPROLOL TARTRATE 50 MG TAB PO SCH ×2 (07:44→20:29)
[2021-01-25] MEDS: POLYETHYLENE (MIRALAX) 17 GM PACK PO SCH ×2 (07:45→20:29)
--- NOTE | 2021-01-25 08:53 | Electrocardiogram Report ---
Test Reason : Blood Pressure : / mmHG Vent. Rate : 063 BPM Atrial Rate : 063 BPM P-R Int : 146 ms QRS Dur : 096 ms QT Int : 430 ms P-R-T Axes : 029 015 036 degrees QTc Int : 440 ms Normal sinus rhythm Minimal voltage criteria for LVH, may be normal variant Nondiagnostic lateral Q waves Borderline ECG When compared with ECG of 23-JAN-2021 14:04, No significant change was found Confirmed by Graeme Lang [id number] on 01/25/2021 8:53:04 AM Referred By: REFERRED SELF Confirmed By:Graeme Lang
[2021-01-25] MEDS: ROSUVASTATIN CALCIUM 20 MG TAB PO SCH (11:35)
[2021-01-25] MEDS: TAMSULOSIN HCL 0.4 MG CAP PO SCH (20:30)
--- NOTE | 2021-01-25 20:55 | Hospitalist Progress Note ---
Date of Service January 25, 2021 Assessment & Plan (1) Pneumocystis jiroveci pneumonia: Plan: Ongoing hypoxia and pulmonary changesworseningended up on ventilator - now off ventilator and doing better. Further work-upyields pneumocystis infectionstarted on Bactrim. Biopsy pending, still wondering if there could be a degree of vasculitis, and also certainly could have some degree of just post Covid fibrosis/scarring. Continue Bactrim, pulmonary slowly working on steroids. Continue supportive care. Patient continues to slowly improve on 01/25 High flow improved to 30L from 35. FIO2 also decreased to 40 from 45. transitioned his bactrim to IV due to GI intolerance. (2) COVID-19: Plan: as above (3) Tachycardia: Plan: Improved (4) SIRS (systemic inflammatory response syndrome): Plan: See above (5) Abnormal urinalysis: Plan: Of unlikely significance (6) Cholelithiases: Plan: Outpatient follow-up (7) BPH (benign prostatic hyperplasia): Plan: mora out - follow voiding, no troubles at this time (8) Hyperlipidemia: Plan: Continue rosuvastatin (9) Hypertension: Plan: Blood pressure is acceptablecontinue to follow (10) Impaired fasting glucose: Plan: No diabetes, likely steroid effect, pharmacy glycemic assistance appreciated, although sugars have shown good control with no treatment (11) Carotid artery stenosis: Plan: Outpatient follow-up (12) Bright red blood per rectum: Plan: He suspects it is hemorrhoidal. His last colonoscopy was not quite 2 years ago, where he had a 5 mm sessile polyp in the transverse colon scattered small mouth diverticuli and some internal hemorrhoids. I tend to agree with his assessment, right now he is hemodynamically stable, but given that the hemorrhoids are continuing to bleed (and there is a small chance of it being a mild diverticular bleed) we will temporarily hold the Lovenox. Follow clinically, follow CBC (hemoglobin has been stable)if he continues to show hemodynamic stability over the next 24 to 48 hours, then would resume Lovenox. Plan: DVT prophylaxisLovenox (hold temporarily due to likely hemorrhoidal bleeding) continue on telemetry, ongoing close f/u. PT/OT eval and treat Admission and Anticipated Discharge Date Admission Date: January 10, 2021 Subjective Patient reports no new symptoms. Review of Systems Review of Systems: All systems reviewed & are unremarkable except as noted in HPI & below Physical Exam Physical Exam: General: WN/WN, awake, alert, no apparent distress resting in bed Head: Normocephalic, atraumatic ENT: PERRL, EOMI, no pharyngeal exudate, mucous membranes moist Neuro: AAO x 3, speech clear and appropriate, strength intact bilaterally 5/5, sensation intact and equal all extremities and dermatomes, no pronator drift Resp: CTAB, no w/r, on high flow. Cardiac: regular rhythm, tachycardic, S1/S2, no calf tenderness or edema, cap refill <3 seconds GI: +BS, soft, non-tender, no rebound, no guarding or rigidity Msk: moves all extremities, no focal deficit Skin: cool, dry, without obvious rash/erythema Psych AOx3, pleasant affect Results & Data Results & Data ([facility]) Vital Signs (Past 12 Hours) Vital Signs Temp Pulse Pulse Resp BP Pulse Ox 01/25/21 16:00 62 01/25/21 15:19 36.7 C 60 13 108/63 92 01/25/21 11:31 36.6 C 60 20 123/74 97 01/25/21 11:29 60 22 94 01/25/21 10:00 61 PG Care Time/CCT Total # of Minutes Spent Total Time Spent with Patient: Total time spent is greater than 50% in coordination of care (as documented) at patient's floor/unit and/or counseling patient: Coding Level of Care Code 26525 Subseq Hosp Care Lvl 2 Diagnoses COVID-19 U07.1 Tachycardia R00.0 SIRS (systemic inflammatory response syndrome) R65.10 Abnormal urinalysis R82.90 Cholelithiases K80.20 BPH (benign prostatic hyperplasia) N40.0 Hyperlipidemia E78.5 Hypertension I10 Hypertension type: essential hypertension Impaired fasting glucose R73.01 Carotid artery stenosis I65.29 Bright red blood per rectum K62.5 Pneumocystis jiroveci pneumonia B59 (1) Hypertension Hypertension type: essential hypertension Qualified Code(s): I10 - Essential (primary) hypertension
[2021-01-26] MEDS: SULFA/TRIMETH 80/16MG/ML 320 MG in DEXTROSE 5% 500 ML IV SCH ×3 (01:20→16:58)
[2021-01-26 06:18] LABS: BUN Creatinine Ratio 17.4 (10-20); Calcium 8.4 mg/dl (8.5-10.1); Creatinine Clr Calc Pharmacy 80.4 ml/min; Est GFR (African American) 91.2 ml/min; Est GFR (Non-African American) 78.7 ml/min; Potassium 3.9 mmol/L (3.5-5.1)
[2021-01-26] MEDS: METOPROLOL TARTRATE 50 MG TAB PO SCH ×2 (07:49→20:01)
[2021-01-26] MEDS: predniSONE 20 MG TAB PO SCH (07:49)
[2021-01-26] MEDS: POLYETHYLENE (MIRALAX) 17 GM PACK PO SCH ×2 (07:50→20:02)
[2021-01-26] MEDS: DOCUSATE SODIUM/SENNA 50/8.6MG TAB PO SCH (07:50)
[2021-01-26] MEDS: PANTOprazole 40 MG in SYRINGE 0 ML IV SCH ×2 (07:50→20:01)
[2021-01-26] MEDS: INSULIN ASPART 100 UNITS/ML 3 ML PEN SC SCH ×4 (07:52→21:31)
[2021-01-26] MEDS: ROSUVASTATIN CALCIUM 20 MG TAB PO SCH (12:01)
[2021-01-26] MEDS: TAMSULOSIN HCL 0.4 MG CAP PO SCH (20:02)
--- NOTE | 2021-01-26 22:08 | Hospitalist Progress Note ---
Date of Service January 26, 2021 Assessment & Plan (1) Pneumocystis jiroveci pneumonia: Plan: Ongoing hypoxia and pulmonary changesworseningended up on ventilator - now off ventilator and doing better. Further work-upyields pneumocystis infectionstarted on Bactrim. Biopsy pending, still wondering if there could be a degree of vasculitis, and also certainly could have some degree of just post Covid fibrosis/scarring. Continue Bactrim, pulmonary slowly working on steroids. Continue supportive care. Patient continues to slowly improve on 01/25 High flow improved to 8L. transitioned his bactrim to IV due to GI intolerance. will continue to monitor. (2) COVID-19: Plan: as above (3) Tachycardia: Plan: Improved (4) SIRS (systemic inflammatory response syndrome): Plan: See above (5) Abnormal urinalysis: Plan: Of unlikely significance (6) Cholelithiases: Plan: Outpatient follow-up (7) BPH (benign prostatic hyperplasia): Plan: mora out - follow voiding, no troubles at this time (8) Hyperlipidemia: Plan: Continue rosuvastatin (9) Hypertension: Plan: Blood pressure is acceptablecontinue to follow (10) Impaired fasting glucose: Plan: No diabetes, likely steroid effect, pharmacy glycemic assistance appreciated, although sugars have shown good control with no treatment (11) Carotid artery stenosis: Plan: Outpatient follow-up (12) Bright red blood per rectum: Plan: He suspects it is hemorrhoidal. His last colonoscopy was not quite 2 years ago, where he had a 5 mm sessile polyp in the transverse colon scattered small mouth diverticuli and some internal hemorrhoids. I tend to agree with his assessment, right now he is hemodynamically stable, but given that the hemorrhoids are continuing to bleed (and there is a small chance of it being a mild diverticular bleed) we will temporarily hold the Lovenox. Follow clinically, follow CBC (hemoglobin has been stable)if he continues to show hemodynamic stability over the next 24 to 48 hours, then would resume Lovenox. Plan: DVT prophylaxisLovenox (hold temporarily due to likely hemorrhoidal bleeding) continue on telemetry, ongoing close f/u. PT/OT eval and treat Admission and Anticipated Discharge Date Admission Date: January 10, 2021 Subjective Patient reports no new symptoms Patient reports having decreased appetite Review of Systems Review of Systems: All systems reviewed & are unremarkable except as noted in HPI & below Physical Exam Physical Exam: General: WN/WN, awake, alert, no apparent distress resting in bed Head: Normocephalic, atraumatic ENT: PERRL, EOMI, no pharyngeal exudate, mucous membranes moist Neuro: AAO x 3, speech clear and appropriate, strength intact bilaterally 5/5, sensation intact and equal all extremities and dermatomes, no pronator drift Resp: CTAB, no w/r, on high flow. Cardiac: regular rhythm, tachycardic, S1/S2, no calf tenderness or edema, cap refill <3 seconds GI: +BS, soft, non-tender, no rebound, no guarding or rigidity Msk: moves all extremities, no focal deficit Skin: cool, dry, without obvious rash/erythema Psych AOx3, pleasant affect Results & Data Results & Data ([facility]) Vital Signs (Past 12 Hours) Vital Signs Temp Pulse Pulse Resp BP BP Pulse Ox 01/26/21 20:07 36.4 C L 60 18 98/67 L 96 01/26/21 16:00 60 01/26/21 15:36 36.7 C 60 24 91/64 L 92 01/26/21 10:50 59 L 16 94 PG Care Time/CCT Total # of Minutes Spent Total Time Spent with Patient: Total time spent is greater than 50% in coordination of care (as documented) at patient's floor/unit and/or counseling patient: Coding Level of Care Code 99474 Subseq Hosp Care Lvl 2 Diagnoses Pneumocystis jiroveci pneumonia B59 COVID-19 U07.1 Tachycardia R00.0 SIRS (systemic inflammatory response syndrome) R65.10 Abnormal urinalysis R82.90 Cholelithiases K80.20 BPH (benign prostatic hyperplasia) N40.0 Hyperlipidemia E78.5 Hypertension I10 Hypertension type: essential hypertension Impaired fasting glucose R73.01 Carotid artery stenosis I65.29 Bright red blood per rectum K62.5 (1) Hypertension Hypertension type: essential hypertension Qualified Code(s): I10 - Essential (primary) hypertension
[2021-01-27] MEDS: SULFA/TRIMETH 80/16MG/ML 320 MG in DEXTROSE 5% 500 ML IV SCH ×3 (01:10→16:59)
[2021-01-27 06:50] LABS: BUN Creatinine Ratio 14.2 (10-20); Calcium 8.1 mg/dl (8.5-10.1); Creatinine Clr Calc Pharmacy 89.8 ml/min; Est GFR (African American) 99.9 ml/min; Est GFR (Non-African American) 86.2 ml/min; Potassium 4.2 mmol/L (3.5-5.1)
[2021-01-27] MEDS: PANTOprazole 40 MG in SYRINGE 0 ML IV SCH ×2 (08:28→20:20)
[2021-01-27] MEDS: ASPIRIN 81 MG CHEW PO SCH (08:29)
[2021-01-27] MEDS: predniSONE 20 MG TAB PO SCH (08:29)
[2021-01-27] MEDS: INSULIN ASPART 100 UNITS/ML 3 ML PEN SC SCH ×4 (08:31→20:34)
[2021-01-27] MEDS: POLYETHYLENE (MIRALAX) 17 GM PACK PO SCH ×2 (08:34→20:20)
[2021-01-27] MEDS: DOCUSATE SODIUM/SENNA 50/8.6MG TAB PO SCH (08:34)
[2021-01-27] MEDS: METOPROLOL TARTRATE 50 MG TAB PO SCH ×2 (10:12→20:21)
[2021-01-27] MEDS: ROSUVASTATIN CALCIUM 20 MG TAB PO SCH (12:16)
[2021-01-27] MEDS: SODIUM CHLORIDE 1 GM TABLET PO SCH (13:40)
[2021-01-27] MEDS: ENOXAPARIN INJ 40 MG/0.4 ML SYR SQ SCH (16:59)
[2021-01-27] MEDS: TAMSULOSIN HCL 0.4 MG CAP PO SCH (20:21)
--- NOTE | 2021-01-27 20:29 | Hospitalist Progress Note ---
Date of Service January 27, 2021 Assessment & Plan (1) Pneumocystis jiroveci pneumonia: Plan: Ongoing hypoxia and pulmonary changesworseningended up on ventilator - now off ventilator and doing better. Further work-upyields pneumocystis infectionstarted on Bactrim. Biopsy pending, still wondering if there could be a degree of vasculitis, and also certainly could have some degree of just post Covid fibrosis/scarring. Continue Bactrim, pulmonary slowly working on steroids. Continue supportive care. Patient continues to slowly improve on 01/25 High flow improved to 8L. transitioned his bactrim to IV due to GI intolerance. will continue to monitor. (2) COVID-19: Plan: as above (3) Tachycardia: Plan: Improved (4) SIRS (systemic inflammatory response syndrome): Plan: See above (5) Abnormal urinalysis: Plan: Of unlikely significance (6) Cholelithiases: Plan: Outpatient follow-up (7) BPH (benign prostatic hyperplasia): Plan: mora out - follow voiding, no troubles at this time (8) Hyperlipidemia: Plan: Continue rosuvastatin (9) Hypertension: Plan: Blood pressure is acceptablecontinue to follow (10) Impaired fasting glucose: Plan: No diabetes, likely steroid effect, pharmacy glycemic assistance appreciated, although sugars have shown good control with no treatment (11) Carotid artery stenosis: Plan: Outpatient follow-up (12) Bright red blood per rectum: Plan: He suspects it is hemorrhoidal. His last colonoscopy was not quite 2 years ago, where he had a 5 mm sessile polyp in the transverse colon scattered small mouth diverticuli and some internal hemorrhoids. I tend to agree with his assessment, right now he is hemodynamically stable, but given that the hemorrhoids are continuing to bleed (and there is a small chance of it being a mild diverticular bleed) we will temporarily hold the Lovenox. Follow clinically, follow CBC (hemoglobin has been stable)if he continues to show hemodynamic stability over the next 24 to 48 hours, then would resume Lovenox. On 01/27 no bleeding for past 72 hours, will resume lovenox. Plan: DVT prophylaxisLovenox (hold temporarily due to likely hemorrhoidal bleeding) continue on telemetry, ongoing close f/u. PT/OT eval and treat Admission and Anticipated Discharge Date Admission Date: January 10, 2021 Subjective 70 yo male reports feeling better. Now on 6 liter nasal cannula Review of Systems Review of Systems: All systems reviewed & are unremarkable except as noted in HPI & below Physical Exam Physical Exam: General: WN/WN, awake, alert, no apparent distress resting in bed Head: Normocephalic, atraumatic ENT: PERRL, EOMI, no pharyngeal exudate, mucous membranes moist Neuro: AAO x 3, speech clear and appropriate, strength intact bilaterally 5/5, sensation intact and equal all extremities and dermatomes, no pronator drift Resp: CTAB, no w/r, on high flow. Cardiac: regular rhythm, tachycardic, S1/S2, no calf tenderness or edema, cap refill <3 seconds GI: +BS, soft, non-tender, no rebound, no guarding or rigidity Msk: moves all extremities, no focal deficit Skin: cool, dry, without obvious rash/erythema Psych AOx3, pleasant affect Results & Data Results & Data ([facility]) Vital Signs (Past 12 Hours) Vital Signs Temp Pulse Pulse Pulse Resp BP Pulse Ox 01/27/21 14:45 36.3 C L 62 22 115/73 97 01/27/21 12:00 36.7 C 63 16 115/68 93 01/27/21 09:00 68 PG Care Time/CCT Total # of Minutes Spent Total Time Spent with Patient: Total time spent is greater than 50% in coordination of care (as documented) at patient's floor/unit and/or counseling patient: Coding Level of Care Code 21801 Subseq Hosp Care Lvl 2 Diagnoses Pneumocystis jiroveci pneumonia B59 COVID-19 U07.1 Tachycardia R00.0 SIRS (systemic inflammatory response syndrome) R65.10 Abnormal urinalysis R82.90 Cholelithiases K80.20 BPH (benign prostatic hyperplasia) N40.0 Hyperlipidemia E78.5 Hypertension I10 Hypertension type: essential hypertension Impaired fasting glucose R73.01 Carotid artery stenosis I65.29 Bright red blood per rectum K62.5 Time Spent (min) 25 (1) Hypertension Hypertension type: essential hypertension Qualified Code(s): I10 - Essential (primary) hypertension
[2021-01-28] MEDS: SULFA/TRIMETH 80/16MG/ML 320 MG in DEXTROSE 5% 500 ML IV SCH ×3 (01:46→18:19)
[2021-01-28 07:10] LABS: BUN Creatinine Ratio 15.1 (10-20); Calcium 8.4 mg/dl (8.5-10.1); Creatinine Clr Calc Pharmacy 88.8 ml/min; Est GFR (African American) 99.5 ml/min; Est GFR (Non-African American) 85.8 ml/min; Potassium 4.2 mmol/L (3.5-5.1)
[2021-01-28] MEDS: METOPROLOL TARTRATE 50 MG TAB PO SCH ×2 (09:28→21:07)
[2021-01-28] MEDS: DOCUSATE SODIUM/SENNA 50/8.6MG TAB PO SCH (09:28)
[2021-01-28] MEDS: SODIUM CHLORIDE 1 GM TABLET PO SCH (09:28)
[2021-01-28] MEDS: predniSONE 20 MG TAB PO SCH (09:28)
[2021-01-28] MEDS: POLYETHYLENE (MIRALAX) 17 GM PACK PO SCH ×2 (09:28→21:07)
[2021-01-28] MEDS: PANTOprazole 40 MG in SYRINGE 0 ML IV SCH ×2 (09:28→21:07)
[2021-01-28] MEDS: LANSOPRAZOLE 30 MG SOLTAB PO SCH (09:29)
[2021-01-28] MEDS: INSULIN ASPART 100 UNITS/ML 3 ML PEN SC SCH ×4 (09:31→21:00)
[2021-01-28] MEDS: ALBUTEROL HFA 8 GM INHALER INH PRN (09:55)
[2021-01-28] MEDS: ROSUVASTATIN CALCIUM 20 MG TAB PO SCH (12:48)
[2021-01-28] MEDS: ENOXAPARIN INJ 40 MG/0.4 ML SYR SQ SCH (16:10)
[2021-01-28] MEDS: TAMSULOSIN HCL 0.4 MG CAP PO SCH (21:07)
--- NOTE | 2021-01-28 21:20 | Hospitalist Progress Note ---
Date of Service January 28, 2021 Assessment & Plan (1) Pneumocystis jiroveci pneumonia: Plan: Ongoing hypoxia and pulmonary changesworseningended up on ventilator - now off ventilator and doing better. Further work-upyields pneumocystis infectionstarted on Bactrim. Biopsy pending, still wondering if there could be a degree of vasculitis, and also certainly could have some degree of just post Covid fibrosis/scarring. Continue Bactrim, pulmonary slowly working on steroids. Continue supportive care. Patient continues to slowly improve on 01/25 High flow improved to 5 liters nasal cannula. transitioned his bactrim to IV due to GI intolerance. will continue to monitor. Patient will need to get an ultrasound guided peripheral line for bactrim as he does not tolerate oral. (2) COVID-19: Plan: as above (3) Tachycardia: Plan: Improved (4) SIRS (systemic inflammatory response syndrome): Plan: See above (5) Abnormal urinalysis: Plan: Of unlikely significance (6) Cholelithiases: Plan: Outpatient follow-up (7) BPH (benign prostatic hyperplasia): Plan: mora out - follow voiding, no troubles at this time (8) Hyperlipidemia: Plan: Continue rosuvastatin (9) Hypertension: Plan: Blood pressure is acceptablecontinue to follow (10) Impaired fasting glucose: Plan: No diabetes, likely steroid effect, pharmacy glycemic assistance appreciated, although sugars have shown good control with no treatment (11) Carotid artery stenosis: Plan: Outpatient follow-up (12) Bright red blood per rectum: Plan: He suspects it is hemorrhoidal. His last colonoscopy was not quite 2 years ago, where he had a 5 mm sessile polyp in the transverse colon scattered small mouth diverticuli and some internal hemorrhoids. I tend to agree with his assessment, right now he is hemodynamically stable, but given that the hemorrhoids are continuing to bleed (and there is a small chance of it being a mild diverticular bleed) we will temporarily hold the Lovenox. Follow clinically, follow CBC (hemoglobin has been stable)if he continues to show hemodynamic stability over the next 24 to 48 hours, then would resume Lovenox. On 01/27 no bleeding for past 72 hours, will resume lovenox. Plan: DVT prophylaxisLovenox (hold temporarily due to likely hemorrhoidal bleeding) continue on telemetry, ongoing close f/u. PT/OT eval and treat Admission and Anticipated Discharge Date Admission Date: January 10, 2021 Subjective Patient is a 70 yo male, reports he still gets sob when walking to the bathroom. However, he is doing better and is now on 5 liters nasal cannula Review of Systems Review of Systems: All systems reviewed & are unremarkable except as noted in HPI & below Physical Exam Physical Exam: General: WN/WN, awake, alert, no apparent distress resting in bed Head: Normocephalic, atraumatic ENT: PERRL, EOMI, no pharyngeal exudate, mucous membranes moist Neuro: AAO x 3, speech clear and appropriate, strength intact bilaterally 5/5, sensation intact and equal all extremities and dermatomes, no pronator drift Resp: CTAB, no w/r, on high flow. Cardiac: regular rhythm, tachycardic, S1/S2, no calf tenderness or edema, cap refill <3 seconds GI: +BS, soft, non-tender, no rebound, no guarding or rigidity Msk: moves all extremities, no focal deficit Skin: cool, dry, without obvious rash/erythema Psych AOx3, pleasant affect Results & Data Results & Data ([facility]) Vital Signs (Past 12 Hours) Vital Signs Temp Pulse Pulse Resp BP BP Pulse Ox 01/28/21 21:03 64 110/64 01/28/21 14:42 36.2 C L 65 16 120/73 95 01/28/21 09:56 72 16 92 PG Care Time/CCT Total # of Minutes Spent Total Time Spent with Patient: Total time spent is greater than 50% in coordination of care (as documented) at patient's floor/unit and/or counseling patient: Coding Level of Care Code 92049 Subseq Hosp Care Lvl 2 Diagnoses Pneumocystis jiroveci pneumonia B59 COVID-19 U07.1 Tachycardia R00.0 SIRS (systemic inflammatory response syndrome) R65.10 Abnormal urinalysis R82.90 Cholelithiases K80.20 BPH (benign prostatic hyperplasia) N40.0 Hyperlipidemia E78.5 Hypertension I10 Hypertension type: essential hypertension Impaired fasting glucose R73.01 Carotid artery stenosis I65.29 Bright red blood per rectum K62.5 Time Spent (min) 25 (1) Hypertension Hypertension type: essential hypertension Qualified Code(s): I10 - Essential (primary) hypertension
[2021-01-29] MEDS: SULFA/TRIMETH 80/16MG/ML 320 MG in DEXTROSE 5% 500 ML IV SCH ×3 (01:15→17:38)
[2021-01-29] MEDS: INSULIN ASPART 100 UNITS/ML 3 ML PEN SC SCH ×4 (08:37→20:45)
[2021-01-29 08:40] LABS: BUN Creatinine Ratio 12.6 (10-20); Calcium 8.1 mg/dl (8.5-10.1); Creatinine Clr Calc Pharmacy 96.5 ml/min; Est GFR (African American) 102.9 ml/min; Est GFR (Non-African American) 88.8 ml/min; Potassium 3.9 mmol/L (3.5-5.1)
[2021-01-29] MEDS: DOCUSATE SODIUM/SENNA 50/8.6MG TAB PO SCH (09:33)
[2021-01-29] MEDS: PANTOprazole 40 MG in SYRINGE 0 ML IV SCH ×2 (09:33→21:40)
[2021-01-29] MEDS: LANSOPRAZOLE 30 MG SOLTAB PO SCH (09:33)
[2021-01-29] MEDS: METOPROLOL TARTRATE 50 MG TAB PO SCH ×2 (09:34→21:40)
[2021-01-29] MEDS: predniSONE 20 MG TAB PO SCH (09:35)
[2021-01-29] MEDS: SODIUM CHLORIDE 1 GM TABLET PO SCH (09:35)
[2021-01-29] MEDS: HYDROCORTISONE HC 2.5% CRM 30GM TUBE EXT PRN (09:40)
[2021-01-29] MEDS: POLYETHYLENE (MIRALAX) 17 GM PACK PO SCH ×2 (09:47→21:40)
[2021-01-29] MEDS: ROSUVASTATIN CALCIUM 20 MG TAB PO SCH (10:29)
[2021-01-29] MEDS: ENOXAPARIN INJ 40 MG/0.4 ML SYR SQ SCH (16:12)
[2021-01-29] MEDS: ALBUTEROL HFA 8 GM INHALER INH PRN (18:04)
[2021-01-29] MEDS: TAMSULOSIN HCL 0.4 MG CAP PO SCH (21:40)
--- NOTE | 2021-01-29 21:45 | Hospitalist Progress Note ---
Date of Service January 29, 2021 Assessment & Plan (1) Pneumocystis jiroveci pneumonia: Plan: Ongoing hypoxia and pulmonary changesworseningended up on ventilator - now off ventilator and doing better. Further work-upyields pneumocystis infection started on Bactrim: morning of 01/21. will need 3 weeks total Biopsy pending, still wondering if there could be a degree of vasculitis, and also certainly could have some degree of just post Covid fibrosis/scarring. Continue Bactrim, pulmonary slowly working on steroids. Continue supportive care. Patient continues to slowly improve on 01/29 High flow improved to 5 liters nasal cannula. transitioned his bactrim to IV due to GI intolerance. will continue to monitor. Patient will need to get an ultrasound guided peripheral line for bactrim as he does not tolerate oral. (2) COVID-19: Plan: as above (3) Tachycardia: Plan: Improved (4) SIRS (systemic inflammatory response syndrome): Plan: See above (5) Abnormal urinalysis: Plan: Of unlikely significance (6) Cholelithiases: Plan: Outpatient follow-up (7) BPH (benign prostatic hyperplasia): Plan: mora out - follow voiding, no troubles at this time (8) Hyperlipidemia: Plan: Continue rosuvastatin (9) Hypertension: Plan: Blood pressure is acceptablecontinue to follow (10) Impaired fasting glucose: Plan: No diabetes, likely steroid effect, pharmacy glycemic assistance appreciated, although sugars have shown good control with no treatment (11) Carotid artery stenosis: Plan: Outpatient follow-up (12) Bright red blood per rectum: Plan: He suspects it is hemorrhoidal. His last colonoscopy was not quite 2 years ago, where he had a 5 mm sessile polyp in the transverse colon scattered small mouth diverticuli and some internal hemorrhoids. I tend to agree with his assessment, right now he is hemodynamically stable, but given that the hemorrhoids are continuing to bleed (and there is a small chance of it being a mild diverticular bleed) we will temporarily hold the Lovenox. Follow clinically, follow CBC (hemoglobin has been stable)if he continues to show hemodynamic stability over the next 24 to 48 hours, then would resume Lovenox. On 01/27: no bleeding for past 72 hours, will resume lovenox. Plan: DVT prophylaxisLovenox continue on telemetry, ongoing close f/u. PT/OT eval and treat Pending placement Admission and Anticipated Discharge Date Admission Date: January 10, 2021 Subjective Patient reports having SOB on exertion with pleuritic chest pain on deep exertion. Review of Systems Review of Systems: All systems reviewed & are unremarkable except as noted in HPI & below Physical Exam Physical Exam: General: WN/WN, awake, alert, no apparent distress resting in bed Head: Normocephalic, atraumatic ENT: PERRL, EOMI, no pharyngeal exudate, mucous membranes moist Neuro: AAO x 3, speech clear and appropriate, strength intact bilaterally 5/5, sensation intact and equal all extremities and dermatomes, no pronator drift Resp: CTAB, no w/r, on high flow. Cardiac: regular rhythm, tachycardic, S1/S2, no calf tenderness or edema, cap refill <3 seconds GI: +BS, soft, non-tender, no rebound, no guarding or rigidity Msk: moves all extremities, no focal deficit Skin: cool, dry, without obvious rash/erythema Psych AOx3, pleasant affect Results & Data Results & Data ([facility]) Vital Signs (Past 12 Hours) Vital Signs Temp Pulse Resp BP Pulse Ox 01/29/21 18:05 76 16 93 01/29/21 15:52 36.5 C 66 16 110/64 95 PG Care Time/CCT Total # of Minutes Spent Total Time Spent with Patient: Total time spent is greater than 50% in coordination of care (as documented) at patient's floor/unit and/or counseling patient: Coding Level of Care Code 13546 Subseq Hosp Care Lvl 2 Diagnoses Pneumocystis jiroveci pneumonia B59 COVID-19 U07.1 Tachycardia R00.0 SIRS (systemic inflammatory response syndrome) R65.10 Abnormal urinalysis R82.90 Cholelithiases K80.20 BPH (benign prostatic hyperplasia) N40.0 Hyperlipidemia E78.5 Hypertension I10 Hypertension type: essential hypertension Impaired fasting glucose R73.01 Carotid artery stenosis I65.29 Bright red blood per rectum K62.5 (1) Hypertension Hypertension type: essential hypertension Qualified Code(s): I10 - Essential (primary) hypertension
[2021-01-30] MEDS: SULFA/TRIMETH 80/16MG/ML 320 MG in DEXTROSE 5% 500 ML IV SCH ×3 (00:59→16:35)
[2021-01-30 07:51] LABS: Hematocrit (blood only) 32.7 % (42-52); Hemoglobin 11.9 g/dL (14.0-18.0); Mean Corpuscular Hemoglobin 34.9 pg (25-34); Mean Corpuscular Hgb Conc 36.4 g/dL (32-36); Mean Corpuscular Volume 95.9 fL (80-100); Platelet Count 267 K/uL (130-400); RDW Coefficient of Variation 13.7 % (11.5-14.5); RDW Standard Deviation 47.7 fL (36.4-46.3); Red Blood Count 3.41 M/uL (4.7-6.1); White Blood Count 9.48 K/uL (4.8-10.8)
[2021-01-30 08:25] LABS: BUN Creatinine Ratio 12.6 (10-20); Calcium 7.8 mg/dl (8.5-10.1); Creatinine Clr Calc Pharmacy 94.1 ml/min; Est GFR (African American) 101.9 ml/min; Est GFR (Non-African American) 87.9 ml/min
[2021-01-30] MEDS: ASPIRIN 81 MG CHEW PO SCH (09:05)
[2021-01-30] MEDS: METOPROLOL TARTRATE 50 MG TAB PO SCH ×2 (09:06→21:09)
[2021-01-30] MEDS: LANSOPRAZOLE 30 MG SOLTAB PO SCH (09:06)
[2021-01-30] MEDS: PANTOprazole 40 MG in SYRINGE 0 ML IV SCH ×2 (09:08→21:10)
[2021-01-30] MEDS: POLYETHYLENE (MIRALAX) 17 GM PACK PO SCH ×2 (09:11→21:16)
[2021-01-30] MEDS: DOCUSATE SODIUM/SENNA 50/8.6MG TAB PO SCH (09:11)
[2021-01-30] MEDS: INSULIN ASPART 100 UNITS/ML 3 ML PEN SC SCH ×4 (09:16→22:19)
[2021-01-30] MEDS: predniSONE 20 MG TAB PO SCH (09:18)
[2021-01-30] MEDS: SODIUM CHLORIDE 1 GM TABLET PO SCH (09:18)
[2021-01-30] MEDS ORDERED: MELATONIN 3 MG TAB PO PRN (10:12)
[2021-01-30] MEDS: ROSUVASTATIN CALCIUM 20 MG TAB PO SCH (12:45)
[2021-01-30] MEDS: ENOXAPARIN INJ 40 MG/0.4 ML SYR SQ SCH (16:35)
--- NOTE | 2021-01-30 17:55 | Hospitalist Progress Note ---
Date of Service January 30, 2021 Assessment & Plan (1) Pneumocystis jiroveci pneumonia: Plan: Acute hypoxic respiratory failure 2/2 to improving Covid with superimposed pneumocystis Jarecki pneumonia Ongoing hypoxia and pulmonary changesworseningended up on ventilator - now off ventilator and doing better. HIV negative started on Bactrim: morning of 01/21. will need 3 weeks total -Biopsy pending, still wondering if there could be a degree of vasculitis, and also certainly could have some degree of just post Covid fibrosis/scarring. -Steroid per pulmonology. Prednisone 20 mg twice daily until 01/24, prednisone 20 mg daily -High flow improved to 5 liters nasal cannula. -transitioned his bactrim to IV due to GI intolerance. -will continue to monitor. -Patient will need to get an ultrasound guided peripheral line prior to dischargefor bactrim as he does not tolerate oral. (2) COVID-19: Plan: as above (3) Tachycardia: Plan: Improved (4) SIRS (systemic inflammatory response syndrome): Plan: See above (5) Abnormal urinalysis: Plan: Of unlikely significance (6) Cholelithiases: Plan: Outpatient follow-up (7) BPH (benign prostatic hyperplasia): Plan: mora out - follow voiding, no troubles at this time (8) Hyperlipidemia: Plan: Continue rosuvastatin (9) Hypertension: Plan: Blood pressure is acceptablecontinue to follow (10) Impaired fasting glucose: Plan: No diabetes, likely steroid effect, pharmacy glycemic assistance appreciated, although sugars have shown good control with no treatment (11) Carotid artery stenosis: Plan: Outpatient follow-up (12) Bright red blood per rectum: Plan: last colonoscopy was not quite 2 years ago, where he had a 5 mm sessile polyp in the transverse colon scattered small mouth diverticuli and some internal hemorrhoids. -Lovenox initially held, resumed as hemoglobin stable Continue Lovenox DVT prophylaxis Follow clinically, outpatient GI follow-up Plan: DVT prophylaxisLovenox continue on telemetry, ongoing close f/u. PT/OT eval and treat Pending placement Admission and Anticipated Discharge Date Admission Date: January 10, 2021 Subjective Continues to have a cough, and is very short of breath with ambulation. No shortness of breath while at rest in bed. Denies fever, chills, sweats. Denies chest pain, nausea, vomiting, diarrhea, constipation today. Wonders about the course of his convalescence and how long it will take, otherwise no questions or concerns at bedside. No history of IV drug use, HIV, blood exposures, or STI exposures to his knowledge. Discussed that may be at risk for opportunistic pathogens due to steroid immunosuppression during his Covid, low risk but will obtain screening HIV. Patient consents to this. Review of Systems Review of Systems: 10 point review systems negative except as noted in HPI Physical Exam Physical Exam: General: A&Ox3. NAD. Cooperative. HEENT: Atraumatic, normocephalic. Pulm: CTAB A&P. -wheezes, -rales, -rhonchi. Symmetrical chest rise. No increase work of breathing. No respiratory distress. Cardiac: RRR, -mrg. Radial pulses intact and symmetrical. Abdominal: Nontender, nondistended, soft. BS present. Results & Data Results & Data ([facility]) Vital Signs (Past 12 Hours) Vital Signs Temp Pulse Resp BP Pulse Ox 01/30/21 16:13 36.4 C L 57 L 16 115/68 96 01/30/21 07:46 36.2 C L 63 16 105/62 96 PG Care Time/CCT Total # of Minutes Spent Total Time Spent with Patient: Total time spent is greater than 50% in coordination of care (as documented) at patient's floor/unit and/or counseling patient: Coding Level of Care Code 11164 Subseq Hosp Care Lvl 3 Diagnoses Pneumocystis jiroveci pneumonia B59 COVID-19 U07.1 Tachycardia R00.0 SIRS (systemic inflammatory response syndrome) R65.10 Abnormal urinalysis R82.90 Cholelithiases K80.20 BPH (benign prostatic hyperplasia) N40.0 Hyperlipidemia E78.5 Hypertension I10 Hypertension type: essential hypertension Impaired fasting glucose R73.01 Carotid artery stenosis I65.29 Bright red blood per rectum K62.5 (1) Hypertension Hypertension type: essential hypertension Qualified Code(s): I10 - Essential (primary) hypertension
[2021-01-30] MEDS: TAMSULOSIN HCL 0.4 MG CAP PO SCH (21:10)
[2021-01-31] MEDS: SULFA/TRIMETH 80/16MG/ML 320 MG in DEXTROSE 5% 500 ML IV SCH ×3 (01:13→21:39)
[2021-01-31 06:21] LABS: Basophils # (auto) 0.01 K/uL (0-0.2); Basophils % (auto) 0.1 %; Eosinophils # (auto) 0.16 K/uL (0-0.5); Eosinophils % (auto) 1.7 %; Hematocrit (blood only) 33.9 % (42-52); Hemoglobin 11.8 g/dL (14.0-18.0); Immature Granulocytes % (auto) 2.2 %; Lymphocytes # (auto) 1.58 K/uL (1.2-3.4); Lymphocytes % (auto) 17.1 %; Mean Corpuscular Hemoglobin 33.8 pg (25-34); Mean Corpuscular Hgb Conc 34.8 g/dL (32-36); Mean Corpuscular Volume 97.1 fL (80-100); Mean Platelet Volume 9.9 fL (7.4-10.4); Monocytes # (auto) 1.05 K/uL (0.11-0.59); Monocytes % (auto) 11.3 %; Neutrophils # (auto) 6.26 K/uL (1.4-6.5); Neutrophils % (auto) 67.6 %; Platelet Count 237 K/uL (130-400); RDW Standard Deviation 49.9 fL (36.4-46.3); Red Blood Count 3.49 M/uL (4.7-6.1); White Blood Count 9.26 K/uL (4.8-10.8)
[2021-01-31 06:52] LABS: Calcium 8.3 mg/dl (8.5-10.1); Creatinine Clr Calc Pharmacy 88.8 ml/min; Est GFR (African American) 99.5 ml/min; Est GFR (Non-African American) 85.8 ml/min; Potassium 4.3 mmol/L (3.5-5.1)
--- NOTE | 2021-01-31 08:00 | Hospitalist Progress Note ---
Date of Service January 31, 2021 Assessment & Plan (1) Pneumocystis jiroveci pneumonia: Plan: Acute hypoxic respiratory failure 2/2 to improving Covid with superimposed pneumocystis Jiroveci pneumonia Ongoing hypoxia and pulmonary changesworseningended up on ventilator - now off ventilator and doing better. HIV negative started on Bactrim: morning of 01/21. will need 3 weeks total. Discussed hx of allergy from bactrim, pt denies any history of rash due to medications/antibiotics. Is unclear what this was listed for, but denies hx of SJS, allergic rash, and other allergies. Was not able to tolerate PO bactrim this admission due to GI upset. -Biopsy pending, still wondering if there could be a degree of vasculitis, and also certainly could have some degree of just post Covid fibrosis/scarring. -Steroid per pulmonology. Prednisone 20 mg twice daily until 01/24, prednisone 20 mg daily -Improved, off high flow oxygen -transitioned his bactrim to IV due to GI intolerance. -will continue to monitor. -Patient will need to get an ultrasound guided peripheral line prior to discharge for bactrim as he does not tolerate oral. - Downtrending oxygen requirements. Continues to desaturate easily with ambulatino, now on ~4-5L O2 at rest.PT/OT reeval, progressing towards dc to rehab. (2) COVID-19: Plan: as above (3) Tachycardia: Plan: Improved (4) SIRS (systemic inflammatory response syndrome): Plan: See above (5) Abnormal urinalysis: Plan: Of unlikely significance (6) Cholelithiases: Plan: Outpatient follow-up (7) BPH (benign prostatic hyperplasia): Plan: mora out - follow voiding, no troubles at this time (8) Hyperlipidemia: Plan: Continue rosuvastatin (9) Hypertension: Plan: Blood pressure is acceptablecontinue to follow (10) Impaired fasting glucose: Plan: No diabetes, likely steroid effect, pharmacy glycemic assistance appreciated, although sugars have shown good control with no treatment (11) Carotid artery stenosis: Plan: Outpatient follow-up (12) Bright red blood per rectum: Plan: last colonoscopy was not quite 2 years ago, where he had a 5 mm sessile polyp in the transverse colon scattered small mouth diverticuli and some internal hemorrhoids. -Lovenox initially held, resumed as hemoglobin stable Continue Lovenox DVT prophylaxis Follow clinically, outpatient GI follow-up Plan: DVT prophylaxisLovenox continue on telemetry, ongoing close f/u. PT/OT eval and treat Pending placement Admission and Anticipated Discharge Date Admission Date: January 10, 2021 Subjective Continues to have intermittent dry cough, and shortness of breath with ambulation. No shortness of breath while at rest in bed, takes 10 minutes to recover after walking to the bathroom and back. Denies fever, chills, sweats. Denies chest pain, nausea, vomiting, diarrhea, constipation today. Discussed hx of allergy from bactrim, pt denies any history of rash due to medications/antibiotics. Is unclear what this was listed for, but denies hx of SJS, allergic rash, and other allergies. Was not able to tolerate PO bactrim this admission due to GI upset. Review of Systems Review of Systems: Constitutional: Denies fever, chills, weight change. +global fatigue Eyes: Denies vision change, eye pain ENT: Denies ear pain, sore throat, sinus pain Cardiovascular: Denies Chest pain, chest pressure, palpitations, extremity swelling Respiratory: Denies shortness of breath, cough, sputum production, difficulty breathing Gastrointestinal:See subj Genitourinary: Denies pain with urination, urinary urgency, urinary frequency Musculoskeletal: See subj Integumentary:Denies rash, lesions, bruising Neurological: Denies headache, numbness, tingling, focal weakness. +global weakness Physical Exam Physical Exam: General: A&Ox3. NAD. Cooperative. HEENT: Atraumatic, normocephalic. Pulm: CTAB A&P. -wheezes, -rales, -rhonchi. Symmetrical chest rise. No increase work of breathing. No respiratory distress. Cardiac: RRR, -mrg. Radial pulses intact and symmetrical. Abdominal: Nontender, nondistended, soft. BS present. Results & Data Results & Data ([facility]) Vital Signs (Past 12 Hours) Vital Signs Temp Pulse Resp BP Pulse Ox 01/30/21 20:37 36.4 C L 64 20 106/66 95 PG Care Time/CCT Total # of Minutes Spent Total Time Spent with Patient: Total time spent is greater than 50% in coordination of care (as documented) at patient's floor/unit and/or counseling patient: Coding Level of Care Code 49714 Subseq Hosp Care Lvl 2 Diagnoses Pneumocystis jiroveci pneumonia B59 COVID-19 U07.1 Tachycardia R00.0 SIRS (systemic inflammatory response syndrome) R65.10 Abnormal urinalysis R82.90 Cholelithiases K80.20 BPH (benign prostatic hyperplasia) N40.0 Hyperlipidemia E78.5 Hypertension I10 Hypertension type: essential hypertension Impaired fasting glucose R73.01 Carotid artery stenosis I65.29 Bright red blood per rectum K62.5 (1) Hypertension Hypertension type: essential hypertension Qualified Code(s): I10 - Essential (primary) hypertension
[2021-01-31] MEDS: INSULIN ASPART 100 UNITS/ML 3 ML PEN SC SCH ×4 (08:56→23:23)
[2021-01-31] MEDS: POLYETHYLENE (MIRALAX) 17 GM PACK PO SCH ×2 (09:33→21:40)
[2021-01-31] MEDS: METOPROLOL TARTRATE 50 MG TAB PO SCH ×2 (09:34→21:42)
[2021-01-31] MEDS: predniSONE 20 MG TAB PO SCH (09:34)
[2021-01-31] MEDS: LANSOPRAZOLE 30 MG SOLTAB PO SCH (09:34)
[2021-01-31] MEDS: SODIUM CHLORIDE 1 GM TABLET PO SCH (09:34)
[2021-01-31] MEDS: PANTOprazole 40 MG in SYRINGE 0 ML IV SCH ×2 (09:34→21:39)
[2021-01-31] MEDS: DOCUSATE SODIUM/SENNA 50/8.6MG TAB PO SCH (09:36)
[2021-01-31] MEDS: ROSUVASTATIN CALCIUM 20 MG TAB PO SCH (12:05)
[2021-01-31] MEDS: ALBUTEROL HFA 8 GM INHALER INH PRN (13:37)
[2021-01-31] MEDS: ENOXAPARIN INJ 40 MG/0.4 ML SYR SQ SCH (15:40)
[2021-01-31] MEDS: TAMSULOSIN HCL 0.4 MG CAP PO SCH (21:40)
[2021-02-01] MEDS: SULFA/TRIMETH 80/16MG/ML 320 MG in DEXTROSE 5% 500 ML IV SCH ×3 (05:32→20:37)
[2021-02-01 06:56] LABS: BUN Creatinine Ratio 14.2 (10-20); Calcium 8.4 mg/dl (8.5-10.1); Creatinine Clr Calc Pharmacy 97.7 ml/min; Est GFR (African American) 103.4 ml/min; Est GFR (Non-African American) 89.2 ml/min; Potassium 4.1 mmol/L (3.5-5.1)
[2021-02-01] MEDS: LANSOPRAZOLE 30 MG SOLTAB PO SCH (08:18)
[2021-02-01] MEDS: METOPROLOL TARTRATE 50 MG TAB PO SCH ×2 (08:18→20:54)
[2021-02-01] MEDS: PANTOprazole 40 MG in SYRINGE 0 ML IV SCH ×2 (08:18→20:34)
[2021-02-01] MEDS: SODIUM CHLORIDE 1 GM TABLET PO SCH (08:18)
[2021-02-01] MEDS: predniSONE 20 MG TAB PO SCH (08:18)
[2021-02-01] MEDS: DOCUSATE SODIUM/SENNA 50/8.6MG TAB PO SCH (08:24)
[2021-02-01] MEDS: POLYETHYLENE (MIRALAX) 17 GM PACK PO SCH ×2 (08:24→20:44)
[2021-02-01] MEDS: ASPIRIN 81 MG CHEW PO SCH (08:24)
[2021-02-01] MEDS: INSULIN ASPART 100 UNITS/ML 3 ML PEN SC SCH ×4 (09:16→20:54)
--- NOTE | 2021-02-01 12:06 | Hospitalist Progress Note ---
Date of Service February 01, 2021 Assessment & Plan (1) Pneumocystis jiroveci pneumonia: Plan: Acute hypoxic respiratory failure 2/2 to improving Covid with superimposed pneumocystis Jiroveci pneumonia Ongoing hypoxia and pulmonary changesworseningended up on ventilator - now off ventilator and doing better. HIV negative started on Bactrim: morning of 01/21. will need 3 weeks total. Discussed hx of allergy from bactrim, pt denies any history of rash due to me dications/antibiotics. Is unclear what this was listed for, but denies hx of SJS, allergic rash, and other allergies. Was not able to tolerate PO bactrim this admission due to GI upset. -Biopsy Lung, anterior right upper lobe, bronchial lavage: #1. Few benign bronchial cells. #2. Pulmonary macrophages, neutrophils and lymphocytes. #3. No malignant cells seen. -Steroid per pulmonology. Prednisone 20 mg twice daily until 01/24, prednisone 20 mg daily -Improved, off high flow oxygen -transitioned his bactrim to IV due to GI intolerance. -will continue to monitor. -Patient will need to get an ultrasound guided peripheral line prior to discharge for bactrim as he does not tolerate oral. - Downtrending oxygen requirements. Continues to desaturate easily with ambulation, but improved today and now on ~34 L O2 at rest and requiring less than 10 L on ambulation to the bathroom. PT deferred yesterday as patient was resting, just patient to have reeval today and to work with them to see what his oxygen requirements with exertion are. As long as he is able to ambulate and engage with PT requiring less than 10 L of oxygen, will apply for insurance authorization and rehab placement. Patient agreeable to this. Ultrasound-guided peripheral IV to be placed day of or day prior to discharge. (2) COVID-19: Plan: as above (3) Tachycardia: Plan: Improved (4) SIRS (systemic inflammatory response syndrome): Plan: See above (5) Abnormal urinalysis: Plan: Of unlikely significance (6) Cholelithiases: Plan: Outpatient follow-up (7) BPH (benign prostatic hyperplasia): Plan: mora out - follow voiding, no troubles at this time (8) Hyperlipidemia: Plan: Continue rosuvastatin (9) Hypertension: Plan: Blood pressure is acceptablecontinue to follow (10) Impaired fasting glucose: Plan: No diabetes, likely steroid effect, pharmacy glycemic assistance appreciated, although sugars have shown good control with no treatment (11) Carotid artery stenosis: Plan: Outpatient follow-up (12) Bright red blood per rectum: Plan: last colonoscopy was not quite 2 years ago, where he had a 5 mm sessile polyp in the transverse colon scattered small mouth diverticuli and some internal hemorrhoids. -Lovenox initially held, resumed as hemoglobin stable Continue Lovenox DVT prophylaxis Follow clinically, outpatient GI follow-up Plan: DVT prophylaxisLovenox continue on telemetry, ongoing close f/u. PT/OT eval and treat Pending placement Admission and Anticipated Discharge Date Admission Date: January 10, 2021 Subjective Jude was seen at bedside. He reports he feels improved compared to yesterday. Still is dyspneic and short of breath with exertion, and required 7 L upon ambulation to the bathroom and back, but catches his breath quicker and is currently requiring 2-3 L at rest to maintain an O2 sat of 96%. No chest pain, no rash, no nausea/vomiting/diarrhea or other symptoms. Discussed potential to progress towards rehab, patient agreeable to this. PT reeval pending, patient a grees to work with him today and will check ambulating oxygen levels with him to make sure he is safe for levels that can be provided at rehab. Review of Systems Review of Systems: Constitutional: Denies fever, chills, weight change. +global fatigue Eyes: Denies vision change, eye pain ENT: Denies ear pain, sore throat, sinus pain Cardiovascular: Denies Chest pain, chest pressure, palpitations, extremity swelling Respiratory: See subjective Gastrointestinal: Denies acute GI symptoms today Genitourinary: Denies pain with urination, urinary urgency, urinary frequency Musculoskeletal: See subj Integumentary:Denies rash, lesions, bruising Neurological: Denies headache, numbness, tingling, focal weakness. +global weakness Physical Exam Physical Exam: General: A&Ox3. NAD. Cooperative. HEENT: Atraumatic, normocephalic. Visual acuity and hearing grossly intact. Pupils equal and reactive to light. Pulm: CTAB A&P. -wheezes, -rales, -rhonchi. Symmetrical chest rise. No increase work of breathing. No respiratory distress. Cardiac: RRR, -mrg. Radial pulses intact and symmetrical. Abdominal: Nontender, nondistended, soft. BS present. 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 Radial pulse and PT pulse intact. Yes Results & Data Results & Data ([facility]) Vital Signs (Past 12 Hours) Vital Signs Temp Pulse Resp BP Pulse Ox 02/01/21 07:13 36.3 C L 73 18 109/68 96 PG Care Time/CCT Total # of Minutes Spent Total Time Spent with Patient: Total time spent is greater than 50% in coordination of care (as documented) at patient's floor/unit and/or counseling patient: Coding Level of Care Code 65250 Subseq Hosp Care Lvl 2 Diagnoses Pneumocystis jiroveci pneumonia B59 COVID-19 U07.1 Tachycardia R00.0 SIRS (systemic inflammatory response syndrome) R65.10 Abnormal urinalysis R82.90 Cholelithiases K80.20 BPH (benign prostatic hyperplasia) N40.0 Hyperlipidemia E78.5 Hypertension I10 Hypertension type: essential hypertension Impaired fasting glucose R73.01 Carotid artery stenosis I65.29 Bright red blood per rectum K62.5 (1) Hypertension Hypertension type: essential hypertension Qualified Code(s): I10 - Essential (primary) hypertension
[2021-02-01] MEDS: ROSUVASTATIN CALCIUM 20 MG TAB PO SCH (12:50)
[2021-02-01] MEDS: ENOXAPARIN INJ 40 MG/0.4 ML SYR SQ SCH (16:16)
[2021-02-01] MEDS: TAMSULOSIN HCL 0.4 MG CAP PO SCH (20:46)
[2021-02-02] MEDS: SULFA/TRIMETH 80/16MG/ML 320 MG in DEXTROSE 5% 500 ML IV SCH ×3 (04:14→21:12)
[2021-02-02 06:42] LABS: Basophils # (auto) 0.01 K/uL (0-0.2); Basophils % (auto) 0.1 %; Eosinophils # (auto) 0.19 K/uL (0-0.5); Eosinophils % (auto) 2.2 %; Hematocrit (blood only) 31.4 % (42-52); Hemoglobin 11.4 g/dL (14.0-18.0); Immature Granulocytes # (auto) 0.07 K/uL (0.00-0.02); Immature Granulocytes % (auto) 0.8 %; Lymphocytes # (auto) 1.33 K/uL (1.2-3.4); Lymphocytes % (auto) 15.1 %; Mean Corpuscular Hemoglobin 35.8 pg (25-34); Mean Corpuscular Hgb Conc 36.3 g/dL (32-36); Mean Corpuscular Volume 98.7 fL (80-100); Mean Platelet Volume 9.6 fL (7.4-10.4); Monocytes # (auto) 0.87 K/uL (0.11-0.59); Monocytes % (auto) 9.9 %; Neutrophils # (auto) 6.34 K/uL (1.4-6.5); Neutrophils % (auto) 71.9 %; Platelet Count 193 K/uL (130-400); RDW Coefficient of Variation 14.2 % (11.5-14.5); RDW Standard Deviation 50.7 fL (36.4-46.3); Red Blood Count 3.18 M/uL (4.7-6.1); White Blood Count 8.81 K/uL (4.8-10.8)
[2021-02-02 07:12] LABS: BUN Creatinine Ratio 12.3 (10-20); Calcium 8.1 mg/dl (8.5-10.1); Est GFR (African American) 101.4 ml/min; Est GFR (Non-African American) 87.5 ml/min; Potassium 4.1 mmol/L (3.5-5.1)
[2021-02-02] MEDS: INSULIN ASPART 100 UNITS/ML 3 ML PEN SC SCH ×4 (08:22→21:57)
[2021-02-02] MEDS: SODIUM CHLORIDE 1 GM TABLET PO SCH (08:23)
[2021-02-02] MEDS: LANSOPRAZOLE 30 MG SOLTAB PO SCH (08:23)
[2021-02-02] MEDS: predniSONE 20 MG TAB PO SCH (08:23)
[2021-02-02] MEDS: METOPROLOL TARTRATE 50 MG TAB PO SCH ×2 (08:23→21:13)
[2021-02-02] MEDS: PANTOprazole 40 MG in SYRINGE 0 ML IV SCH ×2 (08:24→21:12)
[2021-02-02] MEDS: POLYETHYLENE (MIRALAX) 17 GM PACK PO SCH ×2 (08:29→21:12)
[2021-02-02] MEDS: DOCUSATE SODIUM/SENNA 50/8.6MG TAB PO SCH (08:29)
[2021-02-02] MEDS: ROSUVASTATIN CALCIUM 20 MG TAB PO SCH (12:32)
--- NOTE | 2021-02-02 13:02 | Hospitalist Progress Note ---
Date of Service February 02, 2021 Assessment & Plan (1) Pneumocystis jiroveci pneumonia: Plan: Acute hypoxic respiratory failure 2/2 to improving Covid with superimposed pneumocystis Jiroveci pneumonia Ongoing hypoxia and pulmonary changesworseningended up on ventilator - now off ventilator and doing better. HIV negative started on Bactrim: morning of 01/21. will need 3 weeks total. Discussed hx of allergy from bactrim, pt denies any history of rash due to me dications/antibiotics. Is unclear what this was listed for, but denies hx of SJS, allergic rash, and other allergies. Was not able to tolerate PO bactrim this admission due to GI upset. -Biopsy Lung, anterior right upper lobe, bronchial lavage: #1. Few benign bronchial cells. #2. Pulmonary macrophages, neutrophils and lymphocytes. #3. No malignant cells seen. -Steroid per pulmonology. Prednisone 20 mg twice daily until 01/24, prednisone 20 mg daily -Improved, off high flow oxygen -transitioned his bactrim to IV due to GI intolerance. -will continue to monitor. -Patient will need to get an ultrasound guided peripheral line prior to discharge for bactrim as he does not tolerate oral. -Patient with oxygen requirements appropriate for rehab care. Requires less than 10 L with ambulation, and 2-4 L at rest. Has worked with PT, recommend inpatient rehab. Discussed with case management, insurance authorization pending. Ultrasound-guided peripheral IV for completion of Bactrim ordered. Pending dispo/placement at this time (2) COVID-19: Plan: as above (3) Tachycardia: Plan: Improved (4) SIRS (systemic inflammatory response syndrome): Plan: See above (5) Abnormal urinalysis: Plan: Of unlikely significance (6) Cholelithiases: Plan: Outpatient follow-up (7) BPH (benign prostatic hyperplasia): Plan: mora out - follow voiding, no troubles at this time (8) Hyperlipidemia: Plan: Continue rosuvastatin (9) Hypertension: Plan: Blood pressure is acceptablecontinue to follow (10) Impaired fasting glucose: Plan: No diabetes, likely steroid effect, pharmacy glycemic assistance appreciated, although sugars have shown good control with no treatment (11) Carotid artery stenosis: Plan: Outpatient follow-up (12) Bright red blood per rectum: Plan: last colonoscopy was not quite 2 years ago, where he had a 5 mm sessile polyp in the transverse colon scattered small mouth diverticuli and some internal hemorrhoids. -Lovenox initially held, resumed as hemoglobin stable Continue Lovenox DVT prophylaxis Follow clinically, outpatient GI follow-up Plan: DVT prophylaxisLovenox continue on telemetry, ongoing close f/u. PT/OT eval and treat Pending placement Admission and Anticipated Discharge Date Admission Date: January 10, 2021 Subjective Seen at bedside. Patient progressing well. Requires less than 10 L with ambulation, 2-4 L at rest without shortness of breath. Denies fever, chills, sweats, cough today. He has not had any problems with rash, and has not noticed any new rash since being on Bactrim. No abdominal discomfort since being on oral Bactrim. Eating drinking well today, denies nausea/vomiting. No additional questions or concerns, feels comfortable progressing into rehab at this time and understands that his recovery will likely be over period of many weeks and that his oxygen requirements and pneumonia will take gradual improvement to his new baseline and that he is continued on a steroid taper. Review of Systems Review of Systems: Constitutional: Denies fever, chills, weight change. +global fatigue Eyes: Denies vision change, eye pain ENT: Denies ear pain, sore throat, sinus pain Cardiovascular: Denies Chest pain, chest pressure, palpitations, extremity swelling Respiratory: See subjective Gastrointestinal: Denies acute GI symptoms today Genitourinary: Denies pain with urination, urinary urgency, urinary frequency Musculoskeletal: See subj Integumentary:Denies rash, lesions, bruising Neurological: Denies headache, numbness, tingling, focal weakness. +global weakness Physical Exam Physical Exam: General: A&Ox3. NAD. Cooperative. No rash appreciated. HEENT: Atraumatic, normocephalic. Visual acuity and hearing grossly intact. Pupils equal and reactive to light. Pulm: CTAB A&P. -wheezes, -rales, -rhonchi. Symmetrical chest rise. No increase work of breathing. No respiratory distress. Cardiac: RRR, -mrg. Radial pulses intact and symmetrical. Abdominal: Nontender, nondistended, soft. BS present. 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 Radial pulse and PT pulse intact. Yes Results & Data Results & Data ([facility]) Vital Signs (Past 12 Hours) Vital Signs Temp Pulse Resp BP Pulse Ox 02/02/21 07:16 36.6 C 68 16 109/65 96 PG Care Time/CCT Total # of Minutes Spent Total Time Spent with Patient: Total time spent is greater than 50% in coordination of care (as documented) at patient's floor/unit and/or counseling patient: Coding Level of Care Code 89113 Subseq Hosp Care Lvl 2 Diagnoses Pneumocystis jiroveci pneumonia B59 COVID-19 U07.1 Tachycardia R00.0 SIRS (systemic inflammatory response syndrome) R65.10 Abnormal urinalysis R82.90 Cholelithiases K80.20 BPH (benign prostatic hyperplasia) N40.0 Hyperlipidemia E78.5 Hypertension I10 Hypertension type: essential hypertension Impaired fasting glucose R73.01 Carotid artery stenosis I65.29 Bright red blood per rectum K62.5 (1) Hypertension Hypertension type: essential hypertension Qualified Code(s): I10 - Essential (primary) hypertension
[2021-02-02] MEDS: ENOXAPARIN INJ 40 MG/0.4 ML SYR SQ SCH (15:20)
[2021-02-02] MEDS: TAMSULOSIN HCL 0.4 MG CAP PO SCH (21:13)
[2021-02-03] MEDS: SULFA/TRIMETH 80/16MG/ML 320 MG in DEXTROSE 5% 500 ML IV SCH ×3 (04:58→19:38)
[2021-02-03] MEDS: METOPROLOL TARTRATE 50 MG TAB PO SCH ×2 (08:32→19:45)
[2021-02-03] MEDS: predniSONE 20 MG TAB PO SCH (08:33)
[2021-02-03] MEDS: LANSOPRAZOLE 30 MG SOLTAB PO SCH (08:33)
[2021-02-03] MEDS: SODIUM CHLORIDE 1 GM TABLET PO SCH (08:33)
[2021-02-03] MEDS: DOCUSATE SODIUM/SENNA 50/8.6MG TAB PO SCH (08:34)
[2021-02-03] MEDS: PANTOprazole 40 MG in SYRINGE 0 ML IV SCH ×2 (08:34→21:25)
[2021-02-03] MEDS: INSULIN ASPART 100 UNITS/ML 3 ML PEN SC SCH ×4 (08:36→21:07)
[2021-02-03] MEDS: POLYETHYLENE (MIRALAX) 17 GM PACK PO SCH ×2 (08:37→19:41)
[2021-02-03] MEDS: ASPIRIN 81 MG CHEW PO SCH (10:04)
[2021-02-03] MEDS: ROSUVASTATIN CALCIUM 20 MG TAB PO SCH (11:10)
[2021-02-03] MEDS: ENOXAPARIN INJ 40 MG/0.4 ML SYR SQ SCH (14:32)
--- NOTE | 2021-02-03 19:37 | Hospitalist Progress Note ---
Date of Service February 03, 2021 Assessment & Plan (1) Pneumocystis jiroveci pneumonia: Plan: Acute hypoxic respiratory failure 2/2 to improving Covid with superimposed pneumocystis Jiroveci pneumonia Ongoing hypoxia and pulmonary changesworseningended up on ventilator - now off ventilator and doing better. HIV negative started on Bactrim: morning of 01/21. will need 3 weeks total. Discussed hx of allergy from bactrim, pt denies any history of rash due to me dications/antibiotics. Is unclear what this was listed for, but denies hx of SJS, allergic rash, and other allergies. Was not able to tolerate PO bactrim this admission due to GI upset. -Biopsy Lung, anterior right upper lobe, bronchial lavage: #1. Few benign bronchial cells. #2. Pulmonary macrophages, neutrophils and lymphocytes. #3. No malignant cells seen. -Steroid per pulmonology. Prednisone 20 mg twice daily until 01/24, prednisone 20 mg daily -Improved, off high flow oxygen -transitioned his bactrim to IV due to GI intolerance. -will continue to monitor. -Patient will need to get an ultrasound guided peripheral line prior to discharge for bactrim as he does not tolerate oral. -Patient with oxygen requirements appropriate for rehab care. Requires less than 10 L with ambulation, and 2-4 L at rest. Has worked with PT, recommend inpatient rehab. Discussed with case management, insurance authorization pending. Will complete Bactrim course through ultrasound-guided peripheral IV. Pending dispo/placement at this time (2) COVID-19: Plan: as above (3) Tachycardia: Plan: Improved (4) SIRS (systemic inflammatory response syndrome): Plan: See above (5) Abnormal urinalysis: Plan: Of unlikely significance (6) Cholelithiases: Plan: Outpatient follow-up (7) BPH (benign prostatic hyperplasia): Plan: mora out - follow voiding, no troubles at this time (8) Hyperlipidemia: Plan: Continue rosuvastatin (9) Hypertension: Plan: Blood pressure is acceptablecontinue to follow (10) Impaired fasting glucose: Plan: No diabetes, likely steroid effect, pharmacy glycemic assistance appreciated, although sugars have shown good control with no treatment (11) Carotid artery stenosis: Plan: Outpatient follow-up (12) Bright red blood per rectum: Plan: last colonoscopy was not quite 2 years ago, where he had a 5 mm sessile polyp in the transverse colon scattered small mouth diverticuli and some internal hemorrhoids. -Lovenox initially held, resumed as hemoglobin stable Continue Lovenox DVT prophylaxis Follow clinically, outpatient GI follow-up Plan: DVT prophylaxisLovenox continue on telemetry, ongoing close f/u. PT/OT eval and treat Pending placement Admission and Anticipated Discharge Date Admission Date: January 10, 2021 Subjective Seen at bedside. Patient progressing well. Denies fever/chills. Feels his breathing continues to improve. No questions or concerns when seen at bedside. Has some warm red spots on his arms when he is laying and sleeping in the get warm, otherwise denies rash. No mucosal changes. Continues to be fatigued and globally weak, feels this is improving overall. Review of Systems Review of Systems: Constitutional: Denies fever, chills, weight change. +global fatigue Eyes: Denies vision change, eye pain ENT: Denies ear pain, sore throat, sinus pain Cardiovascular: Denies Chest pain, chest pressure, palpitations, extremity swelling Respiratory: See subjective Gastrointestinal: Denies acute GI symptoms today Genitourinary: Denies pain with urination, urinary urgency, urinary frequency Musculoskeletal: See subj Integumentary:Denies rash, lesions, bruising Neurological: Denies headache, numbness, tingling, focal weakness. +global weakness Physical Exam Physical Exam: General: A&Ox3. NAD. Cooperative. No rash appreciated. HEENT: Atraumatic, normocephalic. Visual acuity and hearing grossly intact. Pupils equal and reactive to light. Pulm: CTAB A&P. -wheezes, -rales, -rhonchi. Symmetrical chest rise. No increase work of breathing. No respiratory distress. Cardiac: RRR, -mrg. Radial pulses intact and symmetrical. Abdominal: Nontender, nondistended, soft. BS present. 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 Radial pulse and PT pulse intact. Results & Data Results & Data ([facility]) Vital Signs (Past 12 Hours) Vital Signs Temp Pulse Resp BP Pulse Ox 02/03/21 14:31 36.2 C L 75 18 116/67 96 PG Care Time/CCT Total # of Minutes Spent Total Time Spent with Patient: Total time spent is greater than 50% in coordination of care (as documented) at patient's floor/unit and/or counseling patient: Coding Level of Care Code 01103 Subseq Hosp Care Lvl 1 Diagnoses Pneumocystis jiroveci pneumonia B59 COVID-19 U07.1 Tachycardia R00.0 SIRS (systemic inflammatory response syndrome) R65.10 Abnormal urinalysis R82.90 Cholelithiases K80.20 BPH (benign prostatic hyperplasia) N40.0 Hyperlipidemia E78.5 Hypertension I10 Hypertension type: essential hypertension Impaired fasting glucose R73.01 Carotid artery stenosis I65.29 Bright red blood per rectum K62.5 (1) Hypertension Hypertension type: essential hypertension Qualified Code(s): I10 - Essential (primary) hypertension
[2021-02-03] MEDS: TAMSULOSIN HCL 0.4 MG CAP PO SCH (19:45)
[2021-02-04] MEDS: SULFA/TRIMETH 80/16MG/ML 320 MG in DEXTROSE 5% 500 ML IV SCH ×3 (04:46→20:54)
[2021-02-04 06:11] LABS: Basophils # (auto) 0.01 K/uL (0-0.2); Basophils % (auto) 0.2 %; Eosinophils # (auto) 0.15 K/uL (0-0.5); Eosinophils % (auto) 2.7 %; Hematocrit (blood only) 32.4 % (42-52); Hemoglobin 10.8 g/dL (14.0-18.0); Immature Granulocytes # (auto) 0.05 K/uL (0.00-0.02); Immature Granulocytes % (auto) 0.9 %; Lymphocytes # (auto) 1.31 K/uL (1.2-3.4); Lymphocytes % (auto) 23.6 %; Mean Corpuscular Hemoglobin 33.4 pg (25-34); Mean Corpuscular Hgb Conc 33.3 g/dL (32-36); Mean Corpuscular Volume 100.3 fL (80-100); Mean Platelet Volume 9.6 fL (7.4-10.4); Monocytes # (auto) 0.41 K/uL (0.11-0.59); Monocytes % (auto) 7.4 %; Neutrophils # (auto) 3.61 K/uL (1.4-6.5); Neutrophils % (auto) 65.2 %; Platelet Count 141 K/uL (130-400); RDW Coefficient of Variation 14.4 % (11.5-14.5); RDW Standard Deviation 53.1 fL (36.4-46.3); Red Blood Count 3.23 M/uL (4.7-6.1); White Blood Count 5.54 K/uL (4.8-10.8)
[2021-02-04] MEDS: INSULIN ASPART 100 UNITS/ML 3 ML PEN SC SCH ×4 (08:10→20:58)
[2021-02-04] MEDS: PANTOprazole 40 MG in SYRINGE 0 ML IV SCH ×2 (09:03→20:11)
[2021-02-04] MEDS: DOCUSATE SODIUM/SENNA 50/8.6MG TAB PO SCH (09:03)
[2021-02-04] MEDS: POLYETHYLENE (MIRALAX) 17 GM PACK PO SCH ×2 (09:04→20:10)
[2021-02-04] MEDS: LANSOPRAZOLE 30 MG SOLTAB PO SCH (09:04)
[2021-02-04] MEDS: SODIUM CHLORIDE 1 GM TABLET PO SCH (09:04)
[2021-02-04] MEDS: predniSONE 20 MG TAB PO SCH (09:04)
[2021-02-04] MEDS: METOPROLOL TARTRATE 50 MG TAB PO SCH ×2 (09:04→20:18)
[2021-02-04] MEDS: CYANOCOBALAMIN 500 MCG TABLET (VITAMIN B-12) PO SCH (11:42)
[2021-02-04] MEDS: ROSUVASTATIN CALCIUM 20 MG TAB PO SCH (11:43)
[2021-02-04] MEDS: ENOXAPARIN INJ 40 MG/0.4 ML SYR SQ SCH (13:46)
[2021-02-04] MEDS: TAMSULOSIN HCL 0.4 MG CAP PO SCH (20:11)
--- NOTE | 2021-02-04 20:12 | Hospitalist Progress Note ---
Date of Service February 04, 2021 Assessment & Plan (1) Acute hypoxemic respiratory failure: Plan: 2nd to #1 below. [facility]. prior to intubation and then post-extubation required high FiO2 via high-flow NC. this was weaned slowly to standard NC over the last 2 weeks. remains stable on 3 L NC O2. 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 HIV negative. s/p bronchoscopy on 01/17/21 (day of intubation) with negative bronch cultures and negative pathology from lung biopsy. started on Bactrim morning of 01/21 when pneumocystis PCR returned positive. total duration = 21 days. Remains on IV bactrim as he was not tolerating PO bactrim. Today he completed a lengthy prednisone taper. Can d/c prednisone per pulmonary recommendations. (3) 2019 novel coronavirus-infected pneumonia (NCIP): Plan: Dx late November 2020, requiring brief hospitalization in 12/2020. 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 he will need very close f/u post-discharge with [facility] due to #2 as well as possibility of fibrosis. (4) SIRS (systemic inflammatory response syndrome): Plan: 2nd to the above resolved (5) Cholelithiases: Plan: no symptoms at this time recent imaging without cholecystitis (6) BPH (benign prostatic hyperplasia): Plan: cont flomax (7) Hyperlipidemia: Plan: Continue rosuvastatin recent ast/alt minimally elevated recheck next 48 hours for stability (8) Hypertension: Plan: Blood pressure is acceptable with metoprolol losartan-HCT on hold (9) Impaired fasting glucose: Plan: a1c 5.4% elevations while here 2nd to high-dose steroids & critical illness control now excellent (10) Carotid artery stenosis: (11) Bright red blood per rectum: Plan: stable, none in some time H/H remain acceptable (12) Thrombocytopenia: Plan: platelets down-trending hold lovenox if platelets again low tomorrow consider HIT ab recent b12 level low-normal - start B12 supplementation orally cbc am Plan: PT/OT both advising rehab patient denied [facility] by insurance appeal pending Admission and Anticipated Discharge Date Admission Date: January 10, 2021 Subjective patient overall feeling well only complaint is that of dyspnea with walking he remains on 3 L NC O2 appetite is robust energy is better denies sputum production no leg or arm pain right leg is chronically larger than left leg Review of Systems Review of Systems: gen - no fevers or chills cv - no chest pain or orthopnea pulm - no dyspnea at rest GI - no N/V; stools are soft but no pili diarrhea Physical Exam Physical Exam: gen - NAD, looks well mouth - MMM, no thrush neck - no JVD heart - RRR, s1 s2, no murmur lungs - bibasilar rales (fine); no wheeze; no increased work of breathing abd - soft NT ND BS+ ext - RLE is larger than LLE but he reports this is chronic; pulses 2+ b/l skin - no rash Results & Data Results & Data ([facility]) Vital Signs (Past 12 Hours) Vital Signs Temp Pulse Pulse Resp BP BP Pulse Ox 02/04/21 20:06 62 100/61 97 02/04/21 15:00 36.6 C 62 16 106/69 96 Laboratory Results Laboratory Results - last 24 hr 02/03/21 02/04/21 02/04/21 20:54 05:32 07:59 WBC 5.54 RBC 3.23 L Hgb 10.8 L Hct 32.4 L MCV 100.3 H MCH 33.4 MCHC 33.3 RDW Std Deviation 53.1 H RDW Coeff of Corby 14.4 Plt Count 141 MPV 9.6 Immature Gran % (Auto) 0.9 Neut % (Auto) 65.2 Lymph % (Auto) 23.6 Ford % (Auto) 7.4 Eos % (Auto) 2.7 Baso % (Auto) 0.2 Neut # (Auto) 3.61 Lymph # (Auto) 1.31 Ford # (Auto) 0.41 Eos # (Auto) 0.15 Baso # (Auto) 0.01 Immature Gran # (Auto) 0.05 H POC Glucose 168 H 83 02/04/21 02/04/21 12:17 16:58 WBC RBC Hgb Hct MCV MCH MCHC RDW Std Deviation RDW Coeff of Corby Plt Count MPV Immature Gran % (Auto) Neut % (Auto) Lymph % (Auto) Ford % (Auto) Eos % (Auto) Baso % (Auto) Neut # (Auto) Lymph # (Auto) Ford # (Auto) Eos # (Auto) Baso # (Auto) Immature Gran # (Auto) POC Glucose 110 H 106 H PG Care Time/CCT Total # of Minutes Spent Total Time Spent with Patient: Total time spent is greater than 50% in coordination of care (as documented) at patient's floor/unit and/or counseling patient: Coding Level of Care Code 67432 Subseq Hosp Care Lvl 2 Diagnoses Pneumocystis jiroveci pneumonia B59 SIRS (systemic inflammatory response syndrome) R65.10 Cholelithiases K80.20 BPH (benign prostatic hyperplasia) N40.0 Hyperlipidemia E78.5 Hypertension I10 Hypertension type: essential hypertension Impaired fasting glucose R73.01 Carotid artery stenosis I65.29 Bright red blood per rectum K62.5 Acute hypoxemic respiratory failure J96.01 2019 novel coronavirus-infected pneumonia (NCIP) U07.1; J12.82 Thrombocytopenia D69.6 (1) Hypertension Hypertension type: essential hypertension Qualified Code(s): I10 - Essential (primary) hypertension
[2021-02-05] MEDS: SULFA/TRIMETH 80/16MG/ML 320 MG in DEXTROSE 5% 500 ML IV SCH ×3 (05:00→20:36)
[2021-02-05 06:19] LABS: Eosinophils # (auto) 0.16 K/uL (0-0.5); Eosinophils % (auto) 2.7 %; Hemoglobin 10.5 g/dL (14.0-18.0); Immature Granulocytes # (auto) 0.03 K/uL (0.00-0.02); Immature Granulocytes % (auto) 0.5 %; Lymphocytes # (auto) 1.19 K/uL (1.2-3.4); Lymphocytes % (auto) 20.2 %; Mean Corpuscular Hemoglobin 34.2 pg (25-34); Mean Corpuscular Hgb Conc 33.9 g/dL (32-36); Mean Platelet Volume 9.7 fL (7.4-10.4); Monocytes # (auto) 0.52 K/uL (0.11-0.59); Monocytes % (auto) 8.8 %; Neutrophils # (auto) 3.99 K/uL (1.4-6.5); Neutrophils % (auto) 67.8 %; Platelet Count 130 K/uL (130-400); RDW Coefficient of Variation 14.5 % (11.5-14.5); RDW Standard Deviation 53.5 fL (36.4-46.3); Red Blood Count 3.07 M/uL (4.7-6.1); White Blood Count 5.89 K/uL (4.8-10.8)
[2021-02-05 06:59] LABS: BUN Creatinine Ratio 13.6 (10-20); Calcium 8.2 mg/dl (8.5-10.1); Creatinine Clr Calc Pharmacy 88.8 ml/min; Est GFR (African American) 99.5 ml/min; Est GFR (Non-African American) 85.8 ml/min; Potassium 4.2 mmol/L (3.5-5.1)
[2021-02-05] MEDS: INSULIN ASPART 100 UNITS/ML 3 ML PEN SC SCH ×4 (08:22→20:39)
[2021-02-05] MEDS: POLYETHYLENE (MIRALAX) 17 GM PACK PO SCH ×2 (08:57→20:46)
[2021-02-05] MEDS: METOPROLOL TARTRATE 50 MG TAB PO SCH ×2 (08:59→20:42)
[2021-02-05] MEDS: LANSOPRAZOLE 30 MG SOLTAB PO SCH (08:59)
[2021-02-05] MEDS: ROSUVASTATIN CALCIUM 20 MG TAB PO SCH (08:59)
[2021-02-05] MEDS: CYANOCOBALAMIN 500 MCG TABLET (VITAMIN B-12) PO SCH (08:59)
[2021-02-05] MEDS: PANTOprazole 40 MG in SYRINGE 0 ML IV SCH ×2 (08:59→22:33)
[2021-02-05] MEDS: SODIUM CHLORIDE 1 GM TABLET PO SCH (08:59)
[2021-02-05] MEDS: DOCUSATE SODIUM/SENNA 50/8.6MG TAB PO SCH (09:00)
[2021-02-05] MEDS: RIVAROXABAN 10 MG TABLET PO SCH (12:58)
[2021-02-05] MEDS: TAMSULOSIN HCL 0.4 MG CAP PO SCH (20:42)
[2021-02-05] MEDS ORDERED: CETIRIZINE HCL 10 MG TABLET PO ONE (23:22)
--- NOTE | 2021-02-05 23:24 | Hospitalist Progress Note ---
Date of Service February 05, 2021 Assessment & Plan (1) Acute hypoxemic respiratory failure: Plan: 2nd to #1 below. [facility]/17 to 01/18. prior to intubation and then post-extubation required high FiO2 via high-flow NC. this was weaned slowly to standard NC over the last 2 weeks. remains stable on 3 L NC O2. 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 HIV negative. s/p bronchoscopy on 01/17/21 (day of intubation) with negative bronch cultures and negative pathology from lung biopsy. started on Bactrim morning of 01/21 when pneumocystis PCR returned positive. total duration = 21 days. Remains on IV bactrim as he was not tolerating PO bactrim. Today is day #16 bactrim. He is s/p prednisone taper - last dose 02/04. (3) 2019 novel coronavirus-infected pneumonia (NCIP): Plan: Dx late November 2020, requiring brief hospitalization in 12/2020. 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 he will need very close f/u post-discharge with [facility] due to #2 as well as possibility of fibrosis. (4) SIRS (systemic inflammatory response syndrome): Plan: 2nd to the above resolved (5) Cholelithiases: Plan: no symptoms at this time recent imaging without cholecystitis (6) BPH (benign prostatic hyperplasia): Plan: cont flomax (7) Hyperlipidemia: Plan: Continue rosuvastatin recent ast/alt minimally elevated recheck tomorrow (8) Hypertension: Plan: Blood pressure is acceptable with metoprolol alone losartan-HCT on hold (9) Impaired fasting glucose: Plan: a1c 5.4% elevations while here 2nd to high-dose steroids & critical illness control now excellent (10) Carotid artery stenosis: (11) Bright red blood per rectum: Plan: stable, none in some time H/H remain acceptable (12) Thrombocytopenia: Plan: platelets cont to slowly drift down lovenox held HIT ab dispatched in [place] of lovenox - start xarelto 10mg po daily recent b12 level low-normal - start B12 supplementation orally bactrim could also cause low platelets and, in light of rash, the bactrim could be the culprit see below (13) Rash: Plan: drug reaction to bactrim? viral? other? recent skin cx NOT suggestive of vasculitis add zyrtec 10mg daily repeat CBC w/ diff if rash worsens then would need to stop the bactrim Plan: PT/OT both advising rehab patient denied [facility] by insurance appeal pending may need to call first thing Saturday am to insurance co Admission and Anticipated Discharge Date Admission Date: January 10, 2021 Subjective patient feeling well eating 100% of meals breathing normal at rest mild WALLS - baseline he states that the nursing staff noted a rash on his arms today this rash is NOT pruritic had skin bx on 01/17 (abdominal wall) - ?urticaria? Review of Systems Review of Systems: gen - no fevers or chills CV - no chest pain pulm - mild cough GI - no vomiting; occasional nausea Physical Exam Physical Exam: gen - NAD, looks well mouth - MMM, no thrush neck - no JVD heart - RRR, s1 s2, no murmur lungs - bibasilar rales (fine); no wheeze; no increased work of breathing abd - soft NT ND BS+ ext - RLE is larger than LLE but he reports this is chronic; pulses 2+ b/l skin - macular rash on arms, back (faint), abdominal wall, thighs; hand/feet spared; face spared; no urticaria Results & Data Results & Data ([facility]) Vital Signs (Past 12 Hours) Vital Signs Temp Pulse Pulse Resp BP BP Pulse Ox 02/05/21 22:54 36.2 C L 58 L 16 105/66 99 02/05/21 20:41 78 107/71 97 02/05/21 15:46 36.3 C L 78 16 116/71 94 Laboratory Results Laboratory Results - last 24 hr 02/05/21 02/05/21 02/05/21 05:39 05:39 08:14 WBC 5.89 RBC 3.07 L Hgb 10.5 L Hct 31.0 L MCV 101.0 H MCH 34.2 H MCHC 33.9 RDW Std Deviation 53.5 H RDW Coeff of [place] 14.5 Plt Count 130 MPV 9.7 Immature Gran % (Auto) 0.5 Neut % (Auto) 67.8 Lymph % (Auto) 20.2 [place] % (Auto) 8.8 Eos % (Auto) 2.7 Baso % (Auto) 0.0 Neut # (Auto) 3.99 Lymph # (Auto) 1.19 L [place] # (Auto) 0.52 Eos # (Auto) 0.16 Baso # (Auto) 0.00 Immature Gran # (Auto) 0.03 H Sodium 132 L Potassium 4.2 Chloride 100 Carbon Dioxide 26 Anion Gap 6.0 BUN 12 Creatinine 0.88 Est Cr Clr Drug Dosing 88.8 Est GFR ( Amer) 99.5 Est GFR (Non-Af Amer) 85.8 BUN/Creatinine Ratio 13.6 Glucose 103 H POC Glucose 83 Calcium 8.2 L AST 26 ALT 34 Specimen Hemolysis Heparin Dep Plt Ab React Heparin Dep Plt Ab OD 02/05/21 02/05/21 02/05/21 11:49 12:25 17:18 WBC RBC Hgb Hct MCV MCH MCHC RDW Std Deviation RDW Coeff of [place] Plt Count MPV Immature Gran % (Auto) Neut % (Auto) Lymph % (Auto) [place] % (Auto) Eos % (Auto) Baso % (Auto) Neut # (Auto) Lymph # (Auto) [place] # (Auto) Eos # (Auto) Baso # (Auto) Immature Gran # (Auto) Sodium Potassium Chloride Carbon Dioxide Anion Gap BUN Creatinine Est Cr Clr Drug Dosing Est GFR ( Amer) Est GFR (Non-Af Amer) BUN/Creatinine Ratio Glucose POC Glucose 89 93 Calcium AST ALT Specimen Hemolysis Heparin Dep Plt Ab React Pending Heparin Dep Plt Ab OD Pending 02/05/21 20:36 WBC RBC Hgb Hct MCV MCH MCHC RDW Std Deviation RDW Coeff of [place] Plt Count MPV Immature Gran % (Auto) Neut % (Auto) Lymph % (Auto) [place] % (Auto) Eos % (Auto) Baso % (Auto) Neut # (Auto) Lymph # (Auto) [place] # (Auto) Eos # (Auto) Baso # (Auto) Immature Gran # (Auto) Sodium Potassium Chloride Carbon Dioxide Anion Gap BUN Creatinine Est Cr Clr Drug Dosing Est GFR ( Amer) Est GFR (Non-Af Amer) BUN/Creatinine Ratio Glucose POC Glucose 102 H Calcium AST ALT Specimen Hemolysis Heparin Dep Plt Ab React Heparin Dep Plt Ab OD PG Care Time/CCT Total # of Minutes Spent Total Time Spent with Patient: Total time spent is greater than 50% in coordination of care (as documented) at patient's floor/unit and/or counseling patient: Coding Level of Care Code 57209 Subseq Hosp Care Lvl 2 Diagnoses Acute hypoxemic respiratory failure J96.01 Pneumocystis jiroveci pneumonia B59 2019 novel coronavirus-infected pneumonia (NCIP) U07.1; J12.82 SIRS (systemic inflammatory response syndrome) R65.10 Cholelithiases K80.20 BPH (benign prostatic hyperplasia) N40.0 Hyperlipidemia E78.5 Hypertension I10 Hypertension type: essential hypertension Impaired fasting glucose R73.01 Carotid artery stenosis I65.29 Bright red blood per rectum K62.5 Thrombocytopenia D69.6 Rash R21 (1) Hypertension Hypertension type: essential hypertension Qualified Code(s): I10 - Essential (primary) hypertension
[2021-02-06] MEDS: SULFA/TRIMETH 80/16MG/ML 320 MG in DEXTROSE 5% 500 ML IV SCH (04:44)
[2021-02-06 08:39] LABS: Basophils # (auto) 0.01 K/uL (0-0.2); Basophils % (auto) 0.2 %; Eosinophils % (auto) 3.7 %; Hematocrit (blood only) 32.2 % (42-52); Hemoglobin 10.8 g/dL (14.0-18.0); Immature Granulocytes # (auto) 0.03 K/uL (0.00-0.02); Immature Granulocytes % (auto) 0.5 %; Lymphocytes # (auto) 0.98 K/uL (1.2-3.4); Lymphocytes % (auto) 17.9 %; Mean Corpuscular Hemoglobin 33.8 pg (25-34); Mean Corpuscular Hgb Conc 33.5 g/dL (32-36); Mean Corpuscular Volume 100.6 fL (80-100); Mean Platelet Volume 9.5 fL (7.4-10.4); Monocytes # (auto) 0.67 K/uL (0.11-0.59); Monocytes % (auto) 12.3 %; Neutrophils # (auto) 3.57 K/uL (1.4-6.5); Neutrophils % (auto) 65.4 %; Platelet Count 123 K/uL (130-400); RDW Coefficient of Variation 14.8 % (11.5-14.5); White Blood Count 5.46 K/uL (4.8-10.8)
[2021-02-06] MEDS: CYANOCOBALAMIN 500 MCG TABLET (VITAMIN B-12) PO SCH (08:59)
[2021-02-06] MEDS: PANTOprazole 40 MG in SYRINGE 0 ML IV SCH ×2 (08:59→20:51)
[2021-02-06] MEDS: RIVAROXABAN 10 MG TABLET PO SCH (08:59)
[2021-02-06] MEDS: SODIUM CHLORIDE 1 GM TABLET PO SCH (08:59)
[2021-02-06] MEDS: LANSOPRAZOLE 30 MG SOLTAB PO SCH (08:59)
[2021-02-06] MEDS: METOPROLOL TARTRATE 50 MG TAB PO SCH ×2 (09:00→20:51)
[2021-02-06] MEDS: INSULIN ASPART 100 UNITS/ML 3 ML PEN SC SCH ×4 (09:00→21:14)
[2021-02-06] MEDS: POLYETHYLENE (MIRALAX) 17 GM PACK PO SCH ×2 (09:03→20:50)
[2021-02-06] MEDS: ASPIRIN 81 MG CHEW PO SCH (09:03)
[2021-02-06] MEDS: DOCUSATE SODIUM/SENNA 50/8.6MG TAB PO SCH (09:03)
[2021-02-06 09:10] LABS: Aspartate Aminotransferase 18 U/L (15-37); BUN Creatinine Ratio 9.9 (10-20); Blood Urea Nitrogen 9 mg/dl (7-18); C Reactive Protein < 0.29 mg/dl (0-0.29); Calcium 8.3 mg/dl (8.5-10.1); Carbon Dioxide 23 mmol/L (21-32); Chloride 98 mmol/L (98-107); Creatinine Clr Calc Pharmacy 85.9 ml/min; Est GFR (African American) 97.2 ml/min; Est GFR (Non-African American) 83.9 ml/min; Glucose 95 mg/dl (70-99); Potassium 4.2 mmol/L (3.5-5.1); Sodium 132 mmol/L (136-145)
[2021-02-06 09:11] LABS: Alanine Aminotransferase 36 U/L (12-78)
--- NOTE | 2021-02-06 11:04 | Hospitalist Progress Note ---
Date of Service February 06, 2021 Assessment & Plan (1) Acute hypoxemic respiratory failure: Plan: 2nd to #1 below. [facility] prior to intubation and then post-extubation required high FiO2 via high-flow NC. this was weaned slowly to standard NC over the last 2 weeks. remains stable on 3 L NC O2. 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 HIV negative. s/p bronchoscopy on 01/17/21 (day of intubation) with negative bronch cultures and negative pathology from lung biopsy. started on Bactrim morning of 01/21 when pneumocystis PCR returned positive. total duration = 21 days. Remains on IV bactrim as he was not tolerating PO bactrim. Today is day #17 bactrim. He is s/p prednisone taper - last dose 02/04. I do believe patient's rash is due to sulfa allergy - thus, stop the bactrim. I called and spoke with Yudelka MARCUM - alternative is atovaquone 750mg BID for 1-2 more weeks. I have ordered such. Patient and his aware of this change. (3) 2019 novel coronavirus-infected pneumonia (NCIP): Plan: Dx late November 2020, requiring brief hospitalization in 12/2020. 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 he will need very close f/u post-discharge with [facility] due to #2 as well as possibility of fibrosis. (4) SIRS (systemic inflammatory response syndrome): Plan: 2nd to the above resolved (5) Cholelithiases: Plan: no symptoms at this time recent imaging without cholecystitis eating well (6) BPH (benign prostatic hyperplasia): Plan: cont flomax (7) Hyperlipidemia: Plan: Continue rosuvastatin recent ast/alt minimally elevated stable follow the ast/alt while on atovaquone (8) Hypertension: Plan: Blood pressure is acceptable with metoprolol alone losartan-HCT on hold (9) Impaired fasting glucose: Plan: a1c 5.4% elevations while here 2nd to high-dose steroids & critical illness control now excellent (10) Carotid artery stenosis: (11) Bright red blood per rectum: Plan: stable, none in some time H/H remain acceptable (12) Thrombocytopenia: Plan: platelets again cont to slowly drift down lovenox held HIT ab dispatched in [place] of lovenox - started xarelto 10mg po daily recent b12 level low-normal - start B12 supplementation orally bactrim could also cause low platelets perhaps rash and low platelets is bactrim related will stop bactrim today repeat cbc in am await HIT ab (13) Rash: Plan: suspect sulfa allergy as above not bothersome to patient zyrtec daily stop bactrim Plan: PT/OT both advising rehab patient denied [facility] by insurance appeal pending from family I called and spoke with his insurance - they stated we are "past the deadline" to request a peer to peer I explained that my partner called last week prior to that deadline but he never heard back They claim they have no record of that phone call attempt Thus, they were UNWILLING to perform peer to peer review await family appeal extensively updated today total time today - 40min (call to [facility], call to pharmacy, call to , med changes, etc) Admission and Anticipated Discharge Date Admission Date: January 10, 2021 Subjective no new complaints rash still present but no pruritis dyspnea on exertion unchanged no cough no dyspnea at rest eating well no GI intolerance Review of Systems Review of Systems: gen - no fevers/chills cv - no orthopnea or cp pulm - no hemoptysis gi - no diarrhea or pain Physical Exam Physical Exam: gen - NAD, looks well mouth - MMM, no thrush neck - no JVD heart - RRR, s1 s2, no murmur lungs - bibasilar rales (fine) - no changes today; no wheeze; no increased work of breathing abd - soft NT ND BS+ ext - RLE is larger than LLE but he reports this is chronic; pulses 2+ b/l skin - macular rash on arms, back, torso, thighs; no urticaria; rash unchanged from yesterday Results & Data Results & Data ([facility]) Vital Signs (Past 12 Hours) Vital Signs Temp Pulse Pulse Resp BP BP Pulse Ox 02/05/21 22:54 36.2 C L 58 L 16 105/66 99 02/05/21 20:41 78 107/71 97 02/05/21 15:46 36.3 C L 78 16 116/71 94 Intake and Output 02/05/21 02/06/21 02/06/21 22:59 06:59 14:59 Intake Total 1909 Balance 1909 Intake: IV 520 / 1560 520 / 1560 Sulfa/Trimeth 80/16Mg/ml 320 mg 520 / 1560 520 / 1560 In Dextrose 5% 500 ml @ 333 mls/hr IV Q8H [facility] Rx#:[id number] Oral 350 / 350 Other: # Unmeasured Voids 1 Laboratory Results Laboratory Results - last 24 hr 02/05/21 02/05/21 02/05/21 11:49 12:25 17:18 WBC RBC Hgb Hct MCV MCH MCHC RDW Std Deviation RDW Coeff of Corby Plt Count MPV Immature Gran % (Auto) Neut % (Auto) Lymph % (Auto) [place] % (Auto) Eos % (Auto) Baso % (Auto) Neut # (Auto) Lymph # (Auto) [place] # (Auto) Eos # (Auto) Baso # (Auto) Immature Gran # (Auto) Sodium Potassium Chloride Carbon Dioxide Anion Gap BUN Creatinine Est Cr Clr Drug Dosing Est GFR ( Amer) Est GFR (Non-Af Amer) BUN/Creatinine Ratio Glucose POC Glucose 89 93 Calcium AST ALT C-Reactive Protein Heparin Dep Plt Ab React Pending Heparin Dep Plt Ab OD Pending 02/05/21 02/06/21 02/06/21 20:36 07:55 08:11 WBC 5.46 RBC 3.20 L Hgb 10.8 L Hct 32.2 L MCV 100.6 H MCH 33.8 MCHC 33.5 RDW Std Deviation 54.0 H RDW Coeff of [place] 14.8 H Plt Count 123 L MPV 9.5 Immature Gran % (Auto) 0.5 Neut % (Auto) 65.4 Lymph % (Auto) 17.9 [place] % (Auto) 12.3 Eos % (Auto) 3.7 Baso % (Auto) 0.2 Neut # (Auto) 3.57 Lymph # (Auto) 0.98 L [place] # (Auto) 0.67 H Eos # (Auto) 0.20 Baso # (Auto) 0.01 Immature Gran # (Auto) 0.03 H Sodium Potassium Chloride Carbon Dioxide Anion Gap BUN Creatinine Est Cr Clr Drug Dosing Est GFR ( Amer) Est GFR (Non-Af Amer) BUN/Creatinine Ratio Glucose POC Glucose 102 H 103 H Calcium AST ALT C-Reactive Protein Heparin Dep Plt Ab React Heparin Dep Plt Ab OD 02/06/21 08:11 WBC RBC Hgb Hct MCV MCH MCHC RDW Std Deviation RDW Coeff of Corby Plt Count MPV Immature Gran % (Auto) Neut % (Auto) Lymph % (Auto) [place] % (Auto) Eos % (Auto) Baso % (Auto) Neut # (Auto) Lymph # (Auto) [place] # (Auto) Eos # (Auto) Baso # (Auto) Immature Gran # (Auto) Sodium 132 L Potassium 4.2 Chloride 98 Carbon Dioxide 23 Anion Gap 11.0 BUN 9 Creatinine 0.91 Est Cr Clr Drug Dosing 85.9 Est GFR ( Amer) 97.2 Est GFR (Non-Af Amer) 83.9 BUN/Creatinine Ratio 9.9 L Glucose 95 POC Glucose Calcium 8.3 L AST 18 ALT 36 C-Reactive Protein < 0.29 Heparin Dep Plt Ab React Heparin Dep Plt Ab OD PG Care Time/CCT Total # of Minutes Spent Total Time Spent with Patient: Total time spent is greater than 50% in coordination of care (as documented) at patient's floor/unit and/or counseling patient: Coding Level of Care Code 91221 Subseq Hosp Care Lvl 3 Diagnoses Acute hypoxemic respiratory failure J96.01 Pneumocystis jiroveci pneumonia B59 2019 novel coronavirus-infected pneumonia (NCIP) U07.1; J12.82 SIRS (systemic inflammatory response syndrome) R65.10 Cholelithiases K80.20 BPH (benign prostatic hyperplasia) N40.0 Hyperlipidemia E78.5 Hypertension I10 Hypertension type: essential hypertension Impaired fasting glucose R73.01 Carotid artery stenosis I65.29 Bright red blood per rectum K62.5 Thrombocytopenia D69.6 Rash R21 (1) Hypertension Hypertension type: essential hypertension Qualified Code(s): I10 - Essential (primary) hypertension
[2021-02-06] MEDS: ROSUVASTATIN CALCIUM 20 MG TAB PO SCH (11:53)
[2021-02-06] MEDS: ATOVAQUONE 750 MG/5 ML UDC PO SCH (13:20)
[2021-02-06] MEDS: CETIRIZINE HCL 10 MG TABLET PO SCH (20:51)
[2021-02-06] MEDS: TAMSULOSIN HCL 0.4 MG CAP PO SCH (20:51)
[2021-02-07] MEDS: ATOVAQUONE 750 MG/5 ML UDC PO SCH ×2 (00:15→11:37)
[2021-02-07] MEDS: INSULIN ASPART 100 UNITS/ML 3 ML PEN SC SCH ×4 (08:30→21:29)
[2021-02-07] MEDS: METOPROLOL TARTRATE 50 MG TAB PO SCH ×2 (08:31→21:37)
[2021-02-07] MEDS: LANSOPRAZOLE 30 MG SOLTAB PO SCH (08:32)
[2021-02-07] MEDS: CYANOCOBALAMIN 500 MCG TABLET (VITAMIN B-12) PO SCH (08:32)
[2021-02-07] MEDS: RIVAROXABAN 10 MG TABLET PO SCH (08:32)
[2021-02-07] MEDS: SODIUM CHLORIDE 1 GM TABLET PO SCH (08:32)
[2021-02-07] MEDS: DOCUSATE SODIUM/SENNA 50/8.6MG TAB PO SCH (08:33)
[2021-02-07] MEDS: PANTOprazole 40 MG in SYRINGE 0 ML IV SCH ×2 (08:33→21:35)
[2021-02-07] MEDS: POLYETHYLENE (MIRALAX) 17 GM PACK PO SCH ×2 (08:34→21:34)
[2021-02-07 09:18] LABS: Basophils # (auto) 0.01 K/uL (0-0.2); Basophils % (auto) 0.2 %; Eosinophils % (auto) 4.3 %; Hematocrit (blood only) 32.6 % (42-52); Immature Granulocytes # (auto) 0.01 K/uL (0.00-0.02); Immature Granulocytes % (auto) 0.2 %; Lymphocytes # (auto) 0.95 K/uL (1.2-3.4); Lymphocytes % (auto) 20.5 %; Mean Corpuscular Hemoglobin 34.3 pg (25-34); Mean Corpuscular Hgb Conc 33.7 g/dL (32-36); Mean Corpuscular Volume 101.6 fL (80-100); Mean Platelet Volume 9.5 fL (7.4-10.4); Monocytes # (auto) 0.43 K/uL (0.11-0.59); Monocytes % (auto) 9.3 %; Neutrophils # (auto) 3.04 K/uL (1.4-6.5); Neutrophils % (auto) 65.5 %; Platelet Count 115 K/uL (130-400); RDW Coefficient of Variation 14.6 % (11.5-14.5); RDW Standard Deviation 54.4 fL (36.4-46.3); Red Blood Count 3.21 M/uL (4.7-6.1); White Blood Count 4.64 K/uL (4.8-10.8)
[2021-02-07 09:35] LABS: BUN Creatinine Ratio 9.4 (10-20); Creatinine Clr Calc Pharmacy 73.7 ml/min; Est GFR (African American) 80.9 ml/min; Est GFR (Non-African American) 69.8 ml/min; Potassium 4.3 mmol/L (3.5-5.1)
[2021-02-07 09:37] LABS: RBC Morphology Unremarkable
[2021-02-07] MEDS: ROSUVASTATIN CALCIUM 20 MG TAB PO SCH (11:37)
[2021-02-07] MEDS: TAMSULOSIN HCL 0.4 MG CAP PO SCH (21:34)
[2021-02-07] MEDS: CETIRIZINE HCL 10 MG TABLET PO SCH (21:35)
--- NOTE | 2021-02-07 23:00 | Hospitalist Progress Note ---
Date of Service February 07, 2021 Assessment & Plan (1) Acute hypoxemic respiratory failure: Plan: 2nd to #1 below. largely resolved - but still remains on 2-3 L of NC O2. s/p intubation with [facility] ventilation 01/17 to 01/18. prior to intubation and then post-extubation required high FiO2 via high-flow NC. this was weaned slowly to standard NC over the last 2 weeks. suspect he will need NC O2 at discharge. 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 HIV negative. s/p bronchoscopy on 01/17/21 (day of intubation) with negative bronch cultures and negative pathology from lung biopsy. HOWEVER - pneumocystis PCR returned positive on 01/21/21. Was on bactrim until 02/06 - discontinued at that time due to concern for sulfa allergy. Changed to atovaquone 750mg BID on 02/06. Today is day #18 of pneumocystis treatment. He is s/p prednisone taper - last dose 02/04. Now off steroids. Spoke with Yudelka ID 02/04 - alternative is atovaquone 750mg BID for 1-2 more weeks. (3) 2019 novel coronavirus-infected pneumonia (NCIP): Plan: Dx late November 2020, requiring brief hospitalization in 12/2020. 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 he will need very close f/u post-discharge with [facility] due to #2 as well as possibility of fibrosis. (4) SIRS (systemic inflammatory response syndrome): Plan: 2nd to the above resolved (5) Cholelithiases: Plan: no symptoms at this time recent imaging without cholecystitis eating well without GI symptoms (6) BPH (benign prostatic hyperplasia): Plan: cont flomax (7) Hyperlipidemia: Plan: Continue rosuvastatin recent ast/alt minimally elevated stable follow the ast/alt while on atovaquone (8) Hypertension: Plan: Blood pressure is acceptable with metoprolol alone losartan-HCT remain on hold (9) Impaired fasting glucose: Plan: a1c 5.4% elevations while here 2nd to high-dose steroids & critical illness control now excellent (10) Carotid artery stenosis: (11) Bright red blood per rectum: Plan: stable, none since earlier this admission H/H remain acceptable (12) Thrombocytopenia: Plan: platelets are mildly low -- but appear to be plateauing lovenox held HIT ab dispatched in [place] of lovenox - started xarelto 10mg po daily on 02/05/21 recent b12 level low-normal - started B12 supplementation orally bactrim could also cause low platelets perhaps rash and low platelets is bactrim related bactrim stopped 02/06 repeat cbc in am await HIT ab (13) Rash: Plan: suspect sulfa allergy as above not bothersome to patient zyrtec daily bactrim stopped rash improving Plan: PT/OT both advising rehab patient denied [facility] by insurance appeal put in by family - rehab STILL denied by insurance SNF vs home with home PT extensively updated 02.06.21 Admission and Anticipated Discharge Date Admission Date: January 10, 2021 Subjective patient w/o any new complaints tolerating atovaquone without nausea or GI upset he found out today that his 's appeal to the insurance for denial of inpatient rehab was not overturned he is upset by this - really wanted inpatient rehab willing to look at other options - SNF vs home w/ HH eating well rash is fading Review of Systems Review of Systems: gen - no fevers pulm - mild cough, WALLS unchanged CV - no orthopnea GI - no abd pain or vomiting Physical Exam Physical Exam: gen - NAD, looks well, no change in his exam mouth - MMM, no thrush neck - no JVD heart - RRR, s1 s2, no murmur lungs - mild fine bibasilar rales; no wheeze; no increased work of breathing abd - soft NT ND BS+ ext - RLE is larger than LLE but he reports this is chronic; pulses 2+ b/l; no edema skin - macular rash on arms, back, torso, thighs IMPROVED today (fading) Results & Data Results & Data ([facility]) Vital Signs (Past 12 Hours) Vital Signs Temp Pulse Pulse Resp BP BP Pulse Ox 02/07/21 22:17 36.5 C 71 18 126/75 97 02/07/21 14:24 36.4 C L 68 16 99/59 L 99 Laboratory Results Laboratory Results - last 24 hr 02/07/21 02/07/21 02/07/21 08:11 08:57 08:57 WBC 4.64 L RBC 3.21 L Hgb 11.0 L Hct 32.6 L MCV 101.6 H MCH 34.3 H MCHC 33.7 RDW Std Deviation 54.4 H RDW Coeff of [place] 14.6 H Plt Count 115 L MPV 9.5 Immature Gran % (Auto) 0.2 Neut % (Auto) 65.5 Lymph % (Auto) 20.5 [place] % (Auto) 9.3 Eos % (Auto) 4.3 Baso % (Auto) 0.2 Neut # (Auto) 3.04 Lymph # (Auto) 0.95 L [place] # (Auto) 0.43 Eos # (Auto) 0.20 Baso # (Auto) 0.01 Immature Gran # (Auto) 0.01 RBC Morphology Unremarkable Sodium 134 L Potassium 4.3 Chloride 102 Carbon Dioxide 24 Anion Gap 8.0 BUN 10 Creatinine 1.06 Est Cr Clr Drug Dosing 73.7 Est GFR ( Amer) 80.9 Est GFR (Non-Af Amer) 69.8 BUN/Creatinine Ratio 9.4 L Glucose 155 H POC Glucose 94 Calcium 8.0 L 02/07/21 02/07/21 02/07/21 11:43 17:00 20:53 WBC RBC Hgb Hct MCV MCH MCHC RDW Std Deviation RDW Coeff of Corby Plt Count MPV Immature Gran % (Auto) Neut % (Auto) Lymph % (Auto) [place] % (Auto) Eos % (Auto) Baso % (Auto) Neut # (Auto) Lymph # (Auto) [place] # (Auto) Eos # (Auto) Baso # (Auto) Immature Gran # (Auto) RBC Morphology Sodium Potassium Chloride Carbon Dioxide Anion Gap BUN Creatinine Est Cr Clr Drug Dosing Est GFR ( Amer) Est GFR (Non-Af Amer) BUN/Creatinine Ratio Glucose POC Glucose 96 122 H 141 H Calcium PG Care Time/CCT Total # of Minutes Spent Total Time Spent with Patient: Total time spent is greater than 50% in coordination of care (as documented) at patient's floor/unit and/or counseling patient: Coding Level of Care Code 47681 Subseq Hosp Care Lvl 2 Diagnoses Acute hypoxemic respiratory failure J96.01 Pneumocystis jiroveci pneumonia B59 2019 novel coronavirus-infected pneumonia (NCIP) U07.1; J12.82 SIRS (systemic inflammatory response syndrome) R65.10 Cholelithiases K80.20 BPH (benign prostatic hyperplasia) N40.0 Hyperlipidemia E78.5 Hypertension I10 Hypertension type: essential hypertension Impaired fasting glucose R73.01 Carotid artery stenosis I65.29 Bright red blood per rectum K62.5 Thrombocytopenia D69.6 Rash R21 (1) Hypertension Hypertension type: essential hypertension Qualified Code(s): I10 - Essential (primary) hypertension
[2021-02-08] MEDS: ATOVAQUONE 750 MG/5 ML UDC PO SCH ×2 (00:16→12:34)
[2021-02-08 00:49] LABS: Plt Ab, Heparin Induced Weak Positive (Negative)
[2021-02-08 06:32] LABS: Hematocrit (blood only) 32.2 % (42-52); Hemoglobin 10.9 g/dL (14.0-18.0); Mean Corpuscular Hemoglobin 34.5 pg (25-34); Mean Corpuscular Hgb Conc 33.9 g/dL (32-36); Mean Corpuscular Volume 101.9 fL (80-100); Mean Platelet Volume 9.6 fL (7.4-10.4); Platelet Count 115 K/uL (130-400); RDW Coefficient of Variation 14.8 % (11.5-14.5); Red Blood Count 3.16 M/uL (4.7-6.1); White Blood Count 5.77 K/uL (4.8-10.8)
[2021-02-08 07:12] LABS: BUN Creatinine Ratio 13.8 (10-20); Calcium 8.4 mg/dl (8.5-10.1); Creatinine Clr Calc Pharmacy 89.8 ml/min; Est GFR (African American) 99.9 ml/min; Est GFR (Non-African American) 86.2 ml/min; Potassium 4.3 mmol/L (3.5-5.1)
[2021-02-08] MEDS: PANTOprazole 40 MG in SYRINGE 0 ML IV SCH ×2 (07:48→21:08)
[2021-02-08] MEDS: METOPROLOL TARTRATE 50 MG TAB PO SCH ×2 (07:48→21:09)
[2021-02-08] MEDS: RIVAROXABAN 10 MG TABLET PO SCH (07:49)
[2021-02-08] MEDS: SODIUM CHLORIDE 1 GM TABLET PO SCH (07:49)
[2021-02-08] MEDS: CYANOCOBALAMIN 500 MCG TABLET (VITAMIN B-12) PO SCH (07:49)
[2021-02-08] MEDS: LANSOPRAZOLE 30 MG SOLTAB PO SCH (07:49)
[2021-02-08] MEDS: POLYETHYLENE (MIRALAX) 17 GM PACK PO SCH ×2 (07:50→21:08)
[2021-02-08] MEDS: DOCUSATE SODIUM/SENNA 50/8.6MG TAB PO SCH (07:51)
[2021-02-08] MEDS: ASPIRIN 81 MG CHEW PO SCH (08:00)
[2021-02-08] MEDS: INSULIN ASPART 100 UNITS/ML 3 ML PEN SC SCH ×4 (08:22→21:20)
[2021-02-08] MEDS: ROSUVASTATIN CALCIUM 20 MG TAB PO SCH (12:33)
[2021-02-08] MEDS: TAMSULOSIN HCL 0.4 MG CAP PO SCH (21:09)
[2021-02-08] MEDS: CETIRIZINE HCL 10 MG TABLET PO SCH (21:09)
--- NOTE | 2021-02-08 22:39 | Hospitalist Progress Note ---
Date of Service February 08, 2021 Assessment & Plan (1) Acute hypoxemic respiratory failure: Plan: 2nd to #1 below. resolved - off NC O2 today. s/p intubation with mech ventilation 01/17 to 01/18. prior to intubation and then post-extubation required high FiO2 via high-flow NC. this was weaned slowly to standard NC over the last 2 weeks. will need 2-step ambulatory o2 test at discharge. 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 HIV negative. s/p bronchoscopy on 01/17/21 (day of intubation) with negative bronch cultures and negative pathology from lung biopsy. HOWEVER - pneumocystis PCR returned positive on 01/21/21. Was on bactrim until 02/06 - discontinued at that time due to concern for sulfa allergy. Changed to atovaquone 750mg BID on 02/06. Today is day #19 of pneumocystis treatment and day #3 of atovaquone. He is s/p prednisone taper - last dose 02/04. Now off steroids. Spoke with Yudelka ID 02/04 - alternative is atovaquone 750mg BID for 1-2 more weeks. (3) 2019 novel coronavirus-infected pneumonia (NCIP): Plan: Dx late November 2020, requiring brief hospitalization in 12/2020. 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 he will need very close f/u post-discharge with [facility] due to #2 as well as possibility of fibrosis. (4) SIRS (systemic inflammatory response syndrome): Plan: 2nd to the above resolved (5) Cholelithiases: Plan: no symptoms at this time recent imaging without cholecystitis eating well without GI symptoms (6) BPH (benign prostatic hyperplasia): Plan: cont flomax (7) Hyperlipidemia: Plan: Continue rosuvastatin ast/alt now wnl (8) Hypertension: Plan: Blood pressure is acceptable with metoprolol alone losartan-HCT remain on hold (9) Impaired fasting glucose: Plan: a1c 5.4% elevations while here 2nd to high-dose steroids & critical illness control now excellent (10) Carotid artery stenosis: (11) Bright red blood per rectum: Plan: stable, none since earlier this admission H/H remain acceptable (12) Thrombocytopenia: Plan: platelets mildly low -- plateaued at 115 lovenox held HIT ab dispatched -- returned weakly positive in [place] of lovenox - started xarelto 10mg po daily on 02/05/21 recent b12 level low-normal - started B12 supplementation orally bactrim could also cause low platelets perhaps rash and low platelets is bactrim related bactrim stopped 02/06 repeat cbc in am since HIT ab is weakly positive send serotonin release assay (13) Rash: Plan: suspect sulfa allergy bactrim stopped rash nearly resolved cont zyretc (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 send FREDY. lovenox d/c. platelets have bottomed at 115. cbc am. using xarelto for DVT proph in [place] of lovenox. Plan: PT/OT both advising rehab patient denied [facility] by insurance appeal put in by family - rehab STILL denied by insurance SNF vs home with home PT Admission and Anticipated Discharge Date Admission Date: January 10, 2021 Subjective o2 weaned off at rest ! 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 today; CTA b/l otherwise abd - soft NT ND BS+ ext - no edema, pulses 2+ b/l skin - macular rash on arms, back, torso, thighs nearly resolved today Results & Data Results & Data ([facility]) Vital Signs (Past 12 Hours) Vital Signs Temp Pulse Resp BP BP Pulse Ox 02/08/21 21:32 101 H 103/69 02/08/21 15:35 95 02/08/21 14:49 36.2 C L 82 16 102/64 100 Laboratory Results Laboratory Results - last 24 hr 02/05/21 02/08/21 02/08/21 12:25 06:00 06:00 WBC 5.77 RBC 3.16 L Hgb 10.9 L Hct 32.2 L MCV 101.9 H MCH 34.5 H MCHC 33.9 RDW Std Deviation 55.0 H RDW Coeff of Corby 14.8 H Plt Count 115 L MPV 9.6 Sodium 134 L Potassium 4.3 Chloride 103 Carbon Dioxide 26 Anion Gap 5.0 BUN 12 Creatinine 0.87 Est Cr Clr Drug Dosing 89.8 Est GFR ( Amer) 99.9 Est GFR (Non-Af Amer) 86.2 BUN/Creatinine Ratio 13.8 Glucose 91 POC Glucose Calcium 8.4 L AST 23 ALT 41 Heparin Dep Plt Ab React Weak Positive A* Heparin Dep Plt Ab OD 0.359 FREDY UFH Low Dose 0.1 FREDY UFH Low Dose 0.5 FREDY UFH High Dose FREDY Unfract Heparin 02/08/21 02/08/21 02/08/21 08:15 11:50 16:58 WBC RBC Hgb Hct MCV MCH MCHC RDW Std Deviation RDW Coeff of Corby Plt Count MPV Sodium Potassium Chloride Carbon Dioxide Anion Gap BUN Creatinine Est Cr Clr Drug Dosing Est GFR ( Amer) Est GFR (Non-Af Amer) BUN/Creatinine Ratio Glucose POC Glucose 97 94 107 H Calcium AST ALT Heparin Dep Plt Ab React Heparin Dep Plt Ab OD FREDY UFH Low Dose 0.1 FREDY UFH Low Dose 0.5 FREDY UFH High Dose FREDY Unfract Heparin 02/08/21 02/08/21 18:52 20:53 WBC RBC Hgb Hct MCV MCH MCHC RDW Std Deviation RDW Coeff of Corby Plt Count MPV Sodium Potassium Chloride Carbon Dioxide Anion Gap BUN Creatinine Est Cr Clr Drug Dosing Est GFR ( Amer) Est GFR (Non-Af Amer) BUN/Creatinine Ratio Glucose POC Glucose 123 H Calcium AST ALT Heparin Dep Plt Ab React Heparin Dep Plt Ab OD FREDY UFH Low Dose 0.1 Pending FREDY UFH Low Dose 0.5 Pending FREDY UFH High Dose Pending FREDY Unfract Heparin Pending PG Care Time/CCT Total # of Minutes Spent Total Time Spent with Patient: Total time spent is greater than 50% in coordination of care (as documented) at patient's floor/unit and/or counseling patient: Coding Level of Care Code 67550 Subseq Hosp Care Lvl 2 Diagnoses Acute hypoxemic respiratory failure J96.01 Pneumocystis jiroveci pneumonia B59 2019 novel coronavirus-infected pneumonia (NCIP) U07.1; J12.82 SIRS (systemic inflammatory response syndrome) R65.10 Cholelithiases K80.20 BPH (benign prostatic hyperplasia) N40.0 Hyperlipidemia E78.5 Hypertension I10 Hypertension type: essential hypertension Impaired fasting glucose R73.01 Carotid artery stenosis I65.29 Bright red blood per rectum K62.5 Thrombocytopenia D69.6 Rash R21 HIT (heparin-induced thrombocytopenia) D75.82 (1) Hypertension Hypertension type: essential hypertension Qualified Code(s): I10 - Essential (primary) hypertension
[2021-02-09] MEDS: ATOVAQUONE 750 MG/5 ML UDC PO SCH ×2 (00:14→12:11)
[2021-02-09 07:00] LABS: Basophils # (auto) 0.01 K/uL (0-0.2); Basophils % (auto) 0.2 %; Eosinophils # (auto) 0.32 K/uL (0-0.5); Eosinophils % (auto) 6.3 %; Hemoglobin 10.4 g/dL (14.0-18.0); Immature Granulocytes # (auto) 0.02 K/uL (0.00-0.02); Immature Granulocytes % (auto) 0.4 %; Lymphocytes # (auto) 1.53 K/uL (1.2-3.4); Lymphocytes % (auto) 30.4 %; Mean Corpuscular Hemoglobin 35.4 pg (25-34); Mean Corpuscular Hgb Conc 34.7 g/dL (32-36); Mean Platelet Volume 9.4 fL (7.4-10.4); Monocytes # (auto) 0.55 K/uL (0.11-0.59); Monocytes % (auto) 10.9 %; Neutrophils # (auto) 2.61 K/uL (1.4-6.5); Neutrophils % (auto) 51.8 %; Platelet Count 104 K/uL (130-400); RDW Standard Deviation 55.9 fL (36.4-46.3); Red Blood Count 2.94 M/uL (4.7-6.1); White Blood Count 5.04 K/uL (4.8-10.8)
[2021-02-09 07:19] LABS: BUN Creatinine Ratio 14.1 (10-20); Calcium 8.4 mg/dl (8.5-10.1); Creatinine Clr Calc Pharmacy 97.7 ml/min; Est GFR (African American) 103.4 ml/min; Est GFR (Non-African American) 89.2 ml/min; Potassium 4.3 mmol/L (3.5-5.1)
[2021-02-09] MEDS: INSULIN ASPART 100 UNITS/ML 3 ML PEN SC SCH ×4 (09:15→22:43)
[2021-02-09] MEDS: METOPROLOL TARTRATE 50 MG TAB PO SCH ×2 (09:18→22:46)
[2021-02-09] MEDS: CYANOCOBALAMIN 500 MCG TABLET (VITAMIN B-12) PO SCH (09:21)
[2021-02-09] MEDS: LANSOPRAZOLE 30 MG SOLTAB PO SCH (09:22)
[2021-02-09] MEDS: PANTOprazole 40 MG in SYRINGE 0 ML IV SCH ×2 (09:22→22:42)
[2021-02-09] MEDS: DOCUSATE SODIUM/SENNA 50/8.6MG TAB PO SCH (09:23)
[2021-02-09] MEDS: RIVAROXABAN 10 MG TABLET PO SCH (09:24)
[2021-02-09] MEDS: SODIUM CHLORIDE 1 GM TABLET PO SCH (09:24)
[2021-02-09] MEDS: POLYETHYLENE (MIRALAX) 17 GM PACK PO SCH ×2 (09:25→22:44)
--- NOTE | 2021-02-09 10:58 | Ultrasound Report ---
US venous doppler LE BI CLINICAL HISTORY: post-COVID, HIT, lower extremity leg swelling. Eval for DVT legs COMPARISON: None available at the time of this dictation. TECHNIQUE: Bilateral lower extremity real-time compression venous ultrasound with Color Doppler imagi ng. Utilizing real-time ultrasonic imaging multiple real time high-resolution ultrasonic images with comp ression and noncompression maneuvers of the deep venous system in addition to color doppler imaging w ere performed from the common femoral vein through the proximal calf veins. FINDINGS: Currently there is normal compressibility of the deep venous system from the common femoral vein thro ugh the proximal calf veins. No current evidence of acute thrombosis is identified. Impression: No evidence of deep venous thrombus. ACT 112: Negative or not required by law. Electronically signed by: Conrad Wiley M.D. 02/09/2021 10:57 AM
[2021-02-09] MEDS: ROSUVASTATIN CALCIUM 20 MG TAB PO SCH (12:11)
[2021-02-09] MEDS ORDERED: predniSONE 10 MG TABLET PO ONE (17:30)
--- NOTE | 2021-02-09 21:45 | Hospitalist Progress Note ---
Date of Service February 09, 2021 Assessment & Plan (1) Acute hypoxemic respiratory failure: Plan: 2nd to #1 below. resolved - off NC O2 s/p intubation with mech ventilation 01/17 to 01/18. prior to intubation and then post-extubation required high FiO2 via high-flow N C. this was weaned slowly to standard NC over the last 2 weeks. ordered 2-step ambulatory O2 test (2) Pneumocystis jiroveci pneumonia: Plan: In the context of COVID-19 pneumonia in 12/2020. HIV negative. s/p bronchoscopy on 01/17/21 (day of intubation) with negative bronch cultures and negative pathology from lung biopsy. HOWEVER - pneumocystis PCR returned positive on 01/21/21. Was on bactrim until 02/06 - discontinued at that time due to concern for sulfa allergy. Changed to atovaquone 750mg BID on 02/06. Today is day #20 of pneumocystis treatment and day #4 of atovaquone. He is s/p prednisone taper - last dose 02/04. Now off steroids. Spoke with Yudelka ID 02/04 - alternative is atovaquone 750mg BID for 1-2 more weeks. Plan 10 days of atovaquone at d/c. (3) 2019 novel coronavirus-infected pneumonia (NCIP): Plan: Dx late November 2020, requiring brief hospitalization in 12/2020. 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 he will need very close f/u post-discharge with [facility] due to #2 as well as possibility of fibrosis. (4) SIRS (systemic inflammatory response syndrome): Plan: 2nd to the above resolved (5) Cholelithiases: Plan: no symptoms at this time recent imaging without cholecystitis eating well without GI symptoms (6) BPH (benign prostatic hyperplasia): Plan: cont flomax (7) Hyperlipidemia: Plan: Continue rosuvastatin ast/alt now wnl (8) Hypertension: Plan: Blood pressure is acceptable with metoprolol alone losartan-HCT remain on hold (9) Impaired fasting glucose: Plan: a1c 5.4% elevations while here 2nd to high-dose steroids & critical illness control now excellent (10) Carotid artery stenosis: (11) Bright red blood per rectum: Plan: stable, none since earlier this admission H/H remain acceptable (12) Thrombocytopenia: Plan: platelets mildly low -- dropped again today to low 100s lovenox held HIT ab dispatched -- returned weakly positive in [place] of lovenox - started xarelto 10mg po daily on 02/05/21 recent b12 level low-normal - started B12 supplementation orally bactrim could also cause low platelets perhaps rash and low platelets is bactrim related bactrim stopped 02/06 since HIT ab is weakly positive send serotonin release assay give another dose of prednisone today for rash/mild eosinophilia/low platelets repeat CBC am (13) Rash: Plan: suspect sulfa allergy bactrim stopped rash nearly resolved cont zyretc (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 send FREDY. lovenox d/c. platelets have bottomed at 115. cbc am. using xarelto for DVT proph in [place] of lovenox. Plan: PT/OT both advising rehab patient denied [facility] by insurance appeal put in by family - rehab STILL denied by insurance pt to return home with d/c tomorrow hopefully updated at bedside Admission and Anticipated Discharge Date Admission Date: January 10, 2021 Subjective patient feeling great just mild WALLS walked with PT in the hallway and O2 sats stayed over 90 to his recollection rash nearly gone no fevers eating well Review of Systems Review of Systems: gen - no fevers CV - no cp, no orthopnea pulm - no dyspnea at rest; no cough GI - no abd pain, N/V/D Physical Exam Physical Exam: gen - NAD, looks great mouth - mmm neck - no JVD heart - RRR, s1 s2, no murmur lungs - 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; good airation in 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 today; CTA b/l otherwise abd - soft NT ND BS+ ext - no edema, pulses 2+ b/l skin - macular rash on arms, back, torso, thighs continues to resolve but still faintly present Results & Data Results & Data ([facility]) Vital Signs (Past 12 Hours) Vital Signs Temp Pulse Resp BP Pulse Ox 02/09/21 15:46 36.8 C 79 20 118/74 93 Laboratory Results Laboratory Results - last 24 hr 02/09/21 02/09/21 02/09/21 06:33 06:33 07:52 WBC 5.04 RBC 2.94 L Hgb 10.4 L Hct 30.0 L MCV 102.0 H MCH 35.4 H MCHC 34.7 RDW Std Deviation 55.9 H RDW Coeff of Corby 15.0 H Plt Count 104 L MPV 9.4 Immature Gran % (Auto) 0.4 Neut % (Auto) 51.8 Lymph % (Auto) 30.4 [place] % (Auto) 10.9 Eos % (Auto) 6.3 Baso % (Auto) 0.2 Neut # (Auto) 2.61 Lymph # (Auto) 1.53 [place] # (Auto) 0.55 Eos # (Auto) 0.32 Baso # (Auto) 0.01 Immature Gran # (Auto) 0.02 Sodium 135 L Potassium 4.3 Chloride 105 Carbon Dioxide 25 Anion Gap 5.0 BUN 11 Creatinine 0.80 Est Cr Clr Drug Dosing 97.7 Est GFR ( Amer) 103.4 Est GFR (Non-Af Amer) 89.2 BUN/Creatinine Ratio 14.1 Glucose 93 POC Glucose 104 H Calcium 8.4 L 02/09/21 02/09/21 02/09/21 11:42 16:56 20:33 WBC RBC Hgb Hct MCV MCH MCHC RDW Std Deviation RDW Coeff of Corby Plt Count MPV Immature Gran % (Auto) Neut % (Auto) Lymph % (Auto) [place] % (Auto) Eos % (Auto) Baso % (Auto) Neut # (Auto) Lymph # (Auto) [place] # (Auto) Eos # (Auto) Baso # (Auto) Immature Gran # (Auto) Sodium Potassium Chloride Carbon Dioxide Anion Gap BUN Creatinine Est Cr Clr Drug Dosing Est GFR ( Amer) Est GFR (Non-Af Amer) BUN/Creatinine Ratio Glucose POC Glucose 126 H 98 111 H Calcium PG Care Time/CCT Total # of Minutes Spent Total Time Spent with Patient: Total time spent is greater than 50% in coordination of care (as documented) at patient's floor/unit and/or counseling patient: Coding Level of Care Code 73932 Subseq Hosp Care Lvl 2 Diagnoses Acute hypoxemic respiratory failure J96.01 Pneumocystis jiroveci pneumonia B59 2019 novel coronavirus-infected pneumonia (NCIP) U07.1; J12.82 SIRS (systemic inflammatory response syndrome) R65.10 Cholelithiases K80.20 BPH (benign prostatic hyperplasia) N40.0 Hyperlipidemia E78.5 Hypertension I10 Hypertension type: essential hypertension Impaired fasting glucose R73.01 Carotid artery stenosis I65.29 Bright red blood per rectum K62.5 Thrombocytopenia D69.6 Rash R21 HIT (heparin-induced thrombocytopenia) D75.82 (1) Hypertension Hypertension type: essential hypertension Qualified Code(s): I10 - Essential (primary) hypertension
[2021-02-09] MEDS: TAMSULOSIN HCL 0.4 MG CAP PO SCH (22:44)
[2021-02-09] MEDS: CETIRIZINE HCL 10 MG TABLET PO SCH (22:44)
[2021-02-10] MEDS: ATOVAQUONE 750 MG/5 ML UDC PO SCH ×2 (01:16→13:26)
[2021-02-10 09:47] LABS: Basophils # (auto) 0.01 K/uL (0-0.2); Basophils % (auto) 0.2 %; Eosinophils # (auto) 0.09 K/uL (0-0.5); Eosinophils % (auto) 2.2 %; Hematocrit (blood only) 30.7 % (42-52); Hemoglobin 10.4 g/dL (14.0-18.0); Immature Granulocytes # (auto) 0.01 K/uL (0.00-0.02); Immature Granulocytes % (auto) 0.2 %; Lymphocytes # (auto) 1.06 K/uL (1.2-3.4); Lymphocytes % (auto) 25.4 %; Mean Corpuscular Hemoglobin 34.4 pg (25-34); Mean Corpuscular Hgb Conc 33.9 g/dL (32-36); Mean Corpuscular Volume 101.7 fL (80-100); Mean Platelet Volume 9.2 fL (7.4-10.4); Monocytes # (auto) 0.27 K/uL (0.11-0.59); Monocytes % (auto) 6.5 %; Neutrophils # (auto) 2.74 K/uL (1.4-6.5); Neutrophils % (auto) 65.5 %; Platelet Count 113 K/uL (130-400); RDW Standard Deviation 55.1 fL (36.4-46.3); Red Blood Count 3.02 M/uL (4.7-6.1); White Blood Count 4.18 K/uL (4.8-10.8)
[2021-02-10] MEDS: INSULIN ASPART 100 UNITS/ML 3 ML PEN SC SCH ×2 (10:02→13:25)
[2021-02-10] MEDS: METOPROLOL TARTRATE 50 MG TAB PO SCH (10:02)
[2021-02-10] MEDS: SODIUM CHLORIDE 1 GM TABLET PO SCH (10:03)
[2021-02-10] MEDS: LANSOPRAZOLE 30 MG SOLTAB PO SCH (10:04)
[2021-02-10] MEDS: CYANOCOBALAMIN 500 MCG TABLET (VITAMIN B-12) PO SCH (10:04)
[2021-02-10] MEDS: RIVAROXABAN 10 MG TABLET PO SCH (10:04)
[2021-02-10] MEDS: DOCUSATE SODIUM/SENNA 50/8.6MG TAB PO SCH (10:10)
[2021-02-10] MEDS: PANTOprazole 40 MG in SYRINGE 0 ML IV SCH (10:11)
[2021-02-10] MEDS: ASPIRIN 81 MG CHEW PO SCH (10:11)
[2021-02-10] MEDS: POLYETHYLENE (MIRALAX) 17 GM PACK PO SCH (10:12)
[2021-02-10 10:27] LABS: BUN Creatinine Ratio 11.4 (10-20); Calcium 8.5 mg/dl (8.5-10.1); Creatinine Clr Calc Pharmacy 101.5 ml/min; Est GFR (African American) 105.1 ml/min; Est GFR (Non-African American) 90.7 ml/min; Potassium 3.6 mmol/L (3.5-5.1)
--- NOTE | 2021-02-10 14:24 | Discharge Summary ---
Date of Service February 10, 2021 Admission HPI Per Admitting Provider 70 YOM with past medical history of: HTN, HLD, Carotid artery stenosis(LICA 50- 69% KRISTINE <50% (2020)), GERD, Elevated blood glucose without diagnosis of DM, Tubular adenoma with resection in 2019, BPH, prostatitis, COVID 19 (12/07/20 with hospitalization in December), former smoker. Patient comes to the [facility] today for complaints of fevers and chills that occurred yesterday evening, this was precluded by a day of increase in frequency and feeling like he wasn't emptying his bladder fully. His chills occured while watching TV yesterday evening and was associated with rigors, he took an aspirin and laid down. When he awoke he reports shirt and sheets were "soaked" with sweat. He had a low grade elevation of his temperature this morning of 99.3 that he took at home. Overall he felt as he was getting better from his COVID infection and starting to return back to normal with minimal dyspnea and still remains with decreased appetite. He denies any abdominal pain, nausea or vomiting. He had a bowel of cereal yesterday with a banana and just felt full after that without any of the above symptoms. He noticed that this morning his urine was darker orange than normal. He denies any burning or pain with urination or change in stools. Upon entering the EMD he was noted to have HR in the 130s NSR and BP 100-110s range afebrile and mildly dyspneic with ambulation. He had routine blood work done to include a UA, Lactate and PCT, and CTA of the chest which was negative for PE but with residual ground glass opacities from his recent COVID infection. His lactate level was 1.3 and negative PCT, and elevated NLR 5:1 His urine was notable for trace LE, Nitrate (+), bilirubin, NO elevation in WBC and no bacteria noted. He was given 2 liters of crystalloid with decrease in his HR to 100s and elevation of his BP to 130s. He was also started on Rocephin 1GM IV for his UA findings. His blood work was noted for elevated bilirubin level 1.4 with normal LFTs and ALK po4. He did have a CT scan of his abdomen performed on his admission to the hospital in December that was noted for few punctate gall stones without any biliary dilation. Patient will be admitted to continue to evaluate his SIRS response, blood cultures were done prior to antibiotics, will add on urine culture to his UA in lab, follow other biomarkers. Direct and indirect bilirubin ordered, CRP, and PSA. Patient has had COVID in November-December 29. His COVID test on admission remains: POSITIVE although >21 days has passed since onset of his symptoms. Discharge Exam gen - NAD, looks great mouth - mmm neck - no JVD heart - RRR, s1 s2, no murmur lungs - 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; good airation in bases today; CTA b/l otherwise abd - soft NT ND BS+ ext - no edema, pulses 2+ b/l skin - macular rash on arms, back, torso, thighs continues to resolve but still faintly present Discharge Data Allergies Allergy/AdvReac Type Severity Reaction Status Date / Time sulfamethoxazole AdvReac Mild Redness of Verified 02/05/21 17:48 [From Bactrim] Skin trimethoprim [From Bactrim] AdvReac Mild Redness of Verified 02/05/21 17:49 Skin Consultations 01/10/21 11:39 ED Decision to Admit Stat 01/12/21 09:50 Consult Gastroenterology Routine 01/14/21 16:37 Consult Pulmonology Routine 01/17/21 09:25 Consult Dermatology Routine Ordered Studies 01/10/21 09:04 CT angio chest PE protocol Stat 01/10/21 12:00 US abdomen limited Routine 01/12/21 18:35 MR MRCP Routine 01/14/21 19:50 CT angio chest PE protocol Urgent 02/09/21 09:18 US venous doppler LE Routine Hospital Course (1) Acute hypoxemic respiratory failure: 2nd to #1 below. resolved - off NC O2 s/p intubation with mech ventilation 01/17 to 01/18. prior to intubation and then post-extubation required high FiO2 via high-flow NC. this was weaned slowly to standard NC over the last 2 weeks. ordered 2-step ambulatory O2 test (2) Pneumocystis jiroveci pneumonia: In the context of COVID-19 pneumonia in 12/2020. HIV negative. s/p bronchoscopy on 01/17/21 (day of intubation) with negative bronch cultures and negative pathology from lung biopsy. HOWEVER - pneumocystis PCR returned positive on 01/21/21. Was on bactrim until 02/06 - discontinued at that time due to concern for sulfa allergy. Changed to atovaquone 750mg BID on 02/06. Today is day #20 of pneumocystis treatment and day #4 of atovaquone. He is s/p prednisone taper - last dose 02/04. Now off steroids. Spoke with Yudelka ID 02/04 - alternative is atovaquone 750mg BID for 1-2 more weeks. Plan 10 days of atovaquone at d/c. (3) 2019 novel coronavirus-infected pneumonia (NCIP): Dx late November 2020, requiring brief hospitalization in 12/2020. 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 he will need very close f/u post-discharge with [facility] due to #2 as well as possibility of fibrosis. (4) SIRS (systemic inflammatory response syndrome): 2nd to the above resolved (5) Cholelithiases: no symptoms at this time recent imaging without cholecystitis eating well without GI symptoms (6) BPH (benign prostatic hyperplasia): cont flomax (7) Hyperlipidemia: Continue rosuvastatin ast/alt now wnl (8) Hypertension: Blood pressure is acceptable with metoprolol alone losartan-HCT remain on hold (9) Impaired fasting glucose: a1c 5.4% elevations while here 2nd to high-dose steroids & critical illness control now excellent (10) Carotid artery stenosis: (11) Bright red blood per rectum: stable, none since earlier this admission H/H remain acceptable (12) Thrombocytopenia: platelets mildly low -- dropped again today to low 100s lovenox held HIT ab dispatched -- returned weakly positive in [place] of lovenox - started xarelto 10mg po daily on 02/05/21 recent b12 level low-normal - started B12 supplementation orally bactrim could also cause low platelets perhaps rash and low platelets is bactrim related bactrim stopped 02/06 since HIT ab is weakly positive send serotonin release assay give another dose of prednisone today for rash/mild eosinophilia/low platelets repeat CBC am (13) Rash: suspect sulfa allergy bactrim stopped rash nearly resolved cont zyretc (14) 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 send FREDY. lovenox d/c. platelets have bottomed at 115. cbc am. using xarelto for DVT proph in [place] of lovenox. PT/OT both advising rehab patient denied [facility] by insurance appeal put in by family - rehab STILL denied by insurance pt to return home with HH d/c tomorrow hopefully updated at bedside Discharge Plan Discharge Items Patient Disposition: Home - Home Health Services Reason For Visit: Fever, chills Discharge Diagnosis: 1. sepsis due to Pneumocystitis Jirovici pneumonia 2. acute respiratory failure due to your pneumonia - leading to intubation and needing a ventilator early in your stay; now on oxygen for use during activity 3. low platelets - improving; likely due to sulfa allergy 4. rash due to sulfa allergy Activity: As commented below Activity Comment: gradually increase your activities over the next 1-2 weeks Lifting: No more than 10 pounds Bathing: No limitations Sexual Activity: Wait until after follow-up appointment Exercise/Sports: Wait until after follow-up appointment Driving/Machine Use: Resume 3 days after discharge Non-emergency contact: Primary Care Provider Call non-emergency contact if: you have any medication questions, your symptoms worsen and you have a fever Follow-up/Referrals: Noman Dougherty MD [Primary Care Provider] - 02/17/21 3:00 pm (With Kaur Burger PA-C) Ozzie Elias MD [Physician] - 02/14/21 11:00 am Diet: Heart Healthy Addtl Attending Provider Instructions: Mr Iglesias, You were hospitalized for a lengthy period of time after discovery of an infection called "Pneumocystis Jirovici." This is an atypical bacterial infection that often occurs when someone's immune system is stressed. In your case, it is likely that your severe COVID-19 infection caused your immune system to be weak, allowing the pneumocystis infection to move into your lungs and cause a bad pneumonia. This pneumonia caused you to require the ventilator briefly as well as large amounts of oxygen for much of your stay. You improved over time with use of antibiotics (initially sulfa drugs) along with steroids. We were ultimately able to wean most of your oxygen off. By the time of discharge you are only requiring oxygen with ambulation/walking (6 liters). You do not need the oxygen at rest. During your stay you developed a rash and your platelets dropped. It is suspected that these issues occurred as a result of sulfa drug allergy. The sulfa drugs were stopped, and in its place we started you on Atovaquone for your pneumocystis infection. Recommendations - 1. oxygen - 6 liters with activity, none at rest or with sleep. 2. Atovaquone -- 750mg (5ml) twice daily for 10 days, first dose TONIGHT. This is your antibiotic for the pneumonia. 3. prednisone - * 30mg x 1 TODAY * 20mg x 1 Saturday * 10mg x 1 Saturday * take with food * this is for your resolving rash 4. ok to take an [id number] deneen or claritin for a few days to help resolve the rash quicker 5. for prevention of blood clots in your legs/lungs while recovering - * take Xarelto 10mg once daily for 30 days * start this TOMORROW, 02/11/2021 * this is a blood thinner (low dose) * due to thinning of your blood from the Xarelto - if you have a cut, nose bleed, etc - these will bleed heavier than usual 6. continue your incentive spirometer and flutter valve for about 1 week 7. for blood pressure - * STOP your losartan-hct * START metoprolol 50mg twice daily 8. for enlarged prostate - * START tamsulosin 0.4mg once daily at bedtime 9. salt tablet - sodium chloride - 1 gram once daily x 5 days; start this tomorrow, 02/11/2021 10. your vitamin B12 level was a little low - please take [id number] vitamin B12 1000mcg daily for about 1 year. 11. please have Dr Dougherty repeat your blood count and sodium levels along with liver tests next week at time of follow-up. 12. strongly consider getting a flu shot in about 1 month 13. please wear a mask any time you leave your home; avoid large gatherings this winter; sick family/friends should not visit you at home. Follow-up - see separate section Return to [facility] if - * you have fevers over 100 degrees * you have worsening shortness of breath despite your oxygen * you check your oxygen level on your finger via a "pulse ox" and it is less than 90% consistently (please purchase a pulse ox if you don't have one -- [employer] sells them) * you have severe diarrhea * you have chest pains * you have bleeding from any location (rectum, nose, lungs, your urine, etc) * any other concerns Best wishes for a speedy recovery! -Dr Barger Pending Studies at Discharge: Yes Studies:: a blood test to ensure that your recent drop in platelets was not due to the lovenox injections you had been receiving Stand-Alone Forms: My [facility] [employer], Smoking Cessation Medications and DC Order Prescriptions: New sodium chloride 1 gram Tablet 1 g PO DAILY 5 Days Qty: 5 RF: 0 tamsulosin 0.4 mg Capsule 0.4 mg PO HS Qty: 30 RF: 2 metoprolol tartrate 50 mg Tablet 50 mg PO BID Qty: 60 RF: 2 Xarelto 10 mg Tablet 10 mg PO DAILY Qty: 30 RF: 0 cyanocobalamin (vitamin B-12) 1,000 mcg capsule 1,000 mcg PO DAILY Qty: 90 RF: 3 atovaquone 750 mg/5 mL suspension 750 mg PO BID 10 Days Qty: 100 RF: 0 (DME) Oxygen Home Liters Per Minute See Rx Instructions .ROUTE .MEDSUPPLY Qty: 1 RF: 0 prednisone 10 mg tablet 10 mg PO DIRECTED Qty: 6 RF: 0 Continued aspirin [Aspirin Low Dose] 81 mg tablet,delayed release (DR/EC) 81 mg PO 3XWK RF: 0 Metamucil 3.4 gram/5.4 gram powder 3 tsp PO DAILY PRN (Reason: Constipation) RF: 0 Men 50 Plus Multivitamin 300-600-300 mcg Tablet 1 tab PO WK RF: 0 rosuvastatin [Crestor] 20 mg tablet 20 mg PO QDL RF: 0 ondansetron 4 mg tablet,disintegrating 4 mg PO Q8H PRN (Reason: nausea and vomiting) Qty: 10 RF: 0 albuterol sulfate [Proventil HFA] 90 mcg/actuation HFA aerosol inhaler 2 inh inhalation Q6H PRN (Reason: shortness of breath or wheezing) Qty: 8.5 RF: 0 famotidine [Pepcid] 40 mg tablet 40 mg PO DAILY Qty: 14 RF: 0 Discontinued potassium chloride [K-Tab] 20 mEq tablet extended release 20 meq PO DAILY Qty: 10 RF: 0 losartan-hydrochlorothiazide [Hyzaar] 50-12.5 mg tablet 1 tab PO QAM RF: 0 Discharge Orders: Discharge Order (Routine); Ordered 02/10/21 Ordered By: Homero Barger Admission Data Admit Date/Time: 01/10/21 12:10 Attending Provider: Homero Barger Admit Provider: Teddy Welsh Primary Care Provider: Noman Dougherty Other Providers: Grady Ellis ; [facility] ; Homero Barger ; Antoine Schultz ; Ozzie Elias ; Vikki Velázquez ; Kit Delong ; [facility] ; [place] ; [facility] Coding Diagnoses Acute hypoxemic respiratory failure J96.01 Pneumocystis jiroveci pneumonia B59 2019 novel coronavirus-infected pneumonia (NCIP) U07.1; J12.82 SIRS (systemic inflammatory response syndrome) R65.10 Cholelithiases K80.20 BPH (benign prostatic hyperplasia) N40.0 Hyperlipidemia E78.5 Hypertension I10 Hypertension type: essential hypertension Impaired fasting glucose R73.01 Carotid artery stenosis I65.29 Bright red blood per rectum K62.5 Thrombocytopenia D69.6 Rash R21 HIT (heparin-induced thrombocytopenia) D75.82
--- NOTE | 2021-02-10 14:26 | Discharge Summary ---
Date of Service date of admission - January 10, 2021 date of discharge - February 10, 2021 Admission HPI Per Admitting Provider 70 YOM with past medical history of: HTN, HLD, Carotid artery stenosis(LICA 50- 69% KRISTINE <50% (2020)), GERD, Elevated blood glucose without diagnosis of DM, Tub ular adenoma with resection in 2019, BPH, prostatitis, COVID 19 (12/07/20 with hospitalization in December), former smoker. Patient comes to the [facility] today for complaints of fevers and chills that occurred yesterday evening, this was precluded by a day of increase in frequency and feeling like he wasn't emptying his bladder fully. His chills occured while watching TV yesterday evening and was associated with rigors, he took an aspirin and laid down. When he awoke he reports shirt and sheets were "soaked" with sweat. He had a low grade elevation of his temperature this morning of 99.3 that he took at home. Overall he felt as he was getting better from his COVID infection and starting to return back to normal with minimal dyspnea and still remains with decreased appetite. He denies any abdominal pain, nausea or vomiting. He had a bowel of cereal yesterday with a banana and just felt full after that without any of the above symptoms. He noticed that this morning his urine was darker orange than normal. He denies any burning or pain with urination or change in stools. Upon entering the [facility] he was noted to have HR in the 130s NSR and BP 100-110s range afebrile and mildly dyspneic with ambulation. He had routine blood work done to include a UA, Lactate and PCT, and CTA of the chest which was negative for PE but with residual ground glass opacities from his recent COVID inf ection. His lactate level was 1.3 and negative PCT, and elevated NLR 5:1 His urine was notable for trace LE, Nitrate (+), bilirubin, NO elevation in WBC and no bacteria noted. He was given 2 liters of crystalloid with decrease in his HR to 100s and elevation of his BP to 130s. He was also started on Rocephin 1GM IV for his UA findings. His blood work was noted for elevated bilirubin level 1.4 with normal LFTs and ALK po4. He did have a CT scan of his abdomen performed on his admission to the hospital in December that was noted for few punctate gall stones without any biliary dilation. Patient will be admitted to continue to evaluate his SIRS response, blood cultures were done prior to antibiotics, will add on urine culture to his UA in lab, follow other biomarkers. Direct and indirect bilirubin ordered, CRP, and PSA. Patient has had COVID in November-December 29. His COVID test on admission remains: POSITIVE although >21 days has passed since onset of his symptoms. Principal Diagnosis Acute hypoxic respiratory failure 2nd to Pneumocystis Jiroveci Pneumonia Discharge Exam Gen - NAD, a/o x 3, looks well Mouth - MMM Neck - no JVD Heart - RRR, s1 s2, no murmur Lungs - mild bibasilar rales, airation good, no increased work of breathing; no wheezing Abd - soft, NT, ND, BS+, no HSM Ext - no edema, pulses 2+ b/l Skin - nearly resolved erythematous macular rash on arms, thighs, torso, back (just barely visible) Discharge Data Allergies Allergy/AdvReac Type Severity Reaction Status Date / Time sulfamethoxazole AdvReac Mild Redness of Verified 02/05/21 17:48 [From Bactrim] Skin trimethoprim [From Bactrim] AdvReac Mild Redness of Verified 02/05/21 17:49 Skin Consultations Gastroenterology Pulmonology Dermatology PT, OT Procedures Performed 1. Fiberoptic bronchoscopy with BAL - Darryl Holloway MD; 01/17/21. 2. Intubation with mechanical ventilation - Darryl Holloway MD; 01/17/21. 3. Skin Punch biopsy - Liban Delong MD 4. Echocardiogram - * EF 60-65% * mild LVH * normal valve function * no regional wall motion abnormalities Ordered Studies Chest X-Ray 01/10/21 08:56 XR chest 1V portable HISTORY: Dyspnea COMPARISON: Chest 12/29/2020. FINDINGS: The heart remains mildly enlarged. Scattered peripheral and basilar airspace opacities are again noted. These have slightly improved on the left. No evidence for pulmonary edema. No pneumothorax. No pleural effusions. IMPRESSION: Scattered peripheral and basilar airspace opacities which have slightly improved on the left. ACT 112: Negative or not required by law. Electronically signed by: Joe Mjeia M.D. 01/10/2021 9:38 AM Chest CTA 01/10/21 09:04 CHEST CTA for PULMONARY ARTERIES CT DOSE: 536.75 mGycm HISTORY: Shortness of breath. TECHNIQUE: Multiaxial CT images of the chest were performed following the intravenous administration of contrast to evaluate the pulmonary arteries. Maximal intensity projection images were also obtained. A dose lowering technique was utilized adhering to the principles of ALARA. COMPARISON STUDY: Chest CTA 12/24/2020. FINDINGS: Normal caliber thoracic aorta with no evidence for dissection. The heart is normal in size. No pericardial effusion. Trace bilateral pleural effusions. No filling defects within the pulmonary arteries to suggest a pulmonary embolus. Moderate calcified plaque within the coronary arteries. The visualized liver and spleen are unremarkable. Normal caliber esophagus. No hilar lymphadenopathy. There is a single mildly enlarged right paratracheal lymph node on image 207. This measures 15 x 9 mm and has increased in size. This could be reactive. No suspicious lytic or blastic osseous lesions. No pneumothorax. The central airways are patent. There are multifocal irregular airspace opacities which demonstrate a peripheral predominance. This is consistent with patient's history of a viral pneumonia. The opacities have slightly progressed in the interval and may represent developing fibrotic change. IMPRESSION: 1. No evidence for pulmonary embolus. 2. There are multifocal irregular airspace opacities which demonstrate a peripheral predominance. This is consistent with patient's history of a viral pneumonia. The opacities have slightly progressed in the interval and may represent developing fibrotic change. ACT 112: Negative or not required by law. Electronically signed by: Joe Mejia M.D. 01/10/2021 11:09 AM Abdomen Ultrasound 01/10/21 12:00 ABDOMINAL ULTRASOUND, RIGHT UPPER QUADRANT HISTORY: Fever. evaluate gallbladder, gallstones, liver. COMPARISON: Abdomen and pelvis CT 12/24/2020 FINDINGS: Pancreas: Obscured by overlying bowel gas. Liver: Unremarkable. Gallbladder: No gallbladder wall thickening. There are tiny gallstones identified. Negative sonographic Fonseca sign. CBD: 4 mm. Right kidney: No hydronephrosis. IMPRESSION: 1. Cholelithiasis. No gallbladder wall thickening. 2. Normal liver. 3. The pancreas was obscured by overlying bowel gas. ACT 112: Negative or not required by law. Electronically signed by: Joe Mejia M.D. 01/10/2021 2:18 PM Hepatobiliary Scan Nuclear Medicine 01/12/21 08:05 NM hepatobiliary CLINICAL HISTORY: RUQ pain, eval jewels TECHNIQUE: Following the intravenous injection of 5.4 mCi of Tc-99m labeled Technetium 99m mebrofenin, multiple images over the upper abdomen were obtained in the anterior projection with uptake measurements of the gallbladder obtained. Comparison: None available at the time of this dictation. FINDINGS: Sequential images demonstrate normal uptake in the liver, common bile duct, gallbladder, and small bowel. No defects in uptake are identified. Subsequent imaging after the administration of sincalide demonstrates prompt elimination of the radiotracer from the gallbladder. Ejection fraction was not evaluated. IMPRESSION: Normal uptake of contrast in the gallbladder and passage into the small bowel. Negative for acute cholecystitis. ACT 112: Negative or not required by law. Electronically signed by: Jason Jones M.D. 01/12/2021 2:51 PM Cholangiopancreatography MRI 01/12/21 18:35 MR MRCP CLINICAL HISTORY: RUQ pain, eval for obstruction, elevated TB COMPARISON: None available at the time of this dictation. TECHNIQUE: Multiplanar multisequence images were obtained of the abdomen with and without the administration of contrast. FINDINGS: Lower chest: No acute abnormality Liver: Unremarkable. No focal lesions are seen. Gallbladder and biliary tree: No calcified gallstones. Normal caliber wall. No intra- or extrahepatic biliary ductal dilation. Pancreas: Unremarkable, no focal lesions. Spleen: Unremarkable. Adrenals: Unremarkable. Kidneys and ureters: A cyst is seen in the left kidney superior pole. Bowel: A hiatal hernia is seen. Lymph nodes Retroperitoneal: Unremarkable. Mesenteric: Unremarkable. Peritoneum: Normal Vessels: Unremarkable. Abdominal wall: Unremarkable. Bones: Degenerative changes in the visualized spine. IMPRESSION: No evidence of acute abnormality and in particular no evidence of biliary obstruction. ACT 112: Negative or not required by law. Electronically signed by: Jason Jones M.D. 01/13/2021 8:01 AM Chest X-Ray 01/14/21 07:00 XR chest 1V portable CLINICAL HISTORY: Shortness of breath. COMPARISON STUDY: Chest radiograph and chest CT January 10, 2021. FINDINGS: Lung volumes are normal. There is no pneumothorax or pleural effusion. Moderate multifocal bilateral opacities are noted. These are similar to prior exam. Cardiomediastinal silhouette is stable. IMPRESSION: No significant change in multifocal bilateral airspace opacities. ACT 112: Negative or not required by law. Electronically signed by: Felipe Jay M.D. 01/14/2021 7:50 AM Chest CTA 01/14/21 19:50 CT ANGIOGRAPHY OF THE CHEST, PULMONARY EMBOLUS PROTOCOL CLINICAL HISTORY: sinus tach, elevated d-dimer COMPARISON STUDY: Chest CT January 10, 2021. Chest radiograph January 14, 2021. TECHNIQUE: Following IV administration of 120 mL of Optiray, helical axial images of the chest were obtained utilizing the pulmonary embolus protocol. Maximal intensity projections and sagittal and coronal reformats were viewed on an independent 3D workstation. IV contrast was administered without complication. Automated exposure control was utilized for the study. A dose lowering technique was utilized adhering to the principles of ALARA. CT DOSE: 731.89 mGy.cm FINDINGS: No pulmonary emboli are identified although the segmental and subsegmental pulmonary arteries are suboptimally assessed due to respiratory motion. There is no thoracic aortic dissection. Mild cardiomegaly and moderate coronary artery calcification. No pericardial effusion is noted. There is a small hiatal hernia. Trace bilateral pleural effusions are noted. There is no pneumothorax. Lungs are suboptimally assessed due to respiratory motion. There is been progression of multifocal groundglass opacities within the lungs since prior exam. Multifocal consolidation is again noted. Central airways are patent. Upper abdomen is unremarkable. IMPRESSION: 1. No pulmonary emboli identified although segmental and subsegmental pulmonary arteries suboptimally assessed due to respiratory motion. 2. Progression of bilateral airspace opacities since prior exam. This favors viral pneumonia. 3. Trace bilateral pleural effusions. ACT 112: Negative or not required by law. Electronically signed by: Felipe Jay M.D. 01/15/2021 8:33 AM Chest X-Ray 01/17/21 08:44 XR chest 1V portable CLINICAL HISTORY: Intubation. COMPARISON STUDY: Chest radiograph and chest CT January 14, 2021. FINDINGS: Tip of endotracheal tube is 4.5 cm above the capo. Tip of nasogastric tube is within the gastric fundus. Cardiomediastinal silhouette is stable. There is no pneumothorax or pleural effusion. There has been progression of bilateral airspace opacities since prior exam. IMPRESSION: 1. Satisfactory positioning of lines and tubes. 2. Progression of bilateral airspace opacities suggestive of viral pneumonia. ACT 112: Negative or not required by law. Electronically signed by: Felipe Jay M.D. 01/17/2021 9:27 AM Chest X-Ray 01/18/21 08:00 XR chest 1V portable CLINICAL HISTORY: resp failure. COMPARISON STUDY: 01/17/2021 TECHNIQUE: 1 view of the chest FINDINGS: Single frontal view of the chest demonstrates the cardiomediastinal silhouette to be within normal limits. Tubes and catheters are unchanged. Accounting for differences in technique, there is no significant interval change in bilateral interstitial and alveolar airspace opacities. There is no evidence for pleural effusion. There is no evidence for vascular congestion. There is no acute osseous pathology. IMPRESSION: Accounting for differences in technique, there is no significant interval change in bilateral interstitial and alveolar airspace opacities. ACT 112: Negative or not required by law. Electronically signed by: Conrad Wiley M.D. 01/18/2021 9:32 AM Chest X-Ray 01/19/21 08:00 XR chest 1V portable HISTORY: 70 years-old Male resp failure acute respiratory failure COMPARISON: Chest radiograph 01/18/2021, CTA chest 01/14/2021 TECHNIQUE: Portable AP view of the chest FINDINGS: Interval extubation with rule of the enteric tube. Interstitial coarsening with ill-defined bilateral airspace opacities, slightly improved from comparison. Unchanged moderate hemidiaphragmatic elevation. No pneumothorax. Persistent blunting of the costophrenic angles. Degenerative changes of the shoulders and spine. IMPRESSION: 1. Interval extubation with removal of the enteric tube. 2. Slightly improved aeration of the lungs. ACT 112: Negative or not required by law. The above report was generated using voice recognition software. It may contain grammatical, syntax or spelling errors. Electronically signed by: Dominic Isaac M.D. 01/19/2021 8:31 AM Chest X-Ray 01/22/21 08:28 XR chest 1V portable CLINICAL HISTORY: resp failure TECHNIQUE: Single frontal radiograph of the chest was obtained. Comparison: Comparison is made to chest one view 01/19/2021 FINDINGS: No lines and tubes are seen. The cardiomediastinal silhouette is normal. Lungs are underinflated. Bilateral lower lobe predominant airspace opacities are noted. No evidence of pleural effusion or pneumothorax. Degenerative changes are seen in the bilateral glenohumeral and acromioclavicular joints. IMPRESSION: Bilateral lower lung predominant airspace opacities which may represent atelectasis, pneumonia, and/or aspiration. These findings are comparable in appearance to prior exam accounting for underinflation. ACT 112: Negative or not required by law. Electronically signed by: Jason Jones M.D. 01/22/2021 10:24 AM Chest X-Ray 01/23/21 08:39 SINGLE VIEW CHEST CLINICAL HISTORY: Respiratory failure. FINDINGS: An AP, portable, upright chest radiograph is compared to study dated 01/22/2021 and correlated with chest CT dated 01/14/2021. The heart is enlarged. Multifocal airspace consolidation is similar to yesterday. Suspect small pleural effusions. No pneumothorax is seen. The skeletal structures are osteopenic. The bony thorax is grossly intact. IMPRESSION: 1. Multifocal airspace consolidation is similar to yesterday. 2. Suspect small pleural effusions. ACT 112: Negative or not required by law. Electronically signed by: Jun Mckeon M.D. 01/23/2021 11:03 AM Venous Doppler Study 02/09/21 09:18 US venous doppler LE BI CLINICAL HISTORY: post-COVID, HIT, lower extremity leg swelling. Eval for DVT legs COMPARISON: None available at the time of this dictation. TECHNIQUE: Bilateral lower extremity real-time compression venous ultrasound with Color Doppler imaging. Utilizing real-time ultrasonic imaging multiple real time high-resolution ultrasonic images with compression and noncompression maneuvers of the deep venous system in addition to color doppler imaging were performed from the common femoral vein through the proximal calf veins. FINDINGS: Currently there is normal compressibility of the deep venous system from the common femoral vein through the proximal calf veins. No current evidence of acute thrombosis is identified. Impression: No evidence of deep venous thrombus. ACT 112: Negative or not required by law. Electronically signed by: Conrad Wiley M.D. 02/09/2021 10:57 AM Hospital Course (1) Acute hypoxemic respiratory failure: 2nd to #1 below. At time of hospital admission he initially was stable in room air. He then began to require NC O2 which escalated to high-flow nasal cannula. On the AM of 01/17/21 he underwent intubation with mechanical ventilation. He was extubated on 01/18/21. He was transitioned back to high-flow nasal cannula and remained on such until 01/26. At that time he was able to tolerate a standard nasal cannula. NC O2 was weaned over the last 2 weeks of his stay. Formal ambulatory 2-step oxygen test showed he did not require NC O2 at rest, but needs 6 liters of NC O2 with activity/ambulation. (2) Pneumocystis jiroveci pneumonia: The patient had severe acute hypoxic respiratory failure that culminated in requiring intubation & mechanical ventilation on 01/17/21. At that time it was unclear what was causing his respiratory failure. Alveolar hemorrhage vs vasculitis vs infectious etiology vs other were all entertained. He underwent bronchoscopy shortly after intubation. In the midst of his illness he also had a diffuse rash which prompted skin biopsy by dermatology to exclude vasculitis. While awaiting test results he remained on high-dose IV steroids and antibiotics. Vasculitis work-up was negative (JOSE CRUZ, ANCA, RF all negative). Skin biopsy did not show vasculitis findings. Bronch cultures were negative for bacterial pathogens & viral pathogens. On 01/21/21 his PCR for pneumocystis jiroveci returned POSITIVE. IV bactrim was initiated x 21 days. Prednisone was planned for 21 days as well. HIV testing was negative. The patient remained on bactrim until 02/06. At that time it was discontinued due to concern for sulfa allergy as well as worsening thrombocytopenia. He was changed to atovaquone 750mg BID on 02/06. Phone consultation with [facility] advised ~2 weeks of atovaquone therapy. He will complete his final 10 days of atovaquone therapy at home. It was thought that the patient was simply immunocompromised in the context of his COVID-19 pneumonia and dexamethasone therapy in December. He has no prior h/o immune deficiency. Formal 2-step O2 test at discharge showed need for ambulatory O2, 6 liters via NC, with activity. He does not need O2 at rest or with sleep. He will need close follow-up with [facility] shortly after discharge given his protracted hospital stay, severe illness, and unusual pneumonia. (3) 2019 novel coronavirus-infected pneumonia (NCIP): Dx late November 2020, requiring brief hospitalization in 12/2020. He received IV/PO dexamethasone during that stay and post-discharge from that 12/2020 hospitalization. There was some concern earlier in this admission that he was developing post- COVID fibrosis. He will need very close f/u post-discharge with [facility] pulmonary due to #2 as well as possibility of fibrosis. (4) Sepsis: 2nd to #2 above. (5) Cholelithiases: During the first portion of his stay it was uncertain what the cause of his SIRS was. Imaging showed gallstones but no cholecystitis. Once he started to improve from his Pneumocystis pneumonia he was eating well without GI symptoms. (6) BPH (benign prostatic hyperplasia): cont flomax voiding fine without issue (7) Hyperlipidemia: Continue rosuvastatin ast/alt now wnl (8) Hypertension: Blood pressure is acceptable with metoprolol alone. Losartan-HCT discontinued. (9) Impaired fasting glucose: Hba1c 5.4%. Patient had mild hyperglycemia 2nd to high-dose steroids & critical illness. control was excellent as he clinically improved and his steroids were weaned. (10) Carotid artery stenosis: (11) Bright red blood per rectum: Occurred early in the hospital stay. H/H remained acceptable while here. Endoscopic evaluation was deferred given the severity of his pulmonary illness. However, hemorrhoids were suspected as the cause. (12) Thrombocytopenia: Beginning 02/04 the patient's platelets trended below 150. Lovenox was held and HIT antibody was dispatched. Xarelto was started in [place] of lovenox. Platelets continued to slowly fall, dropping to a low of 104. HIT ab returned weakly positive and thus a serotonin release assay was sent for confirmation of HIT. Dopplers of his LEs were negative for DVT. I also had concern that he had sulfa allergy given his persistent rash and mild eosinophilia. Sulfa can also cause thrombocytopenia. Bactrim was stopped on 02/06. I gave Mr Iglesias additional prednisone for his suspected sulfa allergy. On day of discharge his platelets began to trend upward. Discharge platelet count was 113. Thus, at time of discharge, it was either sulfa-induced thrombocytopenia vs HIT. I suspect the low platelets were due to sulfa. He will take a few more days of prednisone after discharge. Serotonin release assay was pending at discharge. Finally, the patient's vitamin B12 level was low-normal. Advised B12 supplementation. I do not suspect that the low-normal B12 was the cause of the low platelets, however. 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 HIT ab returned weakly positive. sent FREDY. lovenox d/c. using xarelto for DVT proph in [place] of lovenox. see #12 above. (15) Hyponatremia: Patient had hyponatremia dating back to his 12/2020 hospital stay for COVID-19 pneumonia. Suspect this was due to his HCTZ or SIADH. HCTZ was discontinued. Salt tablets were employed. With the above his Na improved/normalized to 136 at time of discharge. Gave prescription for NaCl 1gm po daily x 5 days then discontinue. He will need a repeat BMP at time of hospital follow-up. (16) DVT prophylaxis: Xarelto 10mg po daily x 30 days post-discharge. PT/OT both advised inpatient rehab following discharge. Patient was denied [facility] rehab by his insurance. I performed a [id number] to overturn the denial but I was not successful. An appeal was submitted by his family - rehab STILL denied by insurance. Pt did not have any interest in going for rehab at a local SNF. Thus, he will return home with home health/home PT & OT. We discussed the possibility of attending pulmonary rehab in the future as an outpatient. Home Health Attestation I certify that this patient is under my care and that I, or a physicians wet process assistant head miller working with me, had a face to-face encounter that meets the home health [id number] encounter requirements with this patient. The encounter with the patient was in whole, or in part, for the following medical condition, which is the primary reason for home health care (list medical condition): Respiratory Failure I certify that, based on my findings, the following services are medically necessary home health services: My clinical findings support the need for the above services because: PT Assessment for Endurance / Balance / Strength PT Eval for Safety and Mobility PT Eval for Safety, Gait Training, Assistive Devices PT Gait and Balance Training, Strengthening and Safety Skilled Nsg Assessment Further, I certify that my clinical findings support that this patient is homebound (i.e. absences from home require considerable and taxing effort and are for medical reasons or [facility] services or infrequently or of short duration when for other reasons) because: Poor Endurance; SOB Minimal Exertion Certification for Home Health Services: Based on the above findings, I certify that this patient is confined to the home and needs intermittent fdc care, physical therapy and/or speech therapy or continues to need occupational therapy. The patient is under my care, and I have initiated the establishment of the plan of care. This patient will be followed by a physician who will periodically review the plan of care. Total Time Total Time Spent Total Time Spent (In Minutes): 60 Discharge Plan Discharge Items Patient Disposition: Home - Home Health Services Reason For Visit: Fever, chills Discharge Diagnosis: 1. sepsis due to Pneumocystitis Jirovici pneumonia 2. acute respiratory failure due to your pneumonia - leading to intubation and needing a ventilator early in your stay; now on oxygen for use during activity 3. low platelets - improving; likely due to sulfa allergy 4. rash due to sulfa allergy Activity: As commented below Activity Comment: gradually increase your activities over the next 1-2 weeks Lifting: No more than 10 pounds Bathing: No limitations Sexual Activity: Wait until after follow-up appointment Exercise/Sports: Wait until after follow-up appointment Driving/Machine Use: Resume 3 days after discharge Non-emergency contact: Primary Care Provider Call non-emergency contact if: you have any medication questions, your symptoms worsen and you have a fever Follow-up/Referrals: Noman Dougherty MD [Primary Care Provider] - 02/17/21 3:00 pm (With Carlos Burger PA-C) Ozzie Elias MD [Physician] - 02/14/21 11:00 am Diet: Heart Healthy Addtl Attending Provider Instructions: Mr Iglesias, You were hospitalized for a lengthy period of time after discovery of an infection called "Pneumocystis Jirovici." This is an atypical bacterial infection that often occurs when someone's immune system is stressed. In your case, it is likely that your severe COVID-19 infection caused your immune system to be weak, allowing the pneumocystis infection to move into your lungs and cause a bad pneumonia. This pneumonia caused you to require the ventilator briefly as well as large amounts of oxygen for much of your stay. You improved over time with use of antibiotics (initially sulfa drugs) along with steroids. We were ultimately able to wean most of your oxygen off. By the time of discharge you are only requiring oxygen with ambulation/walking (6 liters). You do not need the oxygen at rest. During your stay you developed a rash and your platelets dropped. It is suspected that these issues occurred as a result of sulfa drug allergy. The sulfa drugs were stopped, and in its place we started you on Atovaquone for your pneumocystis infection. Recommendations - 1. oxygen - 6 liters with activity, none at rest or with sleep. 2. Atovaquone -- 750mg (5ml) twice daily for 10 days, first dose TONIGHT. This is your antibiotic for the pneumonia. 3. prednisone - * 30mg x 1 TODAY * 20mg x 1 Saturday * 10mg x 1 Saturday * take with food * this is for your resolving rash 4. ok to take an nxpj-avm-uflbxye deneen or claritin for a few days to help resolve the rash quicker 5. for prevention of blood clots in your legs/lungs while recovering - * take Xarelto 10mg once daily for 30 days * start this TOMORROW, 02/11/2021 * this is a blood thinner (low dose) * due to thinning of your blood from the Xarelto - if you have a cut, nose bleed, etc - these will bleed heavier than usual 6. continue your incentive spirometer and flutter valve for about 1 week 7. for blood pressure - * STOP your losartan-hct * START metoprolol 50mg twice daily 8. for enlarged prostate - * START tamsulosin 0.4mg once daily at bedtime 9. salt tablet - sodium chloride - 1 gram once daily x 5 days; start this tomorrow, 02/11/2021 10. your vitamin B12 level was a little low - please take zadp-fbz-igvdvar vitamin B12 1000mcg daily for about 1 year. 11[address] please have Dr Dougherty repeat your blood count and sodium levels along with liver tests next week at time of follow-up. 12. strongly consider getting a flu shot in about 1 month 13. please wear a mask any time you leave your home; avoid large gatherings this winter; sick family/friends should not visit you at home. Follow-up - see separate section Return to [facility] if - * you have fevers over 100 degrees * you have worsening shortness of breath despite your oxygen * you check your oxygen level on your finger via a "pulse ox" and it is less th an 90% consistently (please purchase a pulse ox if you don't have one -- [employer] sells them) * you have severe diarrhea * you have chest pains * you have bleeding from any location (rectum, nose, lungs, your urine, etc) * any other concerns Best wishes for a speedy recovery! -Dr Barger Pending Studies at Discharge: Yes Studies:: a blood test to ensure that your recent drop in platelets was not due to the lovenox injections you had been receiving Stand-Alone Forms: My [employer], Smoking Cessation Medications and DC Order Prescriptions: New sodium chloride 1 gram Tablet 1 g PO DAILY 5 Days Qty: 5 RF: 0 tamsulosin 0.4 mg Capsule 0.4 mg PO HS Qty: 30 RF: 2 metoprolol tartrate 50 mg Tablet 50 mg PO BID Qty: 60 RF: 2 Xarelto 10 mg Tablet 10 mg PO DAILY Qty: 30 RF: 0 cyanocobalamin (vitamin B-12) 1,000 mcg capsule 1,000 mcg PO DAILY Qty: 90 RF: 3 atovaquone 750 mg/5 mL suspension 750 mg PO BID 10 Days Qty: 100 RF: 0 (DME) Oxygen Home Liters Per Minute See Rx Instructions .ROUTE .MEDSUPPLY Qty: 1 RF: 0 prednisone 10 mg tablet 10 mg PO DIRECTED Qty: 6 RF: 0 Continued aspirin [Aspirin Low Dose] 81 mg tablet,delayed release (DR/EC) 81 mg PO 3XWK RF: 0 Metamucil 3.4 gram/5.4 gram powder 3 tsp PO DAILY PRN (Reason: Constipation) RF: 0 Men 50 Plus Multivitamin 300-600-300 mcg Tablet 1 tab PO WK RF: 0 rosuvastatin [Crestor] 20 mg tablet 20 mg PO QDL RF: 0 ondansetron 4 mg tablet,disintegrating 4 mg PO Q8H PRN (Reason: nausea and vomiting) Qty: 10 RF: 0 albuterol sulfate [Proventil HFA] 90 mcg/actuation HFA aerosol inhaler 2 inh inhalation Q6H PRN (Reason: shortness of breath or wheezing) Qty: 8.5 RF: 0 famotidine [Pepcid] 40 mg tablet 40 mg PO DAILY Qty: 14 RF: 0 Discontinued potassium chloride [K-Tab] 20 mEq tablet extended release 20 meq PO DAILY Qty: 10 RF: 0 losartan-hydrochlorothiazide [Hyzaar] 50-12.5 mg tablet 1 tab PO QAM RF: 0 Discharge Orders: Discharge Order (Routine); Ordered 02/10/21 Ordered By: Homero Nuñez/Other Patient Handouts: Using Oxygen Safely Admission Data Admit Date/Time: 01/10/21 12:10 Attending Provider: Homero Barger Admit Provider: Teddy Welsh Primary Care Provider: Noman Dougherty Other Providers: Grady Ellis ; [facility] ; Homero Barger ; Antoine Schultz ; Ozzie Elias ; Vikki Velázquez ; Kit Delong ; [facility] ; [place] ; [facility] Other Interventions: Discharge Summary Assessment (RN) Last Done: 02/10/21 14:49 Coding Level of Care Code D/C DAY MANAGEMENT >30 MINS Diagnoses Acute hypoxemic respiratory failure J96.01 Pneumocystis jiroveci pneumonia B59 2019 novel coronavirus-infected pneumonia (NCIP) U07.1; J12.82 Cholelithiases K80.20 BPH (benign prostatic hyperplasia) N40.0 Hyperlipidemia E78.5 Hypertension I10 Hypertension type: essential hypertension Impaired fasting glucose R73.01 Carotid artery stenosis I65.29 Bright red blood per rectum K62.5 Thrombocytopenia D69.6 Rash R21 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
== END 2021-02-10 16:26 | disposition home health service (06) | DRG 871 ==
LOC: ED 08:48 → SUATTDRO 12:10 → 3W 12:10 → 3N 18:26 → 2N 01-14 10:48 → 1E 01-17 08:05 → 3E 01-27 12:12

== ENCOUNTER 2021-05-27 02:13 | Inpatient (IN) ==
[2021-05-27 02:36] LABS: Basophils # (auto) 0.01 K/uL (0-0.2); Basophils % (auto) 0.1 %; Eosinophils # (auto) 0.03 K/uL (0-0.5); Eosinophils % (auto) 0.4 %; Hematocrit (blood only) 41.9 % (42-52); Hemoglobin 15.1 g/dL (14.0-18.0); Immature Granulocytes # (auto) 0.02 K/uL (0.00-0.02); Immature Granulocytes % (auto) 0.2 %; Lymphocytes # (auto) 1.16 K/uL (1.2-3.4); Lymphocytes % (auto) 14.1 %; Mean Corpuscular Hemoglobin 35.7 pg (25-34); Mean Corpuscular Volume 99.1 fL (80-100); Mean Platelet Volume 10.5 fL (7.4-10.4); Monocytes # (auto) 1.09 K/uL (0.11-0.59); Monocytes % (auto) 13.3 %; Neutrophils # (auto) 5.91 K/uL (1.4-6.5); Neutrophils % (auto) 71.9 %; Platelet Count 178 K/uL (130-400); RDW Coefficient of Variation 12.6 % (11.5-14.5); RDW Standard Deviation 45.5 fL (36.4-46.3); Red Blood Count 4.23 M/uL (4.7-6.1); White Blood Count 8.22 K/uL (4.8-10.8)
--- NOTE | 2021-05-27 02:48 | Emergency Department Note ---
Impression & Plan Abdominal pain, acute, right upper quadrant, Transaminitis Admit to the [facility] service ED Provider Note NAME: LAMBERTO RICCI AGE: 70 SEX: M ARRIVES VIA: Ambulance INFORMANT: Patient and his ED PROVIDER(S): Yuridia Gordon DO CHIEF COMPLAINT: Right upper quadrant abdominal pain PLAN: Disposition: Admit to the [facility] service Condition: Stable MEDICAL DECISION MAKING: This is a 70-year-old male patient who presents to the emergency department with severe right upper quadrant abdominal pain. The patient describes drinking some beer this evening and eating felipe salad. Patient then developed severe right upper quadrant pain. He has been having stuttering episodes of this pain throughout the past week. He has a known history of gallstones. Liver function tests were elevated. Gallbladder ultrasound was slightly concerning but not overwhelmingly convincing for acute cholecystitis. The patient will require additional testing to further rule out acute gallbladder disease. I discussed the case with the [facility] and they will evaluate for further management. Triage Nursing notes reviewed and agree with them. Additional history obtained from patient's Prior medical records reviewed Vital Signs: reviewed and remarkable for hypertension Differential diagnosis: Acute cholecystitis, pancreatitis, cholangitis, ureteral colic ER treatment provided: IV normal saline Diagnostics interpreted by me: ECG: Normal sinus rhythm at a rate of [address] segment elevation or signs of ischemia. There is no ectopy. Cardiac Monitoring: Normal sinus rhythm at a rate of 78 Laboratory studies: See below Imaging studies: As per stat rad Ultrasound right upper quadrant: The distended gallbladder without significant gallbladder wall thickening. There is gallbladder sludge. There are some small areas of increased echogenicity within the sludge which may represent small stones. No intrahepatic or extrahepatic bile duct dilatation. No abnormal fluid. HPI: 70/M arrives for evaluation of right upper quadrant abdominal pain. The patient describes developing severe right upper quadrant abdominal pain this evening after drinking some beer and eating felipe salad. He has not had any beer in the past couple months. He does describe having some mild episodes of this right upper quadrant abdominal pain throughout the past week. He has a known history of gallstones. Describes significant nausea and had a couple of episodes of vomiting this evening. Patient was given 15 mg of IV Toradol and 4 mg of IV Zofran by EMS and was nearly symptom-free upon arrival here in the ER. ROS: See above HPI for pertinent positives & negatives. A total of 10 systems reviewed and were otherwise negative. PAST MEDICAL HISTORY:Hypertension; hypercholesterolemia PAST SURGICAL HISTORY:See Below FAMILY HISTORY:See Below SOCIAL HISTORY:See Below HOME MEDICATIONS:See Below ALLERGIES:See Below VITALS:See Below PHYSICAL EXAMINATION: HEENT: Head - normocephalic and atraumatic Pupils are equal, round, and reactive to light. Extraocular eye muscles are intact, and sclera are anicteric. Nose - moist nasal mucosa without discharge. Mouth - moist buccal mucosa. Oropharynx is nonerythematous and there is no tonsillar exudate or edema noted. Neck: Supple; no JVD, nuchal rigidity, cervical lymphadenopathy, or auscultated bruits. Heart: Regular rate and rhythm. There is a normal S1 and S2 with no murmurs, clicks, or gallops appreciated. Lungs: Clear to auscultation bilaterally with no wheezes, rales, or rhonchi. Abdomen: Soft, partly distended with significant right upper quadrant abdominal pain to palpation. There are no palpable pulsatile masses or hepatosplenomegaly. There is no guarding, rigidity, or rebound noted. Extremities: No evidence of cyanosis, clubbing, or edema. There are easily palpable peripheral pulses. Skin: warm and dry with good turgor and no rashes. ED COURSE: Times/Reassessments: 0220: Patient was evaluated in room A10. A complete history and physical was performed. A twelve-lead EKG was obtained as described above. An order was placed for continuous cardiac monitoring. The patient was in a normal sinus rhythm at a rate of 78. The patient was nearly symptom-free upon my exam. The patient was started on IV normal saline drip. He went for an ultrasound of the right upper quadrant as described above. I kept the patient and his abreast of the results of the labs and ultrasound. I discussed the case with the [facility] hospitalist and they w ill evaluate for further management. Yuridia Gordon DO Past Med/Surg History Medical History Acute hypoxemic respiratory failure Basal cell carcinoma of right ear BPH (benign prostatic hyperplasia) COVID Dermatitis, unspecified Hyperlipidemia Hypertension Physical deconditioning Surgical History History of colonoscopy with polypectomy History of tonsillectomy History of wisdom tooth extraction Status post Mohs surgery for basal cell carcinoma Family History Father Acute myocardial infarction Mother Breast cancer Other Myocardial infarction No family history of adverse response to anesthesia Denies family history of Ovarian cancer Prostate cancer Colorectal cancer Social History Smoking Status: Former smoker Age Started Using Tobacco: 18; Age Quit Using Tobacco: 27; packs per day: 1; Years Smoked: 9; Cigarettes Per Day: 20; Smoking End Date: quit in 1979; Number of Years Since Quit: 12; Second Hand Exposure: No; Do You Dip or Chew Tobacco: No; Tobacco Cessation Education Requested by Patient: No Hx Alcohol Use: Yes Alcohol type: beer and wine Hx Substance Use: No Preferred Language: Citizen Of [place] Communication Ability: Effective Visual Impairment: No Limitations Hearing Ability: Normal Building Mechanic Required: No Beliefs That Will Affect Care: None marital status: Current Living Situation: Spouse Other Information That Helps Us Care for You: No Feels Safe at Home: Yes Safety Concerns: Feels Safe At This Time Childhood Exposure to Second-Hand Smoke: Yes Dental Care, Regularly: Yes Physical Activity Frequency: Daily Seatbelt Use: always Assistive Devices: None Allergies Allergies Allergy/AdvReac Type Severity Reaction Status Date / Time sulfamethoxazole AdvReac Mild Redness of Verified 05/27/21 03:00 [From Bactrim] Skin trimethoprim [From Bactrim] AdvReac Mild Redness of Verified 05/27/21 03:00 Skin cholera immunization Allergy Severe Anaphylaxis Uncoded 05/27/21 03:00 Home Meds Home Medications Medication Instructions Recorded Confirmed godejsbt-qjh-wyvyi acid 300 1 tab PO 2XWK 03/19/19 05/27/21 mcg-lycopene 600 mcg-lutein 300 mcg tablet (Men 50 Plus Multivitamin) aspirin 81 mg tablet,delayed 81 mg PO 3XWK tab 01/15/20 05/27/21 release (Aspirin Low Dose) psyllium husk 3.4 gram/5.4 gram 1 tbsp PO DAILY PRN g 06/29/20 05/27/21 oral powder (Metamucil) rosuvastatin 20 mg tablet (Crestor) 20 mg PO DAILY tab 04/28/21 05/27/21 coQ10 (ubiquinol) 200 mg capsule 400 mg PO DAILY 05/27/21 05/27/21 minocycline 100 mg capsule 100 mg PO BID PRN 05/27/21 05/27/21 Previous Rx's Medication Instructions Recorded albuterol sulfate 90 mcg/actuation 2 inh INHALATION Q6H PRN #8.5 g 12/24/20 aerosol inhaler (Proventil HFA) Oxygen Home #1 ea 02/10/21 cyanocobalamin (vitamin B-12) 1,000 mcg PO DAILY #90 cap 02/10/21 1,000 mcg capsule metoprolol tartrate 50 mg tablet 50 mg PO BID #60 tab 02/10/21 tamsulosin 0.4 mg capsule 0.4 mg PO HS #30 cap 02/10/21 Oxygen Home #3 l 05/04/21 Results & Data (ED) Vital Signs Vital Signs - 24 hr 05/27/21 02:07 05/27/21 02:26 Temperature 36.7 C Temperature Source Oral Pulse Rate 78 Respiratory Rate 16 Respiratory Effort / Characteristics Non-Labored Respiratory Depth Normal Blood Pressure 162/93 H Blood Pressure Mean 116 Pulse Oximetry 97 Oxygen Delivery Method Room Air Room Air Sepsis Recent Fever Within 48 Hours No Sepsis New/Unexplained Change in Mental Status No Sepsis Action Taken by Nursing No Action Required Laboratory Data Result diagrams: 05/28/21 06:50 05/28/21 06:50 Lab Results 05/27/21 05/27/21 05/27/21 Range/Units 02:25 02:25 03:12 WBC 8.22 (4.8-10.8) K/uL RBC 4.23 L (4.7-6.1) M/uL Hgb 15.1 (14.0-18.0) g/dL Hct 41.9 L (42-52) % MCV 99.1 (80-100) fL MCH 35.7 H (25-34) pg MCHC 36.0 (32-36) g/dL RDW Std Deviation 45.5 (36.4-46.3) fL RDW Coeff of Corby 12.6 (11.5-14.5) % Plt Count 178 (130-400) K/uL MPV 10.5 H (7.4-10.4) fL Immature Gran % (Auto) 0.2 % Neut % (Auto) 71.9 % Lymph % (Auto) 14.1 % Mcculloch % (Auto) 13.3 % Eos % (Auto) 0.4 % Baso % (Auto) 0.1 % Neut # (Auto) 5.91 (1.4-6.5) K/uL Lymph # (Auto) 1.16 L (1.2-3.4) K/uL M[place]ulloch # (Auto) 1.09 H (0.11-0.59) K/uL Eos # (Auto) 0.03 (0-0.5) K/uL Baso # (Auto) 0.01 (0-0.2) K/uL Immature Gran # (Auto) 0.02 (0.00-0.02) K/uL Sodium 135 L (136-145) mmol/L Potassium 3.6 (3.5-5.1) mmol/L Chloride 103 (98-107) mmol/L Carbon Dioxide 22 (21-32) mmol/L Anion Gap 10 (3-11) BUN 13 (6-23) mg/dl Creatinine 0.71 (0.6-1.4) mg/dl Est Cr Clr Drug Dosing 100.2 ml/min Est GFR ( Amer) 108.6 ml/min Est GFR (Non-Af Amer) 93.7 ml/min BUN/Creatinine Ratio 18.3 (10-20) Glucose 137 H (70-99(Fasting)) mg/dl Calcium 9.2 (8.5-10.1) mg/dl Total Bilirubin 1.5 H (0.2-1.0) mg/dl AST 526 H (13-39) U/L ALT 264 H (7-52) U/L Alkaline Phosphatase 126 H (34-104) U/L Troponin I < 0.03 (0-0.04) ng/ml Total Protein 7.1 (6.0-8.3) gm/dl Albumin 4.1 (3.4-5.0) gm/dl Globulin 3.0 (2.5-4.0) gm/dl Albumin/Globulin Ratio 1.4 (0.9-2) Lipase 43 (11-82) U/L Urine Color Dark Yellow Urine Appearance Clear (Clear) Urine pH 5.0 (4.5-7.5) Ur Specific [place] 1.023 (1.000-1.030) Urine Protein 1+ H (Negative) Urine Glucose (UA) Negative (Negative) Urine Ketones 1+ H (Negative) Urine Blood Trace H (Negative) Urine Nitrite Negative (Negative) Urine Bilirubin 1+ H (Negative) Urine Urobilinogen Negative (Negative) Ur Leukocyte Esterase Negative (Negative) Urine WBC (Auto) 1-5 (0-5) /hpf Urine RBC (Auto) 0-4 (0-4) /hpf U Hyaline Cast (Auto) 0 (0-5) /lpf U Epithel Cells (Auto) 0-5 (0-5) /lpf Urine Bacteria (Auto) Negative (Negative) Administered Medications Cyanocobalamin (Cyanocobalamin (B-12) 500 Mcg Tablet) 1,000 mcg PO DAILY [facility] Stop: 06/26/21 08:59 Last Admin: 05/27/21 10:23 Dose: Not Given Documented by: [id number] Piperacillin Sod/Tazobactam (Sod 3.375 gm/ Dextrose) 115 mls @ 28.75 mls/hr IV Q8H [facility]; Protocol Stop: 06/06/21 13:59 Last Admin: 05/28/21 05:45 Dose: 28.8 mls/hr Documented by: [id number] Infusion: 05/28/21 01:49 Dose: 0 mls/hr Documented by: [id number] Admin: 05/27/21 21:49 Dose: 28.8 mls/hr Documented by: [id number] Infusion: 05/27/21 18:08 Dose: 0 mls/hr Documented by: [id number] Admin: 05/27/21 14:08 Dose: 28.8 mls/hr Documented by: [id number] Pantoprazole Sodium 40 mg/ (Syringe) 10 mls @ 5 mls/min IV BID [facility] Stop: 06/26/21 08:59 Last Admin: 05/27/21 20:51 Dose: 5 mls/min Documented by: [id number] Admin: 05/27/21 08:16 Dose: 5 mls/min Documented by: [id number] Lactated Ringer's (Lr) 1,000 mls @ 125 mls/hr IV .Q8H [facility] Stop: 06/26/21 16:59 Last Admin: 05/28/21 01:42 Dose: 125 mls/hr Documented by: [id number] Infusion: 05/28/21 01:32 Dose: 0 mls/hr Documented by: [id number] Infusion: 05/28/21 00:44 Dose: 125 mls/hr Documented by: [id number] Infusion: 05/27/21 21:49 Dose: 0 mls/hr Documented by: [id number] Admin: 05/27/21 17:44 Dose: 125 mls/hr Documented by: [id number] Metoprolol Tartrate (Metoprolol Tartrate 50 Mg Tab) 50 mg PO BID [facility] Stop: 06/26/21 08:59 Last Admin: 05/27/21 20:52 Dose: Not Given Documented by: [id number] Admin: 05/27/21 10:22 Dose: 50 mg Documented by: [id number] Polyethylene Glycol (Polyethylene (Miralax) 17 Gm Pack) 17 gm PO DAILY PRN PRN Reason: Constipation Stop: 06/26/21 18:35 Last Admin: 05/27/21 18:47 Dose: 17 gm Documented by: [id number] Rosuvastatin Calcium (Rosuvastatin Calcium 20 Mg Tab) 20 mg PO DAILY [facility] Stop: 06/26/21 08:59 Last Admin: 05/27/21 10:22 Dose: Not Given Documented by: [id number] Tamsulosin HCl (Tamsulosin Hcl 0.4 Mg Cap) 0.4 mg PO HS [facility] Stop: 06/26/21 20:59 Last Admin: 05/27/21 20:52 Dose: 0.4 mg Documented by: [id number] Discontinued Medications Sodium Chloride (Nss) 500 mls @ 999 mls/hr IV .Q31M ONE Stop: 05/27/21 04:24 Last Infusion: 05/27/21 06:48 Dose: 0 mls/hr Documented by: [id number] Admin: 05/27/21 04:04 Dose: 999 mls/hr Documented by: [id number] Piperacillin Sod/Tazobactam (Sod 3.375 gm/ Dextrose) 115 mls @ 230 mls/hr IV NOW STA; Protocol Stop: 05/27/21 07:48 Last Infusion: 05/27/21 08:59 Dose: 0 mls/hr Documented by: [id number] Admin: 05/27/21 08:23 Dose: 230 mls/hr Documented by: [id number] Morphine Sulfate (Morphine Sulfate 2 Mg/Ml Carp) 2 mg IV NOW STA Stop: 05/27/21 05:20 Last Admin: 05/27/21 06:52 Dose: 2 mg Documented by: [id number] Discharge Plan Visit Data Chief Complaint: Abdominal Pain Stated Complaint: RUQ PAIN ED Provider: Yuridia Gordon Discharge Problem: Abdominal pain, acute, right upper quadrant, Transaminitis Patient Disposition: Admitted As Inpatient Discharge Instructions Interventions: ED Discharge Assessment Last Done: 05/27/21 07:01
[2021-05-27 02:57] LABS: Troponin I < 0.03 ng/ml (0-0.04)
[2021-05-27 03:02] LABS: Alanine Aminotransferase 264 U/L (7-52); Albumin Globulin Ratio 1.4 (0.9-2); Albumin Level 4.1 gm/dl (3.4-5.0); Alkaline Phosphatase 126 U/L (34-104); Anion Gap 10 (3-11); Aspartate Aminotransferase 526 U/L (13-39); BUN Creatinine Ratio 18.3 (10-20); Bilirubin,Total 1.5 mg/dl (0.2-1.0); Blood Urea Nitrogen 13 mg/dl (6-23); Calcium 9.2 mg/dl (8.5-10.1); Carbon Dioxide 22 mmol/L (21-32); Chloride 103 mmol/L (98-107); Creatinine Clr Calc Pharmacy 100.2 ml/min; Est GFR (African American) 108.6 ml/min; Est GFR (Non-African American) 93.7 ml/min; Glucose 137 mg/dl (70-99(Fasting)); Lipase 43 U/L (11-82); Potassium 3.6 mmol/L (3.5-5.1); Sodium 135 mmol/L (136-145); Total Protein 7.1 gm/dl (6.0-8.3)
[2021-05-27 03:28] LABS: Appearance Urine Clear (Clear); Bacteria Urine Automated Negative (Negative); Blood Urine Trace (Negative); Cast Urine Automated 0 /lpf (0-5); Color Urine Dark Yellow; Epithelial Cell Urine Auto 0-5 /lpf (0-5); Glucose Urine UA Negative (Negative); Ketones Urine 1+ (Negative); Leukocyte Esterase Urine Negative (Negative); Nitrite Urine Negative (Negative); Protein Urine 1+ (Negative); RBC Urine Automated 0-4 /hpf (0-4); Specific Gravity Urine 1.023 (1.000-1.030); Urobilinogen Urine Negative (Negative)
[2021-05-27 03:48] LABS: Bilirubin Urine 1+ (Negative)
[2021-05-27] MEDS ORDERED: SODIUM CHLORIDE 0.9% 500 ML IV ONE (03:54)
--- NOTE | 2021-05-27 04:34 | History & Physical Report ---
Date of Service May 27, 2021 Assessment & Plan (1) RUQ pain: Plan: This is a 70-year-old male with a history of hypertension, carotid artery stenosis, GERD, cholelithiasis, previous pneumocystis pneumonia, previous heparin-induced thrombocytopenia who presented to [facility] for evaluation of abdominal pain, subsequently found to have evidence of transaminitis. His presentation is currently concerning for stone disease. RUQ Pain Sudden onset right upper quadrant pain that began while eating/having alcohol, transiently relieved by analgesics in route to the ER. Has been noted to have this in the past to have similar pain. Patient with known history of gallstones; has had previous MRCP and HIDA scan in 01/2021, which were negative for obstructive pathology at that time In the setting of transaminitis, hyperbilirubinemia, elevated ALP, and normal lipase RUQ US (STAT Rad) demonstrating: Mildly distended gallbladder without significant thickening, sludge is evident; no intrahepatic or extrahepatic bile duct dilatation At this time, primary concern is choledocholithiasis versus developing cholecystitis. Lower suspicion for pancreatitis, lipase normal. Lower suspicion for gastroesophageal etiology, such as ulcer or esophagitis, but considered in the work-up. Unlikely cardiac given negative troponin, normal ECG. No history concerning at present for VTE. We will order HIDA scan for further characterization; if this is unable to be done on the weekend, consider proceeding with MRCP. Patient says he does not have pacemaker. Initiate empiric Zosyn for possible cholecystitis N.p.o. 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 labs (3) Cholelithiases: Plan: Patient with known history of gallstones, with gallbladder sludge again seen on right upper quadrant imaging upon arrival here Work-up as above (4) HIT (heparin-induced thrombocytopenia): Plan: Antibody confirmed history of heparin-induced thrombocytopenia during hospitalization in 01/2021 Hold from pharmacologic prophylaxis at this time in case of need for procedure, utilize SCDs If pharmacologic prophylaxis is pursued, could consider NOAC (5) GERD (gastroesophageal reflux disease): Plan: Continue PPI (6) Hyperlipidemia: Plan: Patient on rosuvastatin at home; however, he only takes intermittently because of muscle pains Hold statin in the setting of transaminitis Can consider further discussions of alternative statin regimen as an outpatient once current illness is resolved (7) Hypertension: Plan: Continue metoprolol tartrate 50 mg twice daily while here (8) Carotid artery stenosis: Plan: History noted. Continue aspirin, BP control Hold statin as above (9) BPH (benign prostatic hyperplasia): Plan: History noted. No issues with voiding reported Continue tamsulosin nightly History of Present Illness Primary Care Provider: Noman Dougherty MD This is a 70-year-old male with a history of hypertension, carotid artery stenosis, GERD, cholelithiasis, previous pneumocystis pneumonia, previous heparin-induced thrombocytopenia who presented to [facility] for evaluation of abdominal pain. Patient said that beginning around 10 PM tonight, he began experiencing a sharp, knifelike right upper quadrant pain that was constant in nature. He said it was worse with deep breaths. The pain was quite severe, but he tried to let it resolve on its own. He says he felt nauseous and vomited 3x. After several hours without resolution, he decided to come into the emergency room for further evaluation. He says he was in his normal health up until this time. He does say for dinner, several hours prior to the initiation of the pain, he had fish and a kidney felipe salad, alongside a total of 6 beers tonight -- which is abnormally much more than usual for him (normally, he drinks < 1 (on average) / day, which his confirms). Of note, patient does say that he is experienced this pain several times over the last 10 years. The most recent incidence was several weeks ago, but was much milder in nature and resolved with sleep. He denies any central/substernal chest pain/pressure, shortness of breath. He has been voiding without difficulty. He does say he feels constipated and like he has to have a bowel movement. He confirms passing gas. He says his last bowel movement was this morning, but it was quite small and without discoloration. Denies any previous history of abdominal surgeries. At the time my history taking, patient does say that pain is returning but is still quite mild. He rates it as a 5 out of 10 in the same distribution, no radiation Of note, patient did have HIDA scan and MRCP performed in 01/28/2021 for abdomi nal pain, both of which were found to be negative. Patient lives at home with his , who contributed to the history. He denies any tobacco use. Denies any recreational drug use. Average number of drinks per night is usually 0-1; he said it was quite abnormal that he had a total of 6 this evening. In the emergency room, patient was found to be mildly hypertensive, but afebrile. Labs were significant for: No leukocytosis, mild monocytosis with lymphopenia, T bili 1.5, AST 526, ALT 264, ALP 126. Troponin negative. Lipase 43. Urine with trace bili. RUQ US demonstrating mildly distended gallbladder without significant thickening, sludge is evident; no intrahepatic or extrahepatic bile duct dilatation. Allergies Allergy/AdvReac Type Severity Reaction Status Date / Time sulfamethoxazole AdvReac Mild Redness of Verified 05/27/21 03:00 [From Bactrim] Skin trimethoprim [From Bactrim] AdvReac Mild Redness of Verified 05/27/21 03:00 Skin cholera immunization Allergy Severe Anaphylaxis Uncoded 05/27/21 03:00 Home Medications Medication Instructions Recorded Confirmed Type [id number] acid 300 1 tab PO 2XWK 03/19/19 05/27/21 History mcg-lycopene 600 mcg-lutein 300 mcg tablet (Men 50 Plus Multivitamin) aspirin 81 mg tablet,delayed 81 mg PO 3XWK tab 01/15/20 05/27/21 History release (Aspirin Low Dose) psyllium husk 3.4 gram/5.4 gram 1 tbsp PO DAILY PRN g 06/29/20 05/27/21 History oral powder (Metamucil) albuterol sulfate 90 mcg/actuation 2 inh INHALATION Q6H PRN #8.5 g 12/24/20 05/27/21 Rx aerosol inhaler (Proventil HFA) Oxygen Home #1 ea 02/10/21 05/27/21 Rx cyanocobalamin (vitamin B-12) 1,000 mcg PO DAILY #90 cap 02/10/21 05/27/21 Rx 1,000 mcg capsule metoprolol tartrate 50 mg tablet 50 mg PO BID #60 tab 02/10/21 05/27/21 Rx tamsulosin 0.4 mg capsule 0.4 mg PO HS #30 cap 02/10/21 05/27/21 Rx rosuvastatin 20 mg tablet (Crestor) 20 mg PO DAILY tab 04/28/21 05/27/21 History Oxygen Home #3 l 05/04/21 05/27/21 Rx coQ10 (ubiquinol) 200 mg capsule 400 mg PO DAILY 05/27/21 05/27/21 History minocycline 100 mg capsule 100 mg PO BID PRN 05/27/21 05/27/21 History Past Med/Surg History Medical History Acute hypoxemic respiratory failure Basal cell carcinoma of right ear BPH (benign prostatic hyperplasia) COVID Dermatitis, unspecified Hyperlipidemia Hypertension Physical deconditioning Surgical History History of colonoscopy with polypectomy History of tonsillectomy History of wisdom tooth extraction Status post Mohs surgery for basal cell carcinoma Family History Father Acute myocardial infarction Mother Breast cancer Other Myocardial infarction No family history of adverse response to anesthesia Denies family history of Ovarian cancer Prostate cancer Colorectal cancer Social History Smoking Status: Former smoker Age Started Using Tobacco: 18; Age Quit Using Tobacco: 27; packs per day: 1; Years Smoked: 9; Cigarettes Per Day: 20; Smoking End Date: quit in 1979; Number of Years Since Quit: 12; Second Hand Exposure: No; Do You Dip or Chew Tobacco: No; Tobacco Cessation Education Requested by Patient: No Hx Alcohol Use: Yes Alcohol type: beer and wine Hx Substance Use: No Preferred Language: Kiswahili Communication Ability: Effective Visual Impairment: No Limitations Hearing Ability: Normal Bead Inspector Required: No Beliefs That Will Affect Care: None marital status: Current Living Situation: Spouse Other Information That Helps Us Care for You: No Feels Safe at Home: Yes Safety Concerns: Feels Safe At This Time Childhood Exposure to Second-Hand Smoke: Yes Dental Care, Regularly: Yes Physical Activity Frequency: Daily Seatbelt Use: always Assistive Devices: Glasses Review of Systems Review of Systems: as per HPI Physical Exam Physical Exam: General: Tired, but otherwise well-appearing 70-year-old male in no acute distress HEENT: NCAT. MMM. No JVD. Cardiac: Normal rate, regular rhythm. S1 and S2 are present without murmurs ru bs or gallops Pulmonary: Clear to auscultation bilaterally without crackles or wheezes Abdominal: Abdomen is mildly distended and tympanic by percussion. There is mild tenderness to palpation in the right upper quadrant, Fonseca's weakly positive. No CVA tenderness. Extremities: No appreciable edema in the lower extremities bilaterally. Results & Data Results & Data ([facility]) Vital Signs (Past 12 Hours) Vital Signs Temp Pulse Resp BP Pulse Ox 05/27/21 02:07 36.7 C 78 16 162/93 H 97 Supervising Physician Co-Signing Physician Notes Attending addendum: I have physically seen this patient, have supervised the medical residents activities, and agree with the H&P unless as otherwise noted. Assessment and Plan: Right upper quadrant pain- Negative MRCP and HIDA scan in 01/2021 Presently with transaminitis, hyperbilirubinemia, elevated alk phosphatase and normal lipase Ultrasound shows gallbladder sludge and mildly distended gallbladder wall Zosyn 4.5 g IV every 8 hours Order HIDA scan Pain management as noted General surgery aware and following Remaining orders and notations as noted Resident Activity Tracking Resident Involvement: Resident Care Provided Care Provided: Adult Hospital Medicine (1) Hypertension Hypertension type: essential hypertension Qualified Code(s): I10 - Essential (primary) hypertension
[2021-05-27] MEDS ORDERED: ONDANSETRON INJ 2 MG/ML 2 ML VIAL IV PRN (04:40)
[2021-05-27] MEDS ORDERED: MoRPHine SULFATE 2 MG/ML CARP IV STA (05:19)
[2021-05-27] MEDS ORDERED: MoRPHine SULFATE 2 MG/ML CARP IV PRN ×2 (06:38→06:42)
[2021-05-27] MEDS ORDERED: ALBUTEROL HFA 8 GM INHALER INH PRN (06:42)
[2021-05-27] MEDS ORDERED: HYDROmorphone INJ 0.5 MG/0.5 ML SYR IV PRN (06:42)
[2021-05-27] MEDS ORDERED: PIPERACILL/TAZOBAC CONSULT ACTIVE PRN (06:42)
[2021-05-27] MEDS ORDERED: PSYLLIUM 58.6% POWDER PACKET PO PRN (07:17)
[2021-05-27] MEDS ORDERED: PIPERACILLIN/TAZOBACTAM 3.375 GM in DEXTROSE 5% 100 ML IV STA (07:19)
--- NOTE | 2021-05-27 07:37 | Communication Note ---
Date of Service: May 27, 2021 S: This morning Jude reports good pain control with as needed morphine. He also is using Zofran as needed for nausea. He has a history of similar "gallbl adder attacks" in the past, however this one is the most severe to his recollection. O: Patient's exam notable for RUQ tenderness to palpation, without rebound or guarding. Cardiac exam normal without murmurs, no tachycardia, no peripheral edema. Lungs clear to auscultation bilaterally. Patient appears non-toxic, lying comfortably in bed. A+P: Please see H+P for general care plan. Any changes to such are noted in this supplementation. 70 yo M Hx GERD, cholelithiasis, HTN, previous diagnosis HIT, carotid artery stenosis admitted with cholestatic pattern transaminitis and abdominal pain, known history of cholelithiasis. MRCP performed today reveals irregular thickened GB wall with several small non-obstructive stones and gallbladder sludge. Ultimately HIDA scan would be of benefit, however generally not performed at this facility on weekends. Will ask General Surgery to evaluate patient given ongoing issue of gallbladder symptoms now with transaminitis for consideration of cholecystectomy. Continue Zosyn for now as cholecystitis could not be ruled out, though normal WBC count is reassuring. I personally examined the patient and verified all alfaro points of history and exam, discussed case, and agree with decision making with Dr Ortiz feeling OK right now. seen at the same time as surgery - input greatly appreciated. for OR tomorrow (pending improvement in LFTs, if not, then probably ERCP first) cholecystitis - for OR. continue zosyn, IVF, NPO p midnight, pain control, anticipate surgery tomorrow otherwise as above Resident Activity Tracking Resident Involvement: Resident Care Provided Care Provided: Adult [facility] Medicine
[2021-05-27 07:54] LABS: Basophils # (auto) 0.01 K/uL (0-0.2); Basophils % (auto) 0.1 %; Eosinophils # (auto) 0.01 K/uL (0-0.5); Eosinophils % (auto) 0.1 %; Hematocrit (blood only) 43.8 % (42-52); Hemoglobin 15.3 g/dL (14.0-18.0); Immature Granulocytes # (auto) 0.02 K/uL (0.00-0.02); Immature Granulocytes % (auto) 0.3 %; Lymphocytes # (auto) 1.29 K/uL (1.2-3.4); Lymphocytes % (auto) 19.1 %; Mean Corpuscular Hemoglobin 34.9 pg (25-34); Mean Corpuscular Hgb Conc 34.9 g/dL (32-36); Mean Platelet Volume 10.7 fL (7.4-10.4); Monocytes # (auto) 0.88 K/uL (0.11-0.59); Monocytes % (auto) 13.1 %; Neutrophils # (auto) 4.53 K/uL (1.4-6.5); Neutrophils % (auto) 67.3 %; Platelet Count 195 K/uL (130-400); RDW Coefficient of Variation 12.6 % (11.5-14.5); RDW Standard Deviation 45.9 fL (36.4-46.3); Red Blood Count 4.38 M/uL (4.7-6.1); White Blood Count 6.74 K/uL (4.8-10.8)
--- NOTE | 2021-05-27 08:06 | XRay Report ---
KUB CLINICAL HISTORY: Abdominal pain. COMPARISON STUDY: CT of the abdomen and pelvis December 24, 2020. FINDINGS: The bowel gas pattern is normal. There is no evidence for a bowel obstruction. Pelvic calci fications favor phleboliths. No urinary calculi are identified. Amount stool is within normal limits. IMPRESSION: No evidence for a bowel obstruction. ACT 112: Negative or not required by law. Electronically signed by: Felipe Jay M.D. 05/27/2021 8:05 AM
[2021-05-27] MEDS: PANTOprazole 40 MG in SYRINGE 0 ML IV SCH ×2 (08:16→20:51)
[2021-05-27 08:24] LABS: Albumin Globulin Ratio 1.4 (0.9-2); BUN Creatinine Ratio 16.2 (10-20); Bilirubin Direct 1.4 mg/dl (0-0.2); Bilirubin,Total 2.4 mg/dl (0.2-1.0); C Reactive Protein 5.88 mg/dl (0-0.5); Calcium 9.2 mg/dl (8.5-10.1); Creatinine Clr Calc Pharmacy 108.4 ml/min; Est GFR (African American) 106.8 ml/min; Est GFR (Non-African American) 92.2 ml/min; Globulin 2.9 gm/dl (2.5-4.0); Potassium 4.2 mmol/L (3.5-5.1); Total Protein 6.9 gm/dl (6.0-8.3)
[2021-05-27] MEDS ORDERED: NON-FORMULARY MEDICATION (Coq10 (Ubiquinol) 200 mg Capsule) PO SCH (09:00)
--- NOTE | 2021-05-27 10:03 | Ultrasound Report ---
US gallbladder CLINICAL HISTORY: Abdominal pain. COMPARISON STUDY: Right upper quadrant ultrasound January 10, 2021. MRCP January 12, 2021. FINDINGS: Liver is sonographically normal. There is no biliary ductal dilatation. Common bile duct me asures 4 mm in caliber. Sludge within the gallbladder is noted with suspected small gallstones within the gallbladder. Gallbladder is mildly distended. Gallbladder wall thickness is at the upper limits of normal. No sonographic Fonseca sign. Pancreas is obscured. No right hydronephrosis. IMPRESSION: 1. Sludge and suspected tiny gallstones within the gallbladder. No gallbladder wall thickening. No so nographic Fonseca sign. 2. No biliary ductal dilatation. 3. Obscured pancreas. ACT 112: Negative or not required by law. Electronically signed by: Felipe Jay M.D. 05/27/2021 10:01 AM
[2021-05-27] MEDS: ROSUVASTATIN CALCIUM 20 MG TAB PO SCH (10:22)
[2021-05-27] MEDS: METOPROLOL TARTRATE 50 MG TAB PO SCH ×2 (10:22→20:52)
[2021-05-27] MEDS: CYANOCOBALAMIN (B-12) 500 MCG TABLET PO SCH (10:23)
--- NOTE | 2021-05-27 10:41 | Electrocardiogram Report ---
Test Reason : Blood Pressure : / mmHG Vent. Rate : 077 BPM Atrial Rate : 077 BPM P-R Int : 166 ms QRS Dur : 090 ms QT Int : 392 ms P-R-T Axes : 051 007 047 degrees QTc Int : 443 ms Normal sinus rhythm Normal ECG When compared with ECG of 25-JAN-2021 07:23, No significant change was found Confirmed by Noman Beaver ([id number]) on 05/27/2021 10:41:19 AM Referred By: REFERRED SELF Confirmed By:Kwame Beaver
--- NOTE | 2021-05-27 12:13 | Magnetic Resonance Report ---
MRCP CLINICAL HISTORY: RUQ pain and acute elevated LFTs TECHNIQUE: Utilizing a 1.5 Sharon magnet and dedicated coil, multiplanar, multiecho imaging of the [facility] er abdomen was performed utilizing heavily T2 weighted pulsing sequences without IV contrast. COMPARISON STUDY: MRCP January 12, 2021. Right upper quadrant ultrasound performed earlier today. FINDINGS: Sludge and suspected tiny gallstones within the gallbladder are better depicted on ultrasou nd of May 27, 2021. Mild gallbladder wall thickening has developed since MRCP of January 12, 2021. Gallbladder wall is slightly irregular. No intra or extrahepatic biliary ductal dilatation is present . No common bile duct calculi identified. Course and caliber of the main pancreatic duct are normal. There is no peripancreatic infiltration or fluid. No hydronephrosis. Suspected left renal cyst. Unenh anced images of the spleen and adrenal glands are unremarkable. Caliber of visualized small and large bowel are normal. No hepatic lesions are identified on this unenhanced exam. IMPRESSION: 1. Mild irregular gallbladder wall thickening. Sludge and small gallstones within the gallbladder are better depicted on ultrasound performed earlier today. Acute cholecystitis cannot be excluded. 2. No intra or extra hepatic biliary ductal dilatation. No common bile duct calculi identified. ACT 112: Negative or not required by law. Electronically signed by: Felipe Jay M.D. 05/27/2021 12:11 PM
[2021-05-27] MEDS: PIPERACILLIN/TAZOBACTAM 3.375 GM in DEXTROSE 5% 100 ML IV SCH ×2 (14:08→21:49)
--- NOTE | 2021-05-27 17:19 | History & Physical Report ---
Date of Service May 27, 2021 Assessment & Plan (1) Transaminitis: Plan: ? passage of a common duct stone. MRCP is negative. I would like to recheck his labs in the morning. If they are coming down, it is most suggestive of having passed a gallstone. (2) Cholelithiases: Plan: Given his recent episodes we discussed laparoscopic cholecystectomy. Risks of the procedure including bleeding infection conversion to open postoperative diarrhea intolerance to foods postoperatively bile leak or retained stones were all discussed. He understands that we will attempt a cholangiogram. If this is unsuccessful, we will just follow him clinically and consult GI if his liver tests increase. He does understand there is an increased possibility of all of these complications as surgery is state being done in a more urgent/emergent setting. In addition, we discussed the possible use of a drain. We will add him on the operating room schedule tentatively for tomorrow pending lab results. Consent was signed. NPO after midnight. Admission and Anticipated Discharge Date Admission Date: May 27, 2021 History of Present Illness Chief Complaint: abdominal pain Primary Care Provider: Noman Dougherty MD 70 yr old man who was first diagnosed with gallstone in 01/2021 during hospital admission for covid. Prior to that, noticed some bouts of indigestion or heartbu rn at times after eating. About 1 week ago, had an episode of sharp stabbing right upper quadrant pain. This episode only lasted for short time and then resolved. Around 8:00 last evening after dinner and while having some alcohol, he developed sharp excruciating right upper quadrant pain that went straight through to his back. It felt as though a knife was stabbing him. He vomited 3 times. He felt constipated and bloated. The pain has now subsided. It is a 2- 3 out of 10 intensity. He is no longer requiring any further pain medications. He denies any fevers or chills. Denies any jaundice. No change in bowel habits other than some recent constipation. Allergies Allergy/AdvReac Type Severity Reaction Status Date / Time sulfamethoxazole AdvReac Mild Redness of Verified 05/27/21 03:00 [From Bactrim] Skin trimethoprim [From Bactrim] AdvReac Mild Redness of Verified 05/27/21 03:00 Skin cholera immunization Allergy Severe Anaphylaxis Uncoded 05/27/21 03:00 Home Medications Medication Instructions Recorded Confirmed Type bldyduql-bfy-rjtmv acid 300 1 tab PO 2XWK 03/19/19 05/27/21 History mcg-lycopene 600 mcg-lutein 300 mcg tablet (Men 50 Plus Multivitamin) aspirin 81 mg tablet,delayed 81 mg PO 3XWK tab 01/15/20 05/27/21 History release (Aspirin Low Dose) psyllium husk 3.4 gram/5.4 gram 1 tbsp PO DAILY PRN g 06/29/20 05/27/21 History oral powder (Metamucil) albuterol sulfate 90 mcg/actuation 2 inh INHALATION Q6H PRN #8.5 g 12/24/20 05/27/21 Rx aerosol inhaler (Proventil HFA) Oxygen Home #1 ea 02/10/21 05/27/21 Rx cyanocobalamin (vitamin B-12) 1,000 mcg PO DAILY #90 cap 02/10/21 05/27/21 Rx 1,000 mcg capsule metoprolol tartrate 50 mg tablet 50 mg PO BID #60 tab 02/10/21 05/27/21 Rx tamsulosin 0.4 mg capsule 0.4 mg PO HS #30 cap 02/10/21 05/27/21 Rx rosuvastatin 20 mg tablet (Crestor) 20 mg PO DAILY tab 04/28/21 05/27/21 History Oxygen Home #3 l 05/04/21 05/27/21 Rx coQ10 (ubiquinol) 200 mg capsule 400 mg PO DAILY 05/27/21 05/27/21 History minocycline 100 mg capsule 100 mg PO BID PRN 05/27/21 05/27/21 History Past Med/Surg History Medical History Acute hypoxemic respiratory failure Basal cell carcinoma of right ear BPH (benign prostatic hyperplasia) COVID Dermatitis, unspecified Hyperlipidemia Hypertension Physical deconditioning Surgical History History of colonoscopy with polypectomy History of tonsillectomy History of wisdom tooth extraction Status post Mohs surgery for basal cell carcinoma Family History Father Acute myocardial infarction Mother Breast cancer Other Myocardial infarction No family history of adverse response to anesthesia Denies family history of Ovarian cancer Prostate cancer Colorectal cancer Social History Smoking Status: Former smoker Age Started Using Tobacco: 18; Age Quit Using Tobacco: 27; packs per day: 1; Years Smoked: 9; Cigarettes Per Day: 20; Smoking End Date: quit in 1979; Number of Years Since Quit: 12; Second Hand Exposure: No; Do You Dip or Chew Tobacco: No; Tobacco Cessation Education Requested by Patient: No Hx Alcohol Use: Yes Alcohol type: beer and wine Hx Substance Use: No Preferred Language: Argentine Communication Ability: Effective Visual Impairment: No Limitations Hearing Ability: Normal Rn Medication Required: No Beliefs That Will Affect Care: None marital status: Current Living Situation: Spouse Other Information That Helps Us Care for You: No Feels Safe at Home: Yes Safety Concerns: Feels Safe At This Time Childhood Exposure to Second-Hand Smoke: Yes Dental Care, Regularly: Yes Physical Activity Frequency: Daily Seatbelt Use: always Assistive Devices: Glasses Review of Systems Review of Systems: All systems reviewed & are unremarkable except as noted in HPI & below Physical Exam Constitutional: WD/WN, vitals as above Eyes: PERRL, conjunctivae normal, anicteric sclerae ENMT: external ear and nose normal, oropharynx normal Neck: normal visual inspection and trachea midline Respiratory: normal respiratory effort, lungs clear to auscultation Cardiovascular: RRR, no murmur, no edema Gastrointestinal (Abdomen): Inspection/Auscultation: abdomen normal to inspection and normal bowel sounds; abdomen not distended Percussion/Palpation: + abdomen tender (mild in right upper quadrant, no fonseca's sign) and abdomen soft; no hepatosplenomegaly Musculoskeletal: Head/Neck/Chest: normocephalic and head atraumatic Neurologic: awake; no focal motor deficits Psychiatric: A+Ox3, euthymic affect Results & Data Results & Data ([facility]) Vital Signs (Past 12 Hours) Vital Signs Temp Pulse Pulse Resp BP Pulse Ox 05/27/21 15:57 36.5 C 63 18 134/72 96 05/27/21 10:21 64 136/76 05/27/21 07:21 36.5 C 70 18 163/88 H 96 05/27/21 06:46 36.5 C 74 18 165/93 H 95 05/27/21 06:00 75 16 182/96 H 98 Laboratory Results 05/27/21 05/27/21 05/27/21 Range/Units 07:31 07:31 07:31 WBC 6.74 (4.8-10.8) K/uL RBC 4.38 L (4.7-6.1) M/uL Hgb 15.3 (14.0-18.0) g/dL Hct 43.8 (42-52) % MCV 100.0 (80-100) fL MCH 34.9 H (25-34) pg MCHC 34.9 (32-36) g/dL RDW Std Deviation 45.9 (36.4-46.3) fL RDW Coeff of Corby 12.6 (11.5-14.5) % Plt Count 195 (130-400) K/uL MPV 10.7 H (7.4-10.4) fL Immature Gran % (Auto) 0.3 % Neut % (Auto) 67.3 % Lymph % (Auto) 19.1 % Blount % (Auto) 13.1 % Eos % (Auto) 0.1 % Baso % (Auto) 0.1 % Neut # (Auto) 4.53 (1.4-6.5) K/uL Lymph # (Auto) 1.29 (1.2-3.4) K/uL Blount # (Auto) 0.88 H (0.11-0.59) K/uL Eos # (Auto) 0.01 (0-0.5) K/uL Baso # (Auto) 0.01 (0-0.2) K/uL Immature Gran # (Auto) 0.02 (0.00-0.02) K/uL Sodium 137 (136-145) mmol/L Potassium 4.2 (3.5-5.1) mmol/L Chloride 103 (98-107) mmol/L Carbon Dioxide 27 (21-32) mmol/L Anion Gap 7 (3-11) BUN 12 (6-23) mg/dl Creatinine 0.74 (0.6-1.4) mg/dl Est Cr Clr Drug Dosing 108.4 ml/min Est GFR ( Amer) 106.8 ml/min Est GFR (Non-Af Amer) 92.2 ml/min BUN/Creatinine Ratio 16.2 (10-20) Glucose 102 H (70-99(Fasting)) mg/dl Calcium 9.2 (8.5-10.1) mg/dl Total Bilirubin 2.4 H D (0.2-1.0) mg/dl Direct Bilirubin 1.4 H (0-0.2) mg/dl AST 587 H (13-39) U/L ALT 410 H (7-52) U/L Alkaline Phosphatase 164 H (34-104) U/L Troponin I (0-0.04) ng/ml C-Reactive Protein 5.88 H (0-0.5) mg/dl Total Protein 6.9 (6.0-8.3) gm/dl Albumin 4.0 (3.4-5.0) gm/dl Globulin 2.9 (2.5-4.0) gm/dl Albumin/Globulin Ratio 1.4 (0.9-2) Lipase (11-82) U/L Procalcitonin 0.18 (0-0.5) ng/ml Urine Color Urine Appearance (Clear) Urine pH (4.5-7.5) Ur Specific [place] (1.000-1.030) Urine Protein (Negative) Urine Glucose (UA) (Negative) Urine Ketones (Negative) Urine Blood (Negative) Urine Nitrite (Negative) Urine Bilirubin (Negative) Urine Urobilinogen (Negative) Ur Leukocyte Esterase (Negative) Urine WBC (Auto) (0-5) /hpf Urine RBC (Auto) (0-4) /hpf U Hyaline Cast (Auto) (0-5) /lpf U Epithel Cells (Auto) (0-5) /lpf Urine Bacteria (Auto) (Negative) SARS-CoV-2, RNA, NAAT (NEGATIVE) 05/27/21 05/27/21 05/27/21 Range/Units 04:59 03:12 02:25 WBC (4.8-10.8) K/uL RBC (4.7-6.1) M/uL Hgb (14.0-18.0) g/dL Hct (42-52) % MCV (80-100) fL MCH (25-34) pg MCHC (32-36) g/dL RDW Std Deviation (36.4-46.3) fL RDW Coeff of Corby (11.5-14.5) % Plt Count (130-400) K/uL MPV (7.4-10.4) fL Immature Gran % (Auto) % Neut % (Auto) % Lymph % (Auto) % Blount % (Auto) % Eos % (Auto) % Baso % (Auto) % Neut # (Auto) (1.4-6.5) K/uL Lymph # (Auto) (1.2-3.4) K/uL Blount # (Auto) (0.11-0.59) K/uL Eos # (Auto) (0-0.5) K/uL Baso # (Auto) (0-0.2) K/uL Immature Gran # (Auto) (0.00-0.02) K/uL Sodium 135 L (136-145) mmol/L Potassium 3.6 (3.5-5.1) mmol/L Chloride 103 (98-107) mmol/L Carbon Dioxide 22 (21-32) mmol/L Anion Gap 10 (3-11) BUN 13 (6-23) mg/dl Creatinine 0.71 (0.6-1.4) mg/dl Est Cr Clr Drug Dosing 100.2 ml/min Est GFR ( Amer) 108.6 ml/min Est GFR (Non-Af Amer) 93.7 ml/min BUN/Creatinine Ratio 18.3 (10-20) Glucose 137 H (70-99(Fasting)) mg/dl Calcium 9.2 (8.5-10.1) mg/dl Total Bilirubin 1.5 H (0.2-1.0) mg/dl Direct Bilirubin (0-0.2) mg/dl AST 526 H (13-39) U/L ALT 264 H (7-52) U/L Alkaline Phosphatase 126 H (34-104) U/L Troponin I < 0.03 (0-0.04) ng/ml C-Reactive Protein (0-0.5) mg/dl Total Protein 7.1 (6.0-8.3) gm/dl Albumin 4.1 (3.4-5.0) gm/dl Globulin 3.0 (2.5-4.0) gm/dl Albumin/Globulin Ratio 1.4 (0.9-2) Lipase 43 (11-82) U/L Procalcitonin (0-0.5) ng/ml Urine Color Dark Yellow Urine Appearance Clear (Clear) Urine pH 5.0 (4.5-7.5) Ur Specific [place] 1.023 (1.000-1.030) Urine Protein 1+ H (Negative) Urine Glucose (UA) Negative (Negative) Urine Ketones 1+ H (Negative) Urine Blood Trace H (Negative) Urine Nitrite Negative (Negative) Urine Bilirubin 1+ H (Negative) Urine Urobilinogen Negative (Negative) Ur Leukocyte Esterase Negative (Negative) Urine WBC (Auto) 1-5 (0-5) /hpf Urine RBC (Auto) 0-4 (0-4) /hpf U Hyaline Cast (Auto) 0 (0-5) /lpf U Epithel Cells (Auto) 0-5 (0-5) /lpf Urine Bacteria (Auto) Negative (Negative) SARS-CoV-2, RNA, NAAT NEGATIVE (NEGATIVE) 05/27/21 Range/Units 02:25 WBC 8.22 (4.8-10.8) K/uL RBC 4.23 L (4.7-6.1) M/uL Hgb 15.1 (14.0-18.0) g/dL Hct 41.9 L (42-52) % MCV 99.1 (80-100) fL MCH 35.7 H (25-34) pg MCHC 36.0 (32-36) g/dL RDW Std Deviation 45.5 (36.4-46.3) fL RDW Coeff of Corby 12.6 (11.5-14.5) % Plt Count 178 (130-400) K/uL MPV 10.5 H (7.4-10.4) fL Immature Gran % (Auto) 0.2 % Neut % (Auto) 71.9 % Lymph % (Auto) 14.1 % Blount % (Auto) 13.3 % Eos % (Auto) 0.4 % Baso % (Auto) 0.1 % Neut # (Auto) 5.91 (1.4-6.5) K/uL Lymph # (Auto) 1.16 L (1.2-3.4) K/uL Blount # (Auto) 1.09 H (0.11-0.59) K/uL Eos # (Auto) 0.03 (0-0.5) K/uL Baso # (Auto) 0.01 (0-0.2) K/uL Immature Gran # (Auto) 0.02 (0.00-0.02) K/uL Sodium (136-145) mmol/L Potassium (3.5-5.1) mmol/L Chloride (98-107) mmol/L Carbon Dioxide (21-32) mmol/L Anion Gap (3-11) BUN (6-23) mg/dl Creatinine (0.6-1.4) mg/dl Est Cr Clr Drug Dosing ml/min Est GFR ( Amer) ml/min Est GFR (Non-Af Amer) ml/min BUN/Creatinine Ratio (10-20) Glucose (70-99(Fasting)) mg/dl Calcium (8.5-10.1) mg/dl Total Bilirubin (0.2-1.0) mg/dl Direct Bilirubin (0-0.2) mg/dl AST (13-39) U/L ALT (7-52) U/L Alkaline Phosphatase (34-104) U/L Troponin I (0-0.04) ng/ml C-Reactive Protein (0-0.5) mg/dl Total Protein (6.0-8.3) gm/dl Albumin (3.4-5.0) gm/dl Globulin (2.5-4.0) gm/dl Albumin/Globulin Ratio (0.9-2) Lipase (11-82) U/L Procalcitonin (0-0.5) ng/ml Urine Color Urine Appearance (Clear) Urine pH (4.5-7.5) Ur Specific [place] (1.000-1.030) Urine Protein (Negative) Urine Glucose (UA) (Negative) Urine Ketones (Negative) Urine Blood (Negative) Urine Nitrite (Negative) Urine Bilirubin (Negative) Urine Urobilinogen (Negative) Ur Leukocyte Esterase (Negative) Urine WBC (Auto) (0-5) /hpf Urine RBC (Auto) (0-4) /hpf U Hyaline Cast (Auto) (0-5) /lpf U Epithel Cells (Auto) (0-5) /lpf Urine Bacteria (Auto) (Negative) SARS-CoV-2, RNA, NAAT (NEGATIVE) Diagnostic Findings MRCP CLINICAL HISTORY: RUQ pain and acute elevated LFTs TECHNIQUE: Utilizing a 1.5 Shaorn magnet and dedicated coil, multiplanar, multiecho imaging of the upper abdomen was performed utilizing heavily T2 weighted pulsing sequences without IV contrast. COMPARISON STUDY: MRCP January 12, 2021. Right upper quadrant ultrasound performed earlier today. FINDINGS: Sludge and suspected tiny gallstones within the gallbladder are better depicted on ultrasound of May 27, 2021. Mild gallbladder wall thickening has developed since MRCP of January 12, 2021. Gallbladder wall is slightly irregular. No intra or extrahepatic biliary ductal dilatation is present. No common bile duct calculi identified. Course and caliber of the main pancreatic duct are normal. There is no peripancreatic infiltration or fluid. No hydronephrosis. Suspected left renal cyst. Unenhanced images of the spleen and adrenal glands are unremarkable. Caliber of visualized small and large bowel are normal. No hepatic lesions are identified on this unenhanced exam. IMPRESSION: 1. Mild irregular gallbladder wall thickening. Sludge and small gallstones within the gallbladder are better depicted on ultrasound performed earlier today. Acute cholecystitis cannot be excluded. 2. No intra or extra hepatic biliary ductal dilatation. No common bile duct calculi identified. US gallbladder CLINICAL HISTORY: Abdominal pain. COMPARISON STUDY: Right upper quadrant ultrasound January 10, 2021. MRCP January 12, 2021. FINDINGS: Liver is sonographically normal. There is no biliary ductal dilatation. Common bile duct measures 4 mm in caliber. Sludge within the gallbladder is noted with suspected small gallstones within the gallbladder. Gallbladder is mildly distended. Gallbladder wall thickness is at the upper limits of normal. No sonographic Fonseca sign. Pancreas is obscured. No right hydronephrosis. IMPRESSION: 1. Sludge and suspected tiny gallstones within the gallbladder. No gallbladder wall thickening. No sonographic Fonseca sign. 2. No biliary ductal dilatation. 3. Obscured pancreas. Code Status & VTE Plan VTE Prophylaxis Plan VTE Prophylaxis will be ordered: Yes
[2021-05-27] MEDS: LACTATED RINGER'S 1,000 ML IV SCH (17:44)
[2021-05-27] MEDS ORDERED: POLYETHYLENE (MIRALAX) 17 GM PACK PO PRN (18:36)
[2021-05-27] MEDS: TAMSULOSIN HCL 0.4 MG CAP PO SCH (20:52)
--- NOTE | 2021-05-27 23:19 | Billing Data ---
Date of Service May 27, 2021 Coding Level of Care Code INT OBSERVATION CARE 68M LVL 3
[2021-05-28] MEDS: LACTATED RINGER'S 1,000 ML IV SCH ×2 (01:42→09:36)
[2021-05-28] MEDS: PIPERACILLIN/TAZOBACTAM 3.375 GM in DEXTROSE 5% 100 ML IV SCH ×3 (05:45→22:02)
--- NOTE | 2021-05-28 07:07 | Hospitalist Progress Note ---
Date of Service May 28, 2021 Assessment & Plan (1) Transaminitis: Plan: 70 yo M Hx HTN, carotid artery stenosis, GERD, cholelithiasis, Hx heparin- induced thrombocytopenia admitted for RUQ abdominal pain and transaminitis. RUQ Pain, Transaminitis: - Sudden onset right upper quadrant pain that began while eating/having alcohol, transiently relieved by analgesics in route to the ER. - In the setting of normal lipase, AST 526, ALT 264, T bili 1.5, ALP 126; significant increase from April labwork. - RUQ US showed mildly distended gallbladder without intrahepatic or extrahepatic bile duct dilatation. - MRCP with biliary sludge, no obstructive stones. - General Surgery consulted and appreciate recommendations; for elective cholecystectomy during admission but recommends GI consult given increased TBili today to 5.2 with direct Bili of 3.4. - NPO at midnight for possible ERCP tomorrow. Clear liquid diet for now. - Trend CMP daily. - Continue empiric Zosyn for possible cholecystitis. - Morphine as needed for pain, and Zofran as needed for nausea. 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 - Hold pharmacologic prophylaxis at this time in case of need for procedure and Hx HIT; instead utilize SCDs and encourage ambulation. - If pharmacologic prophylaxis is pursued, could consider NOAC. GERD: - Continue PPI. Hyperlipidemia: - Patient on rosuvastatin at home; however, he only takes intermittently because of muscle pains. - Hold statin in the setting of transaminitis. - Further management by PCP. HTN, carotid artery stenosis: - Continue metoprolol tartrate 50 mg twice daily while here. - Continue daily aspirin. - Hold statin at this time. BPH: - Continue tamsulosin nightly. Code Status: FULL CODE FEN: clear liquid diet with NPO at midnight DVT ppx: no heparin-based products due to history of HIT; SCDs and ambulate on demand Dispo: Med/Surg (2) RUQ pain: (3) GERD (gastroesophageal reflux disease): (4) Hypertension: Admission and Anticipated Discharge Date Admission Date: May 27, 2021 Supervising Physician Co-Signing Physician Notes I personally examined the patient and verified all alfaro points of history and exam, discussed case, and agree with decision making with Dr Ortiz Feels okay. Discussed with surgerywith labs, they would prefer ERCP as well. GI consulted. In general he is awake and alert pleasant no distress. HEENT normocephalic atraumatic mucous membranes moist. Breathing unlabored no accessory muscle use good effort. Skin shows no rashes no pallor or icterus. Neuro without focal deficits. cholecystitis - for OR. With rising bilirubinGI consulted for ERCP. Ultimately will need cholecystectomy as well. Stable at this time. Continue Zosyn. otherwise as above Subjective Patient without acute events overnight. Pain well controlled when lying in bed, tender to palpation and with movement. Denies nausea or vomiting at this time. LFTs stable save for TBili which has increased again today. Review of Systems Review of Systems: All systems reviewed & are unremarkable except as noted in HPI & below Physical Exam Constitutional: WD/WN, vitals as above Respiratory: normal respiratory effort, lungs clear to auscultation Cardiovascular: RRR, no murmur, no edema Gastrointestinal (Abdomen): RUQ tenderness to palpation without rebound or guarding Skin: no rashes, warm and dry Psychiatric: A+Ox3, euthymic affect Results & Data Results & Data ([facility]) Vital Signs (Past 12 Hours) Vital Signs Temp Pulse Resp BP BP Pulse Ox 05/27/21 22:28 36.9 C 65 16 134/84 95 05/27/21 20:49 58 L 134/84 Resident Activity Tracking Resident Involvement: Resident Care Provided Care Provided: Adult Hospital Medicine (1) Hypertension Hypertension type: essential hypertension Qualified Code(s): I10 - Essential (primary) hypertension
[2021-05-28 07:11] LABS: Basophils # (auto) 0.02 K/uL (0-0.2); Basophils % (auto) 0.4 %; Eosinophils # (auto) 0.09 K/uL (0-0.5); Hematocrit (blood only) 40.4 % (42-52); Hemoglobin 14.1 g/dL (14.0-18.0); Immature Granulocytes # (auto) 0.01 K/uL (0.00-0.02); Immature Granulocytes % (auto) 0.2 %; Lymphocytes # (auto) 1.61 K/uL (1.2-3.4); Lymphocytes % (auto) 35.9 %; Mean Corpuscular Hgb Conc 34.9 g/dL (32-36); Mean Corpuscular Volume 100.2 fL (80-100); Mean Platelet Volume 10.8 fL (7.4-10.4); Monocytes # (auto) 0.61 K/uL (0.11-0.59); Monocytes % (auto) 13.6 %; Neutrophils # (auto) 2.14 K/uL (1.4-6.5); Neutrophils % (auto) 47.9 %; Platelet Count 183 K/uL (130-400); RDW Coefficient of Variation 12.7 % (11.5-14.5); RDW Standard Deviation 46.8 fL (36.4-46.3); Red Blood Count 4.03 M/uL (4.7-6.1); White Blood Count 4.48 K/uL (4.8-10.8)
[2021-05-28 07:38] LABS: Partial Thromboplastin Ratio 0.9; Partial Thromboplastin Time 26.1 Seconds (21.0-31.0)
[2021-05-28 07:41] LABS: Albumin Globulin Ratio 1.3 (0.9-2); Albumin Level 3.7 gm/dl (3.4-5.0); BUN Creatinine Ratio 9.4 (10-20); Bilirubin,Total 5.2 mg/dl (0.2-1.0); Creatinine Clr Calc Pharmacy 83.6 ml/min; Est GFR (African American) 91.2 ml/min; Est GFR (Non-African American) 78.7 ml/min; Globulin 2.8 gm/dl (2.5-4.0); Potassium 3.8 mmol/L (3.5-5.1); Total Protein 6.5 gm/dl (6.0-8.3)
[2021-05-28] MEDS: ROSUVASTATIN CALCIUM 20 MG TAB PO SCH (09:39)
[2021-05-28] MEDS: CYANOCOBALAMIN (B-12) 500 MCG TABLET PO SCH (09:39)
[2021-05-28] MEDS: METOPROLOL TARTRATE 50 MG TAB PO SCH ×2 (09:39→20:51)
[2021-05-28] MEDS: PANTOprazole 40 MG in SYRINGE 0 ML IV SCH ×2 (09:40→20:50)
--- NOTE | 2021-05-28 09:49 | Surgery Progress Note ---
Date of Service May 28, 2021 Assessment & Plan (1) Abdominal pain, acute, right upper quadrant: Plan: Likely combination of potential choledocholithiasis and cholelithiasis. Will need laparoscopic cholecystectomy - surgery cancelled for today as liver function tests increased. OK to advance diet for today but would recommend NPO after midnight in case GI can do procedure tomorrow. (2) Transaminitis: Plan: Liver tests increased today with bilirubin up to 5.2. Discussed recommendation for GI evaluation with consideration of EUS/ ERCP to clear common bile duct prior to surgery. Admission and Anticipated Discharge Date Admission Date: May 27, 2021 Subjective Noticing intermittent right upper quadrant pain - feels like a muscle soreness at times and then resolves. No nausea or vomiting. Review of Systems Review of Systems: All systems reviewed & are unremarkable except as noted in HPI & below Physical Exam Constitutional: WD/WN, vitals as above Eyes: mild scleral icterus Respiratory: normal respiratory effort, lungs clear to auscultation Cardiovascular: RRR, no murmur, no edema Gastrointestinal (Abdomen): soft, nontender now (but was tender in RUQ earlier by his report), no dumont's sign, nondistended, active bowel tones Musculoskeletal: Extremities: extremities normal to inspection Neurologic: awake; no focal motor deficits Psychiatric: A+Ox3, euthymic affect Results & Data ([facility]) Vital Signs (Past 12 Hours) Vital Signs Temp Pulse Pulse Resp BP Pulse Ox 05/28/21 09:38 59 L 130/82 05/28/21 07:49 36.4 C L 58 L 16 117/67 97 05/28/21 07:44 36.4 C L 58 L 16 117/67 97 05/27/21 22:28 36.9 C 65 16 134/84 95 Laboratory Results 05/28/21 05/28/21 05/28/21 Range/Units 06:50 06:50 06:50 WBC (4.8-10.8) K/uL RBC (4.7-6.1) M/uL Hgb (14.0-18.0) g/dL Hct (42-52) % MCV (80-100) fL MCH (25-34) pg MCHC (32-36) g/dL RDW Std Deviation (36.4-46.3) fL RDW Coeff of Corby (11.5-14.5) % Plt Count (130-400) K/uL MPV (7.4-10.4) fL Immature Gran % (Auto) % Neut % (Auto) % Lymph % (Auto) % [place] % (Auto) % Eos % (Auto) % Baso % (Auto) % Neut # (Auto) (1.4-6.5) K/uL Lymph # (Auto) (1.2-3.4) K/uL [place] # (Auto) (0.11-0.59) K/uL Eos # (Auto) (0-0.5) K/uL Baso # (Auto) (0-0.2) K/uL Immature Gran # (Auto) (0.00-0.02) K/uL PT 11.0 (9.0-12.0) Seconds INR 1.0 (0.9-1.1) APTT 26.1 (21.0-31.0) Seconds PTT Ratio 0.9 Sodium 139 (136-145) mmol/L Potassium 3.8 (3.5-5.1) mmol/L Chloride 107 (98-107) mmol/L Carbon Dioxide 25 (21-32) mmol/L Anion Gap 7 (3-11) BUN 9 (6-23) mg/dl Creatinine 0.96 (0.6-1.4) mg/dl Est Cr Clr Drug Dosing 83.6 ml/min Est GFR ( Amer) 91.2 ml/min Est GFR (Non-Af Amer) 78.7 ml/min BUN/Creatinine Ratio 9.4 L (10-20) Glucose 103 H (70-99(Fasting)) mg/dl Calcium 9.0 (8.5-10.1) mg/dl Total Bilirubin 5.2 H D (0.2-1.0) mg/dl Direct Bilirubin 3.4 H (0-0.2) mg/dl AST 293 H (13-39) U/L ALT 322 H (7-52) U/L Alkaline Phosphatase 185 H (34-104) U/L Total Protein 6.5 (6.0-8.3) gm/dl Albumin 3.7 (3.4-5.0) gm/dl Globulin 2.8 (2.5-4.0) gm/dl Albumin/Globulin Ratio 1.3 (0.9-2) 05/28/21 Range/Units 06:50 WBC 4.48 L (4.8-10.8) K/uL RBC 4.03 L (4.7-6.1) M/uL Hgb 14.1 (14.0-18.0) g/dL Hct 40.4 L (42-52) % MCV 100.2 H (80-100) fL MCH 35.0 H (25-34) pg MCHC 34.9 (32-36) g/dL RDW Std Deviation 46.8 H (36.4-46.3) fL RDW Coeff of Corby 12.7 (11.5-14.5) % Plt Count 183 (130-400) K/uL MPV 10.8 H (7.4-10.4) fL Immature Gran % (Auto) 0.2 % Neut % (Auto) 47.9 % Lymph % (Auto) 35.9 % [place] % (Auto) 13.6 % Eos % (Auto) 2.0 % Baso % (Auto) 0.4 % Neut # (Auto) 2.14 (1.4-6.5) K/uL Lymph # (Auto) 1.61 (1.2-3.4) K/uL [place]ane # (Auto) 0.61 H (0.11-0.59) K/uL Eos # (Auto) 0.09 (0-0.5) K/uL Baso # (Auto) 0.02 (0-0.2) K/uL Immature Gran # (Auto) 0.01 (0.00-0.02) K/uL PT (9.0-12.0) Seconds INR (0.9-1.1) APTT (21.0-31.0) Seconds PTT Ratio Sodium (136-145) mmol/L Potassium (3.5-5.1) mmol/L Chloride (98-107) mmol/L Carbon Dioxide (21-32) mmol/L Anion Gap (3-11) BUN (6-23) mg/dl Creatinine (0.6-1.4) mg/dl Est Cr Clr Drug Dosing ml/min Est GFR ( Amer) ml/min Est GFR (Non-Af Amer) ml/min BUN/Creatinine Ratio (10-20) Glucose (70-99(Fasting)) mg/dl Calcium (8.5-10.1) mg/dl Total Bilirubin (0.2-1.0) mg/dl Direct Bilirubin (0-0.2) mg/dl AST (13-39) U/L ALT (7-52) U/L Alkaline Phosphatase (34-104) U/L Total Protein (6.0-8.3) gm/dl Albumin (3.4-5.0) gm/dl Globulin (2.5-4.0) gm/dl Albumin/Globulin Ratio (0.9-2)
--- NOTE | 2021-05-28 12:53 | Gastrointestinal Consultation ---
Date of Consultation May 28, 2021 Assessment & Plan (1) Abdominal pain, acute, right upper quadrant: (2) Cholelithiases: (3) Biliary colic: acute on chronic (4) Choledocholithiasis: acute choledocholithiasis in the setting of biliary colic recs: --NPO post midnight --abx --IV fluids and supportive care --EUS/ERCP tomorrow with Dr. Schultz to further evaluate --CCY to be done per primary team Thank you for allowing me to paritcipate in the care of this patient History of Present Illness Attending Physician: Luis Pagan DO History of Present Illness 70 yo male with hx cholelithiasis and biliary colic on/off for several years here with RUQ abdominal pains. He was found to have cholelithiasis and sludge on imaging, was scheduled for CCY today but then LFTs acutely worsened, concerning for possible choledocholithiasis. GI consulted for this. Currently he just has a consistent right upper quadrant "soreness." tbili above noted to be above 5 today. CBC and BMP reviewed. hypothermic. Allergies Allergy/AdvReac Type Severity Reaction Status Date / Time sulfamethoxazole AdvReac Mild Redness of Verified 05/27/21 03:00 [From Bactrim] Skin trimethoprim [From Bactrim] AdvReac Mild Redness of Verified 05/27/21 03:00 Skin cholera immunization Allergy Severe Anaphylaxis Uncoded 05/27/21 03:00 Home Medications Medication Instructions Recorded Confirmed Type niikaffr-cpo-ktfjk acid 300 1 tab PO 2XWK 03/19/19 05/27/21 History mcg-lycopene 600 mcg-lutein 300 mcg tablet (Men 50 Plus Multivitamin) aspirin 81 mg tablet,delayed 81 mg PO 3XWK tab 01/15/20 05/27/21 History release (Aspirin Low Dose) psyllium husk 3.4 gram/5.4 gram 1 tbsp PO DAILY PRN g 06/29/20 05/27/21 History oral powder (Metamucil) albuterol sulfate 90 mcg/actuation 2 inh INHALATION Q6H PRN #8.5 g 12/24/20 05/27/21 Rx aerosol inhaler (Proventil HFA) Oxygen Home #1 ea 02/10/21 05/27/21 Rx cyanocobalamin (vitamin B-12) 1,000 mcg PO DAILY #90 cap 02/10/21 05/27/21 Rx 1,000 mcg capsule metoprolol tartrate 50 mg tablet 50 mg PO BID #60 tab 02/10/21 05/27/21 Rx tamsulosin 0.4 mg capsule 0.4 mg PO HS #30 cap 02/10/21 05/27/21 Rx rosuvastatin 20 mg tablet (Crestor) 20 mg PO DAILY tab 04/28/21 05/27/21 History Oxygen Home #3 l 05/04/21 05/27/21 Rx coQ10 (ubiquinol) 200 mg capsule 400 mg PO DAILY 05/27/21 05/27/21 History minocycline 100 mg capsule 100 mg PO BID PRN 05/27/21 05/27/21 History Patient History Medical History Acute hypoxemic respiratory failure Basal cell carcinoma of right ear BPH (benign prostatic hyperplasia) COVID Dermatitis, unspecified Hyperlipidemia Hypertension Physical deconditioning Surgical History History of colonoscopy with polypectomy History of tonsillectomy History of wisdom tooth extraction Status post Mohs surgery for basal cell carcinoma Family History Father Acute myocardial infarction Mother Breast cancer Other Myocardial infarction No family history of adverse response to anesthesia Denies family history of Ovarian cancer Prostate cancer Colorectal cancer Social History Smoking Status: Former smoker Age Started Using Tobacco: 18; Age Quit Using Tobacco: 27; packs per day: 1; Years Smoked: 9; Cigarettes Per Day: 20; Smoking End Date: quit in 1979; Number of Years Since Quit: 12; Second Hand Exposure: No; Do You Dip or Chew Tobacco: No; Tobacco Cessation Education Requested by Patient: No Hx Alcohol Use: Yes Alcohol type: beer and wine Hx Substance Use: No Preferred Language: Macedonian Communication Ability: Effective Visual Impairment: No Limitations Hearing Ability: Normal Agricultural Technical Officer Required: No Beliefs That Will Affect Care: None marital status: Current Living Situation: Spouse Other Information That Helps Us Care for You: No Feels Safe at Home: Yes Safety Concerns: Feels Safe At This Time Childhood Exposure to Second-Hand Smoke: Yes Dental Care, Regularly: Yes Physical Activity Frequency: Daily Seatbelt Use: always Assistive Devices: None Review of Systems Constitutional: no fever, no chills and no weight loss Eyes: as per Subjective / HPI Ear, Nose, Mouth, Throat: as per Subjective / HPI Respiratory: no dyspnea and no dyspnea on exertion Cardiovascular: no chest pain and no palpitations Gastrointestinal: as per Subjective / HPI Musculoskeletal: no joint pain and no swelling Integumentary: no rash and no lesions Neurologic: no numbness and no paresthesia Psychiatric: no depression and no anxiety Endocrine: no fatigue Hematologic / Lymphatic: no easy bleeding and no easy bruising Physical Exam Constitutional: WD/WN, vitals as above Eyes: EOM intact bilaterally Neck: normal visual inspection Respiratory: normal respiratory effort, lungs clear to auscultation Cardiovascular: RRR, no murmur, no edema Gastrointestinal (Abdomen): Inspection/Auscultation: abdomen normal to inspection; abdomen not distended Percussion/Palpation: abdomen soft; abdomen nontender and no hepatosplenomegaly Musculoskeletal: Extremities: no cyanosis Gait: normal gait Skin: no rashes, warm and dry Neurologic: moves all extremities Psychiatric: A+Ox3, euthymic affect Results & Data ([facility]) Vital Signs (Past 12 Hours) Vital Signs Temp Pulse Pulse Resp BP Pulse Ox 05/28/21 09:38 59 L 130/82 05/28/21 07:49 36.4 C L 58 L 16 117/67 97 05/28/21 07:44 36.4 C L 58 L 16 117/67 97 PG Care Time/CCT Total # of Minutes Spent Total Time Spent with Patient: Total time spent is greater than 50% in coordination of care (as documented) at patient's floor/unit and/or counseling patient: Coding Level of Care Code 39059 Initial Inpt Care Lvl 3 Diagnoses Abdominal pain, acute, right upper quadrant R10.11 Cholelithiases K80.20 Biliary colic K80.50 Choledocholithiasis K80.50
--- NOTE | 2021-05-28 15:22 | Billing Data ---
Date of Service May 28, 2021 Coding Level of Care Code 86372 Subseq Hosp Care Lvl 3
[2021-05-28] MEDS: TAMSULOSIN HCL 0.4 MG CAP PO SCH (20:51)
[2021-05-29] MEDS: PIPERACILLIN/TAZOBACTAM 3.375 GM in DEXTROSE 5% 100 ML IV SCH ×3 (06:02→22:20)
--- NOTE | 2021-05-29 07:20 | Hospitalist Progress Note ---
Date of Service May 29, 2021 Assessment & Plan (1) Transaminitis: Plan: 70 yo M Hx HTN, carotid artery stenosis, GERD, cholelithiasis, Hx heparin- induced thrombocytopenia admitted for RUQ abdominal pain and transaminitis; found to have cholelithiasis and choledocholithiasis. Choledocholithiasis; Cholelithiasis Sudden onset right upper quadrant pain that began while eating/having alcohol, with transaminitis and hyperbilirubinemia. - RUQ US showed mildly distended gallbladder without intrahepatic or extrahepatic bile duct dilatation - MRCP with biliary sludge, no obstructive stones - LFTs and TBili downtrending as of today - ERCP performed today showing with choledocholithiasis - s/p biliary sphincterotomy and balloon extraction, with pancreatic stent x1 placed - GI consulted - appreciate recs - flat plate abdominal XR in 3 weeks to check for migration of stent (would need EGD for removal if no migration) - Surgery consulted - planning for cholecystectomy during admission, assuming that LFTs continue to downtrend after ERCP - Continue empiric Zosyn coverage - Morphine as needed for pain, and Zofran as needed for nausea - Trend CMP daily 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 - Hold pharmacologic prophylaxis at this time in case of need for procedure and Hx HIT; instead utilize SCDs and encourage ambulation - If pharmacologic prophylaxis is pursued, could consider DOAC GERD - Continue PPI HLD Patient on rosuvastatin at home; however, he only takes intermittently because of muscle pains. - Hold statin in the setting of transaminitis. - Further management by PCP HTN, carotid artery stenosis - Continue metoprolol tartrate 50 mg twice daily while here - Continue daily aspirin BPH - Continue tamsulosin nightly Code Status: FULL CODE FEN: clear liquid diet with NPO at midnight for possible cholecystectomy DVT ppx: no heparin-based products due to history of HIT; SCDs and ambulate ad flaquito Dispo: Med/Surg (2) RUQ pain: (3) GERD (gastroesophageal reflux disease): (4) Hypertension: Admission and Anticipated Discharge Date Admission Date: May 28, 2021 Subjective No acute events overnight. Patient reports that RUQ pain is slightly improved today in comparison to yesterday. Denies fever/chills, chest pain, SOB, N/V, diarrhea, rash. Review of Systems Review of Systems: All systems reviewed & are unremarkable except as noted in HPI & below Physical Exam Physical Exam: General: A&Ox3. NAD. Cooperative. HEENT: Atraumatic, normocephalic. Pulm: CTAB A&P. -wheezes, -rales, -rhonchi. Symmetrical chest rise. No increase work of breathing. No respiratory distress. Cardiac: RRR, -mrg. Radial pulses intact and symmetrical. Abdominal: soft, mild tenderness in RUQ, non-distended, BS x 4 Skin: warm, dry, no rash Results & Data Results & Data ([facility]) Vital Signs (Past 12 Hours) Vital Signs Temp Pulse Resp BP Pulse Ox 05/28/21 22:02 36.7 C 53 L 16 150/80 H 98 05/28/21 20:49 63 159/83 H Resident Activity Tracking Resident Involvement: Resident Care Provided Care Provided: Adult Hospital Medicine (1) Hypertension Hypertension type: essential hypertension Qualified Code(s): I10 - Essential (primary) hypertension
[2021-05-29 07:38] LABS: Basophils # (auto) 0.02 K/uL (0-0.2); Basophils % (auto) 0.4 %; Eosinophils % (auto) 2.2 %; Hematocrit (blood only) 38.2 % (42-52); Hemoglobin 13.4 g/dL (14.0-18.0); Immature Granulocytes # (auto) 0.01 K/uL (0.00-0.02); Immature Granulocytes % (auto) 0.2 %; Lymphocytes # (auto) 1.79 K/uL (1.2-3.4); Lymphocytes % (auto) 39.7 %; Mean Corpuscular Hgb Conc 35.1 g/dL (32-36); Mean Corpuscular Volume 99.7 fL (80-100); Mean Platelet Volume 10.7 fL (7.4-10.4); Monocytes # (auto) 0.48 K/uL (0.11-0.59); Monocytes % (auto) 10.6 %; Neutrophils # (auto) 2.11 K/uL (1.4-6.5); Neutrophils % (auto) 46.9 %; Platelet Count 199 K/uL (130-400); RDW Coefficient of Variation 12.8 % (11.5-14.5); RDW Standard Deviation 46.9 fL (36.4-46.3); Red Blood Count 3.83 M/uL (4.7-6.1); White Blood Count 4.51 K/uL (4.8-10.8)
[2021-05-29 07:51] LABS: Albumin Globulin Ratio 1.2 (0.9-2); Albumin Level 3.4 gm/dl (3.4-5.0); BUN Creatinine Ratio 7.5 (10-20); Bilirubin,Total 3.3 mg/dl (0.2-1.0); Calcium 8.8 mg/dl (8.5-10.1); Creatinine Clr Calc Pharmacy 100.3 ml/min; Est GFR (African American) 103.4 ml/min; Est GFR (Non-African American) 89.2 ml/min; Globulin 2.9 gm/dl (2.5-4.0); Potassium 3.8 mmol/L (3.5-5.1); Total Protein 6.3 gm/dl (6.0-8.3)
[2021-05-29] MEDS: CYANOCOBALAMIN (B-12) 500 MCG TABLET PO SCH (08:10)
[2021-05-29] MEDS: METOPROLOL TARTRATE 50 MG TAB PO SCH ×2 (08:11→22:10)
[2021-05-29] MEDS: PANTOprazole 40 MG in SYRINGE 0 ML IV SCH ×2 (08:11→22:09)
[2021-05-29] MEDS: MULTIVITAMIN TAB PO SCH (08:11)
[2021-05-29] MEDS: ROSUVASTATIN CALCIUM 20 MG TAB PO SCH (08:12)
[2021-05-29] MEDS ORDERED: ASPIRIN 81 MG ECTAB PO SCH (09:00)
--- NOTE | 2021-05-29 09:32 | Anesthesiology Consultation ---
Date of Service May 29, 2021 Assessment & Plan (1) Encounter for pre-operative examination: Chart Review Chart Review: Acceptable Risk for Surgery History Surgery Operation Date: 05/28/21 08:30 Proposed Procedures p Laparoscopic Cholecystectomy - Venita Domínguez MD Operation Date: 05/29/21 09:40 Proposed Procedures p Endoscopic Ultrasonography Upper - Antoine Schultz MD s Endoscopic Retrograde Cholangiopancreatogram - Antoine Schultz MD Height/Weight Height: 5 ft 11 in Weight: 99.4 kg Allergies Allergy/AdvReac Type Severity Reaction Status Date / Time sulfamethoxazole AdvReac Mild Redness of Verified 05/27/21 03:00 [From Bactrim] Skin trimethoprim [From Bactrim] AdvReac Mild Redness of Verified 05/27/21 03:00 Skin cholera immunization Allergy Severe Anaphylaxis Uncoded 05/27/21 03:00 Medications Home Medications Medication Instructions Recorded Confirmed Last Taken vnshvbop-msb-gukey acid 300 1 tab PO 2XWK 03/19/19 05/27/21 12/21/20 mcg-lycopene 600 mcg-lutein 300 mcg tablet (Men 50 Plus Multivitamin) aspirin 81 mg tablet,delayed 81 mg PO 3XWK tab 01/15/20 05/27/21 12/23/20 release (Aspirin Low Dose) psyllium husk 3.4 gram/5.4 gram 1 tbsp PO DAILY PRN g 06/29/20 05/27/21 Unknown oral powder (Metamucil) albuterol sulfate 90 mcg/actuation 2 inh INHALATION Q6H PRN #8.5 g 12/24/20 05/27/21 Unknown aerosol inhaler (Proventil HFA) Oxygen Home #1 ea 02/10/21 05/27/21 Unknown cyanocobalamin (vitamin B-12) 1,000 mcg PO DAILY #90 cap 02/10/21 05/27/21 Unknown 1,000 mcg capsule metoprolol tartrate 50 mg tablet 50 mg PO BID #60 tab 02/10/21 05/27/21 05/26/21 09:00 tamsulosin 0.4 mg capsule 0.4 mg PO HS #30 cap 02/10/21 05/27/21 Unknown rosuvastatin 20 mg tablet (Crestor) 20 mg PO DAILY tab 04/28/21 05/27/21 Unknown Oxygen Home #3 l 05/04/21 05/27/21 Unknown coQ10 (ubiquinol) 200 mg capsule 400 mg PO DAILY 05/27/21 05/27/21 Unknown minocycline 100 mg capsule 100 mg PO BID PRN 05/27/21 05/27/21 Unknown Active Medications Generic Name Dose Route Start Last Admin Trade Name Casimiroq PRN Reason Stop Dose Admin Aspirin 81 mg 05/29/21 09:00 05/29/21 08:10 Aspirin 81 Mg Ectab PO 06/28/21 08:59 Not Given [id number] GUNNER Cyanocobalamin 1,000 mcg 05/27/21 09:00 05/29/21 08:10 Cyanocobalamin (B-12) 500 Mcg Tablet PO 06/26/21 08:59 Not Given DAILY GUNNER Piperacillin Sod/Tazobactam 115 mls @ 28.75 mls/hr 05/27/21 14:00 05/29/21 06:02 Sod 3.375 gm/ Dextrose IV 06/06/21 13:59 28.8 mls/hr Q8H GUNNER Administration Protocol Pantoprazole Sodium 40 mg/ 10 mls @ 5 mls/min 05/27/21 09:00 05/29/21 08:11 Syringe IV 06/26/21 08:59 Not Given BID GUNNER Metoprolol Tartrate 50 mg 05/27/21 09:00 05/29/21 08:11 Metoprolol Tartrate 50 Mg Tab PO 06/26/21 08:59 Not Given BID GUNNER Multivitamins 1 tab 05/29/21 09:00 05/29/21 08:11 Multivitamin Tab PO 06/28/21 08:59 Not Given [id number] UGNNER Polyethylene Glycol 17 gm 05/27/21 18:36 05/27/21 18:47 Polyethylene (Miralax) 17 Gm Pack PO 06/26/21 18:35 17 gm DAILY PRN Administration Constipation Rosuvastatin Calcium 20 mg 05/27/21 09:00 05/29/21 08:12 Rosuvastatin Calcium 20 Mg Tab PO 06/26/21 08:59 Not Given DAILY GUNNER Tamsulosin HCl 0.4 mg 05/27/21 21:00 05/28/21 20:51 Tamsulosin Hcl 0.4 Mg Cap PO 06/26/21 20:59 0.4 mg HS GUNNER Administration NPO Date Last Intake of Fluids: 05/28/21 Time Last Intake of Fluids: 23:59 Date Last Intake of Solids: 05/28/21 Time Last Intake of Solids: 23:59 Past Medical History Medical History Acute hypoxemic respiratory failure Basal cell carcinoma of right ear BPH (benign prostatic hyperplasia) COVID Dermatitis, unspecified Hyperlipidemia Hypertension Physical deconditioning Past Family History Family History Father Acute myocardial infarction Mother Breast cancer Other Myocardial infarction No family history of adverse response to anesthesia Denies family history of Ovarian cancer Prostate cancer Colorectal cancer Past Surgical History Surgical History History of colonoscopy with polypectomy History of tonsillectomy History of wisdom tooth extraction Status post Mohs surgery for basal cell carcinoma Social History Smoking Status: Former smoker tobacco type: cigarettes Smoking cigarettes per day: 20 Do You Dip or Chew Tobacco: No Smoking End Date: quit in 1979 Hx Alcohol Use: Yes Alcohol type: beer and wine alcohol intake frequency: 0-2 drinks per day Alcohol Intake Frequency Comment: normally has a glass of wine everyday, and has a beer on occasionally Hx Substance Use: No substance use type: does not use Physical Exam Vital Signs Last Vital Signs Temp 36.4 C L 05/29/21 07:28 Pulse 60 05/29/21 07:28 Resp 18 05/29/21 07:28 BP 130/73 05/29/21 07:28 Pulse Ox 97 05/29/21 07:28 Testing Laboratory Results 05/29/21 06:47 05/29/21 06:47 PT 11.0 Seconds (9.0-12.0) 05/28/21 06:50 INR 1.0 (0.9-1.1) 05/28/21 06:50 APTT 26.1 Seconds (21.0-31.0) 05/28/21 06:50 Urine Color Dark Yellow 05/27/21 03:12 Urine Appearance Clear (Clear) 05/27/21 03:12 Urine pH 5.0 (4.5-7.5) 05/27/21 03:12 Ur Specific [place] 1.023 (1.000-1.030) 05/27/21 03:12 Urine Protein 1+ (Negative) H 05/27/21 03:12 Urine Glucose (UA) Negative (Negative) 05/27/21 03:12 Urine Ketones 1+ (Negative) H 05/27/21 03:12 Urine Nitrite Negative (Negative) 05/27/21 03:12 Ur Leukocyte Esterase Negative (Negative) 05/27/21 03:12 Urine WBC (Auto) 1-5 /hpf (0-5) 05/27/21 03:12 Urine RBC (Auto) 0-4 /hpf (0-4) 05/27/21 03:12 U Hyaline Cast (Auto) 0 /lpf (0-5) 05/27/21 03:12 U Epithel Cells (Auto) 0-5 /lpf (0-5) 05/27/21 03:12 Urine Bacteria (Auto) Negative (Negative) 05/27/21 03:12 Electrocardiogram Date: 05/27/21 Findings: + NSR @ (77) Echocardiogram Date: 01/14/21 EF: 60-65% LV Function: normal Valvular Disease: + no significant valvular disease
--- NOTE | 2021-05-29 10:19 | History & Physical Bridge Note ---
Date of Service May 29, 2021 History & Physical Bridge Note I have examined the patient, reviewed the History & Physical and in the interval since the performance of the History & Physical I have noted the following changes of clinical significance: no changes noted Patient with suspected choledocholithiasis, plan for EUS/ERCP today. Patient was explained in detail regarding risks, benefits, limitations and alternatives of the above endoscopic procedure. Risks of intravenous sedation used for procedure were also explained. Risks include, but not limited to perforation, bleeding, infection, respiratory distress, cardiac arrest and . Patient is also aware about the possibility of missed lesion. Patient's questions were answered. The patient verbalized understanding the information and agreed to undergo the procedure.
[2021-05-29] MEDS ORDERED: LIDOCAINE 2% 2 ML VIAL/AMP(20MG/ML) INFIL ONE (10:38)
[2021-05-29] MEDS ORDERED: PROPOFOL IV EMULSION 10 MG/ML 20 ML VIAL IV ONE (10:38)
[2021-05-29] MEDS ORDERED: MIDAZOLAM HCL 1 MG/ML 2ML VIAL ONE (10:39)
[2021-05-29] MEDS ORDERED: INDOMETHACIN 50 MG SUPP PR ONE ×2 (10:39→12:22)
[2021-05-29] MEDS ORDERED: fentaNYL citrate 100 MCG/2 ML VIAL ONE (10:39)
[2021-05-29] MEDS ORDERED: ePHEDrine sulfate 50 MG/ML SYR ONE (11:38)
[2021-05-29] MEDS ORDERED: PHENYLEPHRINE 100MCG/ML 5ML SYR ONE (12:07)
--- NOTE | 2021-05-29 12:25 | Operative Report ---
Post Operative Report Pre & Post Diagnosis Operation Date: 05/28/21 08:30 <No data on this case meets the specified criteria> Operation Date: 05/29/21 09:40 Pre-Op Diagnosis: abnormal liver function test Post-Op Diagnosis: abnormal liver function test I identified the patient and participated in the time-out.: Yes Procedure Operation Date: 05/28/21 08:30 <No data on this case meets the specified criteria> Operation Date: 05/29/21 09:40 Actual Procedures p Endoscopic Ultrasonography Upper(Not Applicable) - Antoine Schultz MD s Endoscopic Retrograde Cholangiopancreatogram(Not Applicable) - Antoine Schultz MD Surgeon Antoine Schultz MD Office Support Clerk None Estimated Blood Loss 0 Findings See Below (Choledocholithiasis removed) Specimens GE junction Bx Description of Procedure EUS/ERCP I attest to the content of the Intraoperative Record and any orders documented therein. Any exceptions are noted below.
--- NOTE | 2021-05-29 12:32 | GI REPORT ---
Patient Name: Jude Iglesias Procedure Date: 05/29/2021 10:54 AM Date of : 1950 Admit Type: Inpatient Age: 70 Gender: Male Attending MD: Antoine Schultz MD Procedure: Upper GI endoscopy Providers: Antoine Schultz MD Referring MD: Noman Burnham Indications: Abdominal pain Medicines: General Anesthesia Complications: No immediate complications. Estimated Blood Loss: Estimated blood loss: none. Procedure: Pre-Anesthesia Assessment: - Prior to the procedure, a History and Physical was performed, and patient medications, allergies and sensitivities were reviewed. The patient's tolerance of previous anesthesia was reviewed. - The risks and benefits of the procedure and the sedation options and risks were discussed with the patient. All questions were answered and informed consent was obtained. - Patient identification and proposed procedure were verified prior to the procedure by the physician and the nurse. The procedure was verified in the procedure room. - Pre-procedure physical examination revealed no contraindications to sedation. After obtaining informed consent, the endoscope was passed under direct vision. Throughout the procedure, the patient's blood pressure, pulse, and oxygen saturations were monitored continuously. The Endoscope was introduced through the mouth, and advanced to the second part of duodenum. The upper GI endoscopy was accomplished without difficulty. The patient tolerated the procedure well. Findings: [place]-colored mucosa was present. The maximum longitudinal extent of these esophageal mucosal changes was 1 cm in length. Biopsies were taken with a cold forceps for histology. Verification of patient identification for the specimen was done by the physician and nurse using the patient's name and date. The entire examined stomach was normal. The duodenal bulb and second portion of the duodenum were normal. Impression: - [place]-colored mucosa suspicious for short-segment Greer's esophagus. Biopsied. - Normal stomach. - Normal duodenal bulb and second portion of the duodenum. Recommendation: - Perform an upper endoscopic ultrasound (UEUS) today. Antoine Schultz MD 05/29/2021 12:31:25 PM This report has been signed electronically. Note Initiated On: 05/29/2021 10:54 AM Number of Addenda: 0 I attest to the content of the Intraoperative Record and orders documented therein, exceptions below {[id number]}
--- NOTE | 2021-05-29 12:35 | GI REPORT ---
Patient Name: Jude Iglesias Procedure Date: 05/29/2021 10:56 AM Date of : 1950 Admit Type: Inpatient Age: 70 Gender: Male Attending MD: Antoine Schultz MD Procedure: Upper EUS Providers: Antoine Schultz MD Referring MD: Noman Burnham Indications: Elevated liver enzymes, Suspected choledocholithiasis Medicines: General Anesthesia Complications: No immediate complications. Estimated Blood Loss: Estimated blood loss: none. Procedure: Pre-Anesthesia Assessment: - Prior to the procedure, a History and Physical was performed, and patient medications, allergies and sensitivities were reviewed. The patient's tolerance of previous anesthesia was reviewed. - The risks and benefits of the procedure and the sedation options and risks were discussed with the patient. All questions were answered and informed consent was obtained. - Patient identification and proposed procedure were verified prior to the procedure by the physician and the nurse. The procedure was verified in the procedure room. - Pre-procedure physical examination revealed no contraindications to sedation. After obtaining informed consent, the endoscope was passed under direct vision. Throughout the procedure, the patient's blood pressure, pulse, and oxygen saturations were monitored continuously. The Endosonoscope was introduced through the mouth, and advanced to the second part of duodenum. The upper EUS was accomplished without difficulty. The patient tolerated the procedure well. Findings: ENDOSONOGRAPHIC FINDING: : There was no sign of significant endosonographic abnormality in the ampulla. No masses were identified. One stone was visualized endosonographically in the common bile duct. It was hyperechoic and characterized by shadowing. Common bile duct which measured up to 5 mm. There was no sign of significant endosonographic abnormality in the visualized portion of the liver. Pancreatic parenchymal abnormalities were noted in the entire pancreas. These consisted of diffuse echogenicity. PD measured 2 mm in diameter. There was no sign of significant endosonographic abnormality in the left adrenal gland. There was no sign of significant endosonographic abnormality involving the celiac trunk. Impression: - There was no sign of significant pathology in the ampulla. - One stone was visualized endosonographically in the common bile duct. Common bile duct which measured up to 5 mm in diameter. - There was no evidence of significant pathology in the visualized portion of the liver. - Fatty Pancreas. - Endosonographic images of the left adrenal gland were unremarkable. - The celiac trunk was endosonographically normal. Recommendation: - Perform an ERCP today. Antoine Schultz MD 05/29/2021 12:34:50 PM This report has been signed electronically. Note Initiated On: 05/29/2021 10:56 AM Number of Addenda: 0 I attest to the content of the Intraoperative Record and orders documented therein, exceptions below {[id number]}
--- NOTE | 2021-05-29 12:39 | GI REPORT ---
Patient Name: Jude Iglesias Procedure Date: 05/29/2021 10:57 AM Date of : 1950 Admit Type: Inpatient Age: 70 Gender: Male Attending MD: Antoine Schultz MD Procedure: ERCP Providers: Antoine Schultz MD Referring MD: Noman Burnham Indications: For therapy of bile duct stone(s), Elevated liver enzymes Medicines: General Anesthesia Complications: No immediate complications. Estimated Blood Loss: Estimated blood loss: none. Procedure: Pre-Anesthesia Assessment: - Prior to the procedure, a History and Physical was performed, and patient medications, allergies and sensitivities were reviewed. The patient's tolerance of previous anesthesia was reviewed. - The risks and benefits of the procedure and the sedation options and risks were discussed with the patient. All questions were answered and informed consent was obtained. - Patient identification and proposed procedure were verified prior to the procedure by the physician and the nurse. The procedure was verified in the procedure room. - Pre-procedure physical examination revealed no contraindications to sedation. After obtaining informed consent, the scope was passed under direct vision. Throughout the procedure, the patient's blood pressure, pulse, and oxygen saturations were monitored continuously. The Duodenoscope was introduced through the mouth, and advanced to the duodenum and used to inject contrast into the bile duct. The ERCP was accomplished without difficulty. The patient tolerated the procedure well. Findings: The realty loan specialist film was normal. The esophagus was successfully intubated under direct vision. The scope was advanced to a normal major papilla in the descending duodenum without detailed examination of the pharynx, larynx and associated structures, and upper GI tract. The upper GI tract was grossly normal. The ventral pancreatic duct was inadvertently cannulated with the short-nosed traction sphincterotome and guidewire. A 0.025 inch x 270 cm angled Visiglide wire was passed into the biliary tree. The Fusion OMNI sphincterotome was passed over the guidewire and the bile duct was then deeply cannulated. Contrast was injected. I personally interpreted the bile duct images. Ductal flow of contrast was adequate. Image quality was adequate. Contrast extended to the main bile duct. Opacification of the entire biliary tree was successful. The maximum diameter of the ducts was 7 mm. Biliary sphincterotomy was made with a monofilament traction (standard) sphincterotome using ERBE electrocautery. There was no post-sphincterotomy bleeding. The biliary tree was swept with an 11.5 mm balloon starting at the bifurcation. Sludge was swept from the duct. One stone was removed. No stones remained. One 5 Fr by 9 cm plastic pancreatic stent with a single external pigtail and no internal flaps was placed into the ventral pancreatic duct. Clear fluid flowed through the stent. The stent was in good position. Indomethacin 100 mg was given via suppository to decrease the risk of post-ERCP pancreatitis (PEP). No biliary stents placed. Impression: - Choledocholithiasis was found. Complete removal was accomplished by biliary sphincterotomy and balloon extraction. - One plastic pancreatic stent was placed into the ventral pancreatic duct to decrease risk of post-ERCP pancreatitis. Recommendation: - Return patient to hospital heart for ongoing care. - Perform a flat plate abdominal x-ray in 3 weeks to check migration of the PD stent, if not then will need EGD for removal. - Follow up with surgery for cholecystectomy. Antoine Schultz MD 05/29/2021 12:39:06 PM This report has been signed electronically. Note Initiated On: 05/29/2021 10:57 AM Number of Addenda: 0 I attest to the content of the Intraoperative Record and orders documented therein, exceptions below {[id number]}
[2021-05-29] MEDS ORDERED: SUCCINYLCHOLINE CHLORIDE 20 MG/ML 10 ML VIAL IV ONE (12:51)
--- NOTE | 2021-05-29 13:00 | Anesthesiology Progress Note ---
Date of Service May 29, 2021 Anesthesia Post Procedure Vital Signs Vital Signs: Temp Pulse Pulse Pulse Resp BP BP 05/29/21 12:50 64 17 130/79 05/29/21 12:42 36 C L 61 21 130/79 05/29/21 09:45 36.5 C 63 20 159/89 H 05/29/21 07:28 36.4 C L 60 18 130/73 05/28/21 22:02 36.7 C 53 L 16 150/80 H 05/28/21 20:49 63 159/83 H 05/28/21 15:00 36.7 C 63 18 127/75 Pulse Ox 05/29/21 12:50 95 05/29/21 12:42 100 05/29/21 09:45 98 05/29/21 07:28 97 05/28/21 22:02 98 05/28/21 20:49 05/28/21 15:00 97 Pain Intensity Abdomen: Pain Intensity: 4 Transfer of Care Handoff Completed per policy Notes Mental Status: alert / awake / arousable Patient Amnestic to Procedure: Yes Nausea / Vomiting: adequately controlled Pain: adequately controlled Airway Patency, RR, SpO2: stable & adequate BP & HR: stable & adequate Hydration State: stable & adequate Anesthetic Complications: no major complications apparent
--- NOTE | 2021-05-29 13:13 | Fluoroscopy Report ---
[place] ERCP biliary ductal CLINICAL HISTORY: ERCP with endoscopic ultrasound. Right upper quadrant pain. COMPARISON STUDY: MRCP 05/27/2021. FLUOROSCOPY TIME: 1 minute and 19 seconds. 9 fluoroscopic spot images of the right upper quadrant. FINDINGS: The endoscope cannulated the ampulla. Contrast was injected into the common bile duct. The common bile duct is normal and course and caliber. No filling defects seen within the common bile khushbu t. No intrahepatic bile duct dilatation. Contrast opacifies the cystic duct and gallbladder. IMPRESSION: Fluoroscopic assistance provided for ERCP as described above. ACT 112: Negative or not required by law. Electronically signed by: Joe Mejia M.D. 05/29/2021 1:12 PM
--- NOTE | 2021-05-29 14:07 | Communication Note ---
Date of Service: May 29, 2021 Patient not seen today during morning rounds as patient was down in OR for EUS/ERCP. ERCP showed +choledocholithiasis. NO biliary stent placed. Will tent atively plan for lap jewels tomorrow on 05/30/[address] Wade pending am labs. NPO after midnight.
[2021-05-29] MEDS ORDERED: GLUCAGON FOR INJ 1 MG VIAL ONE (17:11)
--- NOTE | 2021-05-29 18:23 | Anesthesiology Consultation ---
Date of Service May 29, 2021 Assessment & Plan (1) Encounter for pre-operative examination: Chart Review Chart Review: Acceptable Risk for Surgery and Patient NOT seen in Pre Admission Testing Consults Requested none History Surgery Operation Date: 05/28/21 08:30 Proposed Procedures p Laparoscopic Cholecystectomy - Venita Domínguez MD Operation Date: 05/29/21 09:40 Proposed Procedures p Endoscopic Ultrasonography Upper - Antoine Schultz MD s Endoscopic Retrograde Cholangiopancreatogram - Antoine Schultz MD Operation Date: 05/30/21 13:45 Proposed Procedures p Laparoscopic Cholecystectomy - Malik Wade MD Height/Weight Height: 5 ft 11 in Weight: 99.4 kg Allergies Allergy/AdvReac Type Severity Reaction Status Date / Time sulfamethoxazole AdvReac Mild Redness of Verified 05/29/21 09:52 [From Bactrim] Skin trimethoprim [From Bactrim] AdvReac Mild Redness of Verified 05/29/21 09:52 Skin cholera immunization Allergy Severe Anaphylaxis Uncoded 05/29/21 09:52 Medications Home Medications Medication Instructions Recorded Confirmed Last Taken jvnxaylv-cye-qmqbw acid 300 1 tab PO 2XWK 03/19/19 05/27/21 12/21/20 mcg-lycopene 600 mcg-lutein 300 mcg tablet (Men 50 Plus Multivitamin) aspirin 81 mg tablet,delayed 81 mg PO 3XWK tab 01/15/20 05/27/21 12/23/20 release (Aspirin Low Dose) psyllium husk 3.4 gram/5.4 gram 1 tbsp PO DAILY PRN g 06/29/20 05/27/21 Unknown oral powder (Metamucil) albuterol sulfate 90 mcg/actuation 2 inh INHALATION Q6H PRN #8.5 g 12/24/20 05/27/21 Unknown aerosol inhaler (Proventil HFA) Oxygen Home #1 ea 02/10/21 05/27/21 Unknown cyanocobalamin (vitamin B-12) 1,000 mcg PO DAILY #90 cap 02/10/21 05/27/21 Unknown 1,000 mcg capsule metoprolol tartrate 50 mg tablet 50 mg PO BID #60 tab 02/10/21 05/27/21 05/26/21 09:00 tamsulosin 0.4 mg capsule 0.4 mg PO HS #30 cap 02/10/21 05/27/21 Unknown rosuvastatin 20 mg tablet (Crestor) 20 mg PO DAILY tab 04/28/21 05/27/21 Unknown Oxygen Home #3 l 05/04/21 05/27/21 Unknown coQ10 (ubiquinol) 200 mg capsule 400 mg PO DAILY 05/27/21 05/27/21 Unknown minocycline 100 mg capsule 100 mg PO BID PRN 05/27/21 05/27/21 Unknown Active Medications Generic Name Dose Route Start Last Admin Trade Name Tonia PRN Reason Stop Dose Admin Aspirin 81 mg 05/29/21 09:00 05/29/21 08:10 Aspirin 81 Mg Ectab PO 06/28/21 08:59 Not Given [id number] GUNNER Cyanocobalamin 1,000 mcg 05/27/21 09:00 05/29/21 08:10 Cyanocobalamin (B-12) 500 Mcg Tablet PO 06/26/21 08:59 Not Given DAILY GUNNER Piperacillin Sod/Tazobactam 115 mls @ 28.75 mls/hr 05/27/21 14:00 05/29/21 15:08 Sod 3.375 gm/ Dextrose IV 06/06/21 13:59 28.8 mls/hr Q8H GUNNER Administration Protocol Pantoprazole Sodium 40 mg/ 10 mls @ 5 mls/min 05/27/21 09:00 05/29/21 08:11 Syringe IV 06/26/21 08:59 Not Given BID GUNNER Metoprolol Tartrate 50 mg 05/27/21 09:00 05/29/21 08:11 Metoprolol Tartrate 50 Mg Tab PO 06/26/21 08:59 Not Given BID GUNNER Multivitamins 1 tab 05/29/21 09:00 05/29/21 08:11 Multivitamin Tab PO 06/28/21 08:59 Not Given [id number] GUNNER Polyethylene Glycol 17 gm 05/27/21 18:36 05/27/21 18:47 Polyethylene (Miralax) 17 Gm Pack PO 06/26/21 18:35 17 gm DAILY PRN Administration Constipation Rosuvastatin Calcium 20 mg 05/27/21 09:00 05/29/21 08:12 Rosuvastatin Calcium 20 Mg Tab PO 06/26/21 08:59 Not Given DAILY [facility] Tamsulosin HCl 0.4 mg 05/27/21 21:00 05/28/21 20:51 Tamsulosin Hcl 0.4 Mg Cap PO 06/26/21 20:59 0.4 mg HS GUNNER Administration NPO Date Last Intake of Fluids: 05/28/21 Time Last Intake of Fluids: 21:30 Date Last Intake of Solids: 05/27/21 Time Last Intake of Solids: 18:00 Past Medical History Medical History Acute hypoxemic respiratory failure Basal cell carcinoma of right ear BPH (benign prostatic hyperplasia) COVID Dermatitis, unspecified Hyperlipidemia Hypertension Physical deconditioning Past Family History Family History Father Acute myocardial infarction Mother Breast cancer Other Myocardial infarction No family history of adverse response to anesthesia Denies family history of Ovarian cancer Prostate cancer Colorectal cancer Past Surgical History Surgical History History of colonoscopy with polypectomy History of tonsillectomy History of wisdom tooth extraction Status post Mohs surgery for basal cell carcinoma Social History Smoking Status: Former smoker tobacco type: cigarettes Smoking cigarettes per day: 20 Do You Dip or Chew Tobacco: No Smoking End Date: quit in 1979 Hx Alcohol Use: Yes Alcohol type: beer and wine alcohol intake frequency: 0-2 drinks per day Alcohol Intake Frequency Comment: normally has a glass of wine everyday, and has a beer on occasionally Hx Substance Use: No substance use type: does not use Physical Exam Vital Signs Last Vital Signs Temp 36.3 C L 05/29/21 16:08 Pulse 54 L 05/29/21 16:08 Resp 16 05/29/21 16:08 BP 149/89 H 05/29/21 16:08 Pulse Ox 96 05/29/21 16:08 Testing Laboratory Results 05/29/21 06:47 05/29/21 06:47 PT 11.0 Seconds (9.0-12.0) 05/28/21 06:50 INR 1.0 (0.9-1.1) 05/28/21 06:50 APTT 26.1 Seconds (21.0-31.0) 05/28/21 06:50 Urine Color Dark Yellow 05/27/21 03:12 Urine Appearance Clear (Clear) 05/27/21 03:12 Urine pH 5.0 (4.5-7.5) 05/27/21 03:12 Ur Specific Sulphur 1.023 (1.000-1.030) 05/27/21 03:12 Urine Protein 1+ (Negative) H 05/27/21 03:12 Urine Glucose (UA) Negative (Negative) 05/27/21 03:12 Urine Ketones 1+ (Negative) H 05/27/21 03:12 Urine Nitrite Negative (Negative) 05/27/21 03:12 Ur Leukocyte Esterase Negative (Negative) 05/27/21 03:12 Urine WBC (Auto) 1-5 /hpf (0-5) 05/27/21 03:12 Urine RBC (Auto) 0-4 /hpf (0-4) 05/27/21 03:12 U Hyaline Cast (Auto) 0 /lpf (0-5) 05/27/21 03:12 U Epithel Cells (Auto) 0-5 /lpf (0-5) 05/27/21 03:12 Urine Bacteria (Auto) Negative (Negative) 05/27/21 03:12 Electrocardiogram Date: 05/27/21 Findings: + NSR @ (77) Echocardiogram Date: 01/14/21 EF: 60-65% LV Function: normal Valvular Disease: + no significant valvular disease
[2021-05-29] MEDS: TAMSULOSIN HCL 0.4 MG CAP PO SCH (22:09)
[2021-05-30] MEDS: PIPERACILLIN/TAZOBACTAM 3.375 GM in DEXTROSE 5% 100 ML IV SCH ×3 (05:58→22:33)
--- NOTE | 2021-05-30 07:12 | Hospitalist Progress Note ---
Date of Service May 30, 2021 Assessment & Plan (1) Transaminitis: Plan: 70 yo M Hx HTN, carotid artery stenosis, GERD, cholelithiasis, Hx heparin- induced thrombocytopenia admitted for RUQ abdominal pain and transaminitis; found to have cholelithiasis and choledocholithiasis. Choledocholithiasis; Cholelithiasis Sudden onset right upper quadrant pain that began while eating/having alcohol, with transaminitis and hyperbilirubinemia. - ERCP performed on 05/29 showing with choledocholithiasis - s/p biliary sphincterotomy and balloon extraction, with pancreatic stent x1 placed - GI consulted - appreciate recs - flat plate abdominal XR in 3 weeks to check for migration of stent (would need EGD for removal if no migration) - LFTs continue to downtrend today: ALT 320/AST 226/ALP 189/TBili 2.9 - Surgery consulted - planning for laparoscopic cholecystectomy today - Continue empiric Zosyn coverage - Morphine as needed for pain, and Zofran as needed for nausea - Trend CMP in AM 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 - Hold pharmacologic prophylaxis at this time in case of need for procedure and Hx HIT; instead utilize SCDs and encourage ambulation - If pharmacologic prophylaxis is pursued, could consider DOAC GERD - Continue PPI HLD Patient on rosuvastatin at home; however, he only takes intermittently because of muscle pains. - Hold statin in the setting of transaminitis. - Further management by PCP HTN, carotid artery stenosis - Continue metoprolol tartrate 50 mg twice daily while here - hold home baby aspirin given upcoming surgery (last admin on 05/26) BPH - Continue tamsulosin nightly Code Status: full code FEN/GI: NPO for laparoscopic cholecystectomy today DVT ppx: no heparin-based products due to history of HIT; SCDs and ambulate ad flaquito Dispo: Med/Surg (2) RUQ pain: (3) GERD (gastroesophageal reflux disease): (4) Hypertension: Admission and Anticipated Discharge Date Admission Date: May 28, 2021 Supervising Physician Co-Signing Physician Notes Attending attestation Pt seen and examined in concert with Dr. Luther. In agreement with the docum ented findings as noted in the resident documentation with any exceptions or additions as noted here. Continued improvement in RUQ abdominal pain now 2/10 and not 'toothache' in quality. Minimal nausea, no diarrheal symptoms. On examination, S1/S2 nl RRR no MCG. CTAB. Abd NT/ND BS+ve Choledocholithiasis s/p ERCP w/ cholecystitis - GI and surgical consult - downtrending LFTs with improving symptoms s/p ERCP. For OR today for cholecystectomy. Else see resident documentation as noted. Subjective No acute events overnight. Patient reports that RUQ pain is significantly improved today in comparison to yesterday. Denies fever/chills, chest pain, SOB, N/V, diarrhea, rash. Review of Systems Review of Systems: All systems reviewed & are unremarkable except as noted in HPI & below Physical Exam Physical Exam: General: A&Ox3. NAD. Cooperative. HEENT: Atraumatic, normocephalic. Pulm: CTAB A&P. -wheezes, -rales, -rhonchi. Symmetrical chest rise. No increase work of breathing. No respiratory distress. Cardiac: RRR, -mrg. Radial pulses intact and symmetrical. Abdominal: soft, non-tender, non-distended, BS x 4 Skin: warm, dry, no rash Results & Data Results & Data ([facility]) Vital Signs (Past 12 Hours) Vital Signs Temp Pulse Resp BP Pulse Ox 05/30/21 02:19 36.8 C 58 L 16 124/74 98 05/29/21 22:08 36.8 C 60 16 159/87 H 97 Resident Activity Tracking Resident Involvement: Resident Care Provided Care Provided: Adult Hospital Medicine (1) Hypertension Hypertension type: essential hypertension Qualified Code(s): I10 - Essential (primary) hypertension
[2021-05-30 08:03] LABS: Basophils # (auto) 0.02 K/uL (0-0.2); Basophils % (auto) 0.4 %; Eosinophils # (auto) 0.12 K/uL (0-0.5); Eosinophils % (auto) 2.2 %; Hematocrit (blood only) 41.8 % (42-52); Hemoglobin 14.4 g/dL (14.0-18.0); Immature Granulocytes # (auto) 0.02 K/uL (0.00-0.02); Immature Granulocytes % (auto) 0.4 %; Lymphocytes # (auto) 2.04 K/uL (1.2-3.4); Lymphocytes % (auto) 36.9 %; Mean Corpuscular Hemoglobin 34.8 pg (25-34); Mean Corpuscular Hgb Conc 34.4 g/dL (32-36); Mean Platelet Volume 10.5 fL (7.4-10.4); Monocytes # (auto) 0.47 K/uL (0.11-0.59); Monocytes % (auto) 8.5 %; Neutrophils # (auto) 2.86 K/uL (1.4-6.5); Neutrophils % (auto) 51.6 %; Platelet Count 201 K/uL (130-400); RDW Coefficient of Variation 12.8 % (11.5-14.5); RDW Standard Deviation 47.1 fL (36.4-46.3); Red Blood Count 4.14 M/uL (4.7-6.1); White Blood Count 5.53 K/uL (4.8-10.8)
[2021-05-30 08:26] LABS: Albumin Globulin Ratio 1.2 (0.9-2); Albumin Level 3.7 gm/dl (3.4-5.0); Bilirubin,Total 2.9 mg/dl (0.2-1.0); Calcium 8.8 mg/dl (8.5-10.1); Creatinine Clr Calc Pharmacy 93.3 ml/min; Est GFR (African American) 100.4 ml/min; Est GFR (Non-African American) 86.6 ml/min; Magnesium 1.9 mg/dl (1.7-2.4); Potassium 4.1 mmol/L (3.5-5.1); Total Protein 6.7 gm/dl (6.0-8.3)
[2021-05-30] MEDS: CYANOCOBALAMIN (B-12) 500 MCG TABLET PO SCH (09:06)
[2021-05-30] MEDS: PANTOprazole 40 MG in SYRINGE 0 ML IV SCH (09:07)
[2021-05-30] MEDS: METOPROLOL TARTRATE 50 MG TAB PO SCH ×2 (09:07→20:08)
--- NOTE | 2021-05-30 09:51 | Gastroenterology Progress Note ---
Date of Service May 30, 2021 Assessment & Plan (1) Choledocholithiasis: Plan: Post procedure Day #1 from ERCP with sphincterotomy and balloon extraction of stone. No complications. LFTs improving. Needs X-ray to look for pancreatic duct stent in 3 wks and if still in place will need EGD for removal. Agree with eventual cholecystectomy. GI will sign off. Please call if new/worsening GI symptoms. Admission and Anticipated Discharge Date Admission Date: May 28, 2021 Supervising Physician Co-Signing Physician Notes I performed a history and physical examination of the patient today, including specifically on physical exam - soft abdomen. I have discussed the patient's management with the advanced practitioner. Please refer to the nurse practitioner's note for the documented findings and plan of care. Subjective 70 yr old male Post procedure day #1 from ERCP for choledocholithiasis. LFTs improving. Feels well. Able to walk around the room. Tolerated clear liquids last night. NPO today - likely cholecystectomy today. Review of Systems Review of Systems: ROS: Gen: Denies weakness, fevers, weight loss Eyes: No eye redness, or pain, no recent vision changes Resp: No SOB, no cough Cardio: No palpitations/irregular beats, no chest pain GI: Minimal abdominal discomfort - bloating, no significant pain, no nausea/vomiting : Denies pain on urination Skin: No jaundice, itching or new rashes Physical Exam Constitutional: well developed, + ill appearing, + thin and cooperative Eyes: PERRL, conjunctivae normal, anicteric sclerae ENMT: external ear and nose normal, oropharynx normal Neck: trachea midline, no thyromegaly Respiratory: normal respiratory effort, lungs clear to auscultation Cardiovascular: RRR, no murmur, no edema Gastrointestinal (Abdomen): Inspection/Auscultation: abdomen normal to inspection and + abdomen distended (minimal) Percussion/Palpation: + abdomen tender (mild epigastric tenderness) and abdomen soft Skin: no rashes, warm and dry normal turgor; no jaundice Neurologic: PERRL, EOMI, accommodation nl, no face palsy, no dysarthria Psychiatric: A+Ox3, euthymic affect Lymphatic: no cervical or axillary lymphadenopathy Results & Data ([facility]) Vital Signs (Past 12 Hours) Vital Signs Temp Pulse Pulse Resp BP Pulse Ox 05/30/21 08:30 36.3 C L 62 16 144/84 H 98 05/30/21 02:19 36.8 C 58 L 16 124/74 98 05/29/21 22:08 36.8 C 60 16 159/87 H 97 Laboratory Results WBC 5 Hb 14.4, Hct 41, Plts 201, Na 137, K 4.1, Cl 108, CO2 23, BUN 6, Cr 0.86, platlets 96. T Bili 2.9, AST 226, ALT 320, Alk Phos 189
[2021-05-30] MEDS: ROSUVASTATIN CALCIUM 20 MG TAB PO SCH (09:57)
[2021-05-30] MEDS ORDERED: fentaNYL citrate 100 MCG/2 ML VIAL ONE (11:53)
--- NOTE | 2021-05-30 12:20 | History & Physical Bridge Note ---
Date of Service May 30, 2021 History & Physical Bridge Note I have examined the patient, reviewed the History & Physical and in the interval since the performance of the History & Physical I have noted the following changes of clinical significance: no changes noted Supervising Physician Co-Signing Physician Notes I performed a history and physical examination of the patient today, including specifically on physical exam - soft abdomen. I have discussed the patient's management with the advanced practitioner. Please refer to the nurse practitioner's note for the documented findings and plan of care.
[2021-05-30] MEDS ORDERED: BACITRACIN OINT 15 GM TUBE ONE (12:39)
[2021-05-30] MEDS ORDERED: LIDOCAINE 1% LOCAL 20 ML VIAL ONE (12:39)
[2021-05-30] MEDS ORDERED: BUPIVACAINE 0.5 % 5 MG/1 ML MPF 30ML VIAL ONE (12:39)
[2021-05-30] MEDS ORDERED: ceFAZolin 330 MG/ML 1 GM VIAL ONE (13:27)
[2021-05-30] MEDS ORDERED: ceFAZolin 2000MG 2,000 MG/15 ML SYR IV ONE (13:31)
[2021-05-30] MEDS ORDERED: ONDANSETRON INJ 2 MG/ML 2 ML VIAL ONE ×2 (13:42→13:52)
[2021-05-30] MEDS ORDERED: KETOROLAC 30 MG/ML VIAL ONE (13:51)
[2021-05-30] MEDS ORDERED: NEOSTIGMINE METHYLSULFATE 1 MG/ML 10ML VIAL ONE (13:51)
[2021-05-30] MEDS ORDERED: GLYCOPYRROLATE 0.2 MG/ML VIAL ONE (13:51)
[2021-05-30] MEDS ORDERED: MoRPHine SULFATE PF 1 MG/ML 10 ML AMP/VIAL ONE (14:11)
--- NOTE | 2021-05-30 14:13 | Post Operative Brief Note ---
Immediate Post Op Note v1 Date of Surgery May 30, 2021 Pre & Post Diagnosis Operation Date: 05/28/21 08:30 <No data on this case meets the specified criteria> Operation Date: 05/29/21 09:40 Pre-Op Diagnosis: abnormal liver function test Post-Op Diagnosis: abnormal liver function test Operation Date: 05/30/21 13:45 Pre-Op Diagnosis: Choledocholithiasis.acute cholecystitis, Post-Op Diagnosis: Choledocholithiasis.acute cholecystitis I identified the patient and participated in the time-out.: Yes Procedure Operation Date: 05/28/21 08:30 <No data on this case meets the specified criteria> Operation Date: 05/29/21 09:40 Actual Procedures p Endoscopic Ultrasonography Upper(Not Applicable) - Antoine Schultz MD s Endoscopic Retrograde Cholangiopancreatogram(Not Applicable) - Antoine Schultz MD Operation Date: 05/30/21 13:45 Actual Procedures p Laparoscopic Cholecystectomy - Malik Wade MD Surgeon Malik Wade MD Animal Trainer Supervisor TIN Hairston Estimated Blood Loss 0 Findings Consistent with Post-Op Diagnosis acute cholecystitis, significant inflammation on gallbladder wall, Fluids 600ml Specimens gallbladder Drains Hieu-Butts Drain (CELESTINE drainage X 1) Complications none Disposition Accompanied Patient To Recovery: Yes
[2021-05-30] MEDS ORDERED: ATROPINE SULFATE 0.1 MG/ML 10ML SYR IV PRN (14:37)
[2021-05-30] MEDS ORDERED: PROMETHAZINE HCL 6.25 MG in SODIUM CHLORIDE 0.9% 50 ML IV PRN (14:37)
[2021-05-30] MEDS ORDERED: ePHEDrine sulfate 50 MG/ML AMP IV PRN (14:37)
[2021-05-30] MEDS ORDERED: ONDANSETRON INJ 2 MG/ML 2 ML VIAL IV PRN (14:37)
[2021-05-30] MEDS: fentaNYL citrate 100 MCG/2 ML VIAL IV PRN ×4 (14:59→15:24)
--- NOTE | 2021-05-30 15:24 | Anesthesiology Progress Note ---
Date of Service May 30, 2021 Anesthesia Post Procedure Vital Signs Vital Signs: Temp Pulse Pulse Resp BP BP Pulse Ox 05/30/21 15:20 65 19 141/85 H 93 05/30/21 15:10 67 23 135/80 95 05/30/21 15:00 67 18 136/69 95 05/30/21 14:50 66 22 134/78 95 05/30/21 14:40 67 20 130/74 97 05/30/21 14:30 36.5 C 71 8 L 141/75 H 98 05/30/21 12:20 36.8 C 57 L 16 152/88 H 97 05/30/21 11:00 36.7 C 58 L 16 149/86 H 96 05/30/21 08:30 36.3 C L 62 16 144/84 H 98 05/30/21 02:19 36.8 C 58 L 16 124/74 98 05/29/21 22:08 36.8 C 60 16 159/87 H 97 05/29/21 19:04 36.8 C 61 16 133/81 97 05/29/21 16:08 36.3 C L 54 L 16 149/89 H 96 Pain Intensity Abdomen: Pain Intensity: 6 Transfer of Care Handoff Completed per policy Notes Mental Status: alert / awake / arousable and participated in evaluation Patient Amnestic to Procedure: Yes Nausea / Vomiting: adequately controlled Pain: adequately controlled Airway Patency, RR, SpO2: stable & adequate BP & HR: stable & adequate Hydration State: stable & adequate Anesthetic Complications: no major complications apparent and Pt Satisfied with anesthetic care
[2021-05-30] MEDS ORDERED: MINOCYCLINE 100 MG PO PRN (15:50)
[2021-05-30] MEDS ORDERED: NON-FORMULARY MEDICATION (Oxygen Home Liters per Minute) SCH ×2 (15:50)
--- NOTE | 2021-05-30 16:22 | Operative Report (OR) ---
DATE OF PROCEDURE: 05/30/2021. PREOPERATIVE DIAGNOSES: Acute cholecystitis, cholelithiasis. POSTOPERATIVE DIAGNOSES: Acute cholecystitis, cholelithiasis. OPERATION: Laparoscopic cholecystectomy, CELESTINE drainage x1. SURGEON: Malik Wade MD. ELECTRICAL CONTROL ASSEMBLER: Elyse Umana PA-C. ANESTHESIA: General. ESTIMATED BLOOD LOSS: About 30 mL. FINDINGS: Significant inflammation on the gallbladder wall, acute cholecystitis with cholelithiasis. COMPLICATIONS: None. INDICATIONS FOR THE PROCEDURE: This is a 70-year-old gentleman who is admitted to the hospital for acute cholecystitis with cholelithiasis and I recommended to do laparoscopic cholecystectomy, possible open, possible cholangiogram. I did talk to the patient about the benefit, risk, alternate procedure. I indicated the risks may include, but not limited to, such as bleeding, infection, injury to other organs, incisional hernia, myocardial infarction, DVT, stroke, even . The patient understands. He signed informed consent and I answered all questions. DETAILS OF PROCEDURE: After we identified the patient and verified the procedure, we brought the patient to the OR, put the patient in the supine position on the OR table. The patient received SCD on bilateral legs to prevent DVT. Also, patient received 2 grams of Ancef IV for prophylactic antibiotic and the patient received general anesthesia without difficulty. The abdomen was prepped and draped in routine sterile fashion. After timeout, we injected local anesthesia by using 1% lidocaine mixed with 0.5% Marcaine just above the umbilicus, then I made a small incision just above the umbilicus, opened fascia, opened peritoneum. Under direct vision, put a Ivette trocar in, connected to CO2 to create pneumoperitoneum, flow rate at 6 liters per minute, pressure not more than 14 mmHg. Once we got a nice pneumoperitoneum, we put a camera in, looked around the abdomen, it shows normal finding on the liver; however, the gallbladder showed significant inflammation and distention, gallbladder wall thickening, edema, confirming the diagnosis of acute cholecystitis. Once we confirmed the diagnosis, we put two 5 mm trocars in the right upper quadrant area and one 11 trocar in the epigastric area. Once all trocars in, we used a large needle to decompress the gallbladder first. Then, we used the grasper to hold the base of gallbladder, put in the direction to the diaphragm, another grasper to hold the pouch of gallbladder, put a lateral to explore the triangle of Calot. The cystic duct was identified and mobilized. I put two 10 mm metal clips on the proximal cystic duct, one on the distal cystic duct, then used a scissor for transection of cystic duct; rechecked, no bile leak. The cystic artery was identified and mobilized. I put two 10 mm metal clips on the proximal cystic artery, one on the distal cystic artery, then used a scissor for transection of cystic artery; rechecked, no active bleeding. Then, we used a Bovie to take down gallbladder from the liver bed. Then, we rechecked, no active bleeding, no bile leak from liver bed. Then, we removed gallbladder through the catch bag. Then, we reinserted the Ivette trocar in, connected to CO2 to create pneumoperitoneum, again looked around the abdomen. At this moment, on the liver bed, there was some oozing of blood, no active bleeding; however, we decided to use one piece of Surgicel cell on the gallbladder fossa area and no active bleeding again, I decided to put one 10 mm CELESTINE drainage in through the right- sided 5 mm incision. Then, we used 2-0 silk to fix the CELESTINE on the skin and then we removed all trocars under direct vision. No active bleeding from the trocar site. Pneumoperitoneum was released. Then, we closed the umbilical incision fascial layer by using 0 Vicryl [id number] x2, closed subcutaneous layer by using 2-0 Vicryl interruptedly, closed skin by using 4-0 Vicryl continuous running, closed the epigastric incision, the fascial layer by using 0 Vicryl [id number] x2, closed subcutaneous layer by using 2-0 Vicryl interruptedly, closed skin by using 4-0 Vicryl interruptedly, closed another two 5 mm trocar site of skin only by using 4-0 Vicryl. Then, we put the dressing on. The patient tolerated the procedure well. All instrument, needle and sponge counts were correct x2 at the end of the case. The patient was transferred to recovery room in stable condition. After the procedure, I did talk to the patient and the patient's family member about the OR finding and the procedure we did, they understand. I answered all questions. The specimen was sent to pathology. The educational/development assistant, Elyse, was necessary for this procedure. Her role is to hold the camera, retraction and exposure. Job ID: [id number] [facility]
[2021-05-30] MEDS: TAMSULOSIN HCL 0.4 MG CAP PO SCH (20:08)
[2021-05-31] MEDS: PIPERACILLIN/TAZOBACTAM 3.375 GM in DEXTROSE 5% 100 ML IV SCH ×2 (05:37→15:03)
[2021-05-31 06:29] LABS: Basophils # (auto) 0.01 K/uL (0-0.2); Basophils % (auto) 0.2 %; Eosinophils # (auto) 0.05 K/uL (0-0.5); Eosinophils % (auto) 0.8 %; Hematocrit (blood only) 39.9 % (42-52); Hemoglobin 13.7 g/dL (14.0-18.0); Immature Granulocytes # (auto) 0.01 K/uL (0.00-0.02); Immature Granulocytes % (auto) 0.2 %; Lymphocytes # (auto) 1.62 K/uL (1.2-3.4); Lymphocytes % (auto) 25.1 %; Mean Corpuscular Hemoglobin 34.9 pg (25-34); Mean Corpuscular Hgb Conc 34.3 g/dL (32-36); Mean Corpuscular Volume 101.5 fL (80-100); Mean Platelet Volume 10.8 fL (7.4-10.4); Monocytes # (auto) 0.63 K/uL (0.11-0.59); Monocytes % (auto) 9.8 %; Neutrophils # (auto) 4.13 K/uL (1.4-6.5); Neutrophils % (auto) 63.9 %; Platelet Count 207 K/uL (130-400); RDW Coefficient of Variation 12.7 % (11.5-14.5); RDW Standard Deviation 47.5 fL (36.4-46.3); Red Blood Count 3.93 M/uL (4.7-6.1); White Blood Count 6.45 K/uL (4.8-10.8)
[2021-05-31 06:48] LABS: Albumin Globulin Ratio 1.2 (0.9-2); Albumin Level 3.4 gm/dl (3.4-5.0); BUN Creatinine Ratio 6.5 (10-20); Bilirubin,Total 1.5 mg/dl (0.2-1.0); Calcium 8.7 mg/dl (8.5-10.1); Creatinine Clr Calc Pharmacy 87.2 ml/min; Est GFR (Non-African American) 82.8 ml/min; Globulin 2.8 gm/dl (2.5-4.0); Magnesium 1.8 mg/dl (1.7-2.4); Potassium 3.8 mmol/L (3.5-5.1); Total Protein 6.2 gm/dl (6.0-8.3)
--- NOTE | 2021-05-31 07:08 | Discharge Summary ---
Date of Service May 31, 2021 Admission HPI Per Admitting Provider 70 yr old man who was first diagnosed with gallstone in 01/2021 during hospital admission for covid. Prior to that, noticed some bouts of indigestion or heartburn at times after eating. About 1 week ago, had an episode of sharp stabbing right upper quadrant pain. This episode only lasted for short time and then resolved. Around 8:00 last evening after dinner and while having some alcohol, he developed sharp excruciating right upper quadrant pain that went straight through to his back. It felt as though a knife was stabbing him. He vomited 3 times. He felt constipated and bloated. The pain has now subsided. It is a 2-3 out of 10 intensity. He is no longer requiring any further pain medications. He denies any fevers or chills. Denies any jaundice. No change in bowel habits other than some recent constipation. Admission Exam Per Admitting Provider Constitutional: WD/WN, vitals as above Eyes: PERRL, conjunctivae normal, anicteric sclerae ENMT: external ear and nose normal, oropharynx normal Neck: normal visual inspection and trachea midline Respiratory: normal respiratory effort, lungs clear to auscultation Cardiovascular: RRR, no murmur, no edema Gastrointestinal (Abdomen): Inspection/Auscultation: abdomen normal to inspection and normal bowel sounds; abdomen not distended Percussion/Palpation: + abdomen tender (mild in right upper quadrant, no dumont's sign) and abdomen soft; no hepatosplenomegaly Musculoskeletal: Head/Neck/Chest: normocephalic and head atraumatic Neurologic: awake; no focal motor deficits Psychiatric: A+Ox3, euthymic affect Principal Diagnosis Choledocholithiasis Cholecystitis Discharge Exam General: A&Ox3. NAD. Cooperative. HEENT: Atraumatic, normocephalic. Pulm: CTAB A&P. -wheezes, -rales, -rhonchi. Symmetrical chest rise. No increase work of breathing. No respiratory distress. Cardiac: RRR, -mrg. Radial pulses intact and symmetrical. Abdominal: soft, non-distended, mild TTP near surgical incisions, all surgical incisions with overlying dressings c/d/i, NA BS x 4 Skin: warm, dry, no rash Discharge Data Allergies Allergy/AdvReac Type Severity Reaction Status Date / Time sulfamethoxazole AdvReac Mild Redness of Verified 05/29/21 09:52 [From Bactrim] Skin trimethoprim [From Bactrim] AdvReac Mild Redness of Verified 05/29/21 09:52 Skin cholera immunization Allergy Severe Anaphylaxis Uncoded 05/29/21 09:52 Consultations 05/27/21 04:33 ED Decision to Admit Stat 05/27/21 12:30 Consult General Surgery Routine 05/28/21 09:48 Consult Gastroenterology Routine Procedures Performed Operation Date: 05/28/21 08:30 <No data on this case meets the specified criteria> Operation Date: 05/29/21 09:40 Actual Procedures p Endoscopic Ultrasonography Upper(Not Applicable) - Antoine Schultz MD s Endoscopic Retrograde Cholangiopancreatogram(Not Applicable) - Antoine Schultz MD Operation Date: 05/30/21 13:45 Actual Procedures p Laparoscopic Cholecystectomy - Malik Wade MD Ordered Studies 05/27/21 02:39 US gallbladder Urgent 05/27/21 06:37 MR MRCP Routine 05/29/21 FL ERCP biliary ductal Routine 05/29/21 10:37 US upper EUS PACS images Routine Hospital Course (1) Transaminitis: 70 yo M Hx HTN, carotid artery stenosis, GERD, cholelithiasis, Hx heparin- induced thrombocytopenia admitted for RUQ abdominal pain and transaminitis; found to have cholelithiasis and choledocholithiasis. Choledocholithiasis; Cholelithiasis Sudden onset right upper quadrant pain that began while eating/having alcohol, with transaminitis and hyperbilirubinemia. - GI consulted - ERCP performed on 05/29 showing with choledocholithiasis - s/p biliary sphincterotomy and balloon extraction, with pancreatic stent x1 placed - flat plate abdominal XR in 3 weeks to check for migration of stent (would need EGD for removal if no migration) - General surgery consulted - s/p lap jewels on 05/30 - f/u with surgery after discharge, to remove drain - LFTs downtrended throughout hospitalization but still not normalized (on 05/31: Tbili 1.5, ALT 223, AST 137, ALP 158) - Zosyn started on admission - stopped on 05/31 - Tylenol PRN for pain - f/u with PCP in 3-5 days for repeat LFTs to ensure they are continuing to downtrend 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 - No chemoppx while hospitalized HLD Patient on rosuvastatin at home; however, he only takes intermittently because of muscle pains. - held statin due to transaminitis - restart once resolves, per PCP HTN, carotid artery stenosis - Continue home metoprolol tartrate 50 mg BID - Aspirin held while hospitalized - re-start on discharge BPH - Continue tamsulosin nightly (2) RUQ pain: (3) GERD (gastroesophageal reflux disease): (4) Hypertension: Total Time Total Time Spent Total Time Spent (In Minutes): 30 minutes Discharge Plan Discharge Items Patient Disposition: Home - Self-Care Reason For Visit: ABDOMINAL PAIN, TRANSAMINITIS Discharge Diagnosis: Choledocholithiasis Cholecystitis Activity: Per Instructions section Non-emergency contact: Primary Care Provider, Surgeon and Land Mobile Radio Technician Call non-emergency contact if: you have any medication questions, your symptoms worsen and you have a fever Follow-up/Referrals: Noman Dougherty MD [Primary Care Provider] - (f/u in 3-5 days) Venita Domínguez MD [Physician] - (follow up in 1 week) Malik Wade MD [Physician] - (Follow-up in one week for khoa drain removal.) Antoine Schultz MD [Hospitalist] - (follow up in 2-3 weeks) Diet: Regular Addtl Attending Provider Instructions: You were admitted to [facility] from 05/27 - 05/31 for stones in your gallbladder and bile ducts, which is called cholecystitis and choledocholithiasis. We consulted our GI doctor who performed an ERCP (endoscopic procedure) on 05/29 - the stone in your bile duct was removed and a stent was placed in the bile duct to keep it open. We also consulted our surgeon, who removed your gallbladder on 05/30. You were also started on an IV antibiotic called Zosyn throughout your hospitalization. Your stomach pain significantly improved with the above interventions, and your liver numbers improved throughout the hospitalization. You will be discharged on 05/31 in improved, stable condition. We sent ten pain medication pills, called Percocet, which you can use for post-operative pain. You should follow up with your PCP in 3-5 days - at that time you will get repeat blood work to ensure that your liver numbers continue to go down towards normal. You will also follow up with your surgeon after discharge to ensure that your incisions are healing well, and to remove your abdominal drain. Lastly you should follow up with [facility] in 2-3 weeks - you will need to have an abdominal X-ray in 3 weeks; if your bile duct stent is still present, you will be scheduled for another ERCP procedure to have it removed. Please do NOT take your Rosuvastatin until your PCP informs you that it is okay to take again. You should continue taking your other home medications as prescribed. We hope you continue to feel better. It was a pleasure to help provide your care while you were hospitalized. Addtl Gang Pusher Provider Instructions: Post-Surgical ~Discharge Instructions Activity Recommendations: - lifting limitation: (20 pounds for 4 weeks), - exercise/sex/sports limit: (nonstrenuous for 2 weeks), - driving or machine use limit: (none for 1 week or until pain free and no longer taking narcotic pain medication), - Shower/bathe limit: (may shower beginning Saturday) Diet: - Resume previous diet SPECIAL CARE INSTRUCTIONS: - May shower on Saturday, sponge bath and wash hair in meantime. On Saturday, remove outer dressings and shower. Try to keep drain area dry.. Let water run over area and pat dry. - Leave steri strips on for one week and then remove. They may fall off on their own that is okay. - Call the surgeon's office with any questions or concerns - - (ex. temperature higher than 101 degrees F, excessive bleeding or pain). MEDICATIONS: - Resume previous medications unless instructed otherwise by your surgeon. - Tylenol 650 mg every 6 hours as needed for mild to moderate pain. - 600 mg Ibuprofen every 6 hours as needed (take with food) - Oxycodone every 8 hours as needed for moderate to severe pain - Take daily stool softener (Colace, [id number]) while taking narcotic pain medication to prevent constipation or straining. FOLLOW UP VISIT: - If not already scheduled, please call the office to schedule a one week follow-up appointment. Office number Pending Studies at Discharge: No Stand-Alone Forms: My [facility], Smoking Cessation Medications and DC Order Prescriptions: New oxycodone 5 mg tablet 5 mg PO Q8H MDD 20 mg PRN (Reason: pain) Qty: 10 RF: 0 Continued aspirin [Aspirin Low Dose] 81 mg tablet,delayed release (DR/EC) 81 mg PO 3XWK RF: 0 (DME) Oxygen Home Liters Per Minute See Rx Instructions .ROUTE .MEDSUPPLY Qty: 3 RF: 0 Metamucil 3.4 gram/5.4 gram powder 1 tbsp PO DAILY PRN (Reason: Constipation) RF: 0 Men 50 Plus Multivitamin 300-600-300 mcg Tablet 1 tab PO 2XWK RF: 0 albuterol sulfate [Proventil HFA] 90 mcg/actuation HFA aerosol inhaler 2 inh inhalation Q6H PRN (Reason: shortness of breath or wheezing) Qty: 8.5 RF: 0 tamsulosin 0.4 mg Capsule 0.4 mg PO HS Qty: 30 RF: 2 metoprolol tartrate 50 mg Tablet 50 mg PO BID Qty: 60 RF: 2 cyanocobalamin (vitamin B-12) 1,000 mcg capsule 1,000 mcg PO DAILY Qty: 90 RF: 3 (DME) Oxygen Home Liters Per Minute See Rx Instructions .ROUTE .MEDSUPPLY Qty: 1 RF: 0 minocycline 100 mg capsule 100 mg PO BID PRN (Reason: rosaeca) RF: 0 coQ10 (ubiquinol) 200 mg Capsule 400 mg PO DAILY RF: 0 Discontinued rosuvastatin [Crestor] 20 mg tablet 20 mg PO DAILY RF: 0 Discharge Orders: Discharge Order (Routine); Ordered 05/31/21 Ordered By: Liam Nuñez/Other Patient Handouts: Closed Suction Drainage Tube, Hieu Butts Drain Tube Dc, Post Op Drain Emptying Steps Admission Data Admit Date/Time: 05/28/21 15:07 Attending Provider: Oleg Burnham Admit Provider: Luis Gonzales Primary Care Provider: Noman Dougherty Other Providers: Tk Montgomery ; Venita Domínguez ; Antoine Schultz Other Interventions: Discharge Summary Assessment (RN) Last Done: 05/31/21 15:20 Supervising Physician Co-Signing Physician Notes Attending attestation Pt seen and examined in concert with Dr. Luther. In agreement with the documented findings as noted in the resident documentation with any exceptions or additions as noted here. RUQ abdominal pain improved, well controlled on present pain regimen. No nausea, no diarrheal symptoms. On examination, S1/S2 nl RRR no MCG. CTAB. Abd ND, mild TTP over surgical site BS+ve Choledocholithiasis s/p ERCP w/ cholecystitis s/p cholecystectomy - GI and surgical consult - improving LFTs. Pain management to supplement w/ short course of oxycodone. Will need follow up for stent placement as noted HLD - held statin 2/2 transaminitis but would likely recommend restart after recheck CMP outpatient h/o carotid artery stenosis - continued toprol 50mg BID, restarted ASA on discharge Else see resident documentation as noted. Total attending time spent on this patient's care on the day of discharge: 35 minutes. Resident Activity Tracking Resident Involvement: Resident Care Provided Care Provided: Adult Hospital Medicine
[2021-05-31] MEDS ORDERED: SIMETHICONE 80 MG CHEW PO PRN (08:12)
[2021-05-31] MEDS: MULTIVITAMIN TAB PO SCH (08:14)
[2021-05-31] MEDS: CYANOCOBALAMIN (B-12) 500 MCG TABLET PO SCH (08:14)
[2021-05-31] MEDS: ROSUVASTATIN CALCIUM 20 MG TAB PO SCH (08:15)
[2021-05-31] MEDS: METOPROLOL TARTRATE 50 MG TAB PO SCH (08:15)
[2021-05-31] MEDS ORDERED: PANTOprazole 40 MG TAB PO SCH (09:00)
[2021-05-31] MEDS ORDERED: ACETAMINOPHEN 325 MG TAB PO PRN (10:58)
[2021-05-31] MEDS ORDERED: oxyCODONE/ACETAMINOPHEN 5mg/325mg TAB PO PRN (10:58)
--- NOTE | 2021-05-31 16:34 | Surgery Progress Note ---
Date of Service May 31, 2021 Assessment & Plan (1) Abdominal pain, acute, right upper quadrant: (2) Transaminitis: Plan: Postop day #1 status post laparoscopic cholecystectomy with CELESTINE drain placement. Afebrile, vital signs stable Postop pain controlled CELESTINE drain with bloody serosanguineous output No nausea or vomiting, tolerating diet advancement Preoperative pain has resolved Plan: Okay from surgical standpoint for discharge home today We will go home with CELESTINE drain with close follow-up in surgery office next week Discharge instructions reviewed with patient Advised to call surgery office with any questions or concerns Discussed with Dr. Wade who agrees with above. Admission and Anticipated Discharge Date Admission Date: May 28, 2021 Subjective Feeling much better today. Was having right-sided abdominal pain at drain site however Percocet has helped. No nausea no vomiting Tolerated regular diet Some mild belching No chest pain or shortness of breath Physical Exam Constitutional: WD/WN, vitals as above + obese; no acute distress and not ill appearing Neck: normal visual inspection and trachea midline Respiratory: normal respiratory effort; no respiratory distress, no labored breathing and no retractions Gastrointestinal (Abdomen): Inspection/Auscultation: abdomen normal to inspection, + abdominal surgical incision (Covered with dry dressings) and + abdominal surgical drain present (Bloody serosanguineous); abdomen not distended Percussion/Palpation: + abdomen tender (At drain site) and abdomen soft; no guarding and abdomen not rigid Skin: no rashes, warm and dry no jaundice Psychiatric: A+Ox3, euthymic affect Results & Data ([facility]) Vital Signs (Past 12 Hours) Vital Signs Temp Pulse Pulse Pulse Resp BP BP 05/31/21 16:00 36.4 C L 60 18 149/89 H 05/31/21 15:20 36 C L 61 60 61 18 151/88 H 128/77 05/31/21 11:34 36 C L 61 18 151/88 H 05/31/21 07:54 36.5 C 61 18 138/84 Pulse Ox 05/31/21 16:00 97 05/31/21 15:20 95 05/31/21 11:34 95 05/31/21 07:54 97 Laboratory Results 05/31/21 05/31/21 Range/Units 06:04 06:04 WBC 6.45 (4.8-10.8) K/uL RBC 3.93 L (4.7-6.1) M/uL Hgb 13.7 L (14.0-18.0) g/dL Hct 39.9 L (42-52) % MCV 101.5 H (80-100) fL MCH 34.9 H (25-34) pg MCHC 34.3 (32-36) g/dL RDW Std Deviation 47.5 H (36.4-46.3) fL RDW Coeff of Corby 12.7 (11.5-14.5) % Plt Count 207 (130-400) K/uL MPV 10.8 H (7.4-10.4) fL Immature Gran % (Auto) 0.2 % Neut % (Auto) 63.9 % Lymph % (Auto) 25.1 % Garza % (Auto) 9.8 % Eos % (Auto) 0.8 % Baso % (Auto) 0.2 % Neut # (Auto) 4.13 (1.4-6.5) K/uL Lymph # (Auto) 1.62 (1.2-3.4) K/uL Garza # (Auto) 0.63 H (0.11-0.59) K/uL Eos # (Auto) 0.05 (0-0.5) K/uL Baso # (Auto) 0.01 (0-0.2) K/uL Immature Gran # (Auto) 0.01 (0.00-0.02) K/uL Sodium 137 (136-145) mmol/L Potassium 3.8 (3.5-5.1) mmol/L Chloride 105 (98-107) mmol/L Carbon Dioxide 26 (21-32) mmol/L Anion Gap 6 (3-11) BUN 6 (6-23) mg/dl Creatinine 0.92 (0.6-1.4) mg/dl Est Cr Clr Drug Dosing 87.2 ml/min Est GFR ( Amer) 96.0 ml/min Est GFR (Non-Af Amer) 82.8 ml/min BUN/Creatinine Ratio 6.5 L (10-20) Glucose 102 H (70-99(Fasting)) mg/dl Calcium 8.7 (8.5-10.1) mg/dl Magnesium 1.8 (1.7-2.4) mg/dl Total Bilirubin 1.5 H (0.2-1.0) mg/dl AST 137 H (13-39) U/L ALT 223 H (7-52) U/L Alkaline Phosphatase 158 H (34-104) U/L Total Protein 6.2 (6.0-8.3) gm/dl Albumin 3.4 (3.4-5.0) gm/dl Globulin 2.8 (2.5-4.0) gm/dl Albumin/Globulin Ratio 1.2 (0.9-2)
== END 2021-05-31 17:33 | disposition home or self-care (01) | DRG 419 ==
LOC: 3N 02:13 → ED 02:13 → SUATTDRO 04:41 → 3N 07:01 → SUATTDRO 05-28 15:07